=== PATIENT | female | born 1975 | race Caucasian/White ===

== ENCOUNTER 2017-05-14 09:52 | Outpatient (CLI) | payer BC ==
--- NOTE | 2017-05-14 11:40 | RAD ---
KUB: HISTORY: Ureteral calculi. COMPARISON: 05/03/2017 FINDINGS: A single view of the abdomen shows a nonspecific, nonobstructive bowel gas pattern. There is a stab le calcification, measuring 6 to 7 mm in size, along the course of the left ureter. No obvious calc ification is projected over either renal shadow. Phleboliths are seen in the pelvis. IMPRESSION: Stable left ureteral calcification. POS: [facility]
== END 2017-05-14 09:53 | disposition home or self-care (01) ==
LOC: RAD 09:52
PROVIDERS: ATTEND Urology
DX: N20.1 Calculus of ureter (principal); N28.89 Other specified disorders of kidney and ureter
CPT/HCPCS: 74000; 80048; 85027; 85610; 85730; 93005; 93010

== ENCOUNTER 2017-05-14 11:57 | Outpatient (CLI) | payer BC ==
[2017-05-14 13:52] LABS: Hematocrit 42.5 % (36.0-47.0); Mean Platelet Volume 8.2 fL (7.4-10.4); Red Blood Cell (RBC) Count 4.74 mill/uL (4.20-5.40); White Blood Cell (WBC) Count 8.6 thou/uL (4.8-10.8)
[2017-05-14 13:56] LABS: PTT 27.2 SEC (22.9-36.1)
[2017-05-14 14:22] LABS: Anion Gap 14 mmol/L (10-20); BUN (Urea Nitrogen) 14 mg/dL (7.0-18.7); Calc. Creatinine Clearance 0 mL/min (70-130); Calcium 10.3 mg/dL (7.8-10.44); Carbon Dioxide 29 mmol/L (22-29); Chloride 98 mmol/L (98-107); Estimated GFR-MDRD 79
--- NOTE | 2017-05-16 09:05 | EKG ---
Test Reason : PREOP Blood Pressure : / mmHG Vent. Rate : 084 BPM Atrial Rate : 084 BPM P-R Int : 168 ms QRS Dur : 092 ms QT Int : 352 ms P-R-T Axes : 058 080 -22 degrees QTc Int : 415 ms Normal sinus rhythm with sinus arrhythmia T wave abnormality, consider inferior ischemia T wave abnormality, consider anterolateral ischemia Abnormal ECG When compared with ECG of 01-MAY-2017 15:17, (Unconfirmed) T wave inversion now evident in Lateral leads Confirmed by REGINA SHAFFER ([id number]) on 05/16/2017 9:05:06 AM Referred By: XIOMY Confirmed By:REGINA SHAFFER
== END 2017-05-14 11:58 | disposition home or self-care (01) ==
LOC: LABBT 11:57
PROVIDERS: ATTEND Urology
DX: Z01.818 Encounter for other preprocedural examination (principal); N20.1 Calculus of ureter
CPT/HCPCS: 80048; 85027; 85610; 85730; 93005; 93010

== ENCOUNTER 2017-05-15 10:06 | Day surgery (SDC) | payer BC ==
[2017-05-14 12:39] VITALS: BMI 28.4
[2017-05-15] MEDS ORDERED: Levofloxacin 500 mg/D5W 100 ml Premix Bag ONE (10:58)
[2017-05-15] MEDS ORDERED: Iothalamate Meglumine 60% 50 ML VIAL FS ONE (11:43)
[2017-05-15] MEDS ORDERED: Midazolam HCl 2 mg/2 ml Vial ONE ×2 (11:53→13:01)
[2017-05-15] MEDS ORDERED: Fentanyl 100 MCG/2 ML VIAL ONE ×2 (13:01→14:47)
[2017-05-15] MEDS ORDERED: Propofol 200 MG/20 ML VIAL ONE (13:22)
[2017-05-15] MEDS ORDERED: Ondansetron HCl/PF 4 MG/2 ML Vial ONE (13:22)
[2017-05-15] MEDS ORDERED: Lidocaine 1% PF 5 ML VIAL ONE (13:22)
[2017-05-15] MEDS ORDERED: Dexamethasone 20 MG/5 ML VIAL ONE (13:22)
[2017-05-15] MEDS ORDERED: Glycopyrrolate 0.2 MG/ML 5 ML SYRINGE ONE (13:22)
[2017-05-15] MEDS ORDERED: Promethazine HCl 25 MG/ML VIAL ONE (14:44)
--- NOTE | 2017-05-15 14:55 | RAD ---
RETROGRADE PYELOGRAM: History: Left ureteral calculus. FINDINGS: A total of 11 films presented for interpretation. These show a proximal left ureteral calculus. Keke l film shows stent placement. IMPRESSION: Proximal left ureteral calculus with stent placement. On the final images this stent appears to be i n good position. POS: [facility]
[2017-05-15] MEDS ORDERED: Oxybutynin Chloride 5 MG TAB ONE (15:08)
[2017-05-15] MEDS ORDERED: Phenazopyridine HCl 97.5 MG TABLET ONE ×2 (15:09)
--- NOTE | 2017-05-16 00:57 | OP ---
DATE OF OPERATION: 05/15/2017 PREOPERATIVE DIAGNOSES: 1. A 41-year-old female G2, P2 with history of large urethral caruncle, status post circumferential excision with resolution. 2. History of right ureteral calculi, status post ureteroscopy with resolution. 3. Left hydronephrosis due to 6 to 7 mm L4 ureteral stone with non-progression. POSTOPERATIVE DIAGNOSES: 1. A 41-year-old female G2, P2 with history of large urethral caruncle, status post circumferential excision with resolution. 2. History of right ureteral calculi, status post ureteroscopy with resolution. 3. Left hydronephrosis due to 6 to 7 mm L4 ureteral stone with non-progression. PROCEDURES PERFORMED: Cystoscopy, left retrograde pyelogram, balloon dilation of the distal ureter, flexible and rigid ureteroscopy and laser lithotripsy limited, 6 x 24 double-J left ureteral stent placement with distal tail in situ. SURGEON: Cinthya Hitchcock D.O. ANESTHESIA: General. COMPLICATIONS: None apparent. DISPOSITION: To the recovery room in stable condition. INTRAOPERATIVE FINDINGS: 1. Resolution of urethral caruncle, status post excision. 2. High grade obstruction of the left kidney secondary to impacted, embedded left proximal ureteral calculi with mucosal overgrowth. INDICATIONS FOR THE PROCEDURE AND HISTORY: A 41-year-old female G2, P2, who was initially presented for evaluation for urethral caruncle. She subsequently underwent circumferential excision of the urethral caruncle with resolution. She previously presented also with right symptomatic ureteral calculi, which has resolved with laser lithotripsy basket extraction in 10/2016. She presented for history of intermittent left flank pain and found to have a left proximal ureteral calculi, previously seen as lower pole stone with distal migration. The patient was observed for medical expulsion therapy; however, due to non-progression desire to proceed with uteroscopy and laser lithotripsy. Risks and complications including, but not limited to, bleeding, pain, infection, injury to adjacent organs, ureteral bladder injury, stricture formation, possible sepsis reviewed. She was informed regarding alternative options such as ESWL; however, desired more definitive procedure and desired to proceed with uteroscopy and laser lithotripsy. Risks and complications as above discussed with the patient. DESCRIPTION OF THE PROCEDURE: After an informed consent was signed, the patient was taken to the operating room, placed in a dorsal lithotomy position with the genital area prepped and draped in the usual surgical sterile fashion. Preoperative KUB demonstrates again a dense radiopaque stone seen at the level of L4 transverse process 6 to 7 mm in size. The patient underwent general anesthesia. Bilateral TRESA hose, SCDs, and broad-spectrum antibiotics were provided. A 21-Kittitian cystoscope was utilized for cystoscopy. Inspection of the meatus demonstrates resolution of the urethral caruncle. The bladder was grossly unremarkable. The UOs were in normal orthotopic position. A 5- Kittitian open-ended catheter was utilized to perform a retrograde pyelogram, which demonstrated high grade obstruction at the left collecting system due to a proximal ureteral stone. The contrast was difficult to opacify proximal to the stone demonstrating a dilated collecting system. I attempted to a pass a 0.38 sensor wire which would not pass, we subsequently transition to a 0.38 and 0.35 angled Glidewire, which we had difficulty passing. I subsequently then utilized a 1:1 solution of viscous lidocaine and contrast opacifying the ureter for further lubrication. We were able to subsequently negotiate a 0.35 Glidewire into the left upper pole. We subsequently passed an open-ended catheter via the Glidewire, and there was a high grade obstruction and we were able to pass the open-ended catheter; however, there was resistance. We did passed the open-ended catheter atraumatically to the left upper pole and subsequent pyelogram was again repeated and demonstrating proper placement opacifying a hydronephrotic collecting system. Wire was then switched to a 0.35 sensor wire and the open-ended catheter was then removed. We dilated the left distal intramural ureter with a [employer] 4 cm 12-Kittitian balloon. Subsequently, I was able to pass the rigid ureteroscope to the level of the stone. I was able to visualize the stone, there was significant mucosal overgrowth. With the rigid ureteroscope, the angle was suboptimal for me to safely engage the stone with the laser fiber. Therefore, I passed a 0.35 Super Stiff wire under direct visualization via rigid ureteroscope next to the safety wire and able to pass the working wire to the level of left upper pole. With the second wire in place, 11/13 Kittitian x 28 cm navigator was passed; however, this would only pass to the distal ureter, I did not forcibly engage. As it would not pass further than the distal ureter, we left this in situ and pass the flexible ureteroscope to see if we could engage the stone for laser lithotripsy via a flexible ureteroscope. I was able to see the stone and using a 200 micron laser fiber attempted to laser fiber the laser lithotripsy of the stone. Although, the stone was able to be approached in some areas where the stone was able to be visualized without mucosal overgrowth, it was difficult to engage a laser fiber for direct contact due to mucosal overgrowth. As such as it is a suboptimal engagement of the laser fiber to perform lithotripsy given mucosal overgrowth, the procedure was terminated. A 6 x 26 double-J ureteral stent was able to be passed. There was some resistance at the level of the stone; however, able to be passed atraumatically with proper placement. The proximal coil was in the left upper pole with adequate redundancy in the bladder. She tolerated the procedure well and bladder was completely emptied. She will follow up with me this Saturday at 8 a.m. to discuss stage ureteroscopy and laser lithotripsy. Given degree of obstruction, mucosal overgrowth would prefer ureteral stent to remain in situ for minimum 2 weeks for stage uteroscopy and laser lithotripsy. She is to resume her home medication including baby aspirin. She is on Levsin for other medical issues, therefore, antispasmodics for ureteral stent was not provided. [place] 5/325, #50 refill, Azo [id number], Colace p.r.n., ciprofloxacin for course of 5 days was provided. She will return to clinic this Saturday at 8 a.m. to reschedule ureteroscopy stage. ARGELIA
== END 2017-05-15 16:55 | disposition home or self-care (01) ==
LOC: SDC 10:06
PROVIDERS: ATTEND Urology
PROC: 0T778DZ Dilation of Left Ureter with Intraluminal Device, Via Natural or Artificial Opening Endoscopic (ICD-10-PCS; principal; 2017-05-15)
PROC: 0TF78ZZ Fragmentation in Left Ureter, Via Natural or Artificial Opening Endoscopic (ICD-10-PCS; principal; 2017-05-15)
DX: N20.1 Calculus of ureter (principal); F31.9 Bipolar disorder, unspecified; F20.9 Schizophrenia, unspecified; I10 Essential (primary) hypertension; H91.90 Unspecified hearing loss, unspecified ear; K90.0 Celiac disease; E11.9 Type 2 diabetes mellitus without complications; E66.9 Obesity, unspecified; Z68.28 Body mass index [BMI] 28.0-28.9, adult; Z88.8 Allergy status to other drugs, medicaments and biological substances; Z79.84 Long term (current) use of oral hypoglycemic drugs; Z79.82 Long term (current) use of aspirin; Z90.710 Acquired absence of both cervix and uterus; Z90.89 Acquired absence of other organs; Z95.0 Presence of cardiac pacemaker; Z79.899 Other long term (current) drug therapy; Z98.890 Other specified postprocedural states; Z87.442 Personal history of urinary calculi; Z86.73 Personal history of transient ischemic attack (TIA), and cerebral infarction without residual deficits; Z83.3 Family history of diabetes mellitus; Z82.49 Family history of ischemic heart disease and other diseases of the circulatory system; Z87.891 Personal history of nicotine dependence
CPT/HCPCS: 74420; 96374; C1758; C1769; J1100; J1956; J2001; J2250; J2405; J2550; J2704; J3010; Q9961

== ENCOUNTER 2017-05-17 09:04 | Outpatient (CLI) | payer BC ==
[2017-05-17 10:10] LABS: Hematocrit 40.1 % (36.0-47.0); Mean Platelet Volume 7.8 fL (7.4-10.4); Red Blood Cell (RBC) Count 4.43 mill/uL (4.20-5.40); White Blood Cell (WBC) Count 6.9 thou/uL (4.8-10.8)
[2017-05-17 10:19] LABS: PTT 27.1 SEC (22.9-36.1); Prothrombin Time 14.2 SEC (12.0-14.7)
[2017-05-17 10:34] LABS: Anion Gap 13 mmol/L (10-20); BUN (Urea Nitrogen) 9 mg/dL (7.0-18.7); Calc. Creatinine Clearance 0 mL/min (70-130); Carbon Dioxide 31 mmol/L (22-29); Chloride 101 mmol/L (98-107); Estimated GFR-MDRD Greater than 90
[2017-05-17 14:09] LABS: Bilirubin Unable to Interpret (Negative); Blood, Urine Unable to Interpret (Negative); Glucose, Urine (Dipstick) Unable to Interpret mg/dL (Negative); Ketone, Urine Unable to Interpret mg/dL (Negative); Nitrite Unable to Interpret (Negative); Protein, Urine (Dipstick) > or equal to 300 mg/dL (Neg-Trace); Urobilinogen UNABLE TO INTERPRET mg/dL (0.2-1.0)
[2017-05-17 14:13] LABS: Bacteria/HPF 1+ HPF (None Seen); Hyaline Casts/LPF NONE SEEN LPF (0-3 Hyaline); RBC/HPF GREATER THAN 50-TNTC HPF (0-3); Squamous Epithelial 0-3 HPF (0-3); Transitional Epithelial 0-3 HPF (0-3)
== END 2017-05-17 09:05 | disposition home or self-care (01) ==
LOC: LABBT 09:04
PROVIDERS: ATTEND Urology
DX: Z01.812 Encounter for preprocedural laboratory examination (principal); N20.1 Calculus of ureter; N13.30 Unspecified hydronephrosis
CPT/HCPCS: 80048; 81001; 85027; 85610; 85730; 87086

== ENCOUNTER 2017-05-29 06:13 | Day surgery (SDC) | payer BC ==
[2017-05-17 09:35] VITALS: BMI 28.4
[2017-05-29] MEDS ORDERED: Levofloxacin 500 mg/D5W 100 ml Premix Bag ONE (06:53)
[2017-05-29] MEDS ORDERED: cefTRIAXone\\ROCEPHIN 1 GM VIAL ONE (06:53)
[2017-05-29] MEDS ORDERED: Sodium Chloride 0.9% 100 ML ONE (06:54)
[2017-05-29] MEDS ORDERED: Iothalamate Meglumine 60% 50 ML VIAL FS ONE (07:15)
[2017-05-29] MEDS ORDERED: Midazolam HCl 2 mg/2 ml Vial ONE ×2 (08:18→10:29)
--- NOTE | 2017-05-29 09:33 | RAD ---
KUB: INDICATION: Preprocedure examination with a history of ureteral stones. FINDINGS: The 6 mm stone previously seen at the L4 transverse process level is not appreciably changed in posi tion. There is a double J left ureteral stent in place. Phleboliths within the lower left hemipelv is are stable. There is a mild amount of retained stool within the colon. No acute osseous abnorma lity is evident. IMPRESSION: 1. Stable left ureteral stone seen at the L4 transverse process. 2. Left ureteral stone projecting in the expected position. POS: [facility]
[2017-05-29] MEDS ORDERED: Fentanyl 250 MCG/5 ML VIAL ONE (10:29)
[2017-05-29] MEDS ORDERED: Lidocaine 1% PF 5 ML VIAL ONE (10:38)
[2017-05-29] MEDS ORDERED: Propofol 200 MG/20 ML VIAL ONE (10:38)
[2017-05-29] MEDS ORDERED: Glycopyrrolate 0.2 MG/ML 5 ML SYRINGE ONE (10:38)
[2017-05-29] MEDS ORDERED: Phenazopyridine HCl 97.5 MG TABLET ONE (11:43)
[2017-05-29] MEDS ORDERED: Oxybutynin Chloride 5 MG TAB ONE (11:43)
[2017-05-29] MEDS ORDERED: Fentanyl 100 MCG/2 ML VIAL ONE ×2 (11:52→12:11)
[2017-05-29] MEDS ORDERED: Promethazine HCl 25 MG/ML VIAL ONE (12:56)
--- NOTE | 2017-05-29 13:22 | RAD ---
RETROGRADE IVP: Two submitted images from a retrograde IVP. Comparison: KUB, 05-29-17 at 6:54 a.m. FINDINGS: Since the comparison examination there has been interval removal of the left ureteral stent. Previou sly seen left ureteral stone is no longer identified. Final submitted image demonstrates left ureter al stent repositioned in the region of the left renal collecting system. The stent projects in the e xpected position. IMPRESSION: Removal of left ureteral stone and replacement of the left ureteral stent. POS: [facility]
--- NOTE | 2017-05-30 11:54 | OP ---
DATE OF PROCEDURE: 05/29/2017 PREOPERATIVE DIAGNOSES: 1. A 41-year-old female with history of left proximal ureteral stone 7-8 mm at the level of L4 ureter, status post stent. 2. History of left impacted ureteral stone with mucosal overgrowth. POSTOPERATIVE DIAGNOSES: 1. A 41-year-old female with history of left proximal ureteral stone 7-8 mm at the level of L4 ureter, status post stent. 2. History of left impacted ureteral stone with mucosal overgrowth. PROCEDURES PERFORMED: Cystoscopy, left retrograde pyelogram, 6 x 24 double-J ureteral stent exchange with dangler taped to the pubic symphysis, rigid ureteroscopy, laser lithotripsy, basket extraction of stone fragments. ANESTHESIA: General. COMPLICATIONS: None apparent. DISPOSITION: To the recovery room in stable condition. SPECIMEN: Stone for chemical analysis. INDICATIONS FOR THE PROCEDURE AND HISTORY: Ms. Lucinda Leslie is a 41-year-old female, who is well known to me as she had a large urethral caruncle that was excised with resolution. She presented to my office with left flank pain, with microscopic hematuria, prior history of left renal calculi had migrated to the level of L4 ureter. Patient had non-progression of stone on medical expulsion therapy. Therefore, she underwent cystoscopy, retrograde stent placement. Previously, I was able to visualize the stone at the level of L4; however, limited laser lithotripsy was performed as the stone was impacted with mucosal overgrowth. She presents today for staged ureteroscopy, laser lithotripsy. Risks and complications of the procedure was reviewed with her in detail including, but not limited to bleeding, pain, infection, injury to adjacent organs, urosepsis, stricture formation, possible further staged intervention, all questions were answered to her satisfaction, and she desired to proceed. DESCRIPTION OF THE PROCEDURE: After an informed consent was signed, the patient was taken to the operating room, placed in a dorsal lithotomy position with the genital area prepped and draped in the usual surgical sterile fashion. A 21-Indonesian cystoscope was utilized for cystoscopy. Bladder was entered. The previously placed ureteral stent was removed to the level of the meatus and a 0.35 Sensor wire passed to the left upper pole without difficulty. At this time, we passed a rigid ureteroscope under direct visualization. As her ureter is now passively dilated, I was able to easily engage the stone. With the indwelling ureteral stent, there has been significant improvement of the inflammatory component. The stone did appear to be embedded in the mucosal lining; however, we were able to laser it free atraumatically using 365 micron laser fiber at this setting. The stone appeared very dense, however, we were able to successfully laser lithotripsy the stone, and fragments were retrieved atraumatically. At the end of the procedure, she was rendered stone free endoscopically. There was no evidence of ureteral mucosa perforation or trauma. She tolerated the procedure well. The distal ureter was surveyed for stone nidus, which I did not appreciate. A 6 X 26 double-J ureteral stent was then passed over the guidewire. The guidewire was then subsequently removed with proper placement of stent on fluoroscopy and on direct visualization. She will follow up with me next for stent pull on dangler as there is endoscopic clearance. ARGELIA
== END 2017-05-29 14:00 | disposition home or self-care (01) ==
LOC: SDC 06:13
PROVIDERS: ATTEND Urology
PROC: 0TF78ZZ Fragmentation in Left Ureter, Via Natural or Artificial Opening Endoscopic (ICD-10-PCS; principal; 2017-05-29)
DX: N20.1 Calculus of ureter (principal); F31.9 Bipolar disorder, unspecified; F20.9 Schizophrenia, unspecified; F44.81 Dissociative identity disorder; G47.00 Insomnia, unspecified; E66.9 Obesity, unspecified; I10 Essential (primary) hypertension; H91.90 Unspecified hearing loss, unspecified ear; G89.29 Other chronic pain; K90.0 Celiac disease; I69.354 Hemiplegia and hemiparesis following cerebral infarction affecting left non-dominant side; E11.9 Type 2 diabetes mellitus without complications; I31.3 Pericardial effusion (noninflammatory); Z68.28 Body mass index [BMI] 28.0-28.9, adult; Z79.84 Long term (current) use of oral hypoglycemic drugs; Z79.82 Long term (current) use of aspirin; Z79.899 Other long term (current) drug therapy; Z88.8 Allergy status to other drugs, medicaments and biological substances; Z78.0 Asymptomatic menopausal state; Z95.0 Presence of cardiac pacemaker; Z90.89 Acquired absence of other organs; Z90.710 Acquired absence of both cervix and uterus; Z90.722 Acquired absence of ovaries, bilateral; Z90.79 Acquired absence of other genital organ(s); Z98.890 Other specified postprocedural states; Z87.01 Personal history of pneumonia (recurrent); Z86.718 Personal history of other venous thrombosis and embolism; Z87.891 Personal history of nicotine dependence; Z83.3 Family history of diabetes mellitus; Z82.49 Family history of ischemic heart disease and other diseases of the circulatory system
CPT/HCPCS: 36416; 74000; 74420; 82365; 88300; 96374; C1758; C1769; J0696; J1956; J2001; J2250; J2270; J2550; J2704; J3010; J7050; Q9961

== ENCOUNTER 2017-08-27 13:41 | Inpatient (IN) | payer BC ==
[2017-08-27 14:33] LABS: Bilirubin Small (Negative); Blood, Urine Negative (Negative); Clarity CLEAR (Clear); Glucose, Urine (Dipstick) Negative (Negative); Leukocyte Trace (Negative); Nitrite Negative (Negative); Protein, Urine (Dipstick) Trace mg/dL (Neg-Trace); Specific Gravity, Urine 1.025 (1.002-1.036)
[2017-08-27 14:57] LABS: Bacteria/HPF Rare-Few HPF (None Seen); Hyaline Casts/LPF 0-3 HYALINE CAST LPF (0-3 Hyaline); Pathc Cast-AUWi Flag 0.27 (0-2.49); Squamous Epithelial 0-3 HPF (0-3)
[2017-08-27 15:39] LABS: #Basophils 0.1 thou/uL (0.0-0.2); #Eosinphils 0.1 thou/uL (0.0-0.7); #Lymphocytes 2.5 thou/uL (1.20-3.40); #Monocytes 0.4 thou/uL (0.11-0.59); %Eosinophils 1.8 % (0.0-10.0); %Lymphocytes 30.9 % (21.0-51.0); %Monocytes 5.4 % (0.0-10.0); %Neutrophils 60.9 % (42.0-75.0); Hemoglobin 13.3 g/dL (12.0-16.0); Mean Corpuscular HGB CONC 32.9 g/dL (32.0-36.0); Mean Corpuscular Hemoglobin 29.8 pg (27.0-31.0); Mean Corpuscular Volume 90.5 fl (81.0-99.0); Mean Platelet Volume 7.1 fL (7.4-10.4); Platelet Count 312 thou/uL (130-400); RBC Distribution Width 11.4 % (11.5-14.5); Red Blood Cell (RBC) Count 4.46 mill/uL (4.20-5.40); White Blood Cell (WBC) Count 8.2 thou/uL (4.8-10.8)
[2017-08-27 16:01] LABS: ALT (SGPT) 12 U/L (8-55); AST (SGOT) 16 U/L (5-34); Albumin 4.5 g/dL (3.5-5.0); Alkaline Phosphatase 80 U/L (40-150); Anion Gap 14 mmol/L (10-20); BUN (Urea Nitrogen) 11 mg/dL (7.0-18.7); Bilirubin, Total 0.2 mg/dL (0.2-1.2); Calc. Creatinine Clearance 0 mL/min (70-130); Calcium 10.3 mg/dL (7.8-10.44); Carbon Dioxide 28 mmol/L (22-29); Chloride 99 mmol/L (98-107); Estimated GFR-MDRD Greater than 90; Globulin 2.8 g/dL (2.4-3.5); Glucose 128 mg/dL (70-105); Lipase 33 U/L (8-78); Potassium 3.7 mmol/L (3.5-5.1); Protein, Total 7.3 g/dL (6.0-8.3); Sodium 137 mmol/L (136-145)
[2017-08-27 17:52] LABS: CKMB 0.8 ng/mL (0-6.6); Troponin I Less than 0.010 ng/mL (< 0.028)
[2017-08-27] MEDS ORDERED: Ondansetron HCl/PF 4 MG/2 ML Vial ONE (19:44)
[2017-08-27] MEDS ORDERED: Morphine 4 MG/ML VIAL ONE (19:44)
--- NOTE | 2017-08-27 20:21 | ULT ---
RIGHT UPPER QUADRANT ULTRASOUND 08/27/17 HISTORY: Right upper quadrant pain. FINDINGS: The liver demonstrates increased echogenicity consistent with fatty infiltration. No focal mass or in trahepatic ductal dilatation is seen. Multiple mobile shadowing gallstones are present without gallbl adder wall thickening or pericholecystic fluid. The common duct measures 5 mm in diameter. The pancre as is not well visualized. The right kidney is unremarkable. No free fluid is seen in Araya's pouc h. The before school babysitter reports a sonographically positive Araujo's sign. IMPRESSION: 1. Fatty liver. 2. Cholelithiasis. 3. Television Servicer reports a sonographically positive Araujo's sign. If there is high clinical suspi cion for acute cholecystitis, further evaluation with HIDA scan should be performed. POS: [facility]
[2017-08-27] MEDS ORDERED: Piperacillin/Tazobactam 4.5 GM in Sodium Chloride 0.9% 100 ML IVPB ONE (21:00)
[2017-08-28] MEDS ORDERED: Ondansetron HCl/PF 4 MG/2 ML Vial ONE ×3 (01:06→13:05)
[2017-08-28] MEDS ORDERED: Morphine 4 MG/ML VIAL ONE ×2 (01:11→12:03)
[2017-08-28] MEDS ORDERED: Sodium Chloride 0.9% 1,000 ML IV SCH (03:45)
[2017-08-28] MEDS ORDERED: Morphine 10 MG/ML CARPUJECT SLOW IVP PRN (03:45)
[2017-08-28] MEDS ORDERED: Ondansetron HCl/PF 4 MG/2 ML Vial IVP PRN (03:49)
[2017-08-28] MEDS ORDERED: Ondansetron ODT 4 MG TAB SL PRN (03:49)
[2017-08-28] MEDS ORDERED: Piperacillin/Tazobactam 4.5 GM in Sodium Chloride 0.9% 100 ML IVPB SCH ×2 (04:00→05:00)
--- NOTE | 2017-08-28 08:11 | HP ---
HISTORY OF PRESENT ILLNESS: Lucinda Leslie is a 41-year-old female with a one week history of ri ght upper quadrant pain, flank radiation, nausea and vomiting. She lives in [place]. She is marrie d. She is disabled from multiple medical problems. She was evaluated in the emergency room and note d to have ultrasound demonstrated multiple gallstones, normal bile duct caliber with a positive sonog raphic Araujo's sign. Liver function tests are normal. White count is 8, hemoglobin 13. Ultrasound demonstrated her bile duct 5 mm. The patient has had over the past years multiple CAT scans, ultras ounds and demonstrated fatty liver without gallstones, on one occasion ultrasound did not visualize t he gallbladder. The patient has sick sinus syndrome, has a pacemaker. She is followed by Dr. Nguyễn Marshall. Echo ardiogram 03/30/2016 reveals normal LV ejection fraction, mild mitral regurgitation and tricuspid reg urgitation. Cardiac catheterization 03/22/2015, Dr. Marshall, normal coronary arteries, normal LV fu nction. ALLERGIES: AMBIEN. ALCOHOL: None. TOBACCO: None. MEDICATIONS: Protonix 40 mg a day, gabapentin 300 mg 3 times a day, levothyroxine 25 mcg a day, Regl an 10 mg t.i.d., trazodone 50 mg at bedtime, venlafaxine 150 mg a day, aspirin 81 mg a day, carbamaze pine 400 mg twice a day, baclofen 10 mg t.i.d. as needed, Cosamine as needed, Phenergan as needed, la motrigine 25 mg twice a day, Trulicity 1.5 mg per 0.5 mL subcutaneous dose daily, metformin 1000 mg b .i.d., clonidine 0.1 mg as needed, simvastatin 40 mg at bedtime, lisinopril/hydrochlorothiazide 20/12 .5 daily, diclofenac 50 mg 3 times a day as needed, carvedilol 3.125 mg b.i.d. PAST MEDICAL HISTORY: Diabetes mellitus, non-insulin dependent, hypertension, elevated cholesterol, hypothyroidism, history of DVT right leg in 2013 and questionable PEs, history of stroke with right l eg weakness occurring at the time of her DVT in 2013, Cano's palsy with residual weakness, sick sinus syndrome with a pacemaker [place] [address] Marshall, normal cardiac catheterization as no monique above, normal echocardiograms as noted above, fibromyalgia. PAST SURGICAL HISTORY: Pacemaker 2014, history of tonsillectomy, history of urolithiasis 2017. Thr ee kidney stones removed. Urethral cyst removed in 2016, history of colonoscopy with polypectomy wit h premalignant changes followed Dr. Asif Torres. REVIEW OF SYSTEMS: Ten point noncontributory. PHYSICAL EXAMINATION: VITAL SIGNS: 179/100, 92, 16, 98.4 degrees, 78 kilograms. HEENT: Unremarkable. Sclerae nonicteric. Skin, nonjaundiced. Neck, axillae or groins without lymp hadenopathy, mild asymmetry of the face consistent with history of Cano's palsy. Pupils equally roun d and reactive to light. Neurologically intact. LUNGS: Clear to auscultation, no wheezing. CARDIAC: Regular rate and rhythm. Pacemaker left chest. ABDOMEN: Soft, positive Araujo's sign, tenderness in right upper quadrant. EXTREMITIES: Unremarkable. ASSESSMENT AND PLAN: Acute cholecystitis and cholelithiasis. Recommend laparoscopic video cholecyst ectomy. Risks of infection, bleeding, visceral and biliary injury and open procedure discussed. Mega wall answered. She understands the risks and benefits of the procedure and consents. Other medica l problems as noted above.
[2017-08-28] MEDS ORDERED: Ketorolac Tromethamine 30 MG/ML VIAL ONE (08:43)
[2017-08-28] MEDS ORDERED: Midazolam HCl 2 mg/2 ml Vial ONE ×3 (08:44→12:31)
[2017-08-28] MEDS ORDERED: Scopolamine 1.5 mg/72 hour Patch ONE (08:44)
[2017-08-28] MEDS ORDERED: Bupivacaine/Epinephrine 0.25% 30 ML VIAL ONE (12:28)
[2017-08-28] MEDS ORDERED: Fentanyl 100 MCG/2 ML VIAL ONE ×2 (12:31→14:14)
[2017-08-28] MEDS ORDERED: Promethazine HCl 25 MG/ML VIAL ONE ×2 (12:52→14:27)
[2017-08-28] MEDS ORDERED: Propofol 200 MG/20 ML VIAL ONE (13:05)
[2017-08-28] MEDS ORDERED: Glycopyrrolate 0.2 MG/ML 5 ML SYRINGE ONE (13:05)
[2017-08-28] MEDS ORDERED: Lidocaine 1% PF 5 ML VIAL ONE (13:05)
[2017-08-28] MEDS ORDERED: Metoprolol Tartrate 5 MG/5 ML VIAL ONE (13:05)
[2017-08-28] MEDS ORDERED: hydrALAZINE 20 MG/ML VIAL ONE (13:50)
--- NOTE | 2017-08-28 14:39 | OP ---
DATE OF PROCEDURE: 08/28/2017 PREOPERATIVE DIAGNOSES: Cholecystitis, cholelithiasis. POSTOPERATIVE DIAGNOSES: Cholecystitis, cholelithiasis. PROCEDURE: Laparoscopic video cholecystectomy. SURGEON: Dr. Art Vogel. ANESTHESIA: General. Local 0.25% Marcaine with epinephrine, 30 mL. FINDINGS: Multiple small stones, normal-appearing liver, grossly normal abdominal cavity. PROCEDURE IN DETAIL: Patient was taken to the operating room, where under general anesthesia, abdome n was prepared with chloraprep, draped in routine fashion. Local anesthetic infiltrated into skin an d subcutaneous tissue about each port site. Infraumbilical incision made and pneumoperitoneum to 15 mmHg obtained with the Veress needle, replacing it with a 5 port. Video laparoscope inserted. Remai nder of the ports placed under laparoscopic visualization. A subxiphoid incision was made at the old pericardial window scar and 11 mm port placed under laparoscopic visualization and right subcostal i ncision made mid clavicular anterior axillary lines and 5 ports placed. Fundus of gallbladder graspe d at the cephalad. Gallbladder was difficult to grasp as it was tense and distended. Infundibulum g rasped and reflected laterally. Cystic artery and duct dissected free. Critical view obtained with pericholecystic dissection, two-thirds cystic plate, cystic artery and doubly clipped, divided, and g allbladder dissected free from the liver bed obtaining good hemostasis prior to division of final per itoneal attachments. Gallbladder and contents removed and submitted to pathology. Good hemostasis o btained with cautery. Irrigant and pneumoperitoneum evacuated. All instruments removed, and all ski n incisions approximated with interrupted subdermal suture of 4-0 Monocryl. Patient tolerated the pr ocedure well.
[2017-08-28] MEDS ORDERED: HYDROcodone/Acetaminophen 5/325 mg Tablet ONE (16:12)
== END 2017-08-28 17:02 | disposition home or self-care (01) | DRG 419 ==
LOC: ERS 13:41 → ERHOLD 20:40 → SURG A 08-28 06:33
PROVIDERS: ADMIT Specialist; ATTEND Specialist
PROC: 0FT44ZZ Resection of Gallbladder, Percutaneous Endoscopic Approach (ICD-10-PCS; principal; 2017-08-28)
DX: K80.00 Calculus of gallbladder with acute cholecystitis without obstruction (principal); E03.9 Hypothyroidism, unspecified; Z95.0 Presence of cardiac pacemaker; E11.9 Type 2 diabetes mellitus without complications; I10 Essential (primary) hypertension; E78.5 Hyperlipidemia, unspecified; Z86.718 Personal history of other venous thrombosis and embolism; I69.341 Monoplegia of lower limb following cerebral infarction affecting right dominant side; M79.7 Fibromyalgia; Z86.711 Personal history of pulmonary embolism
CPT/HCPCS: 36415; 36416; 76705; 80053; 81003; 81015; 82150; 82553; 83690; 84484; 85025; 88304; 93005; 96374; J0131; J0360; J1885; J2001; J2250; J2270; J2405; J2543; J2550; J2704; J3010; J7050

== ENCOUNTER 2017-10-10 09:26 | Outpatient (CLI) | payer BC ==
[2017-10-10 10:37] LABS: Bilirubin Negative (Negative); Blood, Urine Negative (Negative); Clarity CLOUDY (Clear); Glucose, Urine (Dipstick) Negative (Negative); Leukocyte Small (Negative); Nitrite Negative (Negative); Protein, Urine (Dipstick) 30 mg/dL (Neg-Trace); Specific Gravity, Urine 1.025 (1.002-1.036); pH, Urine 7.5 (5.0-9.0)
[2017-10-10 10:41] LABS: Bacteria/HPF Rare-Few HPF (None Seen); Hyaline Casts/LPF 4-6 HYALINE CAST LPF (0-3 Hyaline); Pathc Cast-AUWi Flag 0.67 (0-2.49)
--- NOTE | 2017-10-10 10:41 | RAD ---
KUB: INDICATION: Renal calculi. COMPARISON: Prior study dated . FINDINGS: Previously seen left ureteral stent has been removed. Small phleboliths within the lower left hemipe lvis are stable. Small nonobstructing calculus involving the superior pole of the right kidney is no t well seen on the current examination due to overlying bowel gas. No suspicious calcification is ev ident. No suspicious calcification is seen along the expected course of the renal collecting systems . No acute osseous abnormality is evident. Surgical clips are present within the right upper quadra nt of the abdomen likely related to an interval cholecystectomy. IMPRESSION: 1. Interval removal of left-sided ureteral stent. No suspicious calcifications is seen along the co urse of the renal collecting system. 2. Small calcification overlying the superior pole of the right kidney on the prior examination is n ot well seen due to an overlying loop of gas-filled bowel. 3. Suspected interval cholecystectomy. POS: [facility]
[2017-10-10 10:48] LABS: Anion Gap 10 mmol/L (10-20); BUN (Urea Nitrogen) 9 mg/dL (7.0-18.7); Calc. Creatinine Clearance 0 mL/min (70-130); Calcium 9.7 mg/dL (7.8-10.44); Carbon Dioxide 31 mmol/L (22-29); Chloride 101 mmol/L (98-107); Estimated GFR-MDRD Greater than 90; Glucose 84 mg/dL (70-105); Potassium 4.2 mmol/L (3.5-5.1); Sodium 138 mmol/L (136-145); Uric Acid 2.9 mg/dL (2.6-6.0)
[2017-10-10 11:01] LABS: Crystals/HPF 1+ AMORPH PHOS HPF (Negative); RBC/HPF 0-3 HPF (0-3)
--- NOTE | 2017-10-10 12:05 | ULT ---
RENAL ULTRASOUND: HISTORY: Proteinuria. FINDINGS: Real-time images of the right and left kidneys were performed. The right kidney measures 10.5 and th e left kidney 10.3 cm in size. No signs of cyst, mass, or obstruction. Suggestion of some slight in creased echogenicity to the cortex of both kidneys which are otherwise normal in appearance. Bladder is incompletely distended but appears unremarkable. IMPRESSION: Essentially unremarkable renal ultrasound. There is perhaps some minimal increased echogenicity to t he cortex of both kidneys suggesting the possibility of some underlying medial renal parenchymal dise ase. POS: [facility]
== END 2017-10-10 09:27 | disposition home or self-care (01) ==
LOC: ULT 09:26
PROVIDERS: ATTEND Urology
DX: N20.1 Calculus of ureter (principal); N28.89 Other specified disorders of kidney and ureter; Z87.442 Personal history of urinary calculi
CPT/HCPCS: 36415; 74018; 76770; 80048; 81001; 83970; 84550; 87086

== ENCOUNTER 2017-11-14 14:42 | Outpatient (CLI) | payer BC ==
--- NOTE | 2017-11-14 15:50 | RAD ---
FRONTAL AND LATERAL IMAGING OF THE CHEST: Date: 11-14-17 Comparison: 03-28-16 History: Chest pain. FINDINGS: Dual-lead transvenous pacemaking device present, stable. No pneumothorax, pleural fluid, focal consol idation or alveolar edema. Clips in the right upper quadrant suggest prior cholecystectomy. Mild mid thoracic spine degenerative change. IMPRESSION: No acute findings. POS: [facility]
== END 2017-11-14 14:43 | disposition home or self-care (01) ==
LOC: RAD-FRANK 14:42
PROVIDERS: ATTEND Nurse Practitioner Family
DX: R07.9 Chest pain, unspecified (principal)
CPT/HCPCS: 71046

== ENCOUNTER 2017-12-02 14:23 | Outpatient (CLI) | payer BC | END 2017-12-02 14:24 | disposition home or self-care (01) | LOC: BICCT 14:23 | PROVIDERS: ATTEND Urology | DX: N20.0 Calculus of kidney (principal); R10.9 Unspecified abdominal pain; Z87.442 Personal history of urinary calculi | CPT/HCPCS: 74176 ==

== ENCOUNTER 2017-12-16 10:41 | Outpatient (CLI) | payer BC ==
[2017-12-16] MEDS ORDERED: Sodium Chloride 0.9% 10 ML ONE (11:59)
[2017-12-16] MEDS ORDERED: diphenhydrAMINE 50 MG/ML VIAL ONE (11:59)
--- NOTE | 2017-12-16 13:07 | RAD ---
IVP: HISTORY: Calculus of kidney. FINDINGS: The education technician film demonstrates no evidence of suspicious calcifications. There are postop changes of ch olecystectomy. There is symmetric enhancement of the kidneys post contrast administration. Kidneys appear normal in size, shape, position, and augmentation. There is normal contrast excretion into the pelvicalyceal systems and the ureters and urinary bladder. No hydroureteral nephrosis is seen on either side. A s mall amount of post void residual is seen in the urinary bladder. IMPRESSION: No evidence of high-grade obstruction. POS: [facility]
[2017-12-16] MEDS ORDERED: Iopamidol 300 61% 100 ML VIAL FS ONE (17:54)
== END 2017-12-16 10:42 | disposition home or self-care (01) ==
LOC: RAD 10:41
PROVIDERS: ATTEND Urology
DX: N20.0 Calculus of kidney (principal); R10.31 Right lower quadrant pain
CPT/HCPCS: 74410; J1200

== ENCOUNTER → 2017-12-17 | Day surgery (SDC) | payer BC ==
[~2017-12-17] MED LIST: Gadobenate Dimeglumine 529 MG/1 ML (20ML VIAL) ONE
--- NOTE | 2017-12-17 18:04 | MRI ---
BRAIN MRI WITH AND WITHOUT CONTRAST 12/17/17 COMPARISON: None. HISTORY: Left sided facial pain, left sided ear pain, left facial paresthesia. TECHNIQUE: Multiplanar and multisequence MR imaging of the brain is provided with and without contrast using a c ranial nerve protocol. FINDINGS: The diffusion weighted imaging demonstrates no evidence for acute infarction. Arterial flow voids at the axial level of the skull base appear unremarkable on the T2 weighted imagi ng. The regional bone marrow signal intensity is grossly unremarkable. There are a few subcentimeter foci of increased FLAIR signal in the subcortical white matter of the l eft frontal lobe, of doubtful clinical significance. No midline shift, mass effect or ventricular enl argement is seen. Thin sectioning imaging demonstrates no mass or abnormal signal intensity in the region of the cerebe llopontine angle, internal auditory canal, cochlea, vestibule, or semicircular canals on either side. There is no area of signal abnormality/abnormal enhancement associated with or along the course of t he fifth cranial nerve on either side. Postcontrast imaging demonstrates an incidentally noted develo pmental venous anomaly in the right cerebellar hemisphere. No abnormal enhancement is seen on postcon trast imaging within the brain parenchyma. IMPRESSION: No acute findings. POS: [facility]
== END ==
LOC: MRI 14:46 → EDSTATUS 15:30
PROVIDERS: ATTEND Family Medicine
DX: R51 Headache (principal); I49.5 Sick sinus syndrome; E11.9 Type 2 diabetes mellitus without complications; I10 Essential (primary) hypertension; E03.9 Hypothyroidism, unspecified; I69.341 Monoplegia of lower limb following cerebral infarction affecting right dominant side; G51.0 Bell's palsy; M79.7 Fibromyalgia; Z79.84 Long term (current) use of oral hypoglycemic drugs; Z79.82 Long term (current) use of aspirin; Z79.899 Other long term (current) drug therapy; Z88.8 Allergy status to other drugs, medicaments and biological substances; Z91.041 Radiographic dye allergy status
CPT/HCPCS: 70553; A9579

== ENCOUNTER 2017-12-26 09:38 | Outpatient (CLI) | payer BC | END 2017-12-26 09:39 | disposition home or self-care (01) | LOC: BICRAD 09:38 | PROVIDERS: ATTEND Family Medicine | DX: R10.12 Left upper quadrant pain (principal); Z90.49 Acquired absence of other specified parts of digestive tract | CPT/HCPCS: 74022 ==

== ENCOUNTER 2018-02-24 07:00 | Emergency (ER) | payer BC, MEDICARE ==
[2018-02-24 07:36] LABS: #Basophils 0.1 thou/uL (0.0-0.2); #Eosinphils 0.2 thou/uL (0.0-0.7); #Lymphocytes 1.8 thou/uL (1.20-3.40); #Monocytes 0.5 thou/uL (0.11-0.59); #Neutrophils 3.3 thou/uL (1.40-6.50); %Basophils 1.4 % (0.0-1.0); %Monocytes 7.8 % (0.0-10.0); %Neutrophils 56.9 % (42.0-75.0); Hemoglobin 12.2 g/dL (12.0-16.0); Mean Corpuscular HGB CONC 32.2 g/dL (32.0-36.0); Mean Corpuscular Hemoglobin 27.6 pg (27.0-31.0); Mean Corpuscular Volume 85.7 fL (78.0-98.0); Mean Platelet Volume 7.8 fL (7.4-10.4); Platelet Count 231 thou/uL (130-400); RBC Distribution Width 12.7 % (11.5-14.5); Red Blood Cell (RBC) Count 4.43 mill/uL (4.20-5.40); White Blood Cell (WBC) Count 5.9 thou/uL (4.8-10.8)
[2018-02-24 07:46] LABS: ALT (SGPT) 17 U/L (8-55); AST (SGOT) 18 U/L (5-34); Albumin 4.2 g/dL (3.5-5.0); Alkaline Phosphatase 108 U/L (40-150); Anion Gap 12 mmol/L (10-20); BUN (Urea Nitrogen) 10 mg/dL (7.0-18.7); Bilirubin, Total Less than 0.2 mg/dL (0.2-1.2); CK (CPK) 78 U/L (29-168); Calc. Creatinine Clearance 0 mL/min (70-130); Calcium 9.9 mg/dL (7.8-10.44); Carbon Dioxide 27 mmol/L (22-29); Chloride 104 mmol/L (98-107); Estimated GFR-MDRD Greater than 90; Globulin 2.4 g/dL (2.4-3.5); Glucose 79 mg/dL (70-105); Lipase 114 U/L (8-78); Potassium 4.8 mmol/L (3.5-5.1); Protein, Total 6.6 g/dL (6.0-8.3); Sodium 138 mmol/L (136-145)
[2018-02-24 07:50] LABS: CKMB 0.7 ng/mL (0-6.6); Troponin I Less than 0.010 ng/mL (< 0.028)
[2018-02-24] MEDS ORDERED: Promethazine HCl 25 MG/ML VIAL ONE (07:55)
--- NOTE | 2018-02-24 08:30 | RAD ---
UPRIGHT PORTABLE CHEST ONE VIEW: HISTORY: A 42-year-old female with a history of chest pain and epigastric pain for one month with pain radiati ng into her chest and down her right arm. FINDINGS: Heart size is normal. Lungs are clear. Left ICD. Monitor leads overly the chest. IMPRESSION: Left implantable cardioverter defibrillator. No acute intrathoracic disease. Stable from prior stud y. POS: [facility]
[2018-02-24] MEDS ORDERED: Mag-Al 1200 mg/1200 mg/30 ML UDCUP ONE (09:25)
[2018-02-24] MEDS ORDERED: Lidocaine Viscous Sol 2% 15 ml UD Cup ONE (09:25)
[2018-02-24] MEDS ORDERED: Pantoprazole 40 MG VIAL ONE (09:25)
--- NOTE | 2018-02-24 09:36 | RAD ---
UPRIGHT AND SUPINE AP VIEWS OF ABDOMEN: Date: 02/24/18 INDICATION: Episodic epigastric pain for 1 month, radiation into chest and down into right arm since 0350 hours t his morning. COMPARISON: CT abdomen and pelvis dated 10/26/16 and KUB dated 10/10/17. FINDINGS: No pneumoperitoneum is evident. Lung bases are clear. There is partial visualization of a pacemaker l ead overlying the right aspect of the heart base. Cholecystectomy clips are present within the right upper quadrant of the abdomen. No suspicious calcifications are evident. There are small phleboliths within the lower left hemipelvis. Bowel gas pattern is nonspecific, but without overt evidence of obs truction. Gas is present within the rectal vault with associated stool. There is mild levoscoliosis o f the lumbar spine which is stable. IMPRESSION: 1. No suspicious abnormality demonstrated. 2. Cholecystectomy. 3. No suspicious calcifications evident along the expected course of the renal collecting systems. POS: [facility]
--- NOTE | 2018-02-24 10:25 | ULT ---
RIGHT UPPER QUADRANT ULTRASOUND: Date: 02/24/18 HISTORY: Right upper quadrant pain. Patient had cholecystectomy in August 2017. FINDINGS: The liver demonstrates homogeneous echotexture without focal mass or intrahepatic ductal dilatation. The patient is post cholecystectomy. The common duct measures 3.0 mm in diameter. The pancreas is not well visualized due to overlying bowel gas. The right kidney is normal. No free fluid seen in Moriso n's pouch. IMPRESSION: Status post cholecystectomy without abnormal biliary ductal dilatation. POS: C
== END 2018-02-24 11:12 | disposition home or self-care (01) ==
LOC: ERS 07:00
DX: K29.70 Gastritis, unspecified, without bleeding (principal); E03.9 Hypothyroidism, unspecified; E11.43 Type 2 diabetes mellitus with diabetic autonomic (poly)neuropathy; K31.84 Gastroparesis; I10 Essential (primary) hypertension; I25.2 Old myocardial infarction; F31.9 Bipolar disorder, unspecified; F41.9 Anxiety disorder, unspecified; G51.0 Bell's palsy; Z87.442 Personal history of urinary calculi; Z86.73 Personal history of transient ischemic attack (TIA), and cerebral infarction without residual deficits; Z79.82 Long term (current) use of aspirin; Z79.84 Long term (current) use of oral hypoglycemic drugs; Z79.899 Other long term (current) drug therapy
CPT/HCPCS: 36415; 71045; 74019; 76705; 80053; 82553; 83690; 84484; 85025; 93005; 94760; 96365; 96375; C9113; J2550

== ENCOUNTER 2018-05-09 16:03 | Emergency (ER) | payer BC, MEDICARE ==
[2018-05-09 17:16] LABS: Bilirubin Small (Negative); Blood, Urine Negative (Negative); Clarity CLEAR (Clear); Glucose, Urine (Dipstick) Negative (Negative); Leukocyte Negative (Negative); Nitrite Negative (Negative); Protein, Urine (Dipstick) Trace mg/dL (Neg-Trace); Urobilinogen 0.2 mg/dL (0.2-1.0); pH, Urine 6.5 (5.0-9.0)
[2018-05-09 17:18] LABS: Pregnancy Test - Urine (BHCG) Negative (Negative); Pregu Control Background? CLEAR/WHITE (CLR/WHITE); Pregu Control Bar Appear? YES (CONTROL BAR)
[2018-05-09 18:26] LABS: #Basophils 0.1 thou/uL (0.0-0.2); #Eosinphils 0.1 thou/uL (0.0-0.7); #Lymphocytes 2.2 thou/uL (1.20-3.40); #Monocytes 0.4 thou/uL (0.11-0.59); #Neutrophils 3.9 thou/uL (1.40-6.50); %Basophils 1.4 % (0.0-1.0); %Eosinophils 1.9 % (0.0-10.0); %Lymphocytes 32.7 % (21.0-51.0); %Monocytes 6.3 % (0.0-10.0); %Neutrophils 57.7 % (42.0-75.0); Hemoglobin 13.8 g/dL (12.0-16.0); Mean Corpuscular HGB CONC 31.8 g/dL (32.0-36.0); Mean Corpuscular Volume 84.9 fL (78.0-98.0); Platelet Count 337 thou/uL (130-400); RBC Distribution Width 12.4 % (11.5-14.5); Red Blood Cell (RBC) Count 5.13 mill/uL (4.20-5.40); White Blood Cell (WBC) Count 6.8 thou/uL (4.8-10.8)
[2018-05-09 18:43] LABS: ALT (SGPT) 12 U/L (8-55); AST (SGOT) 21 U/L (5-34); Albumin 4.7 g/dL (3.5-5.0); Alkaline Phosphatase 113 U/L (40-150); Anion Gap 13 mmol/L (10-20); BUN (Urea Nitrogen) 9 mg/dL (7.0-18.7); Bilirubin, Total 0.3 mg/dL (0.2-1.2); Calc. Creatinine Clearance 0 mL/min (70-130); Calcium 10.4 mg/dL (7.8-10.44); Carbon Dioxide 30 mmol/L (22-29); Chloride 102 mmol/L (98-107); Estimated GFR-MDRD 81; Globulin 2.8 g/dL (2.4-3.5); Glucose 117 mg/dL (70-105); Lipase 43 U/L (8-78); Potassium 4.2 mmol/L (3.5-5.1); Protein, Total 7.5 g/dL (6.0-8.3); Sodium 141 mmol/L (136-145)
[2018-05-09] MEDS ORDERED: traMADol HCl 50 MG TAB ONE (19:26)
== END 2018-05-09 20:23 | disposition home or self-care (01) ==
LOC: ERS 16:03
DX: R10.11 Right upper quadrant pain (principal); R11.2 Nausea with vomiting, unspecified; E78.5 Hyperlipidemia, unspecified; Z86.73 Personal history of transient ischemic attack (TIA), and cerebral infarction without residual deficits; E11.9 Type 2 diabetes mellitus without complications; E03.9 Hypothyroidism, unspecified; I10 Essential (primary) hypertension; G51.0 Bell's palsy; F41.9 Anxiety disorder, unspecified; F31.9 Bipolar disorder, unspecified; Z79.899 Other long term (current) drug therapy; Z79.82 Long term (current) use of aspirin; Z79.84 Long term (current) use of oral hypoglycemic drugs
CPT/HCPCS: 36415; 80053; 81003; 81025; 83690; 85025; 99284

== ENCOUNTER 2018-05-22 11:05 | Inpatient (IN) | payer BC ==
[2018-05-22 13:33] VITALS: BMI 24.8
[2018-05-22] MEDS ORDERED: Morphine 2 MG/ML SYRINGE SLOW IVP PRN (14:30)
--- NOTE | 2018-05-22 14:31 | PDOC.FPRHP ---
- History of Present Illness Chief Complaint: Abdominal pain History of Present Illness: This is a 42 yo female with a PMH of DMII, CVA in 2014, Hx of DVTs, HTN, HLD, Hypothyroidism, Kidney stones, sick sinus syndrome s/p pacemaker, and migraines who presents as a direct admit with a CC of abdominal pain. She states that the pain has been going on for approximately a month. She reports this as an epigastric pain, with out radiation, and associated with nausea and vomiting. She reports the pain as a dull pain and is constantly a 5/10 with regular increases in the pain up to 8/10 for 2 hours at at time. She reports that the pain is made worse with eating and with movement. Nothing has relieved this pain. She states she vomits 1-3 times per day and that constant use of zofran improves the vomiting. She also reports a pain from her right flank around her side to the front. She states that this pain is relieved by norco. Pt. denies diarrhea and blood in her vomit. - Allergies/Adverse Reactions Allergies Allergy/AdvReac Type Severity Reaction Status Date / Time Iodinated Contrast- Oral and Allergy Verified 12/16/17 12:14 IV Dye zolpidem tartrate Allergy psychosis Verified 05/17/17 09:34 [From [facility]] - Home Medications Medication Instructions Recorded Confirmed Type Aspirin [Aspirin EC] 81 mg PO DAILY 03/27/16 05/22/18 History Baclofen 1 tab PO Q8HR PRN 03/27/16 05/22/18 History Gabapentin 600 mg PO DAILY 03/27/16 05/22/18 History Metoclopramide HCl [Reglan] 10 mg PO QID 03/27/16 05/22/18 History Venlafaxine HCl [Venlafaxine HCl 150 mg PO 0800,1200 03/27/16 05/22/18 History ER] carBAMazepine [Carbamazepine ER] 400 mg PO BID 03/27/16 05/22/18 History traZODone 200 mg PO HS 03/27/16 05/22/18 History Levothyroxine Sodium 125 mcg PO DAILY 04/29/16 05/22/18 History Linaclotide [Linzess] 145 mcg PO QAM 08/28/16 05/22/18 History metFORMIN HCl 1,000 mg PO BID 10/29/16 05/22/18 History HYDROcodone Bit/APAP 5/325 [[place]] 1 - 2 tab PO Q6HR PRN 11/14/16 05/22/18 History Lisinopril/Hydrochlorothiazide 1 tab PO QAM 05/01/17 05/22/18 History [Lisinopril-Hctz 20-12.5 mg Tab] lamoTRIgine [LaMICtal] 2 tab PO BID 05/01/17 05/22/18 History Dulaglutide [Trulicity] 1.5 mg SC Q7D 05/17/17 05/22/18 History Atorvastatin Calcium 40 mg PO HS 05/22/18 05/22/18 History Carvedilol [Coreg] 3.125 mg PO BID-WM 05/22/18 05/22/18 History Dexlansoprazole [Dexilant] 60 mg PO DAILY 05/22/18 05/22/18 History Ketorolac Tromethamine [Toradol] 10 mg PO Q6HR PRN 05/22/18 05/22/18 History Lidocaine 2% Viscous Solution 15 ml SSP BID PRN 05/22/18 05/22/18 History [Xylocaine 2% Viscous] Ondansetron [Ondansetron Odt] 8 mg SL TID PRN 05/22/18 05/22/18 History amLODIPine Besylate [Norvasc] 2.5 mg PO DAILY 05/22/18 05/22/18 History - History PMHx: DMII, Stroke in 2013, DVT, Sick sinus syndrome s/p pacemaker, TIA, migraines, HTN, HLD, hypothyroidism, kidney stones, peripheral neuropathy PSHx: Cholecystectomy, C section, bilateral Knee surgery, Hysterectomy FHx:Mother's side: ovarian cancer, stomach cancer, HTN, MD, Leukemia, hypothyroidism Social: Denies D/A/T - Review of Systems General: reports: weight/appetite/sleep changes (anorexia). denies: fever/ chills Eyes: denies: eye pain, vision changes ENT: denies: nasal congestion, rhinorrhea Respiratory: denies: cough, congestion, shortness of breath Cardiovascular: denies: chest pain, palpitation, edema Gastrointestinal: reports: nausea, vomiting. denies: diarrhea, constipation Genitourinary: denies: incontinence, dysuria Skin: denies: rashes, lesions Musculoskeletal: denies: pain, tenderness Neurological: denies: numbness, syncope Psychological: reports: depression. denies: anxiety - Vital signs BP: 135/98 HR: 93 RR: 12 Tmax: 98.1 Pox: 93% on RA Wt: 69.853 - Physical Exam Constitutional: NAD, awake, alert and oriented HEENT: normocephalic and atraumatic, EOMI, MMM Neck: supple, FROM Chest: no-tender to palpation, no lesions Heart: RRR, normal S1/S2, no murmurs/rubs/gallops Lungs: CTAB, no respiratory distress, good air movement Abdomen: soft, bowel sounds present, no masses/distention -Abdomen: Abdomen is tender over epigastic region without rebound. Mild CVA tenderness on the right Musculoskeletal: normal structure, ROM grossly normal -Neurological: Decreased sensation on lower extremities bilaterally. 4/5 strength in right sided, 5/5 left Skin: no rash/lesions, capillary refill <2 seconds Heme/Lymphatic: no unusual bruising or bleeding -Psychiatric: Pt. appears depressed and emotionally worn out. FMR H&P: Results - Labs Result Diagrams: 05/22/18 14:34 05/23/18 06:32 FMR H&P: A/P - Problem List (1) Kidney stone on right side Current Visit: Yes Status: Acute Code(s): N20.0 - CALCULUS OF KIDNEY (2) History of cerebrovascular accident (CVA) with residual deficit Current Visit: Yes Status: Acute Code(s): I69.30 - UNSPECIFIED SEQUELAE OF CEREBRAL INFARCTION (3) History of DVT (deep vein thrombosis) Current Visit: Yes Status: Chronic Code(s): Z86.718 - PERSONAL HISTORY OF OTHER VENOUS THROMBOSIS AND EMBOLISM (4) Sick sinus syndrome Current Visit: Yes Status: Chronic Code(s): I49.5 - SICK SINUS SYNDROME (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 Code(s): G51.0 - PHAM'S PALSY (6) TIA (transient ischemic attack) Current Visit: No Status: Chronic (7) Bipolar 1 disorder Current Visit: No Status: Chronic Code(s): F31.9 - BIPOLAR DISORDER, UNSPECIFIED (8) Depression Current Visit: No Status: Chronic Code(s): F32.9 - MAJOR DEPRESSIVE DISORDER , SINGLE EPISODE, UNSPECIFIED (9) Diabetes Current Visit: No Status: Chronic Code(s): E11.9 - TYPE 2 DIABETES MELLITUS WITHOUT COMPLICATIONS (10) Gastroparesis Current Visit: No Status: Chronic Code(s): K31.84 - GASTROPARESIS (11) HLD (hyperlipidemia) Current Visit: No Status: Chronic Code(s): E78.5 - HYPERLIPIDEMIA, UNSPECIFIED (12) Hypertension Current Visit: No Status: Chronic Code(s): I10 - ESSENTIAL (PRIMARY) HYPERTENSION (13) Hypothyroid Current Visit: No Status: Chronic Code(s): E03.9 - HYPOTHYROIDISM, UNSPECIFIED (14) Pacemaker Current Visit: No Status: Chronic Code(s): Z95.0 - PRESENCE OF CARDIAC PACEMAKER - Plan This is a 42 yo female with a PMH of DMII, CVA in 2013, Hx of DVTs, HTN, HLD, Hypothyroidism, Kidney stones, sick sinus syndrome s/p pacemaker, and migraines Epigastric pain likely 2/2 opioid induced abdominal pain vs. gastroparesis Vs. CBD obstruction -Pt. has been recently taking norco for abdominal pain. Initial labs including lipase and LFTs are negative. We are pending the results of CT abdomen pelvis and RUQ US. Pt. has PRN zofran for nausea and crystal pepcid. Pt. is NPO with meds Flank pain likely 2/2 kidney stone -Positive history. Pending CT scan and UA. Pt. is currently receiving IVFs and pain control with IV PRN morphine. DM -Continue home medications, ACHS accuchecks, SSI Sick sinus syndrome -Pt. has pacemaker. VSS at time of admission HTN -Continue home meds Hx of DVT -Lovenox Hypothyroidism -Continue home meds, TSH normal HLD -Continue home meds Hx of bipolar disorder -Continue home meds Peripheral neuropathy -Aware Code: DNR, confirmed by me. Pt. decisional at time of discussion Prophylaxis: lovenox Family: at bedside, plan discussed with him Disposition: Home in 1-2 days FMR H&P: Upper Level - Pertinent history 42 yo F direct admitted from clinic with complaint of 1 month of intractable nausea and vomiting. She she states that she can only keep down clear liquids and vomits every day when she takes in anything thicker than a shake. She Also complains of epigastric pain that is present at all times. Pain is described as deep and dull. She also complains of a RUQ electric type pain that starts in her back and radiates to her RUQ. This pain is periodic and has no exacerbating or remitting factors. Regarding her nausea she is taking zofran scheduled which helps until she eats. She denies other symptoms such as blood in the vomit, chest pain, diaphoresis, diarrhea or constipation. Medical hx significant for cholecystectomy in Sep and hx of kidney stones. See academic intern note for complete HPI, ROS, and medical history - Pertinent findings Vitals Temp 98.1 F Pulse 93 Resp 12 O2 Sat 93 on RA BP 135/98 Labs currently pending PE General A&O x4 HEENT Atraumatic normocephalic CV RRR, no murmur Chest CTA b/l Abd TTP over epigastrum, BS x4 - Plan Date/Time: 05/22/18 1430 I, Malik Song DO, have evaluated this patient and agree with findings/plan as outlined by academic intern resident. Pertinent changes/additions are listed here. Intractable nausea and vomiting - DDx includes chronic pancreatitis and choledocolithiasis - Currently pending studies include CT stone protocol, US Gallbladder, CMP, Lipase, Mag, phose, TSH, UA w/culture - Will direct further work up pending results. - Zofran and phenergan for n/v DM2 - continue home meds - low carb diet as tolerated - ACHS blood glucose CAD - home statin HTN - home meds Hypothyroid - home synthroid - TSH pending Attending Addendum - Attending Addendum Date/Time: 05/23/18 0847. Seen and examined on day of admission. I personally evaluated the patient and discussed the management with Dr. Quinones. I agree with and repeated the History, Examination, Assessment and Plan documented above with any addition or exceptions noted below. Pt with extensive medical history for 42. She has had multiple rounds of imaging and workups for abdominal pain. She is direct admitted for persistent abdominal pain, nausea, and vomiting, that is SABINA and worse after meals. She says she had an EGD 2 months ago that was normal. Her exam is unremarkable except tearfulness during our discussion and mild SABINA TTP without peritoneal signs. Labs and imaging have been reviewed. Her ddx includes pud, dyspepsia, chronic pancreatitis, gastroparesis, functional GI disorder (which she is very resistant to), and other She has minimal nephrolithiasis on the right. Her CT is otherwise relatively unremarkable. I would continue PPI, change reglan to an injectable form if malabsorption could be a potential issue, check for vitamin deficiencies as she has had a recent weight loss that is quite significant over the last 1-2 years. Concerning her weight loss she is s/p total hysterectomy and BSO years ago. She likely just needs routine screening. She has a complex cyst on her right kidney which I doubt is malignant. I think her most likely etiology is uncontrolled gastroparesis. The reservoir effect noted on her RUQ sono is common after surgery and I doubt she has sphincter of oddi dysfunction.
[2018-05-22] MEDS: Ondansetron HCl/PF 4 MG/2 ML Vial IVP PRN ×2 (14:35→20:39)
[2018-05-22 14:44] LABS: #Basophils 0.1 thou/uL (0.0-0.2); #Eosinphils 0.1 thou/uL (0.0-0.7); #Lymphocytes 1.7 thou/uL (1.20-3.40); #Monocytes 0.4 thou/uL (0.11-0.59); #Neutrophils 5.3 thou/uL (1.40-6.50); %Basophils 0.8 % (0.0-1.0); %Eosinophils 0.9 % (0.0-10.0); %Lymphocytes 22.3 % (21.0-51.0); %Monocytes 5.6 % (0.0-10.0); %Neutrophils 70.4 % (42.0-75.0); Hemoglobin 13.2 g/dL (12.0-16.0); Mean Corpuscular Hemoglobin 26.9 pg (27.0-31.0); Mean Corpuscular Volume 83.9 fL (78.0-98.0); Mean Platelet Volume 7.9 fL (7.4-10.4); Platelet Count 280 thou/uL (130-400); RBC Distribution Width 12.2 % (11.5-14.5); Red Blood Cell (RBC) Count 4.93 mill/uL (4.20-5.40); White Blood Cell (WBC) Count 7.5 thou/uL (4.8-10.8)
[2018-05-22 14:56] LABS: Bilirubin Small (Negative); Blood, Urine Negative (Negative); Clarity CLOUDY (Clear); Glucose, Urine (Dipstick) Negative (Negative); Leukocyte Small (Negative); Nitrite Negative (Negative); Protein, Urine (Dipstick) 100 mg/dL (Neg-Trace); Specific Gravity, Urine 1.031 (1.002-1.036); pH, Urine 6.5 (5.0-9.0)
[2018-05-22 14:59] LABS: Bacteria/HPF Rare-Few HPF (None Seen)
[2018-05-22 15:01] LABS: Pathc Cast-AUWi Flag 2.61 (0-2.49)
[2018-05-22 15:07] LABS: ALT (SGPT) 12 U/L (8-55); AST (SGOT) 17 U/L (5-34); Albumin 4.6 g/dL (3.5-5.0); Alkaline Phosphatase 104 U/L (40-150); Anion Gap 13 mmol/L (10-20); BUN (Urea Nitrogen) 13 mg/dL (7.0-18.7); Bilirubin, Total 0.3 mg/dL (0.2-1.2); Calc. Creatinine Clearance 112 mL/min (70-130); Calcium 9.7 mg/dL (7.8-10.44); Carbon Dioxide 25 mmol/L (22-29); Chloride 100 mmol/L (98-107); Estimated GFR-MDRD 89; Globulin 2.6 g/dL (2.4-3.5); Glucose 85 mg/dL (70-105); Lipase 35 U/L (8-78); Magnesium 2.1 mg/dL (1.6-2.6); Phosphorus 3.6 mg/dL (2.3-4.7); Potassium 3.6 mmol/L (3.5-5.1); Protein, Total 7.2 g/dL (6.0-8.3); Sodium 134 mmol/L (136-145)
[2018-05-22 15:13] LABS: RBC/HPF 0-3 HPF (0-3)
[2018-05-22 15:14] LABS: Crystals/HPF 2+ CA OXALATE HPF (Negative); Other Casts/LPF 4-6 FINELY GRAN LPF (0-3 Hyaline)
--- NOTE | 2018-05-22 16:40 | RAD ---
CHEST 1 VIEW: Date: 05/22/18 Time: 1353 hours HISTORY: Abdominal pain. FINDINGS: Comparison made with exam of 05/12/18. Left-sided pacemaker device remains in place. The heart size is normal. The lungs are well expanded w ithout focal areas of consolidation, pneumothoraces, or pleural effusions. IMPRESSION: No acute process. POS: [facility]
[2018-05-22] MEDS: Sodium Chloride 0.9% 1,000 ML IV SCH (17:16)
--- NOTE | 2018-05-22 17:39 | ULT ---
RIGHT UPPER QUADRANT ULTRASOUND: DATE: 05/22/2018. PROVIDED CLINICAL HISTORY: Nausea, vomiting, and abdominal pain. FINDINGS: Comparison is made with the study dated 02/24/18. The visualized abdominal aorta, IVC, and pancreas ap pear normal. The liver demonstrates no evidence for mass or intrahepatic biliary ductal dilatation. The common duct is prominent measuring about 1 cm. The gallbladder is not visualized, compatible wi th the provided clinical history of prior cholecystectomy. The right kidney demonstrates no hydronep hrosis or mass. IMPRESSION: Prominence of the common duct, presumably on the basis of reservoir effect from prior cholecystectomy . Correlate with concerns for biliary obstructive change. POS: [facility]
--- NOTE | 2018-05-22 18:05 | CT ---
ABDOMEN CT WITHOUT CONTRAST PELVIC CT WITHOUT CONTRAST 05/22/18 COMPARISON: 12/02/17. HISTORY: Right flank pain. FINDINGS: ABDOMEN CT: The lung bases are clear. Normal heart size. No pericardial effusion. The descending thoracic aorta a nd abdominal aorta are of normal caliber. No periaortic fat stranding. Gallbladder is surgically abse nt. No gastrohepatic, retrocrural or periportal lymphadenopathy. No mesenteric mass, lymphadenopathy, free air or free fluid. Limited evaluation of the solid organs by lack of IV contrast. Grossly, no solid organ abnormality. Alimentary canal is unremarkable. Ileocecal junction is normal. Appendix is not appreciated. No infla mmation of the cecal apex. Nonobstructive colon. Scattered fecal material in the colon is noted. Nonobstructing 3 mm calculus in the lower pole of the right kidney. Stable hyperdensity in the lower pole left kidney suggesting complex cyst. Bilaterally, no obstructive uropathy. PELVIC CT: No mass, lymphadenopathy, free air or free fluid. Uterus is surgically absent. Decompressed urinary b ladder limits evaluation for bladder calculi or bladder pathology. No lytic or blastic lesion in the osseous structures. IMPRESSION: 1. Nonobstructing calculus in the right renal collecting system. 2. Stable hyperdense complex/hemorrhagic cyst in the left kidney. 3. No evidence of obstructive uropathy. 4. Results of the exam discussed with Dr. Hitchcock, 05/22/18 at 3 p.m. Code CR POS: [facility]
[2018-05-22] MEDS ORDERED: Ondansetron ODT 8 MG TAB SL PRN (18:19)
[2018-05-22] MEDS ORDERED: Baclofen 10 MG TAB PO PRN (18:19)
[2018-05-22] MEDS ORDERED: Dulaglutide [Trulicity] 1.5 MG SC SCH (18:30)
[2018-05-22] MEDS ORDERED: Dextrose 5% in Water 1,000 ML IV PRN (19:01)
[2018-05-22] MEDS ORDERED: HumaLOG 300 UNITS/3 ML VIAL SC PRN (19:01)
[2018-05-22] MEDS ORDERED: Dextrose 50% Abboject 50 ML SYRINGE SLOW IVP PRN (19:01)
[2018-05-22] MEDS ORDERED: Ibuprofen 800 MG TAB PO PRN (19:09)
[2018-05-22] MEDS ORDERED: traMADol HCl 50 MG TAB PO PRN (19:09)
[2018-05-22] MEDS: traZODone HCl 50 MG TAB PO SCH (20:35)
[2018-05-22] MEDS: Metoclopramide HCl 10 MG TAB PO SCH (20:36)
[2018-05-22] MEDS: lamoTRIgine 25 MG TAB PO SCH (20:37)
[2018-05-22] MEDS: Atorvastatin Calcium 40 MG TAB PO SCH (20:37)
[2018-05-22] MEDS: metFORMIN 500 MG TAB PO SCH (20:40)
[2018-05-22] MEDS ORDERED: Famotidine/PF 20 mg/2ml Vial SLOW IVP SCH (21:00)
--- NOTE | 2018-05-22 21:54 | CON ---
DATE OF CONSULTATION: 05/22/2018 INPATIENT CONSULTATION REFERRING: Family Medicine Service. REASON FOR CONSULT: History of kidney stone. HISTORY OF PRESENT ILLNESS: Lucinda is a 42-year-old female G2, P2, initially presented for evaluation of a urethral caruncle, hormone replacement was contraindicated due to history of DVT. Previous physical exam demonstrated 3 cm circumferential periurethral mass, status post excision, there is no evidence of malignancy. She has been voiding well. Denies dysuria or gross hematuria. I last saw her in 11/2017 and she has a routine follow up with me in few months. She is currently admitted due to intractable epigastric right upper quadrant abdominal discomfort of unclear etiology. I did order a CT scan stone protocol upon admission, which demonstrated no evidence of hydronephrosis. There is a punctate right lower pole renal stone which has been stable since last imaging. She states that her pain presenting is atypical of her prior renal colicky discomfort. She has had workup pending by the primary service. She denies history of fever. Has had decreased oral intake due to intermittent nausea. PAST MEDICAL HISTORY: Bipolar, schizophrenia, insomnia, dissociative identity disorder, history of obesity, hypertension, postmenopausal followed by Dr. Barrera and Dr. Witt, history of gastritis, prior esophagogastroduodenoscopy [place] [address] Torres, chronic pain, celiac disease, history of TIA, CVA, history of left lower extremity weakness followed by Neurology, history of pericardial effusion , diabetes, right lower extremity deep venous thrombosis, chronic kidney disease followed by Dr. Durant. PAST SURGICAL HISTORY: Hysterectomy in 2007, tonsillectomy pacemaker in 2014, , right ureteroscopy, laser lithotripsy, stone extraction 11/05/2016, status post right stent pull, excisional removal of urethral meatal mass 10/2016 , cystoscopy, left retrograde dilation of the ureter, ureteroscopy 04/2017, 2016 ureteroscopy, laser lithotripsy, stent exchange, and subsequent stent pull 06/06/2017, laparoscopic cholecystectomy by Dr. Vogel 08/2017 FAMILY HISTORY: Positive for diabetes and hypertension. SOCIAL HISTORY: Former smoker 20 years, quit. She is . at bedside. CURRENT MEDICATIONS: Include Zofran, amlodipine, Toradol, atorvastatin, metformin, venlafaxine, baclofen, Coreg, baby aspirin, lisinopril, hydrochlorothiazide, Linzess, hydrocodone, Neurontin, Trulicity, trazodone, Lamictal, carbamazepine. ALLERGIES: IODINE ORAL and IV ZOLPIDEM.. REVIEW OF SYSTEMS: Ten point review of systems as above, otherwise noncontributory. PHYSICAL EXAMINATION: VITAL SIGNS: Stable, 93 12, 93, 135/98. GENERAL: The patient appears to be no acute distress. HEENT: Grossly unremarkable. HEART: Regular rate. LUNGS: Clear. ABDOMEN: There is no gross CVA tenderness. Most of her discomfort is in the epigastric right upper quadrant region. EXTREMITIES: No cyanosis, clubbing or edema. GENITOURINARY: Meatus is inspected demonstrating well healed urethral meatus. No significant prolapse, atrophic vaginitis noted. EXTREMITIES: No cyanosis, clubbing or edema. PERTINENT LABORATORY DATA AND IMAGING DATA: White count 7, hemoglobin 13, platelet 280. Sodium 134, potassium 3.6 and creatinine 0.72. LFTs are unremarkable. Urinalysis is contaminated, 4-6 epithelials, rare bacteria, 0-3 RBCs, small leukocytes, 100 protein, [address] abdomen and pelvis stone protocol which I reviewed myself with Dr. Nishi Lance. There is no evidence of right hydronephrosis. There is stable right punctate lower pole renal calculi, stable left hyperdense renal cyst. Upon comparing with prior CT scan, this is not significantly changed from 11/2017. I also reviewed a CAT scan dating back in 10/2016 demonstrating stable findings. Incidentally noted is stable right retroperitoneal calcification which is along the course of the gonadal vein. This is outside the ureter. IMPRESSION/PLAN: 1. Ms. Leslie is a 42-year-old female with multiple comorbidities as above, admitted for vague epigastric abdominal discomfort, right upper quadrant discomfort of unclear etiology. Medical workup in progress. 2. History of urolithiasis, status post left ureteroscopy, laser lithotripsy. Staging CT demonstrates stable left hyperdense cyst, right punctate renal lithiasis which has been present for the last few CT scan not of concern. This is not causing her presenting discomfort. From a urologic perspective, the patient can be discharged when medically stable. will sign off. She may follow up with me as planned for routine visit. [facility]
[2018-05-23] MEDS: Sodium Chloride 0.9% 1,000 ML IV SCH ×2 (03:22→13:38)
[2018-05-23] MEDS: Ondansetron HCl/PF 4 MG/2 ML Vial IVP PRN (03:58)
--- NOTE | 2018-05-23 06:05 | PDOC.FM ---
- Subjective Subjective: Pt. reports she is feeling about the same. She missed a dose of zofran due to sleeping and threw up this AM. Pt. reports that the morphine did not help and that she doesn't want to take medications if she does not need to. - Objective MAR Reviewed: Yes Vital Signs & Weight: Vital Signs (12 hours) Temp Pulse Resp BP BP Pulse Ox 05/23/18 03:22 72 18 118/69 96 05/22/18 23:23 98.3 F 81 15 120/77 92 L 05/22/18 19:39 98.2 F 76 15 162/96 H 97 Weight Weight 69.853 kg I&O: 05/21/18 05/22/18 05/23/18 06:59 06:59 06:59 Intake Total 1000 Output Total 100 Balance 900 Result Diagrams: 05/22/18 14:34 05/23/18 06:32 Phys Exam - Physical Examination Mild distress HEENT: moist MMs Neck: no JVD Respiratory: no wheezing, clear to auscultation bilateral Cardiovascular: RRR, no significant murmur Gastrointestinal: positive bowel sounds Moderate tenderness in epigastric region Musculoskeletal: no edema, pulses present Neurological: moves all 4 limbs Psychiatric: A&O x 3 Dx/Plan (1) Kidney stone on right side Code(s): N20.0 - CALCULUS OF KIDNEY Status: Acute (2) History of cerebrovascular accident (CVA) with residual deficit Code(s): I69.30 - UNSPECIFIED SEQUELAE OF CEREBRAL INFARCTION Status: Acute (3) History of DVT (deep vein thrombosis) Code(s): Z86.718 - PERSONAL HISTORY OF OTHER VENOUS THROMBOSIS AND EMBOLISM Status: Chronic (4) Sick sinus syndrome Code(s): I49.5 - SICK SINUS SYNDROME Status: Chronic (5) Pham's palsy Code(s): G51.0 - PHAM'S PALSY Status: Chronic (6) TIA (transient ischemic attack) Status: Chronic (7) Bipolar 1 disorder Code(s): F31.9 - BIPOLAR DISORDER, UNSPECIFIED Status: Chronic (8) Depression Code(s): F32.9 - MAJOR DEPRESSIVE DISORDER, SINGLE EPISODE, UNSPECIFIED Status : Chronic (9) Diabetes Code(s): E11.9 - TYPE 2 DIABETES MELLITUS WITHOUT COMPLICATIONS Status: Chronic (10) Gastroparesis Code(s): K31.84 - GASTROPARESIS Status: Chronic (11) HLD (hyperlipidemia) Code(s): E78.5 - HYPERLIPIDEMIA, UNSPECIFIED Status: Chronic (12) Hypertension Code(s): I10 - ESSENTIAL (PRIMARY) HYPERTENSION Status: Chronic (13) Hypothyroid Code(s): E03.9 - HYPOTHYROIDISM, UNSPECIFIED Status: Chronic (14) Pacemaker Code(s): Z95.0 - PRESENCE OF CARDIAC PACEMAKER Status: Chronic - Plan Plan: This is a 42 yo female with a PMH of DMII, CVA in 2013, Hx of DVTs, HTN, HLD, Hypothyroidism, Kidney stones, sick sinus syndrome s/p pacemaker, and migraines Epigastric pain likely 2/2 opioid induced abdominal pain vs. gastroparesis Vs. CBD obstruction -Pt. has been recently taking norco for abdominal pain. Initial labs including lipase and LFTs are negative. CT abdomen shows nonbostructing stone inthe right renal collecting system, stable hyperdense complex/hemorrhagic cyst in left kidney, no evidence of obstructive uropathy. RUQ US shows prominence of the CBD , presumably on the basis of reservoir effect from prior cholecystecomy. Flank pain likely 2/2 kidney stone -Positive history. Pending CT scan and UA. Pt. is currently receiving IVFs and pain control with IV PRN morphine. DM -Continue home medications, ACHS accuchecks, SSI Sick sinus syndrome -Pt. has pacemaker. VSS at time of admission. CXR confirms pacemaker location and no acute processes. HTN -Continue home meds Hx of DVT -Lovenox Hypothyroidism -Continue home meds, TSH normal HLD -Continue home meds Hx of bipolar disorder -Continue home meds Peripheral neuropathy -Aware Code: DNR, confirmed by me. Pt. decisional at time of discussion Prophylaxis: lovenox Family: none at bedside Disposition: Home in 1-2 days
[2018-05-23] MEDS ORDERED: Acetaminophen 500 MG TAB PO SCH ×2 (06:15→06:45)
[2018-05-23 07:14] LABS: ALT (SGPT) 12 U/L (8-55); AST (SGOT) 19 U/L (5-34); Albumin 3.9 g/dL (3.5-5.0); Alkaline Phosphatase 90 U/L (40-150); Anion Gap 11 mmol/L (10-20); BUN (Urea Nitrogen) 11 mg/dL (7.0-18.7); Bilirubin, Total 0.3 mg/dL (0.2-1.2); Calc. Creatinine Clearance 122 mL/min (70-130); Calcium 9.2 mg/dL (7.8-10.44); Carbon Dioxide 26 mmol/L (22-29); Chloride 106 mmol/L (98-107); Estimated GFR-MDRD Greater than 90; Globulin 2.2 g/dL (2.4-3.5); Glucose 79 mg/dL (70-105); Potassium 4.4 mmol/L (3.5-5.1); Protein, Total 6.1 g/dL (6.0-8.3); Sodium 139 mmol/L (136-145)
[2018-05-23] MEDS ORDERED: Non-Formulary Item 1 EACH (Dexlansoprazole [Dexilant] 60 MG) PO SCH (09:00)
[2018-05-23] MEDS ORDERED: Linaclotide [Linzess] 145 MCG PO SCH (09:00)
[2018-05-23] MEDS: Morphine 4 MG/ML VIAL SLOW IVP PRN ×4 (10:09→23:11)
[2018-05-23] MEDS ORDERED: Ondansetron HCl/PF 4 MG/2 ML Vial IVP SCH ×2 (10:30→13:00)
[2018-05-23] MEDS: Lisinopril/Hydrochlorothiazide 20 mg/12.5 mg Tablet PO SCH (11:04)
[2018-05-23] MEDS: Gabapentin 300 MG CAP PO SCH (11:05)
[2018-05-23] MEDS: Venlafaxine HCl XR 150 MG CAP PO SCH ×2 (11:05→12:55)
[2018-05-23] MEDS: Levothyroxine Sodium 125 MCG TAB PO SCH (11:06)
[2018-05-23] MEDS: lamoTRIgine 25 MG TAB PO SCH ×2 (11:06→20:47)
[2018-05-23] MEDS: Amlodipine 5 MG TAB PO SCH (11:07)
[2018-05-23] MEDS: Carvedilol 3.125 MG TAB PO SCH ×2 (11:07→17:21)
[2018-05-23] MEDS: Metoclopramide HCl 10 MG TAB PO SCH ×4 (11:08→20:48)
[2018-05-23] MEDS: Aspirin 81 mg Enteric Coated Tablet PO SCH (11:08)
[2018-05-23] MEDS: metFORMIN 500 MG TAB PO SCH ×2 (11:45→20:49)
[2018-05-23] MEDS: Acetaminophen 500 MG TAB PO SCH ×3 (13:45→23:17)
--- NOTE | 2018-05-23 15:14 | ADD-PRG ---
ADDENDUM DATE OF SERVICE: 05/23/2018 This is an addendum to the note of Dr. Manolo Quinones. Ms. Leslie has a long history of epigastric pain and also history of gastroparesis. She has been snow ving some intractable nausea and vomiting, was admitted from the clinic yesterday. She would like to discuss with GI. I did advise that promotes gastric emptying. She is already on Reglan. We will c onsult GI to discuss this with her. In the event, she looks awake, alert, in no distress this kanchan weinberg. LABORATORY DATA: Her sodium is 139, potassium 4.4, chloride 106, bicarbonate 26, BUN 11, creatinine 0.66. Her liver enzymes are normal. PHYSICAL EXAMINATION: VITAL SIGNS: She is slightly hypertensive 152/89 although earlier yesterday it was 120/77. She is a febrile and has a 97% room air O2 sat. PLAN: We will consult GI to discuss her gastroparesis and further treatment options.
[2018-05-23] MEDS: Ondansetron HCl/PF 4 MG/2 ML Vial IVP SCH ×3 (15:30→23:15)
[2018-05-23] MEDS: traZODone HCl 50 MG TAB PO SCH (20:46)
[2018-05-23] MEDS: Atorvastatin Calcium 40 MG TAB PO SCH (20:48)
[2018-05-23] MEDS: Dextrose 5 % And 0.9 % NaCl 1,000 ML IV SCH (22:04)
[2018-05-24] MEDS: Ondansetron HCl/PF 4 MG/2 ML Vial IVP SCH ×5 (03:24→17:38)
[2018-05-24] MEDS: Morphine 4 MG/ML VIAL SLOW IVP PRN ×2 (05:45→15:41)
[2018-05-24] MEDS: Levothyroxine Sodium 125 MCG TAB PO SCH (05:46)
[2018-05-24] MEDS: Acetaminophen 500 MG TAB PO SCH ×4 (05:46→21:02)
[2018-05-24] MEDS: Carvedilol 3.125 MG TAB PO SCH ×2 (05:46→17:36)
--- NOTE | 2018-05-24 06:33 | PDOC.FM ---
- Subjective Subjective: Pt reports continued nausea, vomiting has improved overnight but pt is still unable to tolerate PO medications. Epigastric pain remains unchanged. No other complaints at this time. No fever/chills, no cp/palpitations, nause/vomiting, no sob/cough - Objective MAR Reviewed: Yes Vital Signs & Weight: Vital Signs (12 hours) Temp Pulse Resp BP Pulse Ox 05/24/18 03:24 98.2 F 74 12 98/56 L 97 05/23/18 23:07 97.8 F 81 12 102/65 97 05/23/18 19:32 98.1 F 76 12 123/79 97 Weight Weight 69.853 kg I&O: 05/22/18 05/23/18 05/24/18 06:59 06:59 06:59 Intake Total 1000 2274 Output Total 100 1700 Balance 900 574 Result Diagrams: 05/22/18 14:34 05/23/18 06:32 Phys Exam - Physical Examination Constitutional: NAD HEENT: moist MMs, sclera anicteric Neck: no nodes, supple Respiratory: no wheezing, clear to auscultation bilateral Cardiovascular: RRR, no significant murmur Gastrointestinal: soft tenderness to palpation of epigastrtic area Musculoskeletal: no edema, pulses present Neurological: normal sensation, moves all 4 limbs Lymphatic: no nodes Psychiatric: normal affect, A&O x 3 Skin: no rash, normal turgor Dx/Plan (1) Kidney stone on right side Code(s): N20.0 - CALCULUS OF KIDNEY Status: Acute (2) Depression Code(s): F32.9 - MAJOR DEPRESSIVE DISORDER, SINGLE EPISODE, UNSPECIFIED Status : Chronic (3) Diabetes Code(s): E11.9 - TYPE 2 DIABETES MELLITUS WITHOUT COMPLICATIONS Status: Chronic (4) Gastroparesis Code(s): K31.84 - GASTROPARESIS Status: Chronic - Plan Plan: 42 yo female with a PMH of DMII, CVA in 2013, Hx of DVTs, HTN, HLD, Hypothyroidism, Kidney stones, sick sinus syndrome s/p pacemaker, and migraines Epigastric pain likely 2/2 opioid induced abdominal pain vs. gastroparesis A- Pt. has been recently taking norco for abdominal pain. Initial labs including lipase and LFTs are negative. CT abdomen shows nonbostructing stone inthe right renal collecting system, stable hyperdense complex/hemorrhagic cyst in left kidney, no evidence of obstructive uropathy. RUQ US shows prominence of the CBD, presumably on the basis of reservoir effect from prior cholecystecomy. P- EGD per GI today, f/u on findings - continue IV pain mgmt as pt cannot tolerate PO - monitor pain and vitals - likely discharge tomorrow with PO intake Flank pain likely 2/2 kidney stone -Positive history. Current pain control with IV PRN morphine. Urology has signed off and deemed pt safe for DC from their perspective -will discharge when ready DM -Continue home medications, ACHS accuchecks, SSI Sick sinus syndrome -Pt. has pacemaker. VSS at time of admission. CXR confirms pacemaker location and no acute processes. HTN -Continue home meds Hx of DVT -Lovenox Hypothyroidism -Continue home meds, TSH normal HLD -Continue home meds Hx of bipolar disorder -Continue home meds Peripheral neuropathy -MD Aware Code: DNR Prophylaxis: lovenox Disposition: Home tomorrow likely
[2018-05-24] MEDS: metFORMIN 500 MG TAB PO SCH ×2 (08:29→17:37)
[2018-05-24] MEDS: Dextrose 5 % And 0.9 % NaCl 1,000 ML IV SCH ×3 (09:02→21:08)
[2018-05-24] MEDS: Amlodipine 5 MG TAB PO SCH (10:31)
[2018-05-24] MEDS: Venlafaxine HCl XR 150 MG CAP PO SCH ×2 (10:31→14:20)
[2018-05-24] MEDS: Aspirin 81 mg Enteric Coated Tablet PO SCH (10:32)
[2018-05-24] MEDS: lamoTRIgine 25 MG TAB PO SCH ×2 (10:35→21:01)
[2018-05-24] MEDS: Gabapentin 300 MG CAP PO SCH (10:35)
[2018-05-24] MEDS: Metoclopramide HCl 10 MG TAB PO SCH ×4 (10:45→21:02)
[2018-05-24] MEDS: Lisinopril/Hydrochlorothiazide 20 mg/12.5 mg Tablet PO SCH (10:45)
[2018-05-24 12:22] LABS: Hemoglobin A1c 4.9 % (4.0-6.0)
[2018-05-24] MEDS ORDERED: Promethazine HCl 25 MG/ML VIAL IM PRN (12:36)
[2018-05-24] MEDS ORDERED: Promethazine HCl 25 MG/ML VIAL SLOW IVP PRN (12:36)
[2018-05-24] MEDS ORDERED: Ondansetron HCl/PF 4 MG/2 ML Vial IVP PRN (12:36)
[2018-05-24] MEDS ORDERED: Lidocaine 1% PF 5 ML VIAL ONE (13:22)
[2018-05-24] MEDS ORDERED: Metoclopramide HCl 10 MG/2 ML VIAL ONE (13:22)
[2018-05-24] MEDS ORDERED: PROPOFOL 200 MG/20 ML VIAL ONE (13:22)
[2018-05-24] MEDS ORDERED: Ondansetron HCl/PF 4 MG/2 ML Vial ONE (13:22)
--- NOTE | 2018-05-24 18:44 | OP ---
DATE OF SURGERY: 05/24/2018 PREOPERATIVE DIAGNOSES: Abdominal pain, nausea, and vomiting. POSTOPERATIVE DIAGNOSES: 1. Normal esophagus. 2. Normal duodenum. 3. Antral gastritis. OPERATIVE PROCEDURE: Esophagogastroduodenoscopy with biopsy. PROCEDURE NOTE: The patient was placed on her left lateral position and was given sedation by Anesth esia Department. A Pentax video gastroscope under direct vision was passed down the oropharynx, past the GE junction, into the stomach and subsequently into descending duodenum. The esophageal mucosa appears normal. The GE junction, no pathology seen. Retroflexion failed to show pathology in the fu ndus or cardia. The gastric body, no pathology seen. The gastric antrum showed erythematous mucosa. The findings were suggestive of gastritis. Biopsy was obtained from the area. The duodenal bulb, descending duodenum, no pathology seen. The stomach was decompressed and the scope removed. RECOMMENDATIONS: 1. Discontinue n.p.o. 2. Diet: As tolerated. 3. Obtain a gastric emptying study in the near future.
[2018-05-24] MEDS ORDERED: diphenhydrAMINE 50 MG/ML VIAL IVP SCH (20:45)
[2018-05-24] MEDS: traZODone HCl 50 MG TAB PO SCH (21:02)
[2018-05-24] MEDS: Atorvastatin Calcium 40 MG TAB PO SCH (21:02)
[2018-05-25] MEDS: Ondansetron HCl/PF 4 MG/2 ML Vial IVP SCH ×5 (00:19→16:14)
[2018-05-25] MEDS: Acetaminophen 500 MG TAB PO SCH ×2 (06:14→11:55)
[2018-05-25] MEDS: Levothyroxine Sodium 125 MCG TAB PO SCH (06:14)
[2018-05-25] MEDS: Dextrose 5 % And 0.9 % NaCl 1,000 ML IV SCH (06:15)
--- NOTE | 2018-05-25 06:35 | PDOC.FM ---
- Subjective Subjective: Pt reports feeling well this AM and has good pain control. feels ready to advance diet. No complaints at this time. - Objective MAR Reviewed: Yes Vital Signs & Weight: Vital Signs (12 hours) Temp Pulse Resp BP Pulse Ox 05/25/18 04:00 97.7 F 73 18 122/80 94 L 05/25/18 00:00 97.8 F 69 18 127/82 96 05/24/18 20:00 97.9 F 66 18 136/85 97 Weight Weight 69.853 kg I&O: 05/23/18 05/24/18 05/25/18 06:59 06:59 06:59 Intake Total 1000 2274 2030 Output Total 100 1700 Balance 193 938 6962 Result Diagrams: 05/22/18 14:34 05/23/18 06:32 Phys Exam - Physical Examination Constitutional: NAD HEENT: moist MMs, sclera anicteric Neck: no nodes, supple Respiratory: no wheezing, clear to auscultation bilateral Cardiovascular: RRR, no significant murmur Gastrointestinal: soft mild tenderness to palpation of epigastric area Musculoskeletal: no edema, pulses present Neurological: normal sensation, moves all 4 limbs Psychiatric: normal affect, A&O x 3 Skin: no rash, normal turgor Dx/Plan (1) Kidney stone on right side Code(s): N20.0 - CALCULUS OF KIDNEY Status: Acute (2) Depression Code(s): F32.9 - MAJOR DEPRESSIVE DISORDER, SINGLE EPISODE, UNSPECIFIED Status : Chronic (3) Diabetes Code(s): E11.9 - TYPE 2 DIABETES MELLITUS WITHOUT COMPLICATIONS Status: Chronic (4) Gastroparesis Code(s): K31.84 - GASTROPARESIS Status: Chronic - Plan Plan: 42 yo female with a PMH of DMII, CVA in 2013, Hx of DVTs, HTN, HLD, Hypothyroidism, Kidney stones, sick sinus syndrome s/p pacemaker, and migraines Epigastric pain likely 2/2 opioid induced abdominal pain vs. gastroparesis A- EGD yesterday normal, GI recs to advance diet as tolerated and get gastric emptying study in near future. Pt has been recently taking norco for abdominal pain. Initial labs including lipase and LFTs are negative. CT abdomen shows nonbostructing stone inthe right renal collecting system, stable hyperdense complex/hemorrhagic cyst in left kidney, no evidence of obstructive uropathy. RUQ US shows prominence of the CBD, presumably on the basis of reservoir effect from prior cholecystecomy. P- transition to PO pain mgmt today as tolerated - monitor pain and vitals - likely discharge today or tomorrow with good PO intake Flank pain likely 2/2 kidney stone -Positive history, confirmed with CT abdomen showing non obstructing small R pole stone. Current pain control with IV PRN morphine. Urology has signed off and deemed pt safe for DC from their perspective -will discharge when ready DM -Continue home medications, ACHS accuchecks, SSI -DC metformin as pt has low A1C and is deals with GI symtpoms Sick sinus syndrome -Pt. has pacemaker. VSS at time of admission. CXR confirms pacemaker location and no acute processes. HTN -Continue home meds Hx of DVT -Lovenox Hypothyroidism -Continue home meds, TSH normal HLD -Continue home meds Hx of bipolar disorder -Continue home meds Peripheral neuropathy -MD Aware Code: DNR Prophylaxis: lovenox Disposition: Home tomorrow likely
[2018-05-25] MEDS: Metoclopramide HCl 10 MG TAB PO SCH ×3 (08:08→16:40)
[2018-05-25] MEDS: Venlafaxine HCl XR 150 MG CAP PO SCH ×2 (08:09→11:55)
[2018-05-25] MEDS: metFORMIN 500 MG TAB PO SCH (08:10)
[2018-05-25] MEDS: Aspirin 81 mg Enteric Coated Tablet PO SCH (08:11)
[2018-05-25] MEDS: Amlodipine 5 MG TAB PO SCH (08:11)
[2018-05-25] MEDS: Gabapentin 300 MG CAP PO SCH (08:11)
[2018-05-25] MEDS: Carvedilol 3.125 MG TAB PO SCH ×2 (08:13→16:54)
[2018-05-25] MEDS: lamoTRIgine 25 MG TAB PO SCH (09:24)
[2018-05-25] MEDS: Lisinopril/Hydrochlorothiazide 20 mg/12.5 mg Tablet PO SCH (09:25)
[2018-05-25] MEDS ORDERED: Loperamide HCl 2 MG CAP PO SCH (09:30)
[2018-05-25 16:44] VITALS: BP 144/94; TEMP 98.3
--- NOTE | 2018-05-26 00:51 | PRG ---
DATE OF SERVICE: 05/25/2018 SUBJECTIVE: This is a 42-year-old female with recurrent nausea and vomiting. She has been told to have gastroparesis in the past. She underwent EGD which revealed no pathology for mild yan ritis. The patient is on IV Reglan and is tolerating clear liquid diet this afternoon. The diet was advanced to full liquid diet this morning and also was given some mashed potato. She appears very c omfortable. She did not have nausea or vomiting anymore. No abdominal pain. PHYSICAL EXAMINATION: VITAL SIGNS: Pulse is 75, blood pressure 144/94. Afebrile. CARDIOVASCULAR SYSTEM: First and second heart sounds normal. LUNGS: Clear to auscultation. ABDOMEN: Soft to palpate. No organomegaly. No tenderness. No masses. CLINICAL IMPRESSION: Recurrent nausea, vomiting, questionable history of diabetic gastroparesis. RECOMMENDATIONS: 1. Continue Reglan. 2. Advance diet as tolerated. 3. Consider discharge home tomorrow. We will plan for outpatient gastric emptying study in the [facility].
--- NOTE | 2018-05-26 10:13 | CON ---
DATE OF CONSULTATION: 05/23/2018 REFERRING PHYSICIAN: Dr. Quinones, [facility]. REASON FOR CONSULTATION: Persistent nausea, vomiting, and abdominal pain. HISTORY OF PRESENT ILLNESS: Ms. Lucinda Leslie is a very pleasant 42-year-old female with history of persistent nausea and vomiting over the last, almost a month. She says that her nausea and vomiting started around Labor Day weekend. She is unable to keep anything down. She is continuously vomitin g. She also complained of abdominal pain over the right upper quadrant epigastric area. She had see n Dr. Asif Torres in the past. She had an EGD done two months ago and was told to have gastroparesis. She was placed on Reglan 10 mg p.o. 4 times a day. Although she has been taking Reglan 4 times a d ay, she continues to have nausea and vomiting. She states that she usually has nausea and vomiting o ff and on, but over the last one month, the vomiting is continuous and she cannot keep anything down. The Zofran does help, but after the Zofran effect worn off, the vomiting occurs again. The patient appears very comfortable in no distress. At the same time, she states she has abdominal pain over t he epigastric area in the right upper quadrant. The patient is status post cholecystectomy in the re cent past. She was also seen by Dr. Cinthya Hitchcock, because of history of hematuria and some abdo lucia pain, and CAT scan showing a kidney stone. I did read Dr. Cinthya Hitchcock's consultation rep ort and it was felt that there is no acute urological problem. The patient's bowel movements are cristina rly regular. No history of hematochezia, no melena. Apparently, she has called Dr. Torres few times a nd she was told that there are not a whole lot of options available for gastroparesis Reglan. There is no hematemesis. No history of any melena. No history of coffee-ground vomiting. Since adm ission, the patient had an abdominal sonogram which shows no pathology except for slightly dilated CB D. A noncontrast abdominal CAT scan shows small right kidney stone, which was felt to be nonsymptoma tic as per Dr. Cinthya Hitchcock. The patient denies any painful swallowing, dysphagia or any indige stion. She has no relevant symptoms. ALLERGIES: 1. IV CONTRAST. 2. ZOLPIDEM. MEDICAL ILLNESSES: 1. Type 2 diabetes mellitus. 2. CVA in 2014. 3. History of DVTs in the past. 4. Hypertension. 5. Hyperlipidemia. 6. Hypothyroidism. 7. Kidney stones. 8. Acute sick sinus syndrome, status post pacemaker placement. 9. Migraine. 10. Bipolar disorder. 11. Schizophrenia. 12. Insomnia. SOCIAL HISTORY: The patient denies any alcohol abuse. Nonsmoker. SURGERIES: 1. Status post laparoscopic cholecystectomy. 2. . 3. Hysterectomy. 4. Bilateral knee surgery. 5. History of a small nodule removed from urethra which was noncancerous in the recent past. 6. Status post pacemaker implant. FAMILY HISTORY: Ovarian cancer, stomach cancer, hypertension, leukemia, hypothyroidism on the mother 's side. MEDICATIONS: List reviewed. REVIEW OF SYSTEMS: A 10-point system review: Constitutional: No history of fever, no night sweats, no weight loss. Her energy level is good. Respiratory: No history of chronic cough, hemoptysis, d yspnea. Cardiovascular: No chest pain, no palpitation, no orthopnea or PND. Gastrointestinal: As in the history of present illness. Genitourinary: No dysuria, hematuria or frequent urination. Mus culoskeletal: Not known. Endocrine: Not known. Hematological: Not known. PHYSICAL EXAMINATION: GENERAL: This is a very pleasant young female who appears very comfortable, in no distress. She is awake, alert, and communicative. VITAL SIGNS: Temperature 98.2 degrees Fahrenheit, pulse is 82, blood pressure 134/78. HEENT: Conjunctivae clear. NECK: Supple. No adenitis or thyromegaly noted. CARDIOVASCULAR: First and second heart sounds are normal. LUNGS: Clear to auscultation. ABDOMEN: Soft and nondistended. Abdominal exam is very benign, although she is tender over the uppe r abdomen. There is no rebound or guarding. Bowel sounds are normal. EXTREMITIES: Reveal no edema. LABORATORY DATA: CBC shows WBC 7500, hemoglobin 13.2, hematocrit 41.4, MCV 83.9, platelet count 280, 000, polymorphs 70, lymphocytes 22. Serum chemistries showed sodium of 139, potassium 4.4, chloride 106, bicarbonate 26, BUN is 11, creatinine is 0.60, glucose 79, calcium 9.2, bilirubin 0.3, AST 19, A LT 12, alkaline phosphatase 90, albumin 3.9. IMAGING: An abdominal CAT scan shows mildly dilated CBD. Abdominal CAT scan noncontrast study shows right kidney stone. CLINICAL IMPRESSION: A 42-year-old female with nausea and vomiting. The symptoms persisted over the last 1 month. The patient had an EGD done by Dr. Torres two months ago and was told to have gastropar esis. She has been on Reglan. The patient comes with persistent vomiting over the last 4 weeks. Al though, she has severe recurrent vomiting, the lab data are all normal. She is not dehydrated and th ere is no hypokalemia or hyponatremia. She does have history of bipolar disorder and schizophrenia. Her workup is basically negative. It is not very clear that her nausea and vomiting is because of g astroparesis or this is more psychogenic. An EGD done by Dr. Torres was negative as per the patient's . RECOMMENDATIONS: 1. Continue Reglan. 2. Zofran as needed. 3. Consider EGD later on today. I will make further recommendations after EGD.
--- NOTE | 2018-05-26 14:57 | ADD-PRG ---
DATE OF SERVICE: 05/24/2018 ADDENDUM Please see the note from Dr. Delbert Duron for which I agree. The patient is a 42-year-old diabetic with a longstanding diabetic gastroparesis with a current flareup. Most of her home medicines were held because of intractable nausea, vomiting, and GI is about to scope her and give us some idea what step to take next. PHYSICAL EXAMINATION: GENERAL APPEARANCE: On exam, does appear to be somewhat anxious a little bit agitated, although woul d . HEENT: Conjunctivae not particularly pale. CHEST: Clear. ABDOMEN: A little bit of epigastric tenderness. No rebound or guarding. ASSESSMENT AND PLAN: Likely diabetic gastroparesis leading to chronic nausea and vomiting. Plan is to see what GI says and follow their recommendations. May consider adding Remeron for chronic nausea and maybe a macrolide antibiotic for chronic gastroparesis, if we are worried about longstanding Reg pratibha leading to tardive dyskinesia.
--- NOTE | 2018-05-26 15:07 | ADD-PRG ---
ADDENDUM DATE OF SERVICE: 05/25/2018 Please see the note from Dr. Delbert Duron, for which I agree. The patient was seen, evaluated, and examined with the resident basically is improving from a GI standpoint. She need to be more hungry and ready to advance diet. Exam is totally benign. On reviewing her medicines, she did come in on m etformin and Trulicity both of which can get GI distress. As she describing a lot of diarrhea after she restarted her home with Linzess, but not at risk other than being in the hospital for this to be Clostridium difficile and it was actually checked and negative. showed some gastritis, so we w ill try to advance diet today and with a low hemoglobin A1c of 5.1. Hold off on GI distress me tformin and Trulicity. May be a candidate for something like Farxiga, etc. in the future if her A1c increases again. Continue same nausea, vomiting, p.r.n. medication.
--- NOTE | 2018-05-27 01:36 | DIS-2 ---
DATE OF ADMISSION: 05/22/2018 DATE OF DISCHARGE: 05/25/2018 RESIDENT: Delbert Duron MD ADMITTING ATTENDING: Fabian Holm MD DISCHARGE ATTENDING: Dinesh Armstrong MD CONSULTATIONS: Dr. Araujo and Dr. Hitchcock. PROCEDURES: 1. On 05/22/2018, abdomen and pelvis CT, impression: Nonobstructing calculus in the right renal col lecting system, stable hyperdense complex hemorrhagic cyst on the left kidney. No evidence of obstru ctive uropathy. Results of exam discussed with Dr. Hitchcock. 2. On 05/22/2018, abdomen ultrasound, impression: Prominence of common bile duct, presumably on the basis of reservoir effect from prior cholecystectomy, correlate with concerns for biliary obstructiv e change. 3. Chest x-ray on 05/22/2018, impression: No acute process. 4. On 05/24/2018, esophagogastroduodenoscopy with biopsy. POSTOPERATIVE DIAGNOSIS: Antral gastritis. PRIMARY DIAGNOSIS: Epigastric pain secondary to diabetic gastroparesis and opioid-induced abdominal pain. SECONDARY DIAGNOSES: Kidney stone, diabetes mellitus, sick sinus syndrome, hypertension, history of deep venous thrombosis, hypothyroidism, hyperlipidemia, history of bipolar disorder and peripheral ne uropathy. DISCHARGE MEDICATIONS: 1. Baclofen 10 mg 1 tab p.o. q.8 hours p.r.n. 2. Trazodone 200 mg p.o. at bedtime. 3. Aspirin 81 mg p.o. daily. 4. Carbamazepine 400 mg p.o. b.i.d. 5. Gabapentin 600 mg p.o. daily. 6. Venlafaxine 100 mg p.o. b.i.d. 7. Levothyroxine 125 mcg p.o. daily. 8. Linzess 145 mcg p.o. q.a.m. 9. Lisinopril/hydrochlorothiazide 20/12.5 tab, one tab, p.o. daily. 10. Lidocaine 2% viscous solution 15 mL SSP b.i.d. 11. Amlodipine besylate 2.5 mg p.o. daily. 12. Dexlansoprazole 60 mg p.o. daily. 13. Atorvastatin 40 mg p.o. daily. 14. Carvedilol 3.125 mg p.o. b.i.d. 15. Acetaminophen 1000 mg p.o. q.6 hours p.r.n. 16. Ondansetron 4 mg p.o. t.i.d. p.r.n. DISCONTINUED MEDICATIONS: 1. Metoclopramide 10 mg p.o. q.i.d. 2. Metformin 1000 mg p.o. b.i.d. 3. [place] 5 one to two tabs q.6 hours p.r.n. 4. Lamotrigine 2 tabs p.o. b.i.d. 5. Trulicity 1.5 mg subcutaneous q.7 days. 6. Toradol 10 mg p.o. q.6 hours. HISTORY OF PRESENT ILLNESS AND HOSPITAL COURSE: This is a 42-year-old female with history of type 2 diabetes and gastroparesis and sick sinus syndrome, status post pacemaker placement, who presented wi th chief complaint of abdominal pain with associated nausea and vomiting. Patient was admitted for w orkup of abdominal pain secondary to opioid-induced abdominal pain versus gastroparesis versus common bile duct obstruction. On admission, abdominal CT showed a small kidney stone, at which point Urolo gy was consulted and subsequently signed off as kidney stone was small, measuring only 3 mm and nonob structing and therefore unconcerning. Ultrasound also revealed a prominent common bile duct, which i s likely due to the reservoir effect from prior cholecystectomy history. Patient's nausea was treate d with p.r.n. Zofran, and pain was treated with morphine for duration of stay as the patient was also n.p.o. and sustained on IV fluids with fluid treatment and Zofran p.r.n. Patient's nausea and vomit ing eventually resolved and the pain became bearable, so patient was refusing pain medications altoge ther. Abdominal and pelvis CT combination with negative chest x-ray, ruled out malicious causes of a bdominal pain, so pain was deemed to be caused by patient's history of gastroparesis as well as opiat es the patient had been taking at home. As the patient was able to advance diet and tolerate p.o. in take as well as p.o. medications, the patient was eventually deemed safe for discharge. On discussio n of patient's home medications, hemoglobin A1c was obtained and found to be low at 5.1 and the patie nt was encouraged to discontinue metformin at this time considering its potential gastrointestinal si de effects as well as the patient's Trulicity shot. DISPOSITION: Stable. DISCHARGE INSTRUCTIONS: 1. Home. 2. Diet: No restrictions. Advance as tolerated. 3. Activity: No restrictions. 4. Followup: With PCP, Dr. Wayne in [address] Hitchcock.
== END 2018-05-25 17:09 | disposition home or self-care (01) | DRG 74 ==
LOC: 2SW 12:18 → OBSVTOIN 05-24 12:00 → T4-A 05-24 17:06
PROVIDERS: ADMIT Family Medicine; ATTEND Family Medicine
PROC: 0DB68ZX Excision of Stomach, Via Natural or Artificial Opening Endoscopic, Diagnostic (ICD-10-PCS; principal; 2018-05-24)
DX: E11.43 Type 2 diabetes mellitus with diabetic autonomic (poly)neuropathy (principal); K31.84 Gastroparesis; K29.50 Unspecified chronic gastritis without bleeding; N20.0 Calculus of kidney; I49.5 Sick sinus syndrome; I10 Essential (primary) hypertension; Z86.718 Personal history of other venous thrombosis and embolism; Z79.01 Long term (current) use of anticoagulants; E11.42 Type 2 diabetes mellitus with diabetic polyneuropathy; F31.9 Bipolar disorder, unspecified; Z87.891 Personal history of nicotine dependence; I69.30 Unspecified sequelae of cerebral infarction; G51.0 Bell's palsy; F32.9 Major depressive disorder, single episode, unspecified; E78.5 Hyperlipidemia, unspecified; E03.9 Hypothyroidism, unspecified; Z95.0 Presence of cardiac pacemaker; G47.00 Insomnia, unspecified; F20.9 Schizophrenia, unspecified
CPT/HCPCS: 36415; 36416; 71045; 74176; 76705; 80053; 81001; 83036; 83690; 83735; 84100; 84443; 85025; 87040; 87086; 87149; 87324; 87449; 88305; 88312; A4216; J1200; J2001; J2270; J2405; J2704; J2765; S0028

== ENCOUNTER 2018-08-29 12:52 | Outpatient (CLI) | payer BC ==
--- NOTE | 2018-08-29 14:55 | BD ---
DEXA BONE DENSITY EXAM: COMPARISON: None. HISTORY: A 42-year-old female with osteopenia. FINDINGS: Lumbar Spine: BMD (g/cm2) L1 0.931 T-Score: -0.5 L2 0.980 T-Score: -0.4 L3 0.983 T-Score: -0.9 L4 1.053 T-Score: -0.1 L1-L4 0.989 T-Score: -0.5 Femoral Neck: 0.716 T-Score: -1.2 Total Femur: 0.877 T-Score: -0.5 Impression: Osteopenia. This patient has a 10-year WHO fracture risk of a major osteoporotic fracture of 2.3% an d of a hip fracture of 0.1%. POS: [facility]
== END 2018-08-29 12:53 | disposition home or self-care (01) ==
LOC: BICMAMMO 12:52
PROVIDERS: ATTEND Family Medicine
DX: Z12.31 Encounter for screening mammogram for malignant neoplasm of breast (principal); Z13.820 Encounter for screening for osteoporosis; M85.88 Other specified disorders of bone density and structure, other site; Z80.3 Family history of malignant neoplasm of breast
CPT/HCPCS: 77063; 77067; 77080

== ENCOUNTER 2018-11-18 10:33 | Inpatient (IN) | payer BC ==
[2018-11-18 13:02] VITALS: BMI 25.8
--- NOTE | 2018-11-18 13:12 | PDOC.FPRHP ---
- History of Present Illness Chief Complaint: Abdominal pain with J tube History of Present Illness: This is a 42 yo female with a pmh of CVA in 2013, gastroparesis 2/2 cva, sick sinus syndrome, hypothyroidism who presents as a direct admit from clinic with a cc of abdominal pain who presents as a direct admit from clinic. She states that she has a J tube due to gastroparesis and has been having LUQ abdominal pain for 2 weeks now. She was treated with bactrim twice with no resolution. She reports subjective fever and chills, nausea, and diarrhea. She states that she has tried gabapentin and ibuprofen without any resolution of the pain. She states the pain is normally 7-8/10 and is made worse when she flushes her J tube. She initially had her J tube placed at [facility] - Allergies/Adverse Reactions Allergies Allergy/AdvReac Type Severity Reaction Status Date / Time Iodinated Contrast- Oral and Allergy Verified 12/16/17 12:14 IV Dye zolpidem tartrate Allergy psychosis Verified 05/17/17 09:34 [[facility] - Home Medications Medication Instructions Recorded Confirmed Type Amlodipine Besylate [amLODIPine 1 tab PO DAILY 11/18/18 11/18/18 History Besylate] Aspirin [Aspir-Low] 1 tab PO DAILY 11/18/18 11/18/18 History Atorvastatin Calcium 1 tab PO DAILY 11/18/18 11/18/18 History Baclofen 1 tab PO TID 11/18/18 11/18/18 History Canagliflozin [Invokana] 1 tab PO DAILY 11/18/18 11/18/18 History Carvedilol [Coreg] 1 tab PO BID 11/18/18 11/18/18 History Dexlansoprazole [Dexilant] 1 tablet PO BID 11/18/18 11/18/18 History Gabapentin 1 tab PO BID 11/18/18 11/18/18 History Hydrocodone Bit/Acetaminophen 1 tab PO Q4HR PRN 11/18/18 11/18/18 History [HYDROcodone Bit/Acetaminophen] Hyoscyamine Sulfate [Levsin SL] 1 tab PO Q4HR PRN 11/18/18 11/18/18 History Ibuprofen 1 tab PO TID PRN 11/18/18 11/18/18 History Levothyroxine Sodium [Synthroid] 1 tab PO DAILY 11/18/18 11/18/18 History Linaclotide [Linzess] 1 tab PO DAILY 11/18/18 11/18/18 History Lisinopril/Hydrochlorothiazide 1 tab PO DAILY 11/18/18 11/18/18 History [Lisinopril-Hctz 20-12.5 mg Tab] Ondansetron HCl 1 tab PO TID PRN 11/18/18 11/18/18 History Pantoprazole [Protonix] 1 tab PO BID 11/18/18 11/18/18 History Promethazine [Phenergan] 1 tab PO Q6HR PRN 11/18/18 11/18/18 History SUMAtriptan Succinate [Sumatriptan 1 tab PO BID PRN 11/18/18 11/18/18 History Succinate] Venlafaxine HCl [Effexor XR] 1 tab PO BID 11/18/18 11/18/18 History carBAMazepine [Tegretol XR] 1 tab PO BID 11/18/18 11/18/18 History metFORMIN [Glucophage] 2 tab PO BID 11/18/18 11/18/18 History traMADol HCl [Tramadol HCl] 1 tab PO Q4HR PRN 11/18/18 11/18/18 History traZODone HCl [Trazodone HCl] 1.5 tab PO HS 11/18/18 11/18/18 History - History PMHx: Gastroparesis 2/2 CVA in 2013, sick sinus syndrome, restless leg syndrome , depression/anxiety, hypothyroidism PSHx: x1, hysterectomy, pacemaker 2014, urethral mas removed, cholecystectomy FHx: Bipolar, Father had HTN Social: Denies LAYLA - Review of Systems General: reports: fever/chills, weight/appetite/sleep changes, fatigue. denies : night sweats Eyes: denies: eye pain, vision changes ENT: denies: nasal congestion, rhinorrhea Respiratory: denies: cough, congestion, shortness of breath Cardiovascular: denies: chest pain, palpitation, edema, paroxysmal nocturnal dyspnea Gastrointestinal: reports: nausea, diarrhea, abdominal pain. denies: vomiting, constipation, GI bleeding Genitourinary: denies: incontinence, dysuria Skin: reports: lesions (lesion growing from j tube insertion). denies: rashes Musculoskeletal: denies: pain, tenderness Neurological: denies: numbness, syncope Psychological: reports: anxiety, depression - Vital signs BP: 160/99 HR: 99 RR: 18 Tmax: 99.3 Pox: 100% on ra Wt: 72 kg - Physical Exam Constitutional: NAD, awake, alert and oriented, well developed HEENT: normocephalic and atraumatic, PERRLA, EOMI, grossly normal hearing, MMM Neck: supple, trachea midline, no JVD Chest: no-tender to palpation, no lesions Heart: RRR, normal S1/S2, no murmurs/rubs/gallops, pulses present Lungs: CTAB, no respiratory distress, good air movement, no wheezing, no retractions Abdomen: soft, no masses/distention, other (Borderline hypoactive bowel sounds, tenderness to mild palpation of right upper quadrant, no pain with movement of opposite abdomen) Musculoskeletal: normal structure, ROM grossly normal Neurological: CN II-XII intact, normal sensation Skin: capillary refill <2 seconds Heme/Lymphatic: no unusual bruising or bleeding, no purpura Psychiatric: normal mood and affect, good judgment and insight, intact recent and remote memory -Psychiatric: Anxious FMR H&P: Results - Labs Result Diagrams: 11/18/18 13:14 11/18/18 16:21 FMR H&P: A/P - Problem List (1) Abdominal pain Current Visit: Yes Status: Acute Code(s): R10.9 - UNSPECIFIED ABDOMINAL PAIN (2) History of cerebrovascular accident (CVA) with residual deficit Current Visit: No Status: Acute Code(s): I69.30 - UNSPECIFIED SEQUELAE OF CEREBRAL INFARCTION (3) Bipolar 1 disorder Current Visit: No Status: Chronic Code(s): F31.9 - BIPOLAR DISORDER, UNSPECIFIED (4) Gastroparesis Current Visit: No Status: Chronic Code(s): K31.84 - GASTROPARESIS (5) HLD (hyperlipidemia) Current Visit: No Status: Chronic Code(s): E78.5 - HYPERLIPIDEMIA, UNSPECIFIED (6) Hypertension Current Visit: No Status: Chronic Code(s): I10 - ESSENTIAL (PRIMARY) HYPERTENSION (7) Hypothyroid Current Visit: No Status: Chronic Code(s): E03.9 - HYPOTHYROIDISM, UNSPECIFIED (8) Pacemaker Current Visit: No Status: Chronic Code(s): Z95.0 - PRESENCE OF CARDIAC PACEMAKER (9) Sick sinus syndrome Current Visit: No Status: Chronic Code(s): I49.5 - SICK SINUS SYNDROME (10) TIA (transient ischemic attack) Current Visit: No Status: Chronic - Plan This is a 42 yo female with a pmh of CVA in 2013, gastroparesis 2/2 cva, sick sinus syndrome, hypothyroidism Abdominal pain concerning for infection -Admit to medical -CXR shows no actue intrathoracic process -Abdominal US shows no masses, lymphadenopathy, or fluid collections -KUB shows catheters in place and normal bowel gas pattern -Pt started on vanc and zosyn 4/2 -Morphine for pain control -Consult GI, will appreciate recommendations -Planning on CT for tomorrow, undergoing pretreatment Anxiety -May contribute to pain, continue home venlafaxine -S/P 1 time ativan improved pain Hx ofCVA -Stable DMII -Continue home metformin -SSI and accuchecks BID Bipolar disorder -Continue home meds Code: DNR confirmed with Pt Prophylaxis: lovenox Family: daughter at bedside Diet: NPO Disposition: home in 3-4 days PCP: Dr. Chriss Gallegos; [facility] FMR H&P: Upper Level - Plan Date/Time: 11/18/18 1311 HPI This a 42 yo F who comes in for evaluation of persistent LUQ abdominal pain. The patient states the pain has been getting progressively worse for 2 weeks, the pain is worse whenever she flushes her J tube. Pain is descrbied as throbbing, gabapentin helps some but makes her tired. She denies N/V. She has dark stools occasionally and has chronic diarrhea 3-4 times per day. She denies blood in the stool. She had the J tube placed around May 2018 at [facility] 2/2 gastric motility issues following a stroke in 2013. She was treated outpatient with 2 rounds of Bactrim for this pain and got somewhat better after the first round but the second round did not improve it at all. Patient follows with Dr. Jara for gastric motility in [place]. Has had cholecystectomy. Patient is quite anxious and has had multiple panic attacks relating to the recent of her father. She states being in the hospital is making her anxious. REVIEW OF SYSTEMS: Gen: denies fevers, has hot flashes from menopause Neuro: no headaches, no numbness/tingling, no weakness Eyes: no visual changes ENT: no hearing changes, no sore throat, no runny nose Resp: no cough, no SOB, no wheeze Card: no chest pain, no palpitations GI: see hpi : no dysuria, no hematuria MSK: no myalgias, no joint pain/stiffness Heme: no frequent/easy bleeding Skin: no rash, no erythema PHYSICAL EXAMINATION: General: NAD, alert and oriented x3 HEENT: EOMI, normal sclera Neck: Supple. Full ROM. Heart/Cardiovascular System: No r/m/g. RRR. Cap refill < 3 seconds, good pulses in all extremities Lungs/Respiratory System: clear to auscultation bilaterally. No increased work of breathing. Room air. Abdomen/Gastro-Intestinal System: patient was non-distended, patient was tender to gentle palpation throughout, no fluid wave Extremeties: Warm extremities. No cyanosis or edema. Neuro: No gross deficits appreciated. CN 2-12 grossly intact Psychiatry: Awake, Alert and cooperative with exam Skin/ Integumentory: No lesions, rashes, or ulcers Musculoskeletal: Full ROM, Strength 5/5 in all 4 extremities PROBLEM LISTANDPLAN: # LUQ abdominal pain likely 2/2 Gastroparesis - Vanc/Zosyn to cover for possible infection - KUB to eval for free air, CBC, CMP, blood culture, lipase - Iodine allergy will pre-treat and then obtain CT abd/pelvis - GI consult, appreciate recs # Anxiety attacks - Continue home venlafaxine - Likely a psychosomatic component to the pain # Hx of CVA - Patient states R side has persistnet weakness # DM - Metformin, SSI # Hx of bipolar disorder # Hx of DVT - Lovenox # Pacemaker Fluids: LR Diet: NPO Code: DNR Consults: GI DVT Ppx: Lovenox Dispo: pending imaging, GI eval
[2018-11-18 13:39] LABS: #Basophils 0.1 thou/uL (0.0-0.2); #Eosinphils 0.1 thou/uL (0.0-0.7); #Lymphocytes 1.8 thou/uL (1.20-3.40); #Monocytes 0.7 thou/uL (0.11-0.59); #Neutrophils 6.6 thou/uL (1.40-6.50); %Basophils 0.8 % (0.0-1.0); %Eosinophils 1.6 % (0.0-10.0); %Lymphocytes 18.9 % (21.0-51.0); %Monocytes 7.1 % (0.0-10.0); %Neutrophils 71.6 % (42.0-75.0); Hemoglobin 10.9 g/dL (12.0-16.0); Mean Corpuscular HGB CONC 31.8 g/dL (32.0-36.0); Mean Corpuscular Hemoglobin 25.1 pg (27.0-31.0); Mean Platelet Volume 8.1 fL (7.4-10.4); Platelet Count 278 thou/uL (130-400); RBC Distribution Width 13.3 % (11.5-14.5); Red Blood Cell (RBC) Count 4.33 mill/uL (4.20-5.40); White Blood Cell (WBC) Count 9.3 thou/uL (4.8-10.8)
[2018-11-18] MEDS ORDERED: Ondansetron ODT 4 MG TAB PO PRN (13:40)
[2018-11-18] MEDS ORDERED: Lorazepam 2 MG/ML VIAL SLOW IVP SCH ×2 (13:45→23:45)
[2018-11-18] MEDS ORDERED: Morphine 4 MG/ML VIAL SLOW IVP PRN (13:45)
--- NOTE | 2018-11-18 14:15 | RAD ---
FKUB: 11/18/2018 COMPARISON: 10/10/2017 HISTORY: Severe abdominal pain FINDINGS: Supine imaging provided, limiting assessment for bowel obstruction and free intraperitoneal air. New gastrostomy tube overlies the left upper quadrant. New catheter tubing overlies the left he mipelvis. Bowel gas pattern appears nonobstructed. IMPRESSION: New segments of catheter tubing as detailed above. Bowel gas pattern appears nonobstructe d.
[2018-11-18] MEDS: Ondansetron PF 4 MG/2 ML Vial IVP PRN ×2 (14:37→20:49)
[2018-11-18] MEDS: Morphine 4 MG/ML VIAL SLOW IVP PRN ×2 (14:39→20:42)
[2018-11-18] MEDS: Lactated Ringer's 1,000 ML IV SCH ×2 (14:42→20:07)
--- NOTE | 2018-11-18 15:35 | RAD ---
CHEST ONE VIEW: 11/18/18 HISTORY: Abdominal pain, chest pain. COMPARISON: Radiograph from 05/22/18. FINDINGS: Dual lead pacer is in place. The lungs are clear. No pneumothorax or effusion. Cardiac silhouette and mediastinal contours are within normal limits. IMPRESSION: No acute intrathoracic abnormality. POS: C
--- NOTE | 2018-11-18 15:37 | ULT ---
FExam: Soft tissue ultrasound HISTORY: Left upper quadrant pain, surrounding and to the left of the J-tube Comparison none TECHNIQUE: Targeted sonographic imaging in the region of concern was performed. Static images are rev iewed FINDINGS: Static images demonstrate soft tissue echotexture. No mass, lymphadenopathy or fluid collec tion. IMPRESSION: No sonographic abnormality to correlate with patient's reported pain.
--- NOTE | 2018-11-18 16:23 | PDOC.EVN ---
Event Note - Event Note Event Note: RE-eval'd patient Pain is improved to 6 Patient facetiming with her grandson US HAIM show no acute process
[2018-11-18 16:58] LABS: ALT (SGPT) 9 U/L (8-55); AST (SGOT) 15 U/L (5-34); Albumin 3.9 g/dL (3.5-5.0); Alkaline Phosphatase 136 U/L (40-150); Anion Gap 10 mmol/L (10-20); BUN (Urea Nitrogen) 6 mg/dL (7.0-18.7); Bilirubin, Total Less than 0.2 mg/dL (0.2-1.2); Calc. Creatinine Clearance 129 mL/min (70-130); Calcium 9.2 mg/dL (7.8-10.44); Carbon Dioxide 29 mmol/L (22-29); Chloride 103 mmol/L (98-107); Estimated GFR-MDRD Greater than 90; Globulin 2.5 g/dL (2.4-3.5); Glucose 92 mg/dL (70-105); Potassium 3.7 mmol/L (3.5-5.1); Protein, Total 6.4 g/dL (6.0-8.3); Sodium 138 mmol/L (136-145)
[2018-11-18] MEDS: Piperacillin/Tazobactam 3.375 GM in Sodium Chloride 0.9% 100 ML IVPB SCH (17:48)
[2018-11-18] MEDS ORDERED: Dextrose 5% in Water 1,000 ML IV PRN (18:53)
[2018-11-18] MEDS ORDERED: HumaLOG 300 UNITS/3 ML VIAL SC PRN ×2 (18:53)
[2018-11-18] MEDS ORDERED: Dextrose 50% Abboject 50 ML SYRINGE SLOW IVP PRN (18:53)
[2018-11-18] MEDS: predniSONE 50 MG TAB PO SCH (20:06)
[2018-11-18] MEDS: Famotidine/PF 20 mg/2ml Vial SLOW IVP SCH (20:06)
[2018-11-18] MEDS: Enoxaparin Sodium 30 MG/0.3 ML SYRINGE SC SCH (20:06)
[2018-11-18] MEDS: Famotidine 20 MG TAB PO SCH (20:07)
[2018-11-18] MEDS: Vancomycin HCl 1.5 GM in Sodium Chloride 0.9% 250 ML 300 ML IVPB SCH (20:07)
[2018-11-19] MEDS: Piperacillin/Tazobactam 3.375 GM in Sodium Chloride 0.9% 100 ML IVPB SCH ×4 (00:10→17:52)
--- NOTE | 2018-11-19 01:43 | CON ---
DATE OF CONSULTATION: 11/18/2018 CHIEF COMPLAINT: Abdominal pain. HISTORY OF PRESENT ILLNESS: Ms. Leslie is a 42-year-old woman who has a history of gastroparesis and GI was consulted to evaluate abdominal pain. She had been on metoclopramide for gastroparesis for a number of years in the past. She has been followed by Dr. Torres in the more distant past. She had endoscopy at this facility by Dr. Araujo in May of 2018 that was normal except for antral gastritis. Biopsies were negative for Helicobacter pylori. She had cholecystectomy by Dr. Vogel back in August of 2017. She underwent surgical gastrostomy and jejunostomy tube placement back in June of 2018 at [facility] in [place] by Dr. White. Since then, she has been followed by a motility expert at [facility] in [place], Dr. Jara. Her regimen prior to admission has been that she eats a low-residue diet as she tolerates during the day and if she feels like she over fills, then she opens up her gastrostomy tube to vent, fluid and air. If she has to vomit or she has to use her gastrostomy tube to empty gastric contents, then she uses 2 containers of nutritional supplements through the J-tube at night. If she does not vomit and does not have to vent her G-tube, then she takes 1 can of nutritional supplement per her J-tube. She has gained from 145 pounds to 160 pounds since she has had these tubes placed. She stopped Reglan a couple of months ago due to concern of neurological side effects and she started developing tremors with it. She is now admitted to the hospital with left-sided abdominal pain. She primarily complains of drainage of purulent material from around the J-tube. She has tenderness of the abdomen around the J-tube. She has increase in aching abdominal pain that occurs immediately after taking a jejunostomy tube feed. She is not having problems around her gastrostomy tube. She had an ultrasound that was unrevealing around the J-tube site. PAST MEDICAL HISTORY: Gastroparesis, bipolar disorder, stroke, sick sinus syndrome, restless legs syndrome, depression, anxiety, hypothyroidism. PAST SURGICAL HISTORY: , hysterectomy, pacemaker placement, urethral mass removed, cholecystectomy, endoscopy. FAMILY HISTORY: Negative for GI malignancies. SOCIAL HISTORY: No alcohol, tobacco, or drugs. ALLERGIES: IODINATED CONTRAST AND AMBIEN. MEDICATIONS: Prior to admission include: 1. Amlodipine. 2. Aspirin. 3. Atorvastatin. 4. Baclofen. 5. Invokana. 6. Carvedilol. 7. Dexilant. 8. Gabapentin. 9. Hydrocodone with acetaminophen as needed. Hyoscyamine. 10. Ibuprofen. 11. Levothyroxine. 12. Linzess. 13. Lisinopril with hydrochlorothiazide. 14. Effexor. 15. Tegretol. 16. Trazodone. 17. Tramadol. REVIEW OF SYSTEMS: Negative x10 systems reviewed except as stated in the history of present illness. She has 2-4 soft bowel movements per day on Linzess daily. PHYSICAL EXAMINATION: VITAL SIGNS: Temperature 98.1, pulse 89, blood pressure 161/107. GENERAL: She is in no acute distress. Alert and oriented x3. HEENT: Eyes have no scleral icterus. Oropharynx is clear without lesions. No cervical or supraclavicular lymphadenopathy. LUNGS: Clear to auscultation bilaterally. HEART: Regular rate and rhythm without murmur. ABDOMEN: Soft. She has tenderness around the J-tube, but she has no guarding. Bowel sounds are present. EXTREMITIES: No lower extremity edema. LABORATORY DATA: White blood cell count 9.3, hemoglobin 10.9, platelets 279. INR 1.1. Creatinine 0.65, bilirubin 0.2, AST 15, ALT 9, alkaline phosphatase 136, albumin 3.9. IMPRESSION: 1. Left-sided abdominal pain around her Jejunostomy tube. She does have some purulent drainage around it; however, no redness or erythema to indicate a shallow abscess. Her white blood cell count is normal and she is afebrile. CT scan of the abdomen and pelvis should be done to rule out an obvious abscess around this site along with oral and enteric contrast. If this is negative, then she more likely has functional pain. Given that she has gastroparesis, opioids should be minimized. RECOMMENDATIONS: 1. CT scan of the abdomen and pelvis with oral and enteric contrast. 2. If the CT is negative, then she can continue to follow with her motility specialist in [place] for management of her chronic gastroparesis. She has a J-tube in place for feeds as well as G-tube for venting. She has been appropriately weaned off the metoclopramide. She should minimize opioids and medications that will reduce GI motility. 3. She does have a history of chronic constipation, which is currently well controlled with Linzess. 4. She has an CT iodine contrast allergy and is receiving prednisone as premedication for that. Job ID: [id number]
[2018-11-19] MEDS: Ondansetron PF 4 MG/2 ML Vial IVP PRN ×2 (02:41→07:39)
[2018-11-19] MEDS: predniSONE 50 MG TAB PO SCH ×2 (02:41→07:35)
[2018-11-19] MEDS: Morphine 4 MG/ML VIAL SLOW IVP PRN ×2 (02:42→09:36)
[2018-11-19] MEDS: Lactated Ringer's 1,000 ML IV SCH ×3 (03:30→20:00)
[2018-11-19] MEDS ORDERED: Ibuprofen 800 MG TAB PO PRN ×2 (06:33→06:40)
[2018-11-19] MEDS ORDERED: traMADol HCl 50 MG TAB PO PRN ×2 (06:33→06:46)
[2018-11-19] MEDS ORDERED: Hyoscyamine Sulfate SL 0.125 mg Tablet PO PRN ×2 (06:33→06:40)
[2018-11-19] MEDS ORDERED: ONDANSETRON HCL PO PRN (06:33)
[2018-11-19] MEDS ORDERED: Promethazine 25 MG TAB PO PRN ×2 (06:33→06:45)
[2018-11-19] MEDS ORDERED: SUMAtriptan Succinate 50 MG TAB PO PRN ×2 (06:33→06:46)
--- NOTE | 2018-11-19 06:38 | PDOC.FM ---
- Subjective Subjective: Pt reports her abdominal pain was tolerable overnight. This morning she reports her pain is worse due to the oral contrast. She states she could not sleep because she was worried she would not wake up. Pt denies cp,sob, nausea, or vomiting. She states she is still anxious. - Objective MAR Reviewed: Yes Vital Signs & Weight: Vital Signs (12 hours) Temp Pulse Resp BP BP Pulse Ox 11/19/18 04:35 97.7 F 60 20 113/51 L 94 L 11/19/18 00:00 98.5 F 88 20 148/97 H 96 11/18/18 20:05 154/98 H 98 11/18/18 19:08 98.1 F 89 20 161/107 H 98 Weight Weight 72.575 kg I&O: 11/17/18 11/18/18 11/19/18 06:59 06:59 06:59 Intake Total 1600 Balance 1600 Result Diagrams: 11/18/18 13:14 11/18/18 16:21 Phys Exam - Physical Examination Constitutional: NAD (mildly anxious, not distressed) HEENT: moist MMs, oral pharynx no lesions Neck: supple, full ROM Respiratory: no wheezing, no rales, clear to auscultation bilateral Cardiovascular: RRR, no significant murmur Gastrointestinal: soft, no distention, positive bowel sounds TTP to LUQ/LLQ Musculoskeletal: no edema, pulses present Neurological: normal sensation, moves all 4 limbs Psychiatric: normal affect, A&O x 3 Skin: cap refill <2 seconds Dx/Plan (1) Abdominal pain Code(s): R10.9 - UNSPECIFIED ABDOMINAL PAIN Status: Acute (2) History of cerebrovascular accident (CVA) with residual deficit Code(s): I69.30 - UNSPECIFIED SEQUELAE OF CEREBRAL INFARCTION Status: Acute (3) Bipolar 1 disorder Code(s): F31.9 - BIPOLAR DISORDER, UNSPECIFIED Status: Chronic (4) Gastroparesis Code(s): K31.84 - GASTROPARESIS Status: Chronic (5) HLD (hyperlipidemia) Code(s): E78.5 - HYPERLIPIDEMIA, UNSPECIFIED Status: Chronic (6) Hypertension Code(s): I10 - ESSENTIAL (PRIMARY) HYPERTENSION Status: Chronic (7) Hypothyroid Code(s): E03.9 - HYPOTHYROIDISM, UNSPECIFIED Status: Chronic (8) Pacemaker Code(s): Z95.0 - PRESENCE OF CARDIAC PACEMAKER Status: Chronic (9) Sick sinus syndrome Code(s): I49.5 - SICK SINUS SYNDROME Status: Chronic (10) TIA (transient ischemic attack) Status: Chronic - Plan Plan: This is a 42 yo female with a pmh of CVA in 2013, gastroparesis 2/2 cva, sick sinus syndrome, hypothyroidism Abdominal pain concerning for infection -Admit to medical -CXR shows no actue intrathoracic process -Abdominal US shows no masses, lymphadenopathy, or fluid collections -KUB shows catheters in place and normal bowel gas pattern -Pt started on vanc and zosyn 4/2, will deescalate with negative CT -Morphine for pain control -Consult GI, will appreciate recommendations -Planning on CT abdomen/pelvis with IV/PO contrast today Anxiety -May contribute to pain, continue home venlafaxine -S/P 1 time ativan improved pain Hx ofCVA -Stable DMII -Continue home metformin -SSI and accuchecks BID Bipolar disorder -Continue home meds
[2018-11-19] MEDS ORDERED: Ondansetron ODT 8 MG TAB PO PRN (06:51)
[2018-11-19] MEDS ORDERED: diphenhydrAMINE 25 MG CAP PO SCH (08:00)
--- NOTE | 2018-11-19 08:27 | HP ---
I have examined the patient. I have discussed the case with Dr. Quinones and I agree with his assessment and plan. I examined Ms. Wolfe in the early afternoon of 11/18/2018. Briefly, Ms. wolfe is a pleasant 42-year-old white female patient with multiple past medical problems well documented by Dr. Quinones. She presented to our clinic with exquisite pain over her J-tube site that has been ongoing for several weeks and nonresponsive to 2 courses of oral antibiotics, Septra. She was admitted for further evaluation and treatment. PHYSICAL EXAMINATION: VITAL SIGNS: Her blood pressure was 160/90, her heart rate was 87, respirations 16, she is afebrile, and her pulse ox is 100% on room air. GENERAL: She is pleasant, alert, but complaining of pain over her J-tube site and is exquisitely tender to palpation in this area. EAR, NOSE, AND THROAT: No erythema or exudate. She appears to be well hydrated. NECK: Supple. CARDIAC: Heart rhythm is regular. No gallop or murmur is noted. LUNGS: Clear. No rales or wheezes. No evidence of respiratory distress. ABDOMEN: Very tender over the J-tube site. There is voluntary guarding, but no rebound. No rigidity. Bowel sounds are diminished but present. EXTREMITIES: No edema. NEUROLOGICAL: No focal deficits. LABORATORY DATA: White count is 9300, hemoglobin is 10.9, hematocrit 34.2, and MCV of 79. Chemistries; sodium is 138, potassium 3.7, chloride 103, bicarb 29, BUN 6, and creatinine 0.65. Liver enzymes are normal. ASSESSMENT: Abdominal pain. Exact etiology not clear. Comment: I really doubt necrotizing fasciitis. However, given the fact that she has had 2 courses of antibiotics and seems to have pain out of proportion to her physical exam, we need to at least keep this in mind. Unfortunately, she has an iodine contrast allergy, so we will proceed initially with the soft tissue ultrasound. We will consult GI for their recommendations. PLAN: As above. Job ID: [id number]
[2018-11-19] MEDS ORDERED: Baclofen 10 MG TAB PO SCH (09:00)
[2018-11-19] MEDS ORDERED: LINACLOTIDE PO SCH ×2 (09:00)
[2018-11-19] MEDS ORDERED: metFORMIN 500 MG TAB PO SCH (09:00)
[2018-11-19] MEDS ORDERED: Carvedilol 3.125 MG TAB PO SCH (09:00)
[2018-11-19] MEDS ORDERED: Levothyroxine Sodium 125 MCG TAB PO SCH (09:00)
[2018-11-19] MEDS ORDERED: Non-Formulary Item 1 EACH (Amlodipine Besylate [Amlodipine Besylate] 1 TAB) PO SCH (09:00)
[2018-11-19] MEDS ORDERED: Venlafaxine HCl XR 150 MG CAP PO SCH (09:00)
[2018-11-19] MEDS ORDERED: Atorvastatin Calcium 40 MG TAB PO SCH (09:00)
[2018-11-19] MEDS ORDERED: Non-Formulary Item 1 EACH (Canagliflozin [Invokana] 1 TAB) PO SCH (09:00)
[2018-11-19] MEDS ORDERED: CARBAMAZEPINE PO SCH (09:00)
[2018-11-19] MEDS ORDERED: Non-Formulary Item 1 EACH (Gabapentin [Gabapentin] 1 TAB) PO SCH (09:00)
[2018-11-19] MEDS ORDERED: Canagliflozin [Invokana] 1 TAB PO SCH (09:00)
[2018-11-19] MEDS ORDERED: Aspirin 81 mg Enteric Coated Tablet PO SCH (09:00)
[2018-11-19] MEDS ORDERED: DEXLANSOPRAZOLE PO SCH (09:00)
[2018-11-19] MEDS: Venlafaxine HCl XR 150 MG CAP PO SCH ×2 (09:38→20:43)
[2018-11-19] MEDS: Atorvastatin Calcium 40 MG TAB PO SCH (09:39)
[2018-11-19] MEDS: Gabapentin 300 MG CAP PO SCH ×2 (09:39→20:38)
[2018-11-19] MEDS: metFORMIN 500 MG TAB PO SCH ×3 (09:39→20:38)
[2018-11-19] MEDS: Baclofen 10 MG TAB PO SCH ×3 (09:39→20:38)
[2018-11-19] MEDS: Aspirin 81 mg Enteric Coated Tablet PO SCH (09:40)
[2018-11-19] MEDS: Carvedilol 3.125 MG TAB PO SCH ×2 (09:40→20:39)
[2018-11-19] MEDS: Levothyroxine Sodium 125 MCG TAB PO SCH (09:40)
[2018-11-19] MEDS: Amlodipine 5 MG TAB PO SCH (09:40)
[2018-11-19] MEDS: Famotidine/PF 20 mg/2ml Vial SLOW IVP SCH ×2 (09:41→20:39)
[2018-11-19] MEDS: Famotidine 20 MG TAB PO SCH ×2 (09:41→20:37)
--- NOTE | 2018-11-19 09:43 | CT ---
FCT abdomen and pelvis: 11/19/2018 COMPARISON: 10/26/2016 HISTORY: Severe abdominal pain for 3 days TECHNIQUE: Axial CT imaging at 5 mm intervals from the lung bases through the pubic symphysis with IV and oral contrast. Coronal reformatted imaging obtained. FINDINGS: The imaged lung bases are unremarkable. No free intraperitoneal air is evident. Right upper quadrant cholecystectomy clips are present. The liver and spleen appear unremarkable. The pancreas, adrenal glands, and kidneys demonstrate no ac [place] findings. There is a punctate nonobstructing stone in the lower pole of the right kidney measurin g approximately 3 mm. Nonspecific small volume free fluid noted in the pelvic cul-de-sac to the right of midline, probably physiologic in nature. There is a gastrostomy tube in place. Mid left abdomen jejunostomy tube in des[place] ce as well. No evidence for bowel obstruction or bowel inflammatory change. The appendix cannot be visualized on this examination. No discrete right lower quadrant inflammatory change. The vascular structures in the abdomen and pelvis appear patent. No pelvic, mesenteric, or retroperitoneal lymphadenopathy is seen. Osseous structures demonstrate no acute findings. There is lower lumbar spine facet hypertrophy. IMPRESSION: No evidence for free intraperitoneal air or small bowel obstruction.
[2018-11-19] MEDS: Vancomycin HCl 1.5 GM in Sodium Chloride 0.9% 250 ML 300 ML IVPB SCH ×2 (09:54→20:34)
--- NOTE | 2018-11-19 11:25 | PRG ---
DATE OF SERVICE: 11/19/2018 SUBJECTIVE: Ms. Leslie is resting quietly. She was seen by the GI service, who have recommended CT scan and we appreciate their input. She is being pre dosed with prednisone in anticipation of a CT scan of the abdomen with contrast later this morning. Job ID: [id number]
[2018-11-19] MEDS: Lorazepam 2 MG/ML VIAL SLOW IVP PRN ×2 (12:20→20:47)
[2018-11-19] MEDS: Lisinopril/Hydrochlorothiazide 20 mg/12.5 mg Tablet PO SCH (12:20)
[2018-11-19] MEDS: HYDROcodone/Acetaminophen 10/325 mg Tablet PO PRN ×2 (14:54→20:46)
--- NOTE | 2018-11-19 17:14 | PRG ---
DATE OF SERVICE: 11/19/2018 SUBJECTIVE: Ms. Leslie still has pain all around her left side of her abdomen. She has had 3 bowel movements yesterday and a bowel movement this morning. No blood in the stool. No fever. No vomiting; however, she has chronic nausea. PHYSICAL EXAMINATION: VITAL SIGNS: Temperature 97.7, pulse 101, and blood pressure 158/101. GENERAL: She is in no acute distress. Alert and oriented x3. LUNGS: Clear to auscultation bilaterally. HEART: Regular rate and rhythm without murmur. ABDOMEN: Soft. She has tenderness throughout the left side of her abdomen, but no guarding. Her bowel sounds are active. The PEG site looks clear without erythema or induration; however, she does have greenish purulent drainage intermittently from the J-tube site. The gastrostomy tube site is clear. LABORATORY DATA: White blood cell count 9.3, hemoglobin 10.9, and platelets 278. Creatinine 0.65. LFTs are normal. Albumin 3.9. IMPRESSION: 1. Local infection of the subcutaneous tissue around the jejunostomy site. She had CT scan that shows no abscess. There is some muscle atrophy and fat stranding around the J-tube, which may indicate some mild infection around the site and in light of the drainage described above, this is likely a mild local subcutaneous infection. She can finish out a course of antibiotics for that. 2. Granulation tissue around the J-tube site. There is a small amount of granulation tissue around that site now. This has been followed by her surgeon at [facility], and ultimately, he sent the patient home with some silver nitrate sticks to cauterize the granulation tissue as needed. If needed now, the Family Medicine Service can also cauterize that granulation tissue around the J-tube site with silver nitrate sticks or she can follow up with her surgeon for that as well. 3. Gastroparesis. She has a history of gastroparesis, requiring G-tube placement for venting the stomach and jejunostomy placement. She may not tolerate bolus feedings into the jejunostomy as this part of the bowel does not have as large of a diameter as not as compliant as with gastric tube feedings. She may need to do very small boluses or could even use a pump at night to reduce the amount of feeding at a time, which might help with the pain following her feeds. The painful feeding does not appear to be related to the infection. I think this is more related to her chronic motility problems. 4. Opioid dependence. Certainly, this will worsen her gastric dysmotility, and this was discussed with her. She really should try to minimize opioid use overall. Anxiety is also playing a significant role, and Family Medicine Service is working on treating that. She is also taking gabapentin. 5. Opioid-induced chronic constipation. She has been on Linzess for that. She states that she has three loose stools per day with Linzess which seems to have been working pretty well. The CT scan does show significant amount of stool in the right colon and ultimately if she fails to empty adequately with the Linzess, Movantik could be considered as an alternative for the opioid-induced constipation. 6. Left-sided abdominal pain. This is a functional pain likely related to irritable bowel and/or fibromyalgia along with the surgeries and infection around the J-tube, all combining for chronic abdominal pain in this area. Again, opioid pain medicine is not the appropriate treatment for chronic nonspecific abdominal pain, and she was encouraged to try to limit the use of these medications. RECOMMENDATIONS: 1. Consider changing from bolus feedings to either very small boluses versus pump feeding for a J-tube at night. She can adjust this at home. 2. We will restart a low-residue diet by mouth as she tolerates. 3. Overall, she has gained weight since her J-tube was placed and appears to be getting adequate caloric nutrition. Her albumin is normal. 4. She can follow up with her GI specialist in [place], Dr. Jara. I will sign off for now. Please call if GI can be of assistance. Job ID: [id number]
[2018-11-19] MEDS: Enoxaparin Sodium 30 MG/0.3 ML SYRINGE SC SCH (20:40)
[2018-11-20] MEDS: Piperacillin/Tazobactam 3.375 GM in Sodium Chloride 0.9% 100 ML IVPB SCH ×5 (00:12→23:56)
[2018-11-20] MEDS: Lactated Ringer's 1,000 ML IV SCH ×3 (05:25→21:05)
--- NOTE | 2018-11-20 06:16 | PDOC.FM ---
- Subjective Subjective: Pt states that her pain level is improving. She can tolerate palpation on her abdomen today. She denies nausea, vomiting, chest pain, or headaches. She does report severe anxiety. She has tried multiple SSRIs as well as welbutrin. Ativan helps but she appreciates that is a med she can not leave on. - Objective MAR Reviewed: Yes Vital Signs & Weight: Vital Signs (12 hours) Temp Pulse Resp BP Pulse Ox 11/20/18 04:56 98.9 F 89 16 107/71 97 11/20/18 00:18 16 94 L 11/19/18 20:35 100 11/19/18 19:52 97.9 F 82 16 116/74 100 Weight Weight 72.575 kg I&O: 11/18/18 11/19/18 11/20/18 06:59 06:59 06:59 Intake Total 1600 Balance 1600 Result Diagrams: 11/18/18 13:14 11/18/18 16:21 Phys Exam - Physical Examination Constitutional: NAD HEENT: moist MMs Neck: supple, full ROM Respiratory: no wheezing, no rales, clear to auscultation bilateral Cardiovascular: RRR, no significant murmur, no rub Gastrointestinal: soft, no distention, positive bowel sounds Improving tenderness Musculoskeletal: no edema, pulses present Neurological: normal sensation, moves all 4 limbs Psychiatric: normal affect, A&O x 3 Skin: cap refill <2 seconds Dx/Plan (1) Abdominal pain Code(s): R10.9 - UNSPECIFIED ABDOMINAL PAIN Status: Acute (2) History of cerebrovascular accident (CVA) with residual deficit Code(s): I69.30 - UNSPECIFIED SEQUELAE OF CEREBRAL INFARCTION Status: Acute (3) Bipolar 1 disorder Code(s): F31.9 - BIPOLAR DISORDER, UNSPECIFIED Status: Chronic (4) Gastroparesis Code(s): K31.84 - GASTROPARESIS Status: Chronic (5) HLD (hyperlipidemia) Code(s): E78.5 - HYPERLIPIDEMIA, UNSPECIFIED Status: Chronic (6) Hypertension Code(s): I10 - ESSENTIAL (PRIMARY) HYPERTENSION Status: Chronic (7) Hypothyroid Code(s): E03.9 - HYPOTHYROIDISM, UNSPECIFIED Status: Chronic (8) Pacemaker Code(s): Z95.0 - PRESENCE OF CARDIAC PACEMAKER Status: Chronic (9) Sick sinus syndrome Code(s): I49.5 - SICK SINUS SYNDROME Status: Chronic (10) TIA (transient ischemic attack) Status: Chronic - Plan Plan: This is a 42 yo female with a pmh of CVA in 2013, gastroparesis 2/2 cva, sick sinus syndrome, hypothyroidism Abdominal pain concerning for infection -CXR shows no actue intrathoracic process -Abdominal US shows no masses, lymphadenopathy, or fluid collections -KUB shows catheters in place and normal bowel gas pattern -Pt started on vanc and zosyn 4/2, continue for one more day -Morphine for pain control -Consult GI, will appreciate recommendations -CT shows no concern for abscess -Pain is likely 2/2 mild infection surrounding J tube as well as her gastroparesis -Silver nitrate sticks for granulation tissue around J tube Anxiety -May contribute to pain, continue home venlafaxine -May transition to atarax and 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
[2018-11-20] MEDS ORDERED: Silver Nitrate Application 1 EACH TOP SCH (08:30)
[2018-11-20] MEDS: Vancomycin HCl 1.5 GM in Sodium Chloride 0.9% 250 ML 300 ML IVPB SCH ×2 (08:36→20:54)
[2018-11-20] MEDS: Lisinopril/Hydrochlorothiazide 20 mg/12.5 mg Tablet PO SCH (08:37)
[2018-11-20] MEDS: Levothyroxine Sodium 125 MCG TAB PO SCH (08:38)
[2018-11-20] MEDS: Baclofen 10 MG TAB PO SCH ×3 (08:38→20:45)
[2018-11-20] MEDS: Venlafaxine HCl XR 150 MG CAP PO SCH ×2 (08:38→12:42)
[2018-11-20] MEDS: Gabapentin 300 MG CAP PO SCH ×2 (08:38→20:43)
[2018-11-20] MEDS: metFORMIN 500 MG TAB PO SCH ×2 (08:38→20:43)
[2018-11-20] MEDS: Famotidine 20 MG TAB PO SCH ×2 (08:39→20:40)
[2018-11-20] MEDS: Amlodipine 5 MG TAB PO SCH (08:39)
[2018-11-20] MEDS: Atorvastatin Calcium 40 MG TAB PO SCH (08:39)
[2018-11-20] MEDS: Aspirin 81 mg Enteric Coated Tablet PO SCH (08:40)
[2018-11-20] MEDS: Carvedilol 3.125 MG TAB PO SCH ×2 (08:40→20:58)
[2018-11-20] MEDS: Famotidine/PF 20 mg/2ml Vial SLOW IVP SCH ×2 (08:41→20:47)
[2018-11-20] MEDS: HYDROcodone/Acetaminophen 10/325 mg Tablet PO PRN ×2 (08:46→18:15)
[2018-11-20 09:00] LABS: Vancomycin, Trough 14.6 ug/mL
--- NOTE | 2018-11-20 11:33 | PRG ---
DATE OF SERVICE: 11/20/2018 SUBJECTIVE: Ms. Leslie CT of the abdomen did not show any evidence of abscess or infection. She is looking and feeling much better. We will continue her on oral antibiotics for today and likely discharge tomorrow. We will continue to help her with her anxiety problem. Job ID: [id number]
[2018-11-20] MEDS: hydrOXYzine 25 MG TAB PO PRN ×2 (13:55→20:50)
[2018-11-20] MEDS: Enoxaparin Sodium 30 MG/0.3 ML SYRINGE SC SCH (20:46)
[2018-11-20] MEDS ORDERED: traZODone HCl 150 MG TAB PO SCH (21:00)
[2018-11-21] MEDS: Lactated Ringer's 1,000 ML IV SCH ×2 (04:07→14:27)
[2018-11-21] MEDS: HYDROcodone/Acetaminophen 10/325 mg Tablet PO PRN ×2 (04:09→14:23)
[2018-11-21] MEDS: hydrOXYzine 25 MG TAB PO PRN (04:10)
[2018-11-21] MEDS: Piperacillin/Tazobactam 3.375 GM in Sodium Chloride 0.9% 100 ML IVPB SCH (05:26)
--- NOTE | 2018-11-21 06:08 | PDOC.FM ---
- Subjective Subjective: Pt states she did better overnight. She reports improved abdominal pain and decreased nausea. She states the atarax has improved her anxiety. She denies cp or SOB - Objective MAR Reviewed: Yes Vital Signs & Weight: Vital Signs (12 hours) Temp Pulse Resp BP BP Pulse Ox 11/21/18 04:44 97.9 F 74 18 123/78 94 L 11/20/18 20:00 96 11/20/18 19:35 98.6 F 84 18 138/88 96 Weight Weight 72.575 kg I&O: 11/19/18 11/20/18 11/21/18 06:59 06:59 06:59 Intake Total 1600 1850 1850 Balance 1600 185 185 Result Diagrams: 11/18/18 13:14 11/18/18 16:21 Phys Exam - Physical Examination Constitutional: NAD HEENT: moist MMs Neck: supple, full ROM Respiratory: no wheezing, no rales, clear to auscultation bilateral Cardiovascular: RRR, no significant murmur, no rub Gastrointestinal: soft, no distention, positive bowel sounds Mild diffuse tenderness Musculoskeletal: no edema, pulses present Neurological: normal sensation, moves all 4 limbs Psychiatric: normal affect, A&O x 3 Skin: cap refill <2 seconds Dx/Plan (1) Abdominal pain Code(s): R10.9 - UNSPECIFIED ABDOMINAL PAIN Status: Acute (2) History of cerebrovascular accident (CVA) with residual deficit Code(s): I69.30 - UNSPECIFIED SEQUELAE OF CEREBRAL INFARCTION Status: Acute (3) Bipolar 1 disorder Code(s): F31.9 - BIPOLAR DISORDER, UNSPECIFIED Status: Chronic (4) Gastroparesis Code(s): K31.84 - GASTROPARESIS Status: Chronic (5) HLD (hyperlipidemia) Code(s): E78.5 - HYPERLIPIDEMIA, UNSPECIFIED Status: Chronic (6) Hypertension Code(s): I10 - ESSENTIAL (PRIMARY) HYPERTENSION Status: Chronic (7) Hypothyroid Code(s): E03.9 - HYPOTHYROIDISM, UNSPECIFIED Status: Chronic (8) Pacemaker Code(s): Z95.0 - PRESENCE OF CARDIAC PACEMAKER Status: Chronic (9) Sick sinus syndrome Code(s): I49.5 - SICK SINUS SYNDROME Status: Chronic (10) TIA (transient ischemic attack) Status: Chronic - Plan Plan: This is a 42 yo female with a pmh of CVA in 2013, gastroparesis 2/2 cva, sick sinus syndrome, hypothyroidism Abdominal pain concerning for infection -CXR shows no actue intrathoracic process -Abdominal US shows no masses, lymphadenopathy, or fluid collections -KUB shows catheters in place and normal bowel gas pattern -Pt started on vanc and zosyn 4/2, Transition to oral cefdinir today and discharge -Consult GI, will appreciate recommendations -CT shows no concern for abscess -Pain is likely 2/2 mild infection surrounding J tube as well as her gastroparesis Anxiety -May contribute to pain, continue home venlafaxine -Atarax seemed to help her anxiety overnight. We will continue this and have pt follow up with psych out pt Hx ofCVA -Stable DMII -Continue home metformin -SSI and accuchecks BID Bipolar disorder -Continue home meds Hypothyroidism -Checking TSH
[2018-11-21] MEDS: Lisinopril/Hydrochlorothiazide 20 mg/12.5 mg Tablet PO SCH (08:37)
[2018-11-21] MEDS: metFORMIN 500 MG TAB PO SCH (08:37)
[2018-11-21] MEDS: Levothyroxine Sodium 125 MCG TAB PO SCH (08:37)
[2018-11-21] MEDS: Gabapentin 300 MG CAP PO SCH (08:38)
[2018-11-21] MEDS: Carvedilol 3.125 MG TAB PO SCH (08:38)
[2018-11-21] MEDS: Baclofen 10 MG TAB PO SCH ×2 (08:38→14:23)
[2018-11-21] MEDS: Atorvastatin Calcium 40 MG TAB PO SCH (08:39)
[2018-11-21] MEDS: Venlafaxine HCl XR 150 MG CAP PO SCH ×2 (08:39→14:23)
[2018-11-21] MEDS: Amlodipine 5 MG TAB PO SCH (08:39)
[2018-11-21] MEDS: Aspirin 81 mg Enteric Coated Tablet PO SCH (08:40)
[2018-11-21] MEDS: Famotidine/PF 20 mg/2ml Vial SLOW IVP SCH (08:44)
[2018-11-21] MEDS: Famotidine 20 MG TAB PO SCH (08:44)
[2018-11-21] MEDS ORDERED: Ciprofloxacin 500 MG TAB PO SCH (09:00)
[2018-11-21] MEDS ORDERED: Cefdinir 300 MG CAP PO SCH (09:00)
[2018-11-21 11:37] VITALS: TEMP 98.4
[2018-11-21 15:13] VITALS: BP 130/86
--- NOTE | 2018-11-21 15:33 | PRG ---
DATE OF SERVICE: 11/21/2018 Ms. Dejesus continues to look and feel much better. Her wound culture grew some organisms, which are likely contaminants. We will have her continue coverage for possible Staph aureus skin infection with Omnicef given that it failed treatment with Septra before. Otherwise, she is ready for discharge today. Follow with her PCP next week. Job ID: [id number]
--- NOTE | 2018-11-24 08:31 | DIS ---
DATE OF ADMISSION: 11/18/2018 DATE OF DISCHARGE: 11/21/2018 ADMITTING ATTENDING: Fabian Holm MD. RESIDENT: Manolo Quinones DO. CONSULT: GI, Dr. Mcduffie. PROCEDURES: 1. CT abdomen with contrast showing no evidence of free intraperitoneal air or small bowel obstruction. 2. Chest x-ray, portable showed no intrathoracic abnormalities. 3. KUB one view, new segments of catheter tubing as detailed above. Bowel gas pattern, appears nonobstructive. 4. Soft tissue abdominal ultrasound showed no sonographic abnormality to correlate with reported pain. No masses, lymphadenopathy, or fluid collection. PRIMARY DIAGNOSES: Gastroparesis, functional, GI pain associated with. SECONDARY DIAGNOSIS: Anxiety likely playing into the patient's problem, history of cerebrovascular accident, type 2 diabetes, bipolar disorder. DISCHARGE MEDICATIONS: 1. Omnicef 300 mg p.o. b.i.d. for 3 to 6 days. 2. Hydroxyzine 25 mg p.o. q.6 hours. 3. Amlodipine 2.5 mg p.o. daily. 4. Aspirin 81 mg p.o. daily. 5. Atorvastatin 40 mg p.o. daily. 6. Baclofen 10 mg p.o. t.i.d. 7. Canagliflozin 100 mg p.o. daily. 8. Carbamazepine 400 mg p.o. b.i.d. 9. Carvedilol 3.125 mg p.o. b.i.d. 10. Dexlansoprazole 60 mg p.o. b.i.d. 11. Gabapentin 600 mg p.o. b.i.d. 12. Hydrocodone 10 mg p.o. q.4 hours p.r.n. pain. 13. Hyoscyamine 0.125 mg p.o. . Job ID: [id number]
== END 2018-11-21 15:12 | disposition home or self-care (01) | DRG 392 ==
LOC: OBSVTOIN 10:33 → T4-B 10:33
PROVIDERS: ADMIT Family Medicine; ATTEND Family Medicine
DX: K31.84 Gastroparesis (principal); T85.79XA Infection and inflammatory reaction due to other internal prosthetic devices, implants and grafts, initial encounter; L08.9 Local infection of the skin and subcutaneous tissue, unspecified; I69.398 Other sequelae of cerebral infarction; K59.03 Drug induced constipation; T40.2X5A Adverse effect of other opioids, initial encounter; E11.9 Type 2 diabetes mellitus without complications; Z66 Do not resuscitate; G25.81 Restless legs syndrome; E78.5 Hyperlipidemia, unspecified; I10 Essential (primary) hypertension; F32.89 Other specified depressive episodes; F41.9 Anxiety disorder, unspecified; F31.9 Bipolar disorder, unspecified; E03.9 Hypothyroidism, unspecified; Z91.041 Radiographic dye allergy status; Z95.0 Presence of cardiac pacemaker; Z79.891 Long term (current) use of opiate analgesic; Z79.899 Other long term (current) drug therapy; Z79.82 Long term (current) use of aspirin; Z79.84 Long term (current) use of oral hypoglycemic drugs
CPT/HCPCS: 36415; 36416; 71045; 74018; 74177; 76999; 80053; 80202; 84443; 85025; 87040; 87070; 87077; 87186; 87205; J1650; J2060; J2270; J2405; J2543; J3370; J7050; Q0162; Q0163; S0028

== ENCOUNTER 2018-12-08 16:51 | Observation (INO) | payer BC, MEDICARE ==
[2018-12-08 20:00] VITALS: BMI 25.3
[2018-12-08] MEDS ORDERED: Gabapentin 400 MG CAP PO SCH (21:00)
[2018-12-08] MEDS ORDERED: Pantoprazole 40 MG VIAL IVP SCH (21:00)
[2018-12-08] MEDS ORDERED: Carvedilol 3.125 MG TAB PO SCH (21:00)
[2018-12-08] MEDS: Dextrose 5%-Lactated Ringers 1,000 ML IV SCH (21:35)
[2018-12-08] MEDS ORDERED: Ondansetron ODT 4 MG TAB SL PRN (21:35)
[2018-12-08] MEDS: Ondansetron PF 4 MG/2 ML Vial SLOW IVP PRN (21:38)
--- NOTE | 2018-12-08 21:40 | PDOC.FPRHP ---
- History of Present Illness Chief Complaint: abdominal pain History of Present Illness: 42yo F with pmh of Anxiety/depression and gastroparesis with J tube presents to hospital for abdominal pain. Of not pt was recently admitted for similar reasons and worked up for possible infection associated with tube but was DCd after r/o. This time pt presents as direct admit from clinic for intractible nausea with similar abdominal pain superficial as well as deep. Associated decreased PO intake. Pt has only been tolerating PO liquids and has also not been able to use her J tube for the last 4 days 2/2 abdominal discomfort/pain/ anxiety. ED Course: none - Allergies/Adverse Reactions Allergies Allergy/AdvReac Type Severity Reaction Status Date / Time Iodinated Contrast- Oral and Allergy Verified 12/08/18 18:42 IV Dye zolpidem tartrate Allergy psychosis Verified 12/08/18 18:42 [From Ireneien] - Home Medications Medication Instructions Recorded Confirmed Type Amlodipine Besylate [amLODIPine 1 tab PO DAILY 11/18/18 12/08/18 History Besylate] Aspirin [Aspir-Low] 1 tab PO DAILY 11/18/18 12/08/18 History Atorvastatin Calcium 1 tab PO DAILY 11/18/18 12/08/18 History Baclofen 1 tab PO TID 11/18/18 12/08/18 History Carvedilol [Coreg] 1 tab PO BID 11/18/18 12/08/18 History Hydrocodone Bit/Acetaminophen 1 tab PO Q4HR PRN 11/18/18 12/08/18 History [HYDROcodone Bit/Acetaminophen] Hyoscyamine Sulfate [Levsin SL] 1 tab PO Q4HR PRN 11/18/18 12/08/18 History Ibuprofen 1 tab PO TID PRN 11/18/18 12/08/18 History Levothyroxine Sodium [Synthroid] 1 tab PO DAILY 11/18/18 12/08/18 History Linaclotide [Linzess] 1 tab PO DAILY 11/18/18 12/08/18 History Lisinopril/Hydrochlorothiazide 1 tab PO DAILY 11/18/18 12/08/18 History [Lisinopril-Hctz 20-12.5 mg Tab] Ondansetron HCl 1 tab PO TID PRN 11/18/18 12/08/18 History Pantoprazole [Protonix] 1 tab PO BID 11/18/18 12/08/18 History Promethazine [Phenergan] 1 tab PO Q6HR PRN 11/18/18 12/08/18 History SUMAtriptan Succinate [Sumatriptan 1 tab PO BID PRN 11/18/18 12/08/18 History Succinate] Venlafaxine HCl [Effexor XR] 1 tab PO BID 11/18/18 12/08/18 History carBAMazepine [Tegretol XR] 1 tab PO BID 11/18/18 12/08/18 History metFORMIN [Glucophage] 2 tab PO BID 11/18/18 12/08/18 History traMADol HCl [Tramadol HCl] 1 tab PO Q4HR PRN 11/18/18 12/08/18 History traZODone HCl [Trazodone HCl] 1.5 tab PO HS 11/18/18 12/08/18 History hydrOXYzine [Atarax] 25 mg PO Q6H PRN #30 tab 11/21/18 12/08/18 Rx Cefdinir 300 mg PO Q12HR 12/08/18 12/08/18 History Gabapentin 800 mg PO TID 12/08/18 12/08/18 History Liothyronine Sodium [Cytomel] 5 mcg PO BID 12/08/18 12/08/18 History busPIRone HCl 10 mg PO TID 12/08/18 12/08/18 History hydrALAZINE [Apresoline] 25 mg PO QID 12/08/18 12/08/18 History - History PMHx: Gastroparesis, DM, HTN, Sick sinus syndrome s/p pacemaker, Hx of PE, HLD, CALLI, chronic pain, bipolar disease, migraine, hypothyroid, celiac microscopic hematuria, chronic adhesive pericarditis PSHx: C section, hysterectomy, pericardial window, cholecystectomy FHx: DM, HTN, ovarian cancer, leukemia Social: Denies TAD - Review of Systems General: reports: fever/chills, fatigue Eyes: denies: eye pain, vision changes ENT: denies: nasal congestion, rhinorrhea Respiratory: denies: congestion, shortness of breath Cardiovascular: denies: chest pain, palpitation Gastrointestinal: denies: nausea, diarrhea, constipation Genitourinary: denies: incontinence, dysuria Skin: denies: rashes, lesions Musculoskeletal: reports: pain, tenderness Neurological: denies: syncope, seizure Psychological: denies: anxiety, depression - Vital signs BP: [159/98] HR: [82] RR: [16] Tmax: [98.5] - Physical Exam Constitutional: NAD, well developed HEENT: EOMI, grossly normal vision, grossly normal hearing Neck: supple, trachea midline Chest: no-tender to palpation, no lesions Heart: RRR, normal S1/S2 Lungs: CTAB, no respiratory distress Abdomen: soft, other (diffuse, moderate ttp, no erythema at j tube site, no masses palpated, no guarding) Musculoskeletal: normal structure, normal tone Neurological: no focal deficit, normal sensation Skin: no rash/lesions, good turgor, capillary refill <2 seconds Heme/Lymphatic: no purpura, no petechia Psychiatric: normal mood and affect, intact recent and remote memory FMR H&P: A/P - Problem List (1) Gastroparesis Current Visit: No Status: Chronic Code(s): K31.84 - GASTROPARESIS (2) Nausea Current Visit: Yes Status: Acute Code(s): R11.0 - NAUSEA (3) Abdominal pain Current Visit: No Status: Acute Code(s): R10.9 - UNSPECIFIED ABDOMINAL PAIN (4) Bipolar 1 disorder Current Visit: No Status: Chronic Code(s): F31.9 - BIPOLAR DISORDER, UNSPECIFIED (5) Diabetes Current Visit: No Status: Chronic Code(s): E11.9 - TYPE 2 DIABETES MELLITUS WITHOUT COMPLICATIONS (6) Hypertension Current Visit: No Status: Chronic Code(s): I10 - ESSENTIAL (PRIMARY) HYPERTENSION (7) Hypothyroid Current Visit: No Status: Chronic Code(s): E03.9 - HYPOTHYROIDISM, UNSPECIFIED - Plan Intractible nausea 2/2 gastroparesis A- likely not infectious etiology of pain, likely 2/2 anxiety surrounding j tube per assesment at last admission which is consistent with history and exam today. Pain is undoubtedly also in part due to gastroparesis P- Will start reglan, avoid opiates if at all possible because of gastroparesis -IVF -Dietary consult Anxiety -home meds Bipolar -home meds migraine -home meds HLD -home meds Chronic adhesive pericarditis -home meds HTN -home meds Sick sinus syndrome s/p ablation -home meds FMR H&P: Upper Level - Pertinent history 42 yr old female with PMH of gastroparesis is sent over as a direct admit for inability to tolerate tube feeds 2/2 pain for last 4 days. She has felt chronic nausea since then. No vomiting. No distinct abdominal pain. She also has a lot of anxiety which is currently trying to be managed with buspirone. - Pertinent findings Gen: No acute distress, resting in bed Heart: RRR, no M/R/G Lungs: CTABm, no wheezes, rhales, rhonhci Abd: J tube and G tube with dressings clean an dry. soft nontender. Bowel sounds normal active. Neuro: CN 2-12 intact grossly, no focal neurologic deficits - Plan Date/Time: 12/08/182139 I, [Leonor Moeller], have evaluated this patient and agree with findings/plan as outlined by international marketing coordinator resident. Pertinent changes/additions are listed here. intractable nausea 2/2 Gastroparesis -will start reglan for chronic nausea- discussed risks of medication with patient -she has f/u with her motility specialist next week in [place] -no acute signs of infection, recent extensive workup for similar symptoms within the last month and completed omnicef -consult nutrition -clinic records show an approx 2-3 lb weight loss in last month HTN -restart home meds Anxiety -has been start on buspirone outpatient. -cont for now. -she would likely benefit from outpatient counseling Other chronic medical problems per international marketing coordinator note above. Addendum - Attending - Attending Attestation Date/Time: 12/09/18 0706 I personally evaluated the patient and discussed the management with Dr. Duron on 12/08/2018 I agree with the History, Examination, Assessment and Plan documented above with any addition or exceptions noted below- 42 yo female with h/o DM complicated by gastroparesis, sick sinus syndrome s/p pacemaker placement, Htn, Hypothyroidism admitted from clinic secondary to dehydration due to poor intake secondary to abdominal pain. Patient had G and J tube placed for feeding secondary to severe gastroparesis. States that she has had continued abdominal pain since her last hospitalization. States that she has been able to drink some fluids but has not been using her J-tube due to pain. Denies any fever/ chills. Has been able to take her medications. PMH/PSH/All/Meds reviewed and agree with residents documentation. Afebrile VSS Exam repeated by me and and agree with residents findings. A/P: 1) Abdominal pain - unclear etiology; PCP spoke with GI specialist and may consider barium swallow. Study complicated by contrast allergy. Will defer to AM team. 2) Chronic nausea- will give short course of reglan.
[2018-12-08] MEDS: Baclofen 10 MG TAB PO SCH (21:43)
[2018-12-08] MEDS ORDERED: ONDANSETRON HCL PO PRN (22:27)
[2018-12-08] MEDS ORDERED: SUMAtriptan Succinate 50 MG TAB PO PRN (22:27)
[2018-12-09] MEDS: Lactated Ringer's 1,000 ML IV SCH ×3 (00:43→19:53)
[2018-12-09] MEDS: Ibuprofen 800 MG TAB PO PRN ×3 (01:03→18:29)
[2018-12-09] MEDS: traMADol HCl 50 MG TAB PO PRN ×3 (01:03→20:26)
[2018-12-09] MEDS ORDERED: traZODone HCl 150 MG TAB PO SCH ×2 (01:15→21:00)
[2018-12-09] MEDS ORDERED: busPIRone HCl 5 MG TAB PO SCH (01:15)
[2018-12-09] MEDS: Dextrose 5%-Lactated Ringers 1,000 ML IV SCH ×3 (04:13→18:13)
[2018-12-09] MEDS: Ondansetron PF 4 MG/2 ML Vial SLOW IVP PRN (05:38)
[2018-12-09] MEDS: Levothyroxine Sodium 125 MCG TAB PO SCH (05:38)
[2018-12-09] MEDS ORDERED: Levothyroxine Sodium 125 MCG TAB PO SCH (06:00)
[2018-12-09] MEDS: Metoclopramide HCl 10 MG TAB PO SCH ×4 (06:50→20:20)
--- NOTE | 2018-12-09 07:42 | PDOC.FM ---
- Subjective Subjective: No overnight events. Reports symptoms are about the same as yesterday. Reports receiving first dose of metaclopramide 10-15min ago. Endorses abdominal pain. No vomiting. Reports leaking of J tube. - Objective MAR Reviewed: Yes Vital Signs & Weight: Vital Signs (12 hours) Temp Pulse Resp BP Pulse Ox 12/09/18 04:00 98.1 F 74 16 123/81 97 12/09/18 01:00 98.1 F 77 16 152/102 H 95 12/08/18 20:00 98.3 F 79 16 159/98 H 98 Weight Weight 71.214 kg I&O: 12/08/18 12/09/18 12/10/18 06:59 06:59 06:59 Intake Total 1440 Balance 1440 Phys Exam - Physical Examination Constitutional: NAD HEENT: moist MMs Neck: supple Respiratory: no wheezing, clear to auscultation bilateral Cardiovascular: RRR, no significant murmur Gastrointestinal: soft, positive bowel sounds Diffusely tender to palpation, greatest in LLQ. No rebound or rigidity. Musculoskeletal: no edema Neurological: moves all 4 limbs Psychiatric: normal affect, A&O x 3 Skin: no rash, normal turgor Dx/Plan (1) Intractable nausea and vomiting Code(s): R11.2 - NAUSEA WITH VOMITING, UNSPECIFIED Status: Acute (2) Abdominal pain Code(s): R10.9 - UNSPECIFIED ABDOMINAL PAIN Status: Acute (3) History of cerebrovascular accident (CVA) with residual deficit Code(s): I69.30 - UNSPECIFIED SEQUELAE OF CEREBRAL INFARCTION Status: Acute (4) Bipolar 1 disorder Code(s): F31.9 - BIPOLAR DISORDER, UNSPECIFIED Status: Chronic (5) Depression Code(s): F32.9 - MAJOR DEPRESSIVE DISORDER, SINGLE EPISODE, UNSPECIFIED Status : Chronic (6) Diabetes Code(s): E11.9 - TYPE 2 DIABETES MELLITUS WITHOUT COMPLICATIONS Status: Chronic (7) HLD (hyperlipidemia) Code(s): E78.5 - HYPERLIPIDEMIA, UNSPECIFIED Status: Chronic (8) History of DVT (deep vein thrombosis) Code(s): Z86.718 - PERSONAL HISTORY OF OTHER VENOUS THROMBOSIS AND EMBOLISM Status: Chronic (9) Hypertension Code(s): I10 - ESSENTIAL (PRIMARY) HYPERTENSION Status: Chronic (10) Hypothyroid Code(s): E03.9 - HYPOTHYROIDISM, UNSPECIFIED Status: Chronic (11) Migraine Code(s): G43.909 - MIGRAINE, UNSP, NOT INTRACTABLE, WITHOUT STATUS MIGRAINOSUS Status: Chronic (12) Normocytic anemia Code(s): D64.9 - ANEMIA, UNSPECIFIED Status: Chronic - Plan Plan: Intractable nausea 2/2 Gastroparesis - Reglan for chronic nausea. Continue home zofran. Has taken metoclopramide in the past. - she has f/u with her motility specialist next week in [place]. May benefit from small bowel follow through. Pt has iodine allergy. Was able to have CT with contrast at last admission pretreated with Prednisone - no acute signs of infection, recent extensive workup for similar symptoms within the last month and completed omnicef - Consulted dietetics HTN - Continue home meds Anxiety - Continue home meds Bipolar - Continue home meds Migraines - Continue home meds HLD - Continue home meds Chronic adhesive pericarditis - Continue home meds HTN - Continue home meds Sick sinus syndrome s/p ablation - Continue home meds Code Status: DNR DVT ppx: Lovenox PCP: [facility] (Dr Gallegos)
[2018-12-09] MEDS ORDERED: CARBAMAZEPINE PO SCH (09:00)
[2018-12-09] MEDS ORDERED: Amlodipine 5 MG TAB PO SCH (09:00)
[2018-12-09] MEDS ORDERED: Venlafaxine HCl XR 150 MG CAP PO SCH (09:00)
[2018-12-09] MEDS: Enoxaparin Sodium 40 MG/0.4 ML SYRINGE SC SCH (09:13)
[2018-12-09] MEDS: Lisinopril/Hydrochlorothiazide 20 mg/12.5 mg Tablet PO SCH (09:14)
[2018-12-09] MEDS: busPIRone HCl 5 MG TAB PO SCH ×3 (09:17→20:18)
[2018-12-09] MEDS: Gabapentin 400 MG CAP PO SCH ×3 (09:17→20:19)
[2018-12-09] MEDS: Cefdinir 300 MG CAP PO SCH ×2 (09:18→20:19)
[2018-12-09] MEDS: Atorvastatin Calcium 40 MG TAB PO SCH (09:19)
[2018-12-09] MEDS: Liothyronine Sodium 5 MCG TAB PO SCH ×2 (09:19→20:21)
[2018-12-09] MEDS: Baclofen 10 MG TAB PO SCH ×3 (09:19→20:18)
[2018-12-09] MEDS: Aspirin 81 mg Enteric Coated Tablet PO SCH (09:20)
[2018-12-09] MEDS: Carvedilol 3.125 MG TAB PO SCH ×2 (09:20→20:21)
[2018-12-09] MEDS: Amlodipine 5 MG TAB PO SCH (09:21)
[2018-12-09] MEDS: metFORMIN 500 MG TAB PO SCH ×2 (09:22→18:11)
[2018-12-09] MEDS: hydrALAZINE 25 MG TAB PO SCH ×4 (09:23→20:26)
[2018-12-09 10:21] LABS: #Basophils 0.1 thou/uL (0.0-0.2); #Eosinphils 0.1 thou/uL (0.0-0.7); #Lymphocytes 1.7 thou/uL (1.20-3.40); #Monocytes 0.5 thou/uL (0.11-0.59); #Neutrophils 3.2 thou/uL (1.40-6.50); %Basophils 0.9 % (0.0-1.0); %Eosinophils 2.5 % (0.0-10.0); %Lymphocytes 30.6 % (21.0-51.0); %Monocytes 8.1 % (0.0-10.0); %Neutrophils 57.9 % (42.0-75.0); Hemoglobin 10.3 g/dL (12.0-16.0); Mean Corpuscular HGB CONC 31.1 g/dL (32.0-36.0); Mean Corpuscular Hemoglobin 24.3 pg (27.0-31.0); Mean Corpuscular Volume 78.1 fL (78.0-98.0); Mean Platelet Volume 7.5 fL (7.4-10.4); Platelet Count 252 thou/uL (130-400); RBC Distribution Width 13.4 % (11.5-14.5); Red Blood Cell (RBC) Count 4.25 mill/uL (4.20-5.40); White Blood Cell (WBC) Count 5.5 thou/uL (4.8-10.8)
[2018-12-09 10:29] LABS: Hemoglobin A1c 4.2 % (4.0-6.0)
[2018-12-09 10:42] LABS: Carbamazepine-Tegretol 10.8 ug/mL (4.0-12.0)
[2018-12-09 10:44] LABS: ALT (SGPT) 35 U/L (8-55); AST (SGOT) 24 U/L (5-34); Albumin 3.7 g/dL (3.5-5.0); Alkaline Phosphatase 127 U/L (40-150); Anion Gap 9 mmol/L (10-20); BUN (Urea Nitrogen) 6 mg/dL (7.0-18.7); Bilirubin, Total 0.2 mg/dL (0.2-1.2); Calc. Creatinine Clearance 131 mL/min (70-130); Calcium 9.2 mg/dL (7.8-10.44); Carbon Dioxide 29 mmol/L (22-29); Chloride 100 mmol/L (98-107); Estimated GFR-MDRD Greater than 90; Globulin 2.2 g/dL (2.4-3.5); Glucose 81 mg/dL (70-105); Lipase 53 U/L (8-78); Magnesium 1.6 mg/dL (1.6-2.6); Potassium 4.2 mmol/L (3.5-5.1); Protein, Total 5.9 g/dL (6.0-8.3); Sodium 134 mmol/L (136-145)
[2018-12-09] MEDS ORDERED: diphenhydrAMINE 50 MG/ML VIAL IVP SCH ×2 (11:00→21:00)
[2018-12-09] MEDS ORDERED: methylPREDNISolone Sod Succ 40 MG VIAL IVP SCH ×2 (11:15→21:00)
[2018-12-09] MEDS ORDERED: Gabapentin 300 MG CAP PO SCH (12:00)
[2018-12-09] MEDS ORDERED: Silver Nitrate Application 1 EACH TOP SCH (13:30)
[2018-12-09 13:41] LABS: Bilirubin Negative (Negative); Blood, Urine Negative (Negative); Clarity CLOUDY (Clear); Glucose, Urine (Dipstick) Negative (Negative); Leukocyte Trace (Negative); Nitrite Negative (Negative); Protein, Urine (Dipstick) Trace mg/dL (Neg-Trace); Specific Gravity, Urine 1.023 (1.002-1.036); pH, Urine 7.5 (5.0-9.0)
[2018-12-09 13:46] LABS: Bacteria/HPF None Seen HPF (None Seen); Hyaline Casts/LPF 0-3 HYALINE CAST LPF (0-3 Hyaline); RBC/HPF 0-3 HPF (0-3); Squamous Epithelial 0-3 HPF (0-3); WBC/HPF 0-3 HPF (0-3)
--- NOTE | 2018-12-09 15:25 | PRG ---
DATE OF SERVICE: 12/09/2018 Ms. Leslie is admitted for worsening of the symptoms of her gastroparesis. It is recommended that a small bowel follow-through be obtained to further workup this problem. We are trying to use any pain medication very judiciously. Job ID: [id number]
[2018-12-10] MEDS: Dextrose 5%-Lactated Ringers 1,000 ML IV SCH ×2 (01:44→10:00)
[2018-12-10] MEDS: Lactated Ringer's 1,000 ML IV SCH ×2 (03:51→17:51)
--- NOTE | 2018-12-10 06:27 | PDOC.FM ---
- Subjective Subjective: No overnight events. Had episode of nausea and vomiting earlier this morning resolved with Zofran. Reports the Metoclopramide has been working well for longer periods of time. Denies constipation. Abdominal pain only with palpation. - Objective MAR Reviewed: Yes Vital Signs & Weight: Vital Signs (12 hours) Temp Pulse Resp BP BP Pulse Ox 12/09/18 23:45 98.1 F 82 16 116/77 96 12/09/18 20:26 80 146/96 H 12/09/18 20:03 97.5 F L 80 18 146/96 H 96 Weight Admit Weight 71.214 kg Weight 71.214 kg I&O: 12/08/18 12/09/18 12/10/18 06:59 06:59 06:59 Intake Total 1440 1500 Balance 1440 1500 Result Diagrams: 12/09/18 09:58 12/09/18 09:58 Phys Exam - Physical Examination Constitutional: NAD HEENT: moist MMs Neck: supple Respiratory: no wheezing, clear to auscultation bilateral Cardiovascular: RRR, no significant murmur Gastrointestinal: soft, positive bowel sounds Mild LLQ pain with palpation, no rebound or rigidity Musculoskeletal: no edema Neurological: moves all 4 limbs Psychiatric: normal affect, A&O x 3 Skin: no rash Dx/Plan (1) Intractable nausea and vomiting Code(s): R11.2 - NAUSEA WITH VOMITING, UNSPECIFIED Status: Acute (2) Abdominal pain Code(s): R10.9 - UNSPECIFIED ABDOMINAL PAIN Status: Acute (3) History of cerebrovascular accident (CVA) with residual deficit Code(s): I69.30 - UNSPECIFIED SEQUELAE OF CEREBRAL INFARCTION Status: Acute (4) Bipolar 1 disorder Code(s): F31.9 - BIPOLAR DISORDER, UNSPECIFIED Status: Chronic (5) Depression Code(s): F32.9 - MAJOR DEPRESSIVE DISORDER, SINGLE EPISODE, UNSPECIFIED Status : Chronic (6) Diabetes Code(s): E11.9 - TYPE 2 DIABETES MELLITUS WITHOUT COMPLICATIONS Status: Chronic (7) HLD (hyperlipidemia) Code(s): E78.5 - HYPERLIPIDEMIA, UNSPECIFIED Status: Chronic (8) History of DVT (deep vein thrombosis) Code(s): Z86.718 - PERSONAL HISTORY OF OTHER VENOUS THROMBOSIS AND EMBOLISM Status: Chronic (9) Hypertension Code(s): I10 - ESSENTIAL (PRIMARY) HYPERTENSION Status: Chronic (10) Hypothyroid Code(s): E03.9 - HYPOTHYROIDISM, UNSPECIFIED Status: Chronic (11) Migraine Code(s): G43.909 - MIGRAINE, UNSP, NOT INTRACTABLE, WITHOUT STATUS MIGRAINOSUS Status: Chronic (12) Normocytic anemia Code(s): D64.9 - ANEMIA, UNSPECIFIED Status: Chronic - Plan Plan: Intractable nausea 2/2 Gastroparesis - Reglan for chronic nausea. Continue home zofran. Has taken metoclopramide in the past. - Received pretreatment due to contrast allergy with Prednisone and Benadryl last night. Will have small bowel follow through with Gastrograffin today performed through J tube. - no acute signs of infection, recent extensive workup for similar symptoms within the last month - Continue course of Omnicef - Consulted dietetics HTN - Continue home meds Anxiety - Continue home meds Bipolar - Continue home meds Migraines - Continue home meds HLD - Continue home meds Chronic adhesive pericarditis - Continue home meds HTN - Continue home meds Sick sinus syndrome s/p ablation - Continue home meds Code Status: DNR DVT ppx: Lovenox PCP: DAVID (Dr Gallegos)
[2018-12-10] MEDS: Metoclopramide HCl 10 MG TAB PO SCH ×3 (06:34→17:58)
[2018-12-10] MEDS: Venlafaxine HCl XR 150 MG CAP PO SCH ×2 (06:34→13:46)
[2018-12-10] MEDS: Levothyroxine Sodium 125 MCG TAB PO SCH (06:34)
[2018-12-10] MEDS: traMADol HCl 50 MG TAB PO PRN (06:37)
[2018-12-10] MEDS: Ondansetron PF 4 MG/2 ML Vial SLOW IVP PRN ×2 (06:38→13:42)
[2018-12-10] MEDS ORDERED: diphenhydrAMINE 50 MG CAP PO SCH ×2 (09:00→20:30)
[2018-12-10] MEDS ORDERED: predniSONE 50 MG TAB PO SCH (09:00)
[2018-12-10] MEDS: metFORMIN 500 MG TAB PO SCH ×2 (10:00→17:58)
--- NOTE | 2018-12-10 12:18 | RAD ---
Small bowel follow-through HISTORY: Abdominal pain. Nausea and vomiting. FINDINGS: Gastrografin contrast was administered through the jejunostomy tube and imaging performed. No evidence of leak. Contrast was also administered through the PEG tube. No evidence of leak. Contrast moved throughout t he small bowel. No significant dilatation. The right colon was reached at one hour. IMPRESSION: No evidence feeding tube complication. No evidence of bowel obstruction. No significant abnormalities are demonstrated.
--- NOTE | 2018-12-10 12:22 | PRG ---
DATE OF SERVICE: 12/10/2018 Ms. Leslie is much more comfortable today. We are going to obtain a small bowel x-ray given her complications of gastroparesis. She can likely be discharged later today or tomorrow afterwards. Job ID: [id number]
[2018-12-10] MEDS: Cefdinir 300 MG CAP PO SCH (13:36)
[2018-12-10] MEDS: Baclofen 10 MG TAB PO SCH ×2 (13:36→13:48)
[2018-12-10] MEDS: Carvedilol 3.125 MG TAB PO SCH (13:36)
[2018-12-10] MEDS: busPIRone HCl 5 MG TAB PO SCH ×2 (13:36→13:52)
[2018-12-10] MEDS: Gabapentin 400 MG CAP PO SCH ×2 (13:37→13:47)
[2018-12-10] MEDS: hydrALAZINE 25 MG TAB PO SCH ×3 (13:37→17:56)
[2018-12-10] MEDS: Liothyronine Sodium 5 MCG TAB PO SCH (13:37)
[2018-12-10] MEDS: predniSONE 50 MG TAB PO SCH ×2 (13:38→13:39)
[2018-12-10] MEDS: Atorvastatin Calcium 40 MG TAB PO SCH (13:47)
[2018-12-10] MEDS: Aspirin 81 mg Enteric Coated Tablet PO SCH (13:48)
[2018-12-10] MEDS: Amlodipine 5 MG TAB PO SCH (13:48)
[2018-12-10] MEDS: Lisinopril/Hydrochlorothiazide 20 mg/12.5 mg Tablet PO SCH (13:50)
[2018-12-10] MEDS: Enoxaparin Sodium 40 MG/0.4 ML SYRINGE SC SCH (13:50)
[2018-12-10] MEDS: Ibuprofen 800 MG TAB PO PRN (14:41)
[2018-12-10 15:37] VITALS: BP 137/90; TEMP 98.4
--- NOTE | 2018-12-12 02:40 | DIS ---
DATE OF ADMISSION: 12/08/2018 DATE OF DISCHARGE: 12/10/2018 ADMITTING ATTENDING: Fang Suh MD. CONSULTS: None. PROCEDURE: Small-bowel x-ray, no evidence of feeding tube complication, no evidence of bowel obstruction. PRIMARY DIAGNOSES: 1. Intractable nausea secondary to gastroparesis versus obstruction. 2. Hypertension. SECONDARY DIAGNOSES: 1. Anxiety. 2. Hypertension. 3. Bipolar. 4. Migraines. 5. Chronic adhesive pericarditis. 6. Sick sinus syndrome status post ablation. DISCHARGE MEDICATIONS: 1. Amlodipine 2.5 mg daily. 2. Aspirin 81 mg daily. 3. Atorvastatin 40 mg daily. 4. Baclofen 10 mg t.i.d. 5. Buspirone 10 mg t.i.d. 6. Carbamazepine 400 mg q.a.m. and 800 mg at bedtime. 7. Carvedilol 3.125 mg b.i.d. 8. Cefdinir 300 mg q.12 hours. 9. Gabapentin 800 mg t.i.d. 10. Hydralazine 25 mg q.i.d. 11. [place] 10/325 mg q.4 hours p.r.n. 12. Hydroxyzine 25 mg q.6 hours p.r.n. 13. Levsin 0.125 mg q.4 hours p.r.n. 14. Ibuprofen 800 mg t.i.d. p.r.n. 15. Synthroid 125 mcg daily. 16. Linzess 290 mcg daily. 17. Cytomel 5 mcg b.i.d. 18. Lisinopril/hydrochlorothiazide 20/12.5 mg daily. 19. Metformin 1000 mg b.i.d. 20. Reglan 10 mg a.c. and at bedtime p.r.n. 21. Zofran 4 mg sublingual q.6 hours p.r.n. 22. Zofran 8 mg t.i.d. p.r.n. 23. Protonix 40 mg b.i.d. 24. Phenergan 25 mg q.6 hours p.r.n. 25. Sumatriptan succinate 50 mg b.i.d. p.r.n. 26. Tramadol 50 mg 1-2 tabs p.r.n. q.6 hours. 27. Trazodone 150 mg at bedtime. 28. Venlafaxine 150 mg b.i.d. DISCONTINUED MEDICATIONS: None. HISTORY OF PRESENT ILLNESS/HOSPITAL COURSE: Ms. Leslie is a 43-year-old female with a past medical history of anxiety, depression, and gastroparesis with G and J tube, who presented to the hospital with abdominal pain and intractable nausea, vomiting. Initial vital signs, the patient was hypertensive, blood pressure 159 /98. Intractable nausea is likely secondary to her gastroparesis. Her motility specialist was called by her PCP, he recommended a small-bowel follow-through and hospitalization until the patient was able to tolerate p.o. and have decreased pain. Small- bowel follow-through was normal. The patient was restarted on metoclopramide which she had taken in the past and had been effective, but had been discontinued due to side effects. Discussion over risks versus benefits was had with the patient and she opted to take the medication for the shortest time possible. The patient was able to tolerate p.o. and was having normal bowel movement on discharge. Her chronic medical conditions of anxiety, bipolar, migraines, hyperlipidemia, chronic adhesive pericarditis, hypertension, and sick sinus syndrome were treated with home medications and stable throughout the course of her hospitalization. DISCHARGE DISPOSITION: Stable. DISCHARGE INSTRUCTIONS: 1. Location: Home. 2. Diet: Regular. 3. Activity: No restrictions. 4. Follow up with Dr. Gallegos at [facility] within 3 to 7 days. Job ID: [id number] MTDD
== END 2018-12-10 18:35 | disposition home or self-care (01) ==
LOC: SURG A 18:18
PROVIDERS: ADMIT Family Medicine; ATTEND Family Medicine
DX: E11.43 Type 2 diabetes mellitus with diabetic autonomic (poly)neuropathy (principal); K31.84 Gastroparesis; I10 Essential (primary) hypertension; E78.5 Hyperlipidemia, unspecified; G47.33 Obstructive sleep apnea (adult) (pediatric); F31.9 Bipolar disorder, unspecified; G43.909 Migraine, unspecified, not intractable, without status migrainosus; E03.9 Hypothyroidism, unspecified; I31.0 Chronic adhesive pericarditis; I49.5 Sick sinus syndrome; D64.9 Anemia, unspecified; I69.30 Unspecified sequelae of cerebral infarction; Z79.82 Long term (current) use of aspirin; Z79.84 Long term (current) use of oral hypoglycemic drugs; Z79.899 Other long term (current) drug therapy; Z88.8 Allergy status to other drugs, medicaments and biological substances; Z91.041 Radiographic dye allergy status; Z86.711 Personal history of pulmonary embolism; Z95.0 Presence of cardiac pacemaker; Z86.718 Personal history of other venous thrombosis and embolism; Z66 Do not resuscitate; Z93.4 Other artificial openings of gastrointestinal tract status
CPT/HCPCS: 36415; 36416; 74250; 80053; 80156; 81003; 81015; 83036; 83690; 83735; 84443; 85025; 96361; 96372; 96374; 96375; 96376; C9113; G0378; J1200; J1650; J2405; J2920; J7121; J8597

== ENCOUNTER 2019-01-12 12:42 | Emergency (ER) | payer BC, MEDICARE ==
[2019-01-12 13:30] LABS: #Eosinphils 0.1 thou/uL (0.0-0.7); #Lymphocytes 1.1 thou/uL (1.20-3.40); #Monocytes 0.5 thou/uL (0.11-0.59); #Neutrophils 5.6 thou/uL (1.40-6.50); %Basophils 0.4 % (0.0-1.0); %Eosinophils 0.7 % (0.0-10.0); %Lymphocytes 15.3 % (21.0-51.0); %Monocytes 7.3 % (0.0-10.0); %Neutrophils 76.3 % (42.0-75.0); Mean Corpuscular HGB CONC 31.7 g/dL (32.0-36.0); Mean Corpuscular Hemoglobin 24.8 pg (27.0-31.0); Mean Corpuscular Volume 78.2 fL (78.0-98.0); Mean Platelet Volume 6.9 fL (7.4-10.4); Platelet Count 289 thou/uL (130-400); RBC Distribution Width 13.7 % (11.5-14.5); Red Blood Cell (RBC) Count 4.42 mill/uL (4.20-5.40); White Blood Cell (WBC) Count 7.3 thou/uL (4.8-10.8)
[2019-01-12 13:56] LABS: ALT (SGPT) 7 U/L (8-55); AST (SGOT) 11 U/L (5-34); Albumin 3.9 g/dL (3.5-5.0); Alkaline Phosphatase 108 U/L (40-150); Anion Gap 12 mmol/L (10-20); BUN (Urea Nitrogen) 7 mg/dL (7.0-18.7); Bilirubin, Total 0.2 mg/dL (0.2-1.2); Calc. Creatinine Clearance 0 mL/min (70-130); Calcium 9.1 mg/dL (7.8-10.44); Carbon Dioxide 26 mmol/L (22-29); Chloride 99 mmol/L (98-107); Estimated GFR-MDRD Greater than 90; Globulin 2.7 g/dL (2.4-3.5); Glucose 104 mg/dL (70-105); Lipase 25 U/L (8-78); Potassium 3.9 mmol/L (3.5-5.1); Protein, Total 6.6 g/dL (6.0-8.3); Sodium 133 mmol/L (136-145)
--- NOTE | 2019-01-12 14:08 | CT ---
CT ABDOMEN AND PELVIS WITHOUT CONTRAST: HISTORY: Abdominal pain. Feeding tube malfunction. FINDINGS: Comparison is made with the contrast-enhanced exam of 11/19/2018. Absence of oral and IV contrast reduces the sensitivity of the exam, particularly for evaluation of s olid organs involved. The lung bases are clear. No free air is seen in the abdomen or pelvis. A gastrostomy tube remains in place. There has been interval removal of the left mid abdominal jejunostomy tube. The patient was post cholecystectomy. There is a tiny calculus in the inferior pole of the right kid cassia. There is a 1 cm hyperdense focus in the inferior pole of the left kidney with an attenuation va lue of 90 Hounsfield units consistent with hyperdense cysts. No calculi are seen in the left kidney, either ureter, or the urinary bladder. No hydroureteral nephrosis identified. A small amount of fr ee fluid is seen in the pelvis. There is no evidence of aneurysmal dilatation of the abdominal aorta. There are degenerative changes in the spine. IMPRESSION: 1. Interval removal of left-sided jejunostomy tube since 11/19/2018. 2. Nonobstructing tiny right renal calculus. 3. A 1 cm hyperdense cyst in the left kidney. 4. A small amount of free fluid in the pelvis. POS: BETHEL
== END 2019-01-12 15:19 | disposition home or self-care (01) ==
LOC: ERS 12:42
DX: K94.23 Gastrostomy malfunction (principal); F41.9 Anxiety disorder, unspecified; F31.9 Bipolar disorder, unspecified; F44.81 Dissociative identity disorder; E78.5 Hyperlipidemia, unspecified; E03.9 Hypothyroidism, unspecified; E11.9 Type 2 diabetes mellitus without complications; I10 Essential (primary) hypertension; G51.0 Bell's palsy; Z86.73 Personal history of transient ischemic attack (TIA), and cerebral infarction without residual deficits; Z86.711 Personal history of pulmonary embolism; Z87.442 Personal history of urinary calculi
CPT/HCPCS: 36415; 74176; 80053; 83690; 85025

== ENCOUNTER 2019-05-17 13:03 | Observation (INO) | payer BC ==
[~2019-05-17 13:03] MED LIST changes: -Gadobenate Dimeglumine 529 MG/1 ML (20ML VIAL) ONE; +ISOVUE-370 76%-LOCM 1 ML ONE
[2019-05-17 14:02] LABS: #Basophils 0.1 thou/uL (0.0-0.2); #Eosinphils 0.1 thou/uL (0.0-0.7); #Lymphocytes 1.6 thou/uL (1.20-3.40); #Monocytes 0.4 thou/uL (0.11-0.59); #Neutrophils 2.6 thou/uL (1.40-6.50); %Basophils 1.5 % (0.0-1.0); %Lymphocytes 33.9 % (21.0-51.0); %Monocytes 7.3 % (0.0-10.0); %Neutrophils 54.3 % (42.0-75.0); Hemoglobin 11.6 g/dL (12.0-16.0); Mean Corpuscular HGB CONC 32.9 g/dL (32.0-36.0); Mean Corpuscular Hemoglobin 25.4 pg (27.0-31.0); Mean Corpuscular Volume 76.9 fL (78.0-98.0); Mean Platelet Volume 7.9 fL (7.4-10.4); Platelet Count 237 thou/uL (130-400); RBC Distribution Width 13.1 % (11.5-14.5); Red Blood Cell (RBC) Count 4.58 mill/uL (4.20-5.40); White Blood Cell (WBC) Count 4.8 thou/uL (4.8-10.8)
--- NOTE | 2019-05-17 14:11 | RAD ---
Chest one view HISTORY: Dyspnea. COMPARISON: 11/18/2018. FINDINGS: Cardiac silhouette and pulmonary vasculature are unremarkable. Mediastinum is midline with a dual lead left subclavian cardiac electronic device. No lobar consolidation or evidence of pneumothorax. IMPRESSION: No active cardiopulmonary abnormalities are demonstrated.
[2019-05-17 14:22] LABS: ALT (SGPT) 11 U/L (8-55); AST (SGOT) 18 U/L (5-34); Albumin 4.2 g/dL (3.5-5.0); Alkaline Phosphatase 113 U/L (40-110); Anion Gap 13 mmol/L (10-20); BUN (Urea Nitrogen) 11 mg/dL (7.0-18.7); Bilirubin, Total 0.2 mg/dL (0.2-1.2); Calc. Creatinine Clearance 0 mL/min (70-130); Calcium 9.1 mg/dL (7.8-10.44); Carbon Dioxide 24 mmol/L (22-29); Chloride 100 mmol/L (98-107); Estimated GFR-MDRD 81; Globulin 2.6 g/dL (2.4-3.5); Glucose 80 mg/dL (70-105); Potassium 4.1 mmol/L (3.5-5.1); Protein, Total 6.8 g/dL (6.0-8.3); Sodium 133 mmol/L (136-145)
[2019-05-17] MEDS ORDERED: Acetaminophen 500 MG TAB ONE (15:10)
[2019-05-17] MEDS ORDERED: methylPREDNISolone Sod Succ/PF 125 MG/2 ML VIAL ONE (15:10)
[2019-05-17] MEDS ORDERED: Famotidine/PF 20 mg/2ml Vial ONE (15:10)
[2019-05-17] MEDS ORDERED: diphenhydrAMINE 50 MG/ML VIAL ONE (15:10)
--- NOTE | 2019-05-17 16:57 | CT ---
CT BRAIN PERFORMED WITH AND WITHOUT CONTRAST ENHANCEMENT: History: Headache x 3 days. History of chronic TIAs with CVA in 2013. Comparison: 05-01-17 FINDINGS: The ventricular and cisternal system is within normal limits. No signs for intracerebral hemorrhage o r extraaxial fluid collections. No areas of abnormal contrast enhancement. The mastoid air cells and visualized sinuses are clear. IMPRESSION: No acute intracranial abnormalities. POS: [facility]
[2019-05-17] MEDS ORDERED: Ketamine 50 MG/ML (10ML VIAL) ONE (17:18)
[2019-05-17] MEDS ORDERED: Magnesium 2 GM/50 ML BAG (IN WATER) ONE (17:18)
--- NOTE | 2019-05-17 18:39 | PDOC.FPRHP ---
- History of Present Illness Chief Complaint: JAMES, TIA/Numbness History of Present Illness: Pt is a 43 yo female with PMH of poorly controlled HTN, IA w/ stents in 2014, stroke 2013 w/ residual R sided weakness, gastroporesis w/ G tube placement presents for worsening of chronic JAMES and L extremities numbness/tingling. Pt states she has a chronic JAMES in her L frontal region which increased in intensity yesterday. She also began feeling L arm and leg numbness/tingling w/ o motor deficits. She took her blood pressures at this time which were as high as 184/112. Symptoms remitted w/o any intervention, lasting a total of 12 mins in time at 1600. Today, she woke and experienced 2 episodes of L arm numbness/ tingling w/o L leg involvement. Episodes lasted less than 15 mins and remitted w/o intervention. For her JAMES pt has attempted using tramadol, tylenol, imitrex, ice, oils without resolution. She is prescribed hydralazine qid but pt has been taking medication bid. She has 5 BP medications. - Allergies/Adverse Reactions Allergies Allergy/AdvReac Type Severity Reaction Status Date / Time Iodinated Contrast Media Allergy Verified 12/08/18 18:42 [Iodinated Contrast- Oral and IV Dye] zolpidem tartrate Allergy psychosis Verified 12/08/18 18:42 [From Ambien] - Home Medications Medication Instructions Recorded Confirmed Type Aspirin [Aspir-Low] 1 tab PO DAILY 11/18/18 05/17/19 History Atorvastatin Calcium 1 tab PO DAILY 11/18/18 05/17/19 History Hyoscyamine Sulfate [Levsin SL] 1 tab PO Q4HR PRN 11/18/18 05/17/19 History Ibuprofen 1 tab PO TID PRN 11/18/18 05/17/19 History Levothyroxine Sodium [Synthroid] 1 tab PO DAILY 11/18/18 05/17/19 History Linaclotide [Linzess] 125 mg PO HS 11/18/18 05/17/19 History Lisinopril/Hydrochlorothiazide 1 tab PO DAILY 11/18/18 05/17/19 History [Lisinopril-Hctz 20-12.5 mg Tab] Venlafaxine HCl [Effexor XR] 2 cap PO QAM 11/18/18 05/17/19 History metFORMIN [Glucophage] 1 tab PO QAM 11/18/18 05/17/19 History traZODone HCl [Trazodone HCl] 2 tab PO HS PRN 11/18/18 05/17/19 History busPIRone HCl 10 mg PO TID 12/08/18 05/17/19 History hydrALAZINE [Apresoline] 25 mg PO BID 12/08/18 05/17/19 History Ondansetron [Zofran ODT] 4 mg SL Q6H PRN tab 12/09/18 05/17/19 Rx Amlodipine [Norvasc] 10 mg PO DAILY 05/17/19 05/17/19 History Carvedilol [Coreg] 25 mg PO BID 05/17/19 05/17/19 History Dexlansoprazole [Dexilant] 60 mg PO DAILY 05/17/19 05/17/19 History Dulaglutide [Trulicity] 1.75 mg SC Q7D 05/17/19 05/17/19 History Gabapentin 1,200 mg PO HS 05/17/19 05/17/19 History Gabapentin 600 mg PO QAM 05/17/19 05/17/19 History SUMAtriptan Succinate [Imitrex] 50 mg PO Q2HR PRN 05/17/19 05/17/19 History carBAMazepine [Tegretol XR] 400 mg PO DAILY 05/17/19 05/17/19 History hydrOXYzine [Atarax] 50 mg PO TID PRN 05/17/19 05/17/19 History metFORMIN [Glucophage] 250 mg PO QPM-WM 05/17/19 05/17/19 History traMADol HCl [Ultram] 50 mg PO TID 05/17/19 05/17/19 History - History PMHx: poorly controlled HTN, IA w/ stents in 2014, stroke 2013 w/ residual R sided weakness, gastroporesis w/ G tube placement, fibromyalgia, hypothyroid, GERD, DM II. HLD, Recurrent nephrolithiasis PSHx: pericardial window 2015, G tube placement for gastroparesis, R Meniscus repair FHx: non contributory Social: denies alcohol, drug use, tobacco use; quit smoking > 20 years ago - Review of Systems General: reports: fever/chills, weight/appetite/sleep changes, fatigue ENT: reports: nasal congestion, rhinorrhea Respiratory: reports: cough, congestion, shortness of breath Cardiovascular: reports: chest pain, palpitation, edema Gastrointestinal: reports: vomiting, diarrhea, constipation Genitourinary: denies: incontinence, dysuria, polyuria Skin: denies: rashes, lesions Neurological: reports: numbness, weakness. denies: syncope - Vital signs BP: [185/115] HR: []86 RR: [18] Tmax: [98.4] Pox: [100%]% on [RA] Wt: [71.2 kg ] - Physical Exam Constitutional: NAD, awake, alert and oriented HEENT: PERRLA, EOMI Neck: FROM, trachea midline Heart: RRR, normal S1/S2, no murmurs/rubs/gallops, no edema Lungs: CTAB, no respiratory distress, good air movement, no rales/rhonchi, no wheezing Abdomen: soft, non-tender, bowel sounds present -Neurological: R sided facial deficits/weakness w/ preserved sensation. R sided weakness compared to L side but remains 5/5 strength. Sensation intact on R side. Cerebellar intact. Skin: no rash/lesions, capillary refill <2 seconds Heme/Lymphatic: no purpura, no petechia Psychiatric: good judgment and insight, intact recent and remote memory FMR H&P: Results - Labs Result Diagrams: 05/18/19 04:13 05/18/19 04:13 Lab results: WBC 4.8 thou/uL (4.8-10.8) 05/17/19 13:52 Hgb 11.6 g/dL (12.0-16.0) L 05/17/19 13:52 Hct 35.2 % (36.0-47.0) L 05/17/19 13:52 MCV 76.9 fL (78.0-98.0) L 05/17/19 13:52 Plt Count 237 thou/uL (130-400) 05/17/19 13:52 Neutrophils % 54.3 % (42.0-75.0) 05/17/19 13:52 Sodium 133 mmol/L (136-145) L 05/17/19 13:52 Potassium 4.1 mmol/L (3.5-5.1) 05/17/19 13:52 Chloride 100 mmol/L (98-107) 05/17/19 13:52 Carbon Dioxide 24 mmol/L (22-29) 05/17/19 13:52 BUN 11 mg/dL (7.0-18.7) 05/17/19 13:52 Creatinine 0.78 mg/dL (0.6-1.1) 05/17/19 13:52 Glucose 80 mg/dL (70-105) 05/17/19 13:52 Calcium 9.1 mg/dL (7.8-10.44) 05/17/19 13:52 Total Bilirubin 0.2 mg/dL (0.2-1.2) 05/17/19 13:52 AST 18 U/L (5-34) 05/17/19 13:52 ALT 11 U/L (8-55) 05/17/19 13:52 Alkaline Phosphatase 113 U/L (40-110) H 05/17/19 13:52 Serum Total Protein 6.8 g/dL (6.0-8.3) 05/17/19 13:52 Albumin 4.2 g/dL (3.5-5.0) 05/17/19 13:52 FMR H&P: A/P - Problem List (1) Hypertensive urgency Current Visit: Yes Status: Acute Code(s): I16.0 - HYPERTENSIVE URGENCY (2) Headache Current Visit: Yes Status: Acute Code(s): R51 - HEADACHE (3) Stroke-like symptom Current Visit: Yes Status: Acute Code(s): R29.90 - UNSPECIFIED SYMPTOMS AND SIGNS INVOLVING THE NERVOUS SYSTEM (4) Diabetes Current Visit: No Status: Chronic Code(s): E11.9 - TYPE 2 DIABETES MELLITUS WITHOUT COMPLICATIONS (5) Gastroparesis Current Visit: No Status: Chronic Code(s): K31.84 - GASTROPARESIS (6) History of cerebrovascular accident (CVA) with residual deficit Current Visit: No Status: Chronic Code(s): I69.30 - UNSPECIFIED SEQUELAE OF CEREBRAL INFARCTION (7) Hypertension Current Visit: No Status: Chronic Code(s): I10 - ESSENTIAL (PRIMARY) HYPERTENSION (8) Pacemaker Current Visit: No Status: Chronic Code(s): Z95.0 - PRESENCE OF CARDIAC PACEMAKER (9) Sick sinus syndrome Current Visit: No Status: Chronic Code(s): I49.5 - SICK SINUS SYNDROME - Plan Pt is a 43 yo female with an extensive PMH including previous IA w/ stents, Sick sinus w/ pacemaker, CVA w/ residual deficits who presents with TIA like symptoms, tingling/numbness in left extremities for 10-15 min and 3 total episodes. Pt has difficult to control BP's so currently changing medications as noted below. # TIA vs Hypertensive Urgency L sided numbness/tingling - resolved. Previous aldosterone negative. - Continued home blood pressure medications - Started Nifedipine given once overnight. Will start daily in am - did not order MRI - renal u/s pending # Headache Given ketamine in ED - d/c sumatriptan # GERD - continue home meds # Gastroparesis - continue tube feeds as needed # Hypothyroid - continue home meds # Anxiety/Depression - continue venlafaxine, trazadone, buspirone # Hx of CVA - continue atorvastatin, asp 81 # Hx of IA # Sick Sinus w/ Pacemaker - continue atorvastation, asp 81, bp meds as above # DM w/ neuropathy - continue home meds # Fibromyalgia - continue home meds Diet: Heart healthy Fluids: none VTE Prophylaxi: mechanical at this time Code Status: DNR/DNI FMR H&P: Upper Level - Pertinent history 43 yo F w/ PMH of malignant HTN, prior CVA with residual rt sided deficit, prior IA with stents, Bipolar, chronic headache who presents for evaluation of left arm numbness and tingling. Pt reports episode lasted approx 6-12 minutes and was resolved by the time she arrived in ED. She had ct head that was negative and other labs were negative as well. She was recently seen by me in OP clinic and hydralazine was started and icnreased to 25QID; however, pt only taking BID. Additionally, pt was instructed to dc triptan given extensive CV history. She had hyperaldosterone workup which was negative and was scheduled for OP renal US with dopplers in one week. She reports persistently elevated BP despite multiple medications. She also reported left frontal headache which is chronic but had resolved with ketamine given in ED. Otherwise no complaints. - Pertinent findings ROS: above PE: GEN: NAD HEENT: NCAT, residual facial droop unchanged from baseline CV: RRR No MRG Resp: CTA bl no wrr Abd: Soft NTND bsx4 Neuro: Strength 5/5 throughout, rt mildly weaker than left which is chronic and uncahnged from baseline. Residual facial droopunchanged from baseline - Plan Date/Time: 05/17/191838 ILemuel DO, have evaluated this patient and agree with findings/ plan as outlined by chemist intern resident. Pertinent changes/additions are listed here. 1) TIA vs HTN urgency - CT head negative and no evidence of new or worsening deficit - as such will add another BP medication and increase lisinopril to 40mg and add chlorthalidone 25mg/day (prior 07/08.5 lisinopril/hctz) - add procardia xl 30mg - cont other BP medications - check renal US and dopplers 2) Prior cva - cont asa and statin - no new deficit and symptoms entirely resolved 3) Prior IA, cont asa and statin 4) Hypothyroid - cont home meds 5) HTN: see #1 6) HLD: - home meds 7) Chronic headache - stopped triptan, consider other ppx/ablative medication Dispo: stable, neuro currently at baseline and BP stable at baseline; however, remains uncontrolled. Check renal US and dopplers and titrate BP meds appropriately. Admit stroke obs.
[2019-05-17] MEDS ORDERED: Aspirin Chewable 81 MG TAB ONE (18:56)
[2019-05-17] MEDS ORDERED: Acetaminophen 325 MG TAB PO PRN (20:32)
[2019-05-17] MEDS ORDERED: Ondansetron ODT 4 MG TAB SL PRN ×2 (20:32→23:47)
[2019-05-17] MEDS ORDERED: Ondansetron PF 4 MG/2 ML Vial IVP PRN (20:32)
[2019-05-17] MEDS ORDERED: hydrALAZINE 20 MG/ML VIAL SLOW IVP PRN (21:41)
[2019-05-17] MEDS ORDERED: NIFEdipine XL 30 MG TAB PO SCH (22:00)
[2019-05-17] MEDS ORDERED: Ibuprofen 800 MG TAB PO PRN (23:47)
[2019-05-17] MEDS ORDERED: hydrOXYzine 25 MG TAB PO PRN (23:47)
[2019-05-17] MEDS ORDERED: traZODone HCl 50 MG TAB PO PRN (23:47)
[2019-05-17] MEDS ORDERED: Hyoscyamine Sulfate SL 0.125 mg Tablet PO PRN (23:47)
[2019-05-18 00:02] VITALS: BMI 25.9
[2019-05-18 05:03] LABS: #Basophils 0.1 thou/uL (0.0-0.2); #Eosinphils 0.1 thou/uL (0.0-0.7); #Lymphocytes 2.5 thou/uL (1.20-3.40); #Monocytes 0.5 thou/uL (0.11-0.59); #Neutrophils 3.8 thou/uL (1.40-6.50); %Basophils 0.9 % (0.0-1.0); %Eosinophils 1.2 % (0.0-10.0); %Lymphocytes 35.5 % (21.0-51.0); %Monocytes 7.5 % (0.0-10.0); %Neutrophils 54.9 % (42.0-75.0); Hemoglobin 11.3 g/dL (12.0-16.0); Mean Corpuscular HGB CONC 32.4 g/dL (32.0-36.0); Mean Corpuscular Hemoglobin 25.4 pg (27.0-31.0); Mean Corpuscular Volume 78.4 fL (78.0-98.0); Mean Platelet Volume 8.5 fL (7.4-10.4); Platelet Count 247 thou/uL (130-400); RBC Distribution Width 13.2 % (11.5-14.5); Red Blood Cell (RBC) Count 4.45 mill/uL (4.20-5.40); White Blood Cell (WBC) Count 6.9 thou/uL (4.8-10.8)
[2019-05-18 05:25] LABS: Anion Gap 11 mmol/L (10-20); BUN (Urea Nitrogen) 7 mg/dL (7.0-18.7); Calc. Creatinine Clearance 125 mL/min (70-130); Calcium 9.1 mg/dL (7.8-10.44); Carbon Dioxide 26 mmol/L (22-29); Cardiac Risk 3.1 (Less than 4.5); Chloride 103 mmol/L (98-107); Cholesterol 223 mg/dl (< 200 Desired); Estimated GFR-MDRD Greater than 90; Glucose 79 mg/dL (70-105); HDL Cholesterol 71 mg/dL (>60 Neg Risk); LDL Cholesterol, Calculated 139 mg/dL; Potassium 4.2 mmol/L (3.5-5.1); Sodium 136 mmol/L (136-145); Triglycerides 67 mg/dL (Less than 150)
--- NOTE | 2019-05-18 05:27 | PDOC.FM ---
- Subjective Subjective: Patient notes continued resolution of her symptoms. Headache has resolved. - Objective Vital Signs & Weight: Vital Signs (12 hours) Temp Pulse Resp BP BP Pulse Ox 05/18/19 03:21 98.5 F 82 16 132/84 93 L 05/18/19 00:13 159/104 H 05/17/19 23:30 98.5 F 86 18 170/117 H 95 05/17/19 23:20 84 170/124 H 05/17/19 20:00 98.6 F 85 18 173/115 H 93 L Weight Weight 73.074 kg Result Diagrams: 05/18/19 04:13 05/18/19 04:13 Phys Exam - Physical Examination Constitutional: NAD HEENT: moist MMs, sclera anicteric Neck: full ROM Respiratory: no rales, no rhonchi, clear to auscultation bilateral Cardiovascular: RRR, no significant murmur Gastrointestinal: soft, non-tender Musculoskeletal: no edema, pulses present Neurological: moves all 4 limbs Psychiatric: normal affect, A&O x 3 Skin: no rash Dx/Plan (1) Stroke-like symptom Code(s): R29.90 - UNSPECIFIED SYMPTOMS AND SIGNS INVOLVING THE NERVOUS SYSTEM Status: Acute (2) History of cerebrovascular accident (CVA) with residual deficit Code(s): I69.30 - UNSPECIFIED SEQUELAE OF CEREBRAL INFARCTION Status: Chronic (3) Bipolar 1 disorder Code(s): F31.9 - BIPOLAR DISORDER, UNSPECIFIED Status: Chronic (4) Diabetes Code(s): E11.9 - TYPE 2 DIABETES MELLITUS WITHOUT COMPLICATIONS Status: Chronic Qualifiers: Diabetes mellitus complication status: with neurologic complications (5) Gastroparesis Code(s): K31.84 - GASTROPARESIS Status: Chronic (6) HLD (hyperlipidemia) Code(s): E78.5 - HYPERLIPIDEMIA, UNSPECIFIED Status: Chronic (7) Hypertension Code(s): I10 - ESSENTIAL (PRIMARY) HYPERTENSION Status: Chronic (8) Migraine Code(s): G43.909 - MIGRAINE, UNSP, NOT INTRACTABLE, WITHOUT STATUS MIGRAINOSUS Status: Chronic - Plan Plan: TIA vs Hypertensive Urgency L sided numbness/tingling - resolved. Previous aldosterone negative. - Continued home blood pressure medications - Started Nifedipine given once overnight. Will start daily in am - Pt at baseline per PCP that saw her within the last 2 weeks - renal u/s pending Headache - resolved Given ketamine in ED - d/c sumatriptan GERD - continue home meds Gastroparesis - continue tube feeds as needed Hypothyroid - continue home levothyroxine Anxiety/Depression - continue venlafaxine, trazadone, buspirone Hx of CVA - continue atorvastatin, asp 81 Hx of [place] Sick Sinus w/ Pacemaker - continue atorvastation, asp 81, bp meds as above DM w/ neuropathy - continue home meds Fibromyalgia - continue home meds Diet: Heart healthy Fluids: none VTE Prophylaxi: mechanical at this time Code Status: DNR/DNI Addendum - Attending - Attending Attestation Date/Time: 05/18/191909 I personally evaluated the patient and discussed the management with Dr. Smith. I agree with the History, Examination, Assessment and Plan documented above with any addition or exceptions noted below. Pt's bp was better this a.m. Will adjust bp regimen. Pt is at her baseline currently. Will give pt a list of meds that can be crushed in her peg tube and which shouldn't be crushed as this could be contributing to her uncontrolled blood pressures.
[2019-05-18] MEDS ORDERED: Levothyroxine Sodium 125 MCG TAB PO SCH (06:00)
[2019-05-18 06:40] LABS: Hemoglobin A1c 4.9 % (4.0-6.0)
[2019-05-18] MEDS ORDERED: Atorvastatin Calcium 40 MG TAB PO SCH (09:00)
[2019-05-18] MEDS ORDERED: Aspirin 325 mg Enteric Coated Tablet PO SCH (09:00)
[2019-05-18] MEDS ORDERED: Venlafaxine HCl XR 150 MG CAP PO SCH (09:00)
[2019-05-18] MEDS ORDERED: Amlodipine 10 MG TAB PO SCH (09:00)
[2019-05-18] MEDS ORDERED: Aspirin 81 mg Enteric Coated Tablet PO SCH (09:00)
[2019-05-18] MEDS ORDERED: hydrALAZINE 25 MG TAB PO SCH (09:00)
[2019-05-18] MEDS ORDERED: Gabapentin 300 MG CAP PO SCH (09:00)
[2019-05-18] MEDS ORDERED: Chlorthalidone 25 MG TAB PO SCH (09:00)
[2019-05-18] MEDS ORDERED: Lisinopril 20 MG TAB PO SCH (09:00)
[2019-05-18] MEDS ORDERED: NIFEdipine XL 30 MG TAB PO SCH (09:00)
[2019-05-18] MEDS: busPIRone HCl 10 MG TAB PO SCH ×2 (09:27→14:07)
[2019-05-18] MEDS: traMADol HCl 50 MG TAB PO SCH ×2 (09:28→14:07)
--- NOTE | 2019-05-18 09:28 | ULT ---
Renal ultrasound with Doppler evaluation HISTORY: Resistant hypertension COMPARISON: None. FINDINGS: Real-time imaging of the right and left kidneys were performed. The right kidney measures 9 .8 the left kidney 9.6 cm in size. There are no signs of cyst, mass or obstruction. The bladder is empty at the time of this exam. Doppler evaluation with spectral analysis: The right renal artery peak systolic velocity measurements are 38 cm/s the left are also 38 cm/s and aortic velocities are 28 cm/s. Resistive index on the right is 0.59 and on the left 0.60. IMPRESSION: Unremarkable renal ultrasound and Doppler evaluation.
[2019-05-18] MEDS: Carvedilol 25 MG TAB PO SCH ×2 (09:32→17:00)
[2019-05-18] MEDS: metFORMIN 500 MG TAB PO SCH ×2 (09:32→09:37)
[2019-05-18] MEDS: Acetaminophen 325 MG TAB PO PRN ×2 (10:50→16:59)
[2019-05-18 15:36] VITALS: BP 142/89; TEMP 99.7
[2019-05-18] MEDS ORDERED: metFORMIN 500 MG TAB PO SCH (17:00)
[2019-05-18] MEDS ORDERED: LINACLOTIDE PO SCH (21:00)
[2019-05-18] MEDS ORDERED: Gabapentin 400 MG CAP PO SCH (21:00)
--- NOTE | 2019-05-19 01:17 | DIS ---
DATE OF ADMISSION: 05/17/2019 DATE OF DISCHARGE: 05/18/2019 RESIDENT: Alexi Smith DO ADMITTING ATTENDING: Angel Urena MD CONSULTS: None. PROCEDURES PERFORMED: None. PRIMARY DIAGNOSES: Hypertensive urgency, headache, stroke-like symptoms. SECONDARY DIAGNOSES: Diabetes, gastroparesis, hypertension. DISCHARGE MEDICATIONS: 1. Trazodone 100 mg two tabs at bedtime. 2. Metformin 500 mg q.a.m. 3. Venlafaxine 150 mg two tablets q.a.m. 4. Linzess 145 mcg at bedtime. 5. Synthroid 125 mcg daily. 6. Ibuprofen 800 mg t.i.d. 7. Hyoscyamine 0.125 mg q.4 hours p.r.n. 8. Atorvastatin 40 mg daily. 9. 81 mg aspirin daily. 10. Buspirone 5 mg two tablets t.i.d. 11. Hydralazine 25 mg b.i.d. 12. Zofran 4 mg q.6 hours p.r.n. 13. Trulicity 1.5 mg subcu q.7 days. 14. Dexlansoprazole 60 mg daily. 15. Coreg 25 mg b.i.d. 16. Gabapentin 600 mg two tabs at bedtime. 17. Gabapentin 600 mg q.a.m. 18. Metformin 250 mg q.p.m. 19. Carbamazepine 400 mg daily. 20. Atarax 50 mg t.i.d. p.r.n. 21. Tramadol 50 mg t.i.d. 22. Chlorthalidone 25 mg daily. 23. Zestril 40 mg daily. 24. Nifedipine 30 mg daily. DISCONTINUED MEDICATIONS: 1. Amlodipine 10 mg daily. 2. Sumatriptan succinate 50 mg q.2 hours p.r.n. 3. Lisinopril hydrochlorothiazide 20 mg/12.5 mg daily. HISTORY OF PRESENT ILLNESS AND HOSPITAL COURSE: The patient is a 43-year-old female with past medical history of poorly controlled hypertension with a history of GA and stent placement in 2014 and stroke in 2013, residual right-sided weakness, gastroparesis with G and J tube placement. The patient presented for worsening of chronic headache and left extremity numbness and tingling. The patient stated that she has a chronic left-sided frontal headache, which increased in intensity the day prior to arrival. The patient said she began feeling left arm and leg numbness and tingling the same day, but denies any motor deficits at that time. She took her blood pressure throughout the day and noted that they got as high as 184/112. Symptoms remitted without any intervention, lasting a total of 12 minutes. On the day of her admission, the patient woke and experienced two similar episodes of left arm numbness and tingling, and decided to come to the hospital for further evaluation. The patient attempted to utilize tramadol, Tylenol, Imitrex, ice and oils for her headache without resolution. Upon arrival to the ED, the patient had elevated blood pressure of 185/115 with a heart rate of 86. Her physical exam was negative for any new neurologic findings. Chronic right-sided facial droop and right-sided weakness were noted. 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 The patient was subsequently admitted for TIA versus hypertensive urgency rule out. CT of the brain was performed prior to her admission that was negative for any acute intracranial abnormalities. A chest x-ray was also performed that showed no active cardiopulmonary abnormalities. The following day, a renal ultrasound was performed to evaluate for secondary causes of the patient's resistant hypertension. Renal ultrasound was negative for any remarkable findings. The patient stated that she has been seen for the past six months with continued elevation of her blood pressure without ability to control it. Her PCP has noted that they have initiated a workup for secondary hypertension at this time. The patient was counseled on proper workup and titration of secondary hypertension and necessary medications to treat this. During her admission, her amlodipine was stopped and nifedipine was started in its place. She was also stopped on her combination of lisinopril hydrochlorothiazide and changed to lisinopril and additionally chlorthalidone. At the time of her discharge, her blood pressure was 142/89. She noted resolution of her headache symptoms. Review of her vital signs noted that throughout the day on the day of admission, her highest blood pressure was 159/104 prior to receiving her morning dose of medications. The patient was instructed on return precautions and expressed understanding and agreed to close followup on outpatient basis for continued workup of her hypertension with possible secondary causes. DISPOSITION: Stable. DISCHARGE INSTRUCTIONS: 1. Location: Home. 2. Diet: Heart healthy and carb conscious. 3. Activity: As tolerated. No restriction. 4. Followup: Follow up PCP, Dr. Gallegos, within 7 days, political theory professor as directed. Job ID: [id number]
[2019-05-19] MEDS ORDERED: Venlafaxine HCl XR 150 MG CAP PO SCH (09:00)
--- NOTE | 2019-05-23 14:42 | EKG ---
Test Reason : CHEST DISCOMFORT Blood Pressure : / mmHG Vent. Rate : 079 BPM Atrial Rate : 079 BPM P-R Int : 148 ms QRS Dur : 088 ms QT Int : 374 ms P-R-T Axes : 027 036 009 degrees QTc Int : 428 ms Normal sinus rhythm Normal ECG Confirmed by CHANCE PRECIADO DO ([id number]), editor managing newspaper GUSTAVO ULRICH ([id number]) on 05/23/2019 2:42:04 PM Referred By: OZZY Confirmed By:CHANCE PRECIADO DO
== END 2019-05-18 17:20 | disposition home health service (06) ==
LOC: ERS 13:03 → 2SE 17:06
PROVIDERS: ADMIT Student in an Organized Health Care Education/Training Program; ATTEND Student in an Organized Health Care Education/Training Program
DX: R51 Headache (principal); R20.2 Paresthesia of skin; R20.0 Anesthesia of skin; I16.0 Hypertensive urgency; I10 Essential (primary) hypertension; I25.2 Old myocardial infarction; I69.351 Hemiplegia and hemiparesis following cerebral infarction affecting right dominant side; M79.7 Fibromyalgia; E03.9 Hypothyroidism, unspecified; K21.9 Gastro-esophageal reflux disease without esophagitis; E11.43 Type 2 diabetes mellitus with diabetic autonomic (poly)neuropathy; K31.84 Gastroparesis; E78.5 Hyperlipidemia, unspecified; I49.5 Sick sinus syndrome; E11.40 Type 2 diabetes mellitus with diabetic neuropathy, unspecified; F41.9 Anxiety disorder, unspecified; F31.9 Bipolar disorder, unspecified; F44.81 Dissociative identity disorder; R29.810 Facial weakness; G43.909 Migraine, unspecified, not intractable, without status migrainosus; Z87.891 Personal history of nicotine dependence; Z79.82 Long term (current) use of aspirin; Z79.84 Long term (current) use of oral hypoglycemic drugs; Z79.899 Other long term (current) drug therapy; Z88.8 Allergy status to other drugs, medicaments and biological substances; Z91.041 Radiographic dye allergy status; Z95.0 Presence of cardiac pacemaker; Z95.5 Presence of coronary angioplasty implant and graft
CPT/HCPCS: 36415; 70470; 71045; 76700; 76770; 80048; 80053; 80061; 83036; 84484; 85025; 93005; 96361; 96365; 96367; 96375; G0378; J1200; J2930; J3475; Q9966; S0028

== ENCOUNTER 2019-06-25 09:08 | Observation (INO) | payer BC ==
[2019-06-25 09:35] LABS: #Basophils 0.1 thou/uL (0.0-0.2); #Eosinphils 0.1 thou/uL (0.0-0.7); #Lymphocytes 1.9 thou/uL (1.20-3.40); #Monocytes 0.4 thou/uL (0.11-0.59); #Neutrophils 3.6 thou/uL (1.40-6.50); %Basophils 1.4 % (0.0-1.0); %Eosinophils 1.9 % (0.0-10.0); %Lymphocytes 31.4 % (21.0-51.0); %Monocytes 6.7 % (0.0-10.0); %Neutrophils 58.6 % (42.0-75.0); Hemoglobin 11.9 g/dL (12.0-16.0); Mean Corpuscular HGB CONC 31.3 g/dL (32.0-36.0); Mean Corpuscular Hemoglobin 24.7 pg (27.0-31.0); Mean Corpuscular Volume 78.7 fL (78.0-98.0); Mean Platelet Volume 7.6 fL (7.4-10.4); Platelet Count 327 thou/uL (130-400); RBC Distribution Width 13.1 % (11.5-14.5); Red Blood Cell (RBC) Count 4.83 mill/uL (4.20-5.40); White Blood Cell (WBC) Count 6.1 thou/uL (4.8-10.8)
--- NOTE | 2019-06-25 09:46 | RAD ---
Exam: Chest one view HISTORY:Chest pain Comparison: 05/17/2019 FINDINGS: Cardiac silhouette:Normal cardiac silhouette Pacemaker: Stable left-sided transvenous pacemaker with lead station over the right atrium and right ventricle Aorta: Unremarkable Pulmonary vessels: Normal Costophrenic angles: Clear LUNGS: No masses or consolidation. Pneumothorax: None Osseous abnormalities: None IMPRESSION: No acute cardiopulmonary process.
[2019-06-25 09:50] LABS: ALT (SGPT) 12 U/L (8-55); AST (SGOT) 18 U/L (5-34); Albumin 4.6 g/dL (3.5-5.0); Alkaline Phosphatase 125 U/L (40-110); Anion Gap 12 mmol/L (10-20); BUN (Urea Nitrogen) 7 mg/dL (7.0-18.7); Bilirubin, Total 0.2 mg/dL (0.2-1.2); Calc. Creatinine Clearance 0 mL/min (70-130); Calcium 9.6 mg/dL (7.8-10.44); Carbon Dioxide 29 mmol/L (22-29); Chloride 101 mmol/L (98-107); Estimated GFR-MDRD Greater than 90; Globulin 2.9 g/dL (2.4-3.5); Glucose 82 mg/dL (70-105); Potassium 3.7 mmol/L (3.5-5.1); Protein, Total 7.5 g/dL (6.0-8.3); Sodium 138 mmol/L (136-145)
[2019-06-25 09:54] LABS: BHCG - Serum Negative (NEGATIVE); Pregs Control Background? CLEAR/WHITE (CLR/WHITE); Pregs Control Bar Appear? YES (CONTROL BAR)
--- NOTE | 2019-06-25 10:58 | CT ---
Exam: Head CT without contrast HISTORY: Chronic migraine headaches. Nausea and vomiting. COMPARISON: 05/17/2019, 05/01/2017 FINDINGS: Hemorrhage: No intraparenchymal hemorrhage or extra-axial hematoma. Brain parenchyma: Cortical rao-white matter differentiation is preserved. No mass effect or midline shift. Basilar cisterns are patent. Ventricular system: Ventricles and sulci are patent and symmetric. Calvarium: Intact. Sinuses and mastoid air cells: Adequate aeration. IMPRESSION: No acute intracranial process.
[2019-06-25] MEDS ORDERED: Ondansetron PF 4 MG/2 ML Vial ONE (11:11)
[2019-06-25] MEDS ORDERED: diphenhydrAMINE 50 MG/ML VIAL ONE (11:11)
[2019-06-25] MEDS ORDERED: Metoclopramide HCl 10 MG/2 ML VIAL ONE (11:11)
[2019-06-25] MEDS ORDERED: Ketorolac Tromethamine 30 MG/ML VIAL ONE (11:11)
[2019-06-25] MEDS ORDERED: Morphine 4 MG/ML VIAL ONE (12:21)
[2019-06-25] MEDS ORDERED: hydrALAZINE 20 MG/ML VIAL ONE (12:37)
[2019-06-25] MEDS ORDERED: methylPREDNISolone Sod Succ/PF 125 MG/2 ML VIAL ONE (12:37)
[2019-06-25 13:01] LABS: Bilirubin Negative (Negative); Blood, Urine Negative (Negative); Clarity Clear (Clear); Glucose, Urine (Dipstick) Normal (Negative); Leukocyte Negative Leu/uL (Negative); Nitrite Negative (Negative); Protein, Urine (Dipstick) Negative (Neg-Trace); Urobilinogen Normal mg/dL (Less than 2)
[2019-06-25 13:26] LABS: Troponin I Less than 0.010 ng/mL (< 0.028)
[2019-06-25] MEDS ORDERED: Acetaminophen 325 MG TAB PO PRN (13:53)
[2019-06-25] MEDS ORDERED: Ondansetron ODT 4 MG TAB SL PRN ×2 (13:53→16:26)
[2019-06-25] MEDS ORDERED: Ondansetron PF 4 MG/2 ML Vial IVP PRN (13:53)
--- NOTE | 2019-06-25 14:06 | CT ---
CT ANGIOGRAM THORAX WITH CONTRAST: (CTA pulmonary angiogram) DATE: 06/25/2019 HISTORY: 43 year old female with chest pain. TECHNIQUE: IV injection of iodinated contrast. Scan acquisition timing attempted to coincide with iodinated contrast bolus reaching maximal density in pulmonary arteries. 3-D MIP reconstructions. FINDINGS: Pulmonary thromboembolism: None. Lungs: Clear. Pneumothorax: None. Pleural effusion: None. Thoracic aorta: No aneurysm or dissection. Mediastinum: No lymphadenopathy or other mass. Latrice: No lymphadenopathy or other mass. Left subclavian pacemaker. Percutaneous gastrostomy tube. Large caliber enteric catheter in bowel loop in left side of abdomen. IMPRESSION: 1. No pulmonary thromboembolism. 2. Pacemaker. 3. Otherwise normal chest.
[2019-06-25 15:55] VITALS: BMI 26.4
[2019-06-25] MEDS ORDERED: Iopamidol-370 76% 500 ML 1 ML ONE (15:55)
[2019-06-25] MEDS ORDERED: Calcium Carbonate 500 MG ChewTAB PO PRN (15:57)
[2019-06-25] MEDS ORDERED: SUMAtriptan Succinate 6 MG/0.5 ML VIAL SC PRN (16:01)
[2019-06-25 16:16] LABS: Troponin I Less than 0.010 ng/mL (< 0.028)
[2019-06-25] MEDS ORDERED: Hyoscyamine Sulfate SL 0.125 mg Tablet PO PRN (16:26)
[2019-06-25] MEDS ORDERED: Ibuprofen 800 MG TAB PO PRN (16:26)
[2019-06-25] MEDS ORDERED: traZODone HCl 50 MG TAB PO PRN (16:26)
[2019-06-25] MEDS ORDERED: hydrOXYzine 25 MG TAB PO PRN (16:26)
[2019-06-25] MEDS ORDERED: (Dulaglutide [Trulicity] 1.5 MG) SC SCH (16:30)
[2019-06-25] MEDS ORDERED: Non-Formulary Item 1 EACH (Dexlansoprazole [Dexilant] 60 MG) PO SCH (17:00)
[2019-06-25] MEDS ORDERED: NIFEdipine XL 30 MG TAB PO SCH (17:30)
[2019-06-25] MEDS ORDERED: Haloperidol Lactate 5 MG/ML VIAL SLOW IVP SCH (17:30)
--- NOTE | 2019-06-25 18:16 | PDOC.EVN ---
Event Note - Event Note Event Note: Pt seen and examined with application internship resident. Please see full assessment and plan as documented by Dr Becerra in FMR history and physical. Briefly, 43 yo F w/ extensive pmh and malignant htn presents for sharp pleuritic type chest pain and headache. Primary complaint is cp and reports similar feeling as prior pericarditis. She has received pericardial window in the past. No relief with toradol in ER. CTA negative for dissection and PE. No pericardial effusion appreciated on imaging and EKG shows sinus rhythm with non specific t wave changes. Trops negative x3. Will treat for presumed pericarditis with NSAIDs and am cardiology consult. Repeat EKG pending. Given history of tia and uncontrolled HTN, avoid triptans. Haldol 5mg IVP X1 for headache. Consider LP.
--- NOTE | 2019-06-25 18:30 | PDOC.FPRHP ---
- History of Present Illness Chief Complaint: Headache & Chest Pain History of Present Illness: Mrs. Leslie is a 43 y/o female w/ complex PMH who presents to the ED with atypical chest pain and a headache. She states that both awoke her from sleep earlier this morning, and that she is unsure which pain is bothering her worse. She states that the chest pain is right-sided and alternates between stabbing and throbbing, with possible radiation to her back, although she was unable to distinguish the two accurately. There are no modifying factors, although she states that it is worse with lying down. She describes her headache as being located on the crown of her head and "worse than a migraine". It does not radiate, nor is it associated with any visual, auditory or olfactory changes. She states that her home regimen of Sumatriptan does not alleviate this pain, although it does feels better when laying down. Additionally, her states that she lost consciousness en route to the ED. Per the patient's , her body went limp for ~30 seconds. He was unsure if she continued to breathe or have a pulse. When she awoke, he states that she did not have a post-ictal state, although she was confused about losing consciousness. He denies any loss of bowel or bladder function during this time, as well as any noticeable change in her facial expression or speech. - Allergies/Adverse Reactions Allergies Allergy/AdvReac Type Severity Reaction Status Date / Time Iodinated Contrast Media Allergy Verified 06/25/19 15:54 [Iodinated Contrast- Oral and IV Dye] metoclopramide [From Reglan] Allergy Verified 06/25/19 15:54 zolpidem tartrate Allergy psychosis Verified 06/25/19 15:54 [From Ambien] - Home Medications Medication Instructions Recorded Confirmed Type Aspirin [Aspir-Low] 1 tab PO DAILY 11/18/18 06/25/19 History Atorvastatin Calcium 1 tab PO DAILY 11/18/18 06/25/19 History Hyoscyamine Sulfate [Levsin SL] 1 tab PO Q4HR PRN 11/18/18 06/25/19 History Levothyroxine Sodium [Synthroid] 1 tab PO DAILY 11/18/18 06/25/19 History Linaclotide [Linzess] 125 mg PO QAM 11/18/18 06/25/19 History Venlafaxine HCl [Effexor XR] 1 cap PO BID 11/18/18 06/25/19 History metFORMIN [Glucophage] 2 tab PO BID 11/18/18 06/25/19 History traZODone HCl [Trazodone HCl] 2 tab PO HS PRN 11/18/18 06/25/19 History busPIRone HCl 30 mg PO BID 12/08/18 06/25/19 History hydrALAZINE [Apresoline] 25 mg PO TID 12/08/18 06/25/19 History Ondansetron [Zofran ODT] 4 mg SL Q6H PRN tab 12/09/18 06/25/19 Rx Carvedilol [Coreg] 25 mg PO BID 05/17/19 06/25/19 History Dexlansoprazole [Dexilant] 60 mg PO BID-WM 05/17/19 06/25/19 History Dulaglutide [Trulicity] 1.5 mg SC Q7D 05/17/19 06/25/19 History Gabapentin 600 mg PO BID 05/17/19 06/25/19 History carBAMazepine [Tegretol XR] 800 mg PO HS 05/17/19 06/25/19 History hydrOXYzine [Atarax] 50 mg PO TID PRN 05/17/19 06/25/19 History traMADol HCl [Ultram] 50 mg PO TID 05/17/19 06/25/19 History Chlorthalidone [Hygroton] 25 mg PO DAILY #30 tab 05/18/19 06/25/19 Rx Lisinopril [Zestril] 40 mg PO DAILY #30 tab 05/18/19 06/25/19 Rx Baclofen 1 tab PO 0800,1200 06/25/19 06/25/19 History Baclofen 2 tab PO HS 06/25/19 06/25/19 History Clopidogrel Bisulfate [Clopidogrel] 1 tab PO DAILY 06/25/19 06/25/19 History Pantoprazole [Protonix] 40 mg PO DAILY 06/25/19 06/25/19 History Terazosin HCl [Hytrin] 1 tab PO BID 06/25/19 06/25/19 History Triamcinolone Acetonide 1 applic TOP BID 06/25/19 06/25/19 History [Triamcinolone Acetonide 0.025% Ointment] carBAMazepine [Carbamazepine ER] 400 mg PO QAM 06/25/19 06/25/19 History Colchicine 0.6 mg PO BID #60 capsule 06/26/19 Rx Indomethacin [Indocin] 25 mg PO BID #60 cap 06/26/19 Rx - History PMHx: HI, CVA, Sick Sinus Syndrome, HTN, DM, Dyslipidemia, Cano's Palsy, Bipolar Disorder, Migraines, Hypothyroidism, Pericardial Effusion, Gastroparesis and Intractable N/V PSHx: Multiple Feeding Tubes Placed, Pericardial Window, Pacemaker Placement FHx: Did Not Assess Social: Denies EtOH, Tobacco and Drug Abuse Patient is DNAR. - Review of Systems General: reports: fatigue. denies: fever/chills, weight/appetite/sleep changes , night sweats Eyes: denies: eye pain, vision changes ENT: denies: nasal congestion, rhinorrhea Respiratory: reports: cough. denies: congestion, shortness of breath Cardiovascular: reports: chest pain. denies: palpitation, edema Gastrointestinal: reports: nausea, vomiting, abdominal pain. denies: GI bleeding Genitourinary: denies: incontinence, dysuria, polyuria Skin: denies: rashes Musculoskeletal: reports: pain, tenderness, stiffness, arthritis/arthralgias Neurological: reports: numbness, syncope, weakness. denies: seizure Psychological: reports: anxiety, depression - Vital signs BP: [159/86] HR: [60] RR: [14] Tmax: [98.2] Pox: [94]% on [Room] Wt: [75 kg] - Physical Exam Constitutional: awake, alert and oriented HEENT: normocephalic and atraumatic, PERRLA, EOMI, conjunctiva clear, no scleral icterus, grossly normal vision, grossly normal hearing, normal nasal mucosa, MMM, oropharynx clear Neck: supple, FROM, trachea midline, no LAD, no thyromegaly Chest: no-tender to palpation, no lesions Heart: RRR, normal S1/S2, no murmurs/rubs/gallops, pulses present, no edema Lungs: CTAB, no respiratory distress, good air movement, no rales/rhonchi, no wheezing, no retractions Abdomen: soft, no masses/distention, no hernias, other (G Tube and J Tube in place, w/o signs of erythema or induration) Musculoskeletal: normal structure, ROM grossly normal, other (Patient was experiencing quivering of all extremities, worse on the right) Neurological: no focal deficit, CN II-XII intact Skin: no jaundice, other (Multiple ecchymoses present throughout the visible portions of the patient's body.) Heme/Lymphatic: no purpura, no petechia, no LAD Psychiatric: intact recent and remote memory FMR H&P: Results - Labs Result Diagrams: 06/26/19 04:28 06/26/19 04:28 Lab results: WBC 6.1 thou/uL (4.8-10.8) 06/25/19 09:23 Hgb 11.9 g/dL (12.0-16.0) L 06/25/19 09:23 Hct 38.0 % (36.0-47.0) 06/25/19 09:23 MCV 78.7 fL (78.0-98.0) 06/25/19 09:23 Plt Count 327 thou/uL (130-400) 06/25/19 09:23 Neutrophils % 58.6 % (42.0-75.0) 06/25/19 09:23 Sodium 138 mmol/L (136-145) 06/25/19 09:23 Potassium 3.7 mmol/L (3.5-5.1) 06/25/19 09:23 Chloride 101 mmol/L (98-107) 06/25/19 09:23 Carbon Dioxide 29 mmol/L (22-29) 06/25/19 09:23 BUN 7 mg/dL (7.0-18.7) 06/25/19 09:23 Creatinine 0.70 mg/dL (0.6-1.1) 06/25/19 09:23 Glucose 82 mg/dL (70-105) 06/25/19 09:23 Calcium 9.6 mg/dL (7.8-10.44) 06/25/19 09:23 Total Bilirubin 0.2 mg/dL (0.2-1.2) 06/25/19 09:23 AST 18 U/L (5-34) 06/25/19 09:23 ALT 12 U/L (8-55) 06/25/19 09:23 Alkaline Phosphatase 125 U/L (40-110) H 06/25/19 09:23 Serum Total Protein 7.5 g/dL (6.0-8.3) 06/25/19 09:23 Albumin 4.6 g/dL (3.5-5.0) 06/25/19 09:23 Urine Ketones Negative mg/dL (Negative) 06/25/19 12:29 Urine Blood Negative (Negative) 06/25/19 12:29 Urine Nitrite Negative (Negative) 06/25/19 12:29 Ur Leukocyte Esterase Negative [place]/uL (Negative) 06/25/19 12:29 FMR H&P: A/P - Plan 1. Atypical Chest Pain -Patient's HPI is not suspicious of ACS, but given complex PMH it cannot definitively be ruled out -Heart Score: 4 -EKG: No ST-segment changes -Trops: Negative x3 -TSH: 1.2847 -D-Dime: 0.45 -CXR: NAF -CTA Chest/Thorax: No Evidence of PE -Echo: Pending -Pleurisy suspected - currently treating w/ Indomethacin and Ibuprofen 2. Headache -Brain CT: NAF -LP w/ Opening Pressure: Pending -ESR: Pending -KRUNAL w/ Reflex: Pending 3. HTN -BP: 159/86 on 06/25 -Continue home medication regimen -Consider adjunct therapy such as Hydralazine if BP remains elevated 4. DM -POC Glucose: 82 on 06/25 -Restart patient's home medication regimen Code: DNAR Diet: Will Likely Require Tube Feedings - Dietary Consulted Activity: Amublate w/ Assist DVT PPx: SCDs and Lovenox 40 mg SC Dispo: Patient is currently stable on the Stroke Floor. Etiology of current chest pain and headache is unclear, especially given the nature of the patient' s complex PMH. Multiple imaging and laboratory modalities will be required for further evaluation. FMR H&P: Upper Level - Plan Date/Time: 06/25/191825 I, [], have evaluated this patient and agree with findings/plan as outlined by director internal communications resident. Pertinent changes/additions are listed here. Addendum - Attending - Attending Attestation Date/Time: 06/25/19 493 I personally evaluated the patient and discussed the management with Dr. Rod I agree with the History, Examination, Assessment and Plan documented above with any addition or exceptions noted below. Patient presents for severe pressure-type headache that is the "worst headache" of patients life. CT negative. Hx of migraines but very different from normal migraine. No associated symptoms. Concerned for possible idiopathic intracranial hypertension or bleed. Would follow up with LP and opening pressure to make sure. Continue to treat with NSAIDs or steroids. Patient also with chest pain that is worse with laying back, deep breathing, and laying on left side. EKG with artifacts. Would repeat. Add ESR. Concern for possible pericarditis. Continue NSAIDs. Patient with past hx. Would consider rule our for Lupus. Monitor overnight on obs. Treat pain. Tish
[2019-06-25] MEDS ORDERED: Baclofen 10 MG TAB PO SCH (21:00)
[2019-06-25] MEDS: busPIRone HCl 10 MG TAB PO SCH (21:07)
[2019-06-25] MEDS: metFORMIN 500 MG TAB PO SCH (21:07)
[2019-06-25] MEDS: Venlafaxine HCl XR 150 MG CAP PO SCH (21:08)
[2019-06-25] MEDS: Gabapentin 300 MG CAP PO SCH (21:08)
[2019-06-25] MEDS: Famotidine 20 MG TAB PO SCH (21:08)
[2019-06-25] MEDS: Terazosin HCl 1 MG CAP PO SCH (21:08)
[2019-06-25] MEDS: Carvedilol 25 MG TAB PO SCH (21:09)
[2019-06-25] MEDS: hydrALAZINE 25 MG TAB PO SCH (21:09)
[2019-06-25] MEDS: Ibuprofen 800 MG TAB PO SCH (21:09)
[2019-06-25] MEDS: Triamcinolone 0.025 % Cream 15GM TUBE TOP SCH (21:16)
[2019-06-25 23:56] LABS: Amphetamine Not Detected (NotDetected); Barbiturates Screen Not Detected (NotDetected); Benzodiazepine Screen Not Detected (NotDetected); Cocaine Metabolite Screen Not Detected (NotDetected); Medtox Control Line Valid? VALID (VALID); Medtox Reader # READER 4; Methadone Not Detected (NotDetected); Methamphetamine Not Detected (NotDetected); Opiate Screen Detected (NotDetected); Oxycodone Screen Not Detected (NotDetected); Phencyclidine (PCP) Not Detected (NotDetected); THC/Cannabinoid Screen Not Detected (NotDetected); Tricyclic Screen Not Detected (NotDetected)
[2019-06-26 04:49] LABS: #Basophils 0.1 thou/uL (0.0-0.2); #Lymphocytes 2.1 thou/uL (1.20-3.40); #Monocytes 0.4 thou/uL (0.11-0.59); #Neutrophils 3.1 thou/uL (1.40-6.50); %Basophils 1.4 % (0.0-1.0); %Eosinophils 0.7 % (0.0-10.0); %Lymphocytes 37.2 % (21.0-51.0); %Monocytes 7.7 % (0.0-10.0); Hemoglobin 10.3 g/dL (12.0-16.0); Mean Corpuscular HGB CONC 31.6 g/dL (32.0-36.0); Mean Corpuscular Hemoglobin 24.8 pg (27.0-31.0); Mean Corpuscular Volume 78.5 fL (78.0-98.0); Mean Platelet Volume 7.7 fL (7.4-10.4); Platelet Count 278 thou/uL (130-400); RBC Distribution Width 12.9 % (11.5-14.5); Red Blood Cell (RBC) Count 4.15 mill/uL (4.20-5.40); White Blood Cell (WBC) Count 5.8 thou/uL (4.8-10.8)
[2019-06-26 05:11] LABS: ALT (SGPT) 37 U/L (8-55); AST (SGOT) 42 U/L (5-34); Albumin 3.7 g/dL (3.5-5.0); Alkaline Phosphatase 137 U/L (40-110); Anion Gap 13 mmol/L (10-20); BUN (Urea Nitrogen) 9 mg/dL (7.0-18.7); Bilirubin, Total 0.2 mg/dL (0.2-1.2); Calc. Creatinine Clearance 118 mL/min (70-130); Calcium 8.9 mg/dL (7.8-10.44); Carbon Dioxide 24 mmol/L (22-29); Chloride 104 mmol/L (98-107); Estimated GFR-MDRD 88; Globulin 2.3 g/dL (2.4-3.5); Glucose 82 mg/dL (70-105); Potassium 3.9 mmol/L (3.5-5.1); Sodium 137 mmol/L (136-145)
[2019-06-26] MEDS ORDERED: Levothyroxine Sodium 125 MCG TAB PO SCH (06:00)
--- NOTE | 2019-06-26 06:06 | PDOC.FM ---
- Subjective Subjective: Patient doing better this morning. Reports her headache is much improved, only having some "residual pain" this morning. Still experiencing some atypical chest pain, especially when she lays down or inspires deeply. Discussed possibility of LP today, agreeable to current plan of care. - Objective Vital Signs & Weight: Vital Signs (12 hours) Temp Pulse Resp BP BP Pulse Ox 06/26/19 03:20 97.9 F 76 14 112/70 98 06/25/19 23:13 97.9 F 77 14 130/76 99 06/25/19 22:06 138/79 06/25/19 21:09 88 177/105 H 06/25/19 20:30 98.0 F 88 16 177/105 H 97 06/25/19 18:08 60 Weight Weight 74.253 kg I&O: 06/24/19 06/25/19 06/26/19 06:59 06:59 06:59 Intake Total 780 Output Total 500 Balance 280 Result Diagrams: 06/26/19 04:28 06/26/19 04:28 EKG Reviewed by me: Yes (sinus, some pacing, 70s-100s) Phys Exam - Physical Examination Constitutional: NAD HEENT: moist MMs, sclera anicteric Neck: supple, full ROM Respiratory: no wheezing, clear to auscultation bilateral Cardiovascular: RRR, no significant murmur Gastrointestinal: soft, non-tender Musculoskeletal: no edema, pulses present Neurological: normal sensation, moves all 4 limbs Psychiatric: normal affect, A&O x 3 Skin: no rash, normal turgor Dx/Plan (1) Headache Code(s): R51 - HEADACHE Status: Acute (2) Diabetes Code(s): E11.9 - TYPE 2 DIABETES MELLITUS WITHOUT COMPLICATIONS Status: Chronic Qualifiers: Diabetes mellitus complication status: with neurologic complications (3) HLD (hyperlipidemia) Code(s): E78.5 - HYPERLIPIDEMIA, UNSPECIFIED Status: Chronic (4) Hypertension Code(s): I10 - ESSENTIAL (PRIMARY) HYPERTENSION Status: Chronic (5) Migraine Code(s): G43.909 - MIGRAINE, UNSP, NOT INTRACTABLE, WITHOUT STATUS MIGRAINOSUS Status: Chronic (6) Pacemaker Code(s): Z95.0 - PRESENCE OF CARDIAC PACEMAKER Status: Chronic - Plan Plan: #Atypical Chest Pain #Hx of pacemaker -Patient's HPI is not suspicious of ACS, but given complex PMH it cannot definitively be ruled out -Heart Score: 4 -EKG: No ST-segment changes -Trops: Negative x3 -TSH: 1.2847 -D-Dimer: 0.45 -CXR: negative for acute process -CTA Chest/Thorax: No Evidence of PE -Echo: Pending -Recent viral illness last weekend -Pleurisy vs pericarditis suspected - currently treating w/ Indomethacin and Ibuprofen #Headache, improved -Brain CT: negative for acute pathology -LP w/ Opening Pressure: Pending -ESR: 7 -KRUNAL w/ Reflex: Pending -avoiding triptans at this time due to uncontrolled HTN #HTN -BP: 112-177/70-105 overnight -Continue home medication regimen -Consider adjunct therapy such as Hydralazine if BP remains elevated #DM -Restart patient's home medication regimen Code: DNAR Diet: Will Likely Require Tube Feedings - Dietary Consulted Activity: Amublate w/ Assist DVT PPx: SCDs and Lovenox 40 mg SC Dispo: Echo, LP pending today to assess atypical chest pain and headache; treating atypical chest pain with indomethacin due to likelihood of pleurisy vs pericarditis, avoiding triptans for headache 2/2 uncontrolled HTN Addendum - Attending - Attending Attestation Date/Time: 06/29/19 0968 I personally evaluated the patient and discussed the management with team on day of service. I agree with the History, Examination, Assessment and Plan documented above with any addition or exceptions noted below. Call cards - I suspect pericarditis in light of PMH. May need triptans or DHE depending on response to migraine medications.
[2019-06-26] MEDS ORDERED: Baclofen 10 MG TAB PO SCH (08:00)
[2019-06-26] MEDS ORDERED: Lisinopril 20 MG TAB PO SCH (09:00)
[2019-06-26] MEDS ORDERED: Chlorthalidone 25 MG TAB PO SCH (09:00)
[2019-06-26] MEDS ORDERED: Aspirin 81 mg Enteric Coated Tablet PO SCH (09:00)
[2019-06-26] MEDS ORDERED: Clopidogrel Bisulfate 75 MG TAB PO SCH (09:00)
[2019-06-26] MEDS ORDERED: LINACLOTIDE PO SCH (09:00)
[2019-06-26] MEDS ORDERED: Indomethacin 75 mg SR Capsule PO SCH (09:00)
[2019-06-26] MEDS ORDERED: Atorvastatin Calcium 40 MG TAB PO SCH (09:00)
[2019-06-26] MEDS ORDERED: Enoxaparin Sodium 40 MG/0.4 ML SYRINGE SC SCH (09:00)
[2019-06-26] MEDS ORDERED: NIFEdipine XL 60 MG TAB PO SCH (09:00)
[2019-06-26] MEDS: busPIRone HCl 10 MG TAB PO SCH (09:25)
[2019-06-26] MEDS: Gabapentin 300 MG CAP PO SCH (09:25)
[2019-06-26] MEDS: Ibuprofen 800 MG TAB PO SCH (09:26)
[2019-06-26] MEDS: Carvedilol 25 MG TAB PO SCH (09:26)
[2019-06-26] MEDS: metFORMIN 500 MG TAB PO SCH (09:26)
[2019-06-26] MEDS: hydrALAZINE 25 MG TAB PO SCH ×2 (09:27→16:38)
[2019-06-26] MEDS: Famotidine 20 MG TAB PO SCH (09:27)
[2019-06-26] MEDS: Venlafaxine HCl XR 150 MG CAP PO SCH (09:27)
[2019-06-26] MEDS: traMADol HCl 50 MG TAB PO SCH ×2 (09:30→16:38)
[2019-06-26] MEDS: Triamcinolone 0.025 % Cream 15GM TUBE TOP SCH (09:42)
[2019-06-26] MEDS ORDERED: Acetaminophen 500 MG TAB PO PRN (11:06)
--- NOTE | 2019-06-26 11:07 | RAD ---
LUMBAR PUNCTURE WITH FLUOROSCOPIC GUIDANCE: HISTORY: Hydrocephalus. COMPARISON: None. EXPOSURE: 0.7 minutes. 82.7 mGy*^m2. FINDINGS: Initial prone branch general manager radiograph demonstrate 5 lumbar-type vertebrae. Successful lumbar puncture. Opening pressure: 18 cm of water. A total of 9 cc of clear CSF was acquired. TECHNIQUE: Consent was obtained performing lumbar puncture with fluoroscopic guidance. The L3-L4 level was deeme d appropriate. Skin was prepped and draped in sterile fashion. 1% lidocaine, buffered with sodium bicarbonate was used for local anesthesia. Under fluoroscopic guidance, a 22-gauge spinal was advance d into the CSF space. Opening pressure was determined. A total of 9 cc of clear CSF was acquired. Patient tolerated the procedure well. No immediate or postprocedure complications. IMPRESSION: 1. Successful lumbar puncture. 2. Opening pressure 18 cm of water. Transcribed Date/Time: 06/26/2019 11:21 AM
[2019-06-26 11:50] LABS: CSF Source CSF
[2019-06-26 11:51] LABS: Clarity Clear (Clear); Tube # 4
[2019-06-26] MEDS: Terazosin HCl 1 MG CAP PO SCH (11:58)
--- NOTE | 2019-06-26 14:18 | EKG ---
Test Reason : Blood Pressure : / mmHG Vent. Rate : 101 BPM Atrial Rate : 101 BPM P-R Int : 134 ms QRS Dur : 064 ms QT Int : 318 ms P-R-T Axes : 000 055 046 degrees QTc Int : 412 ms Sinus tachycardia Nonspecific ST-T changes poor quality When compared with ECG of 17-MAY-2019 14:15, ST now depressed in Anterior leads Confirmed by DR. Kay BEST ([id number]) on 06/26/2019 2:17:55 PM Referred By: MELI Confirmed By:DR. Kay BEST
[2019-06-26 15:28] LABS: ANA Symphony (Qualitative) Negative (Negative); ANA Symphony (Quantitative) 0.1 Ratio (< 0.7 Negative); dsDNA IgG Antibody 0.7 IU/mL (<10 Negative)
[2019-06-26 15:30] VITALS: BP 123/74; TEMP 97.8
--- NOTE | 2019-06-26 18:34 | CON ---
DATE OF CONSULTATION: 06/26/2019 REASON FOR CONSULTATION: Chest pain, possible pericarditis. PRIMARY METAL BONDING CRIB ATTENDANT: Nguyễn Marshall MD HISTORY OF PRESENT ILLNESS: Ms. Leslie is a very pleasant 43-year-old white female, who comes to the hospital for chest pain. She states that for the last few days she has noticed chest pressure when she lays down on her back or her left side, gets better when she sits up. It also hurts when she leans forward and also hurts when she takes a deep breath. She has a history of recurrent pericarditis in the past. She has been treated for this several times. She has had a normal heart catheterization in the past. She is feeling much better. However, she is having to sit up most of the time as this is more comfortable for her. PAST MEDICAL HISTORY: 1. CVA in the past. 2. Hypertension. 3. Type 2 diabetes. 4. Hyperlipidemia. 5. Cano's palsy. 6. Bipolar disorder. 7. Migraine headaches. 8. Hypothyroidism. 9. History of pericardial effusion and pericarditis, recurrent. 10. Gastroparesis and intractable nausea and vomiting. PAST SURGICAL HISTORY: 1. Multiple feeding tubes placed. 2. Pericardial window in the past. 3. Pacemaker placement. FAMILY HISTORY: No early coronary artery disease. SOCIAL HISTORY: No alcohol, tobacco, or drugs. OUTPATIENT MEDICATIONS: 1. Aspirin 81 a day. 2. Atorvastatin. 3. Hyoscyamine. 4. Ibuprofen. 5. Levothyroxine. 6. Linzess. 7. Effexor. 8. Metformin. 9. Trazodone. 10. BuSpar. 11. Hydralazine 25 mg t.i.d. 12. Zofran. 13. Carvedilol 25 mg b.i.d. 14. Dexilant. 15. Trulicity. 16. Gabapentin 600 mg b.i.d. 17. Tegretol. 18. Atarax. 19. Tramadol. 20. Chlorthalidone 25 mg a day. 21. Lisinopril 40 mg a day. 22. Baclofen. 23. Plavix 75 mg a day. 24. Protonix 40 mg a day. 25. Terazosin. 26. Triamcinolone ointment. 27. Carbamazepine. ALLERGIES: 1. IODINE. 2. METOCLOPRAMIDE. 3. AMBIEN. REVIEW OF SYSTEMS: A 12-point review of systems was all negative unless stated in the history of present illness. PHYSICAL EXAMINATION: VITAL SIGNS: Temperature 97.8, pulse 72, respiratory rate 13, saturating 98% on room air, blood pressure 123/74. GENERAL: Awake, alert, oriented x3, in no distress. HEENT: Normocephalic and atraumatic. NECK: Supple. LUNGS: Clear. CARDIOVASCULAR: S1 and S2. No S3 or S4. No murmurs. No rubs. ABDOMEN: Soft. Positive bowel sounds. EXTREMITIES: No edema. SKIN: Warm and dry. LABORATORY DATA: Laboratory work was reviewed. White count of 6, hemoglobin 11, hematocrit 38, and platelet count of 327. D-dimer was a little bit high. Chemistries were unremarkable except for an AST of 42. Troponin is negative x1. Alkaline phosphatase is little bit high. Albumin is 2.3. UA was unremarkable. Lumbar puncture was done, it was negative. Urine opiates were detected. CT angio of the chest was reviewed. It showed no pulmonary embolism pacemaker, otherwise normal chest. CT of the brain was unremarkable. Echocardiogram showed normal LV function at 60% to 65% with no pericardial effusion. There is mild AI. ASSESSMENT: 1. Possible pericarditis. This could also be pleurisy. 2. History of recurrent pericarditis. 3. Bipolar disorder. PLAN: 1. She certainly has symptoms for pericarditis or pleurisy. We will plan on treating this with anti-inflammatories. We will start colchicine at 0.6 mg b.i.d. and indomethacin 25 mg b.i.d. 2. She may be discharged home today from the cardiac perspective. 3. She will follow up with Dr. Marshall in 1 to 2 months for re-evaluation. Thank you for letting us to participate in the care of your patient. We will sign off. Please call with any questions. Job ID: [id number]
[2019-06-26] MEDS ORDERED: Indomethacin 25 mg Capsule PO SCH (21:00)
--- NOTE | 2019-06-29 11:11 | DIS ---
DATE OF ADMISSION: 06/25/2019 DATE OF DISCHARGE: 06/26/2019 ADMITTING RESIDENT: Eliceo Becerra MD ADMITTING ATTENDING: Fang Suh MD DISCHARGE ATTENDING: Fang Suh MD DISCHARGE RESIDENT: Beatrice Mills MD. CONSULTS: Cardiology, (Dr. Hinton), dietitian, walking program. PROCEDURES: Lumbar puncture. PRIMARY DIAGNOSES: Atypical chest pain (pericarditis versus pleurisy), headache. SECONDARY DIAGNOSES: Hypertension, diabetes mellitus, history of migraines, history of pacemaker. DISCHARGE MEDICATIONS: 1. 81 mg aspirin p.o. daily. 2. 40 mg atorvastatin p.o. daily. 3. 10 mg of baclofen p.o. at 0800, 1200. 4. Two tablets of 10 mg baclofen p.o. at bedtime. 5. 25 mg carvedilol p.o. b.i.d. 6. 25 mg chlorthalidone p.o. daily. 7. One tablet clopidogrel p.o. daily. 8. 0.6 mg colchicine p.o. b.i.d. x60 tablets. 9. 60 mg Dexilant p.o. b.i.d. with meals. 10. 1.5 mg Trulicity subcutaneous q.7 days. 11. 600 mg of gabapentin p.o. b.i.d. 12. One tablet hyoscyamine p.o. q.4 hours p.r.n. 13. 25 mg indomethacin p.o. b.i.d. x60 capsules. 14. 125 mcg levothyroxine p.o. daily. 15. 125 mg Linzess p.o. q.a.m. 16. 40 mg lisinopril p.o. daily. 17. 4 mg Zofran p.o. q.6 hours p.r.n. 18. 40 mg pantoprazole p.o. daily. 19. One tablet terazosin p.o. b.i.d. 20. 1 tube triamcinolone acetonide. 21. 150 mg venlafaxine p.o. b.i.d. 22. 30 mg buspirone p.o. b.i.d. 23. 400 mg carbamazepine p.o. q.a.m. 24. 800 mg carbamazepine p.o. at bedtime. 25. 25 mg hydralazine p.o. t.i.d. 26. 50 mg hydroxyzine p.o. t.i.d. p.r.n. 27. 1000 mg metformin p.o. b.i.d. 28. 50 mg tramadol p.o. t.i.d. 29. 200 mg trazodone p.o. at bedtime p.r.n. DISCONTINUE MEDICATIONS: 1. Tylenol. 2. Lovenox. 3. Nifedipine. 4. tramadol HISTORY OF PRESENT ILLNESS/HOSPITAL COURSE: Ms. Leslie is a 43-year-old female with a complex past medical history who presented to the ED with atypical chest pain and headache. She described the chest pain as right sided and alternating between stabbing and throbbing, with improvement when she sits up and worsens when she lays down. She described her headache as being located on the crown of her head and worse than a migraine. She reported that it did not radiate and it was not associated with any visual, auditory, or olfactory changes and was not relieved by her home regimen of sumatriptan. She was admitted to work up for atypical chest pain and headache. Her EKG showed normal sinus rhythm, her troponins were negative x3, chest x-ray was negative. CTA demonstrated no findings of PE and her echo demonstrated no evidence of pericardial effusion; EF 60% to 65%, mild mitral regurgitation, mild aortic regurgitation, mild tricuspid regurgitation. She was seen by Dr. Hinton from Cardiology, who agreed with the diagnosis of pericarditis versus pleurisy and planned to discharge her on colchicine and indomethacin. The patient's headache improved overnight with ibuprofen and indomethacin. The lumbar puncture showed an opening pressure of 18 cm, within normal limits. The fluid was colorless, had a glucose of 52 and a total protein 44. The patient was evaluated on the day of discharge and was agreeable to plan of care, being discharged with colchicine and indomethacin, and to follow up with Dr. Marshall in 1-2 months. DISPOSITION: Stable. DISCHARGE INSTRUCTIONS: 1. Location: Home. 2. Diet: Tube feeds per normal home routine, heart healthy diet. 3. Activity as tolerated. 4. Follow up with Dr. Marshall in 1-2 months, with PCP in 7 days. Job ID: [id number] [facility]
== END 2019-06-26 16:50 | disposition home or self-care (01) ==
LOC: ERS 09:08 → 2SW 10:37
PROVIDERS: ADMIT Family Medicine; ATTEND Family Medicine
PROC: 009U3ZX Drainage of Spinal Canal, Percutaneous Approach, Diagnostic (ICD-10-PCS; principal; 2019-06-26)
DX: R07.89 Other chest pain (principal); G43.909 Migraine, unspecified, not intractable, without status migrainosus; I10 Essential (primary) hypertension; E11.9 Type 2 diabetes mellitus without complications; F41.9 Anxiety disorder, unspecified; F32.9 Major depressive disorder, single episode, unspecified; F44.81 Dissociative identity disorder; E03.9 Hypothyroidism, unspecified; G51.0 Bell's palsy; I25.2 Old myocardial infarction; Z79.1 Long term (current) use of non-steroidal anti-inflammatories (NSAID); Z79.82 Long term (current) use of aspirin; Z79.84 Long term (current) use of oral hypoglycemic drugs; Z79.899 Other long term (current) drug therapy; Z86.73 Personal history of transient ischemic attack (TIA), and cerebral infarction without residual deficits; Z88.8 Allergy status to other drugs, medicaments and biological substances; Z91.041 Radiographic dye allergy status; Z95.0 Presence of cardiac pacemaker
CPT/HCPCS: 36415; 36416; 62270; 70450; 71045; 71275; 80053; 80306; 81003; 82945; 84157; 84443; 84484; 84703; 85025; 85379; 85652; 86038; 86225; 87205; 89051; 93005; 93010; 93306; 96361; 96374; 96375; 96376; G0378; J0360; J1200; J1630; J1885; J2270; J2405; J2765; J2930; Q9967

== ENCOUNTER 2019-10-01 08:01 | Outpatient (CLI) | payer BC ==
--- NOTE | 2019-10-01 09:49 | CT ---
CT ABDOMEN AND PELVIS WITHOUT AND WITH CONTRAST: COMPARISON: None. HISTORY: Hematuria. Renal calculus. Right lower quadrant abdominal pain. TECHNIQUE: Multiple contiguous axial images were obtained in a CT of the abdomen and pelvis without and with IV contrast. Postcontrast images were obtained in nephrogram and excretory phases. Sagittal and schneider l reformats were performed. FINDINGS: There is a 3-4 mm nonobstructing calculus in the right kidney. A subcentimeter hypodensity in the ri ght kidney likely represents a cyst. The gallbladder has been removed. The liver, adrenal glands, l eft kidney, spleen, and pancreas are unremarkable. A feeding tube is seen within a loop of small bowel. A gastrostomy tube is seen in the stomach. The large and small bowel are normal in caliber. No free air, free fluid, or stranding changes are seen in the abdomen or pelvis. The patient is status post hysterectomy. No abdominal pelvic lymphadenopathy are seen. The osseous structures and visualized inferior thorax are unremarkable. IMPRESSION: 1. Nonobstructing right renal calcification. 2. Likely small right renal cyst. POS: [facility]
[2019-10-01] MEDS ORDERED: Iopamidol 370 76% 100 ML VIAL ONE (16:22)
== END 2019-10-01 08:02 | disposition home or self-care (01) ==
LOC: CT 08:01
PROVIDERS: ATTEND Urology
DX: N20.0 Calculus of kidney (principal); R10.31 Right lower quadrant pain; R31.9 Hematuria, unspecified; N28.89 Other specified disorders of kidney and ureter
CPT/HCPCS: 74178; Q9967

== ENCOUNTER 2019-10-27 10:18 | Emergency (ER) | payer BC ==
[2019-10-27 10:50] LABS: #Eosinphils 0.1 thou/uL (0.0-0.7); #Lymphocytes 1.1 thou/uL (1.20-3.40); #Monocytes 0.5 thou/uL (0.11-0.59); #Neutrophils 4.5 thou/uL (1.40-6.50); %Basophils 0.4 % (0.0-1.0); %Eosinophils 2.3 % (0.0-10.0); %Lymphocytes 17.9 % (21.0-51.0); %Monocytes 7.3 % (0.0-10.0); %Neutrophils 72.1 % (42.0-75.0); Hemoglobin 10.2 g/dL (12.0-16.0); Mean Corpuscular HGB CONC 30.7 g/dL (32.0-36.0); Mean Corpuscular Volume 74.8 fL (78.0-98.0); Platelet Count 285 thou/uL (130-400); RBC Distribution Width 14.7 % (11.5-14.5); Red Blood Cell (RBC) Count 4.44 mill/uL (4.20-5.40); White Blood Cell (WBC) Count 6.3 thou/uL (4.8-10.8)
[2019-10-27 11:12] LABS: ALT (SGPT) 10 U/L (8-55); AST (SGOT) 13 U/L (5-34); Albumin 3.9 g/dL (3.5-5.0); Alkaline Phosphatase 116 U/L (40-110); Anion Gap 14 mmol/L (10-20); BUN (Urea Nitrogen) 9 mg/dL (7.0-18.7); Bilirubin, Total 0.2 mg/dL (0.2-1.2); Calc. Creatinine Clearance 0 mL/min (70-130); Calcium 8.9 mg/dL (7.8-10.44); Carbon Dioxide 22 mmol/L (22-29); Chloride 102 mmol/L (98-107); Estimated GFR-MDRD Greater than 90; Globulin 2.5 g/dL (2.4-3.5); Glucose 103 mg/dL (70-105); Potassium 4.1 mmol/L (3.5-5.1); Protein, Total 6.4 g/dL (6.0-8.3); Sodium 134 mmol/L (136-145)
[2019-10-27 11:13] LABS: Hypochromia SLIGHT = 6-15 cells (100X) (0-5/hpf); MDiff Complete? YES; Microcytosis SLIGHT = 6-15 cells (100X) (0-5/hpf); Platelet Morphology Comment Appears Adequate; Polychromasia SLIGHT = 2-3 cells (100X) (0-2/hpf)
[2019-10-27 11:30] LABS: Bilirubin Negative (Negative); Blood, Urine 2+ (Negative); Clarity Turbid (Clear); Glucose, Urine (Dipstick) Normal (Negative); Leukocyte 25 Leu/uL (Negative); Nitrite Negative (Negative); Protein, Urine (Dipstick) 30 mg/dL (Neg-Trace); RBC/HPF Greater than 50 HPF (0-3); Squamous Epithelial None Seen HPF (0-3); Urobilinogen Normal mg/dL (Less than 2); WBC/HPF 0-3 HPF (0-3)
[2019-10-27 11:39] LABS: Bacteria/HPF None Seen HPF (None Seen)
--- NOTE | 2019-10-27 11:59 | CT ---
CT Stone Protocol History: Abdomen pain Comparison: CT abdomen October 01, 2019 Findings: Lung bases are clear. Feeding gastrostomy tube is in place. There is also a tube within the small bowel. Severe right hydroureteronephrosis due to obstructing calculus measuring 3 x 4 mm distal right ureter at the ureterovesicular junction. No other calculus is seen within the right renal collecting system. Left kidney is without hydroureteronephrosis or nephroureterolithiasis. There is a hyperdensity inferior pole left kidney with Hounsfield units of 85 Hounsfield units sugges tive of a proteinaceous or hemorrhagic cyst. Trace free fluid in the pelvis No dilated loops of large or small bowel. Prior cholecystectomy. Noncontrast evaluation of the spleen, liver, pancreas are unremarkable. Impression: Obstructive 3 x 4 mm calculus distal right ureter at the ureterovesicular junction.
[2019-10-27] MEDS ORDERED: Ondansetron PF 4 MG/2 ML Vial ONE (13:05)
[2019-10-27] MEDS ORDERED: Morphine 4 MG/ML VIAL ONE ×2 (13:05→15:01)
[2019-10-27] MEDS ORDERED: Ketorolac Tromethamine 30 MG/ML VIAL ONE (14:17)
== END 2019-10-27 16:03 | disposition home or self-care (01) ==
LOC: ERS 10:18
DX: N13.2 Hydronephrosis with renal and ureteral calculous obstruction (principal); I25.2 Old myocardial infarction; E78.5 Hyperlipidemia, unspecified; E03.9 Hypothyroidism, unspecified; I10 Essential (primary) hypertension; G51.0 Bell's palsy; Z86.718 Personal history of other venous thrombosis and embolism; E11.43 Type 2 diabetes mellitus with diabetic autonomic (poly)neuropathy; K31.84 Gastroparesis; Z86.73 Personal history of transient ischemic attack (TIA), and cerebral infarction without residual deficits; Z86.711 Personal history of pulmonary embolism; F41.9 Anxiety disorder, unspecified; F31.9 Bipolar disorder, unspecified; Z79.84 Long term (current) use of oral hypoglycemic drugs; Z79.82 Long term (current) use of aspirin; Z79.02 Long term (current) use of antithrombotics/antiplatelets; Z79.899 Other long term (current) drug therapy
CPT/HCPCS: 36415; 74176; 80053; 81003; 81015; 85025; 96361; 96374; 96375; 96376; J1885; J2270; J2405

== ENCOUNTER 2019-12-07 13:56 | Emergency (ER) | payer BC ==
--- NOTE | 2019-12-07 14:43 | ULT ---
RIGHT LOWER EXTREMITY VENOUS DOPPLER ULTRASOUND: Date: 12/07/2019 COMPARISON: None. HISTORY: Pain, palpable abnormality in the posterior calf, assess for deep venous thrombosis. TECHNIQUE: Multiplanar Torres scale sonographic imaging of the venous structures of the right lower extremity obta ined with color flow and spectral analysis. FINDINGS: Right common femoral vein, greater saphenous vein, profunda femoral vein, femoral vein, popliteal vei n, and posterior tibial vein are patent. Normal blood flow, augmentation, and compression noted with no evidence for deep venous thrombosis. In the area of palpable concern, there is a nonspecific, ill-defined area of altered echogenicity wit hin the subcutaneous fat just deep to the skin measuring approximately 1.1 x 0.9 x 0.6 cm. This demon strates a small central hypoechoic component and peripheral increased echogenicity. Perhaps this is r elated to a focal area of post-traumatic or infectious altered echogenicity. IMPRESSION: 1. No evidence for deep venous thrombosis of the right lower extremity. 2. Nonspecific small area of abnormal echogenicity within the subcutaneous fat in the area of palpab le concern. This could be related to trauma or inflammatory/infectious process. Recommend short-term follow-up imaging to document resolution. POS: [facility]
[2019-12-07 15:28] LABS: Bacteria/HPF None Seen HPF (None Seen); Bilirubin Negative (Negative); Blood, Urine Negative (Negative); Clarity Clear (Clear); Glucose, Urine (Dipstick) Normal (Negative); Leukocyte Negative Leu/uL (Negative); Nitrite 1+ (Negative); Protein, Urine (Dipstick) Negative (Neg-Trace); RBC/HPF 0-3 HPF (0-3); Squamous Epithelial 0-3 HPF (0-3); Urobilinogen Normal mg/dL (Less than 2); WBC/HPF 0-3 HPF (0-3)
[2019-12-07 16:19] LABS: #Basophils 0.1 thou/uL (0.0-0.2); #Eosinphils 0.1 thou/uL (0.0-0.7); #Lymphocytes 1.6 thou/uL (1.20-3.40); #Monocytes 0.4 thou/uL (0.11-0.59); #Neutrophils 3.1 thou/uL (1.40-6.50); %Basophils 1.3 % (0.0-1.0); %Eosinophils 2.6 % (0.0-10.0); %Lymphocytes 29.5 % (21.0-51.0); %Monocytes 8.3 % (0.0-10.0); %Neutrophils 58.4 % (42.0-75.0); Hemoglobin 10.3 g/dL (12.0-16.0); Mean Corpuscular HGB CONC 30.8 g/dL (32.0-36.0); Mean Corpuscular Hemoglobin 22.6 pg (27.0-31.0); Mean Corpuscular Volume 73.3 fL (78.0-98.0); Platelet Count 289 thou/uL (130-400); RBC Distribution Width 14.8 % (11.5-14.5); Red Blood Cell (RBC) Count 4.57 mill/uL (4.20-5.40); White Blood Cell (WBC) Count 5.3 thou/uL (4.8-10.8)
[2019-12-07 16:26] LABS: BHCG - Serum Negative (NEGATIVE); Pregs Control Background? CLEAR/WHITE (CLR/WHITE); Pregs Control Bar Appear? YES (CONTROL BAR)
[2019-12-07] MEDS ORDERED: Nitrofurantoin Macrocrystal 50 MG CAP PO SCH (16:30)
[2019-12-07 16:39] LABS: ALT (SGPT) 9 U/L (8-55); AST (SGOT) 13 U/L (5-34); Alkaline Phosphatase 126 U/L (40-110); Anion Gap 13 mmol/L (10-20); BUN (Urea Nitrogen) 14 mg/dL (7.0-18.7); Bilirubin, Total Less than 0.2 mg/dL (0.2-1.2); Calc. Creatinine Clearance 0 mL/min (70-130); Calcium 9.3 mg/dL (7.8-10.44); Carbon Dioxide 27 mmol/L (22-29); Chloride 97 mmol/L (98-107); Estimated GFR-MDRD 83; Glucose 89 mg/dL (70-105); Sodium 133 mmol/L (136-145)
--- NOTE | 2019-12-07 17:01 | RAD ---
PORTABLE CHEST ONE VIEW: Date: 12-07-2019 Time: 4:17 p.m. History: Chest pain. FINDINGS: Comparison exam 06-25-19. Left sided pacing device remains in place. The heart size is normal. The lungs are well expanded with out lobar consolidation, pneumothoraces or pleural effusions. IMPRESSION: No radiographic evidence of acute cardiopulmonary process. POS: TRIPPA
--- NOTE | 2019-12-11 14:08 | EKG ---
Test Reason : Blood Pressure : / mmHG Vent. Rate : 069 BPM Atrial Rate : 069 BPM P-R Int : 154 ms QRS Dur : 086 ms QT Int : 388 ms P-R-T Axes : 026 040 006 degrees QTc Int : 415 ms Normal sinus rhythm Normal ECG Confirmed by MAIA WILLETT ([id number]), editor farm journal GUSTAVO ULRICH ([id number]) on 12/11/2019 2:07:45 PM Referred By: Confirmed By:MAIA WILLETT
== END 2019-12-07 18:58 | disposition home or self-care (01) ==
LOC: ERS 13:56
DX: M79.661 Pain in right lower leg (principal); N39.0 Urinary tract infection, site not specified; R07.89 Other chest pain; F41.9 Anxiety disorder, unspecified; F31.9 Bipolar disorder, unspecified; I25.2 Old myocardial infarction; E78.5 Hyperlipidemia, unspecified; E11.43 Type 2 diabetes mellitus with diabetic autonomic (poly)neuropathy; K31.84 Gastroparesis; I10 Essential (primary) hypertension; E03.9 Hypothyroidism, unspecified; G51.0 Bell's palsy; Z87.442 Personal history of urinary calculi; Z86.73 Personal history of transient ischemic attack (TIA), and cerebral infarction without residual deficits; Z86.718 Personal history of other venous thrombosis and embolism; Z79.891 Long term (current) use of opiate analgesic; Z79.82 Long term (current) use of aspirin; Z79.899 Other long term (current) drug therapy; Z86.711 Personal history of pulmonary embolism
CPT/HCPCS: 71045; 80053; 81003; 81015; 84484; 84703; 85025; 87086; 93005

== ENCOUNTER 2020-01-18 14:18 | Inpatient (IN) | payer BC ==
--- NOTE | 2020-01-18 15:09 | RAD ---
CHEST 1 VIEW: HISTORY: Syncope, uncontrolled shaking of the extremities. COMPARISON: 12/07/2019. FINDINGS: Heart size is normal. The lungs are clear. No confluent pneumonia, overt edema, or pleural effusion . IMPRESSION: No significant acute intrathoracic disease. Stable from prior study. POS: RRE
[2020-01-18 15:43] LABS: #Basophils 0.1 thou/uL (0.0-0.2); #Eosinphils 0.1 thou/uL (0.0-0.7); #Lymphocytes 1.9 thou/uL (1.20-3.40); #Monocytes 0.5 thou/uL (0.11-0.59); #Neutrophils 5.2 thou/uL (1.40-6.50); %Basophils 1.4 % (0.0-1.0); %Eosinophils 1.3 % (0.0-10.0); %Lymphocytes 24.2 % (21.0-51.0); %Monocytes 6.6 % (0.0-10.0); %Neutrophils 66.6 % (42.0-75.0); Hemoglobin 10.9 g/dL (12.0-16.0); Mean Corpuscular Hemoglobin 22.6 pg (27.0-31.0); Mean Corpuscular Volume 75.4 fL (78.0-98.0); Mean Platelet Volume 7.1 fL (7.4-10.4); Platelet Count 408 thou/uL (130-400); RBC Distribution Width 15.6 % (11.5-14.5); Red Blood Cell (RBC) Count 4.82 mill/uL (4.20-5.40); White Blood Cell (WBC) Count 7.7 thou/uL (4.8-10.8)
[2020-01-18] MEDS ORDERED: Lorazepam 2 MG/ML VIAL ONE (15:54)
[2020-01-18 15:55] LABS: Bilirubin Negative (Negative); Blood, Urine Negative (Negative); Clarity Clear (Clear); Glucose, Urine (Dipstick) Normal (Negative); Leukocyte Negative Leu/uL (Negative); Nitrite Negative (Negative); Protein, Urine (Dipstick) 10 mg/dL (Neg-Trace); Urobilinogen Normal mg/dL (Less than 2)
[2020-01-18 15:59] LABS: Acetaminophen Less than 6.0 mcg/mL (10.0-30.0); Alcohol Less than 10 mg/dL (Less than 10); Salicylate Less than 8.0 mg/dL (15.0-30.0)
[2020-01-18 16:00] LABS: ALT (SGPT) 13 U/L (8-55); AST (SGOT) 17 U/L (5-34); Albumin 4.2 g/dL (3.5-5.0); Alkaline Phosphatase 108 U/L (40-110); Anion Gap 15 mmol/L (10-20); BUN (Urea Nitrogen) 18 mg/dL (7.0-18.7); Bilirubin, Total 0.2 mg/dL (0.2-1.2); CK (CPK) 61 U/L (29-168); Calc. Creatinine Clearance 0 mL/min (70-130); Calcium 9.6 mg/dL (7.8-10.44); Carbon Dioxide 25 mmol/L (22-29); Chloride 100 mmol/L (98-107); Estimated GFR-MDRD 60; Globulin 2.8 g/dL (2.4-3.5); Glucose 128 mg/dL (70-105); Potassium 3.8 mmol/L (3.5-5.1); Sodium 136 mmol/L (136-145)
[2020-01-18 16:05] LABS: Amphetamine Not Detected (NotDetected); Barbiturates Screen Not Detected (NotDetected); Benzodiazepine Screen Not Detected (NotDetected); Cocaine Metabolite Screen Not Detected (NotDetected); Medtox Control Line Valid? VALID (VALID); Medtox Reader # READER 4; Methadone Not Detected (NotDetected); Methamphetamine Not Detected (NotDetected); Opiate Screen Not Detected (NotDetected); Oxycodone Screen Not Detected (NotDetected); Phencyclidine (PCP) Detected (NotDetected); THC/Cannabinoid Screen Not Detected (NotDetected); Tricyclic Screen Not Detected (NotDetected)
[2020-01-18 16:21] LABS: CKMB 4.1 ng/mL (0-6.6)
[2020-01-18 17:17] LABS: Phosphorus 3.8 mg/dL (2.3-4.7)
--- NOTE | 2020-01-18 18:16 | PDOC.FPRHP ---
- History of Present Illness Chief Complaint: Shaking History of Present Illness: Ms. Leslie is a 44yoF well known to our clinic who presents to the ED for worsening shaking, frequent dizzy spells, and mild chest discomfort. Patient states that she had a syncopal event on Saturday night. Her woke her from sleep because she was shaking in her sleep. She got up, went to the restroom and on the way back she passed out, witnessed. Last night she had a similar event. Checked BP at that time and it was 90s / 50s. She has noted a waxing and waning tremor of her upper and lower extremities. However, while the patient is talking the tremor stops and when she is sitting quietly it picks back up. She was recently hospitalized at [facility] on and had a hospital f/u on 01/[address] Gallegos. Per clinic chart review, she was diagnosed with conversion disorder and major depressive disorder, recurrent, severe with psychotic features. She had a CT and MRI/MRA of her brain and neck without acute findings. Her psychiatrist, Dr. Rico, saw her via telehealth, and changed her venlafaxine to pristiq. She was put on home health with [facility] with PT/OT. She is no longer on diabetic medications, she had an A1c checked in clinic and it was 5.0. ED Course: Lorazepam 1mg, NS 1L - Allergies/Adverse Reactions Allergies Allergy/AdvReac Type Severity Reaction Status Date / Time Iodinated Contrast Media Allergy Verified 11/05/19 12:33 [Iodinated Contrast- Oral and IV Dye] metoclopramide [From Reglan] Allergy Verified 11/05/19 12:33 zolpidem tartrate Allergy psychosis Verified 11/05/19 12:33 [From Ambien] - Home Medications Medication Instructions Recorded Confirmed Type Aspirin [Aspir-Low] 1 tab PO DAILY 11/18/18 06/25/19 History Atorvastatin Calcium 1 tab PO DAILY 11/18/18 06/25/19 History Hyoscyamine Sulfate [Levsin SL] 1 tab PO Q4HR PRN 11/18/18 06/25/19 History Levothyroxine Sodium [Synthroid] 1 tab PO DAILY 11/18/18 06/25/19 History Linaclotide [Linzess] 125 mg PO QAM 11/18/18 06/25/19 History Venlafaxine HCl [Effexor XR] 1 cap PO BID 11/18/18 06/25/19 History metFORMIN [Glucophage] 2 tab PO BID 11/18/18 06/25/19 History traZODone HCl [Trazodone HCl] 2 tab PO HS PRN 11/18/18 06/25/19 History busPIRone HCl 30 mg PO BID 12/08/18 06/25/19 History hydrALAZINE [Apresoline] 25 mg PO TID 12/08/18 06/25/19 History Ondansetron [Zofran ODT] 4 mg SL Q6H PRN tab 12/09/18 06/25/19 Rx Carvedilol [Coreg] 25 mg PO BID 05/17/19 06/25/19 History Dexlansoprazole [Dexilant] 60 mg PO BID-WM 05/17/19 06/25/19 History Dulaglutide [Trulicity] 1.5 mg SC Q7D 05/17/19 06/25/19 History Gabapentin 600 mg PO BID 05/17/19 06/25/19 History carBAMazepine [Tegretol XR] 800 mg PO HS 05/17/19 06/25/19 History hydrOXYzine [Atarax] 50 mg PO TID PRN 05/17/19 06/25/19 History traMADol HCl [Ultram] 50 mg PO TID 05/17/19 06/25/19 History Chlorthalidone [Hygroton] 25 mg PO DAILY #30 tab 05/18/19 06/25/19 Rx Lisinopril [Zestril] 40 mg PO DAILY #30 tab 05/18/19 06/25/19 Rx Baclofen 1 tab PO 0800,1200 06/25/19 06/25/19 History Baclofen 2 tab PO HS 06/25/19 06/25/19 History Clopidogrel Bisulfate [Clopidogrel] 1 tab PO DAILY 06/25/19 06/25/19 History Pantoprazole [Protonix] 40 mg PO DAILY 06/25/19 06/25/19 History Terazosin HCl [Hytrin] 1 tab PO BID 06/25/19 06/25/19 History Triamcinolone Acetonide 1 applic TOP BID 11/07/19 11/07/19 History [Triamcinolone Acetonide 0.025% Ointment] carBAMazepine [Carbamazepine ER] 400 mg PO QAM 06/25/19 06/25/19 History Colchicine 0.6 mg PO BID #60 capsule 06/26/19 Rx Indomethacin [Indocin] 25 mg PO BID #60 cap 06/26/19 Rx - History PMHx: SD CVA Sick Sinus Syndrome HTN DM Dyslipidemia Cano's Palsy Bipolar Disorder Migraines Hypothyroidism Pericardial Effusion, s/p pericardial window with recurrent chronic pericarditis Gastroparesis Intractable N/V PSHx: Multiple Feeding Tubes Placed, Pericardial Window, Pacemaker Placement FHx: HTN, DMII, Hypothyroidism, CAD Father - Cancer - multiple myeloma Social: Denies alcohol, illicit drug, or tobacco use. Patient is DNAR. - Review of Systems General: reports: fatigue. denies: fever/chills, weight/appetite/sleep changes , night sweats Eyes: denies: eye pain, vision changes ENT: denies: nasal congestion, rhinorrhea Respiratory: denies: cough, congestion, shortness of breath Cardiovascular: reports: chest pain. denies: palpitation, edema, paroxysmal nocturnal dyspnea, orthopnea Gastrointestinal: reports: nausea, diarrhea. denies: vomiting, constipation, abdominal pain, GI bleeding Genitourinary: denies: incontinence, dysuria, polyuria Skin: denies: rashes, lesions Musculoskeletal: denies: pain, tenderness, stiffness, swelling Neurological: reports: syncope, weakness. denies: numbness, seizure - Vital signs BP: 114/70, Pulse: 85, Resp: 18, O2 sat: 97 on (Room Air), Weight 80kg - Physical Exam Constitutional: NAD, awake, alert and oriented, well developed HEENT: normocephalic and atraumatic, PERRLA, EOMI, conjunctiva clear, no scleral icterus, grossly normal vision, grossly normal hearing, MMM -HEENT: horizontal nystagmus appreciated Neck: supple, FROM, trachea midline Heart: RRR, normal S1/S2, no murmurs/rubs/gallops Lungs: CTAB, no respiratory distress, good air movement, no rales/rhonchi, no wheezing, no retractions Abdomen: soft, non-tender, bowel sounds present -Abdomen: Feeding tubes present Musculoskeletal: normal structure, normal tone Neurological: no focal deficit, CN II-XII intact, normal sensation, DTRs 2+ Skin: no rash/lesions, good turgor, capillary refill <2 seconds Heme/Lymphatic: no unusual bruising or bleeding, no purpura, no petechia Psychiatric: normal mood and affect, good judgment and insight, intact recent and remote memory FMR H&P: Results - Labs Result Diagrams: 01/18/20 15:32 01/18/20 15:32 Lab results: WBC 7.7 thou/uL (4.8-10.8) 01/18/20 15:32 Hgb 10.9 g/dL (12.0-16.0) L 01/18/20 15:32 Hct 36.3 % (36.0-47.0) 01/18/20 15:32 MCV 75.4 fL (78.0-98.0) L 01/18/20 15:32 Plt Count 408 thou/uL (130-400) H 01/18/20 15:32 Neutrophils % 66.6 % (42.0-75.0) 01/18/20 15:32 Sodium 136 mmol/L (136-145) 01/18/20 15:32 Potassium 3.8 mmol/L (3.5-5.1) 01/18/20 15:32 Chloride 100 mmol/L (98-107) 01/18/20 15:32 Carbon Dioxide 25 mmol/L (22-29) 01/18/20 15:32 BUN 18 mg/dL (7.0-18.7) 01/18/20 15:32 Creatinine 1.00 mg/dL (0.6-1.1) 01/18/20 15:32 Glucose 128 mg/dL (70-105) H 01/18/20 15:32 Calcium 9.6 mg/dL (7.8-10.44) 01/18/20 15:32 Total Bilirubin 0.2 mg/dL (0.2-1.2) 01/18/20 15:32 AST 17 U/L (5-34) 01/18/20 15:32 ALT 13 U/L (8-55) 01/18/20 15:32 Alkaline Phosphatase 108 U/L (40-110) 01/18/20 15:32 Creatine Kinase 61 U/L (29-168) 01/18/20 15:32 CK-MB (CK-2) 4.1 ng/mL (0-6.6) 01/18/20 15:32 Serum Total Protein 7.0 g/dL (6.0-8.3) 01/18/20 15:32 Albumin 4.2 g/dL (3.5-5.0) 01/18/20 15:32 Urine Ketones Negative mg/dL (Negative) 01/18/20 15:44 Urine Blood Negative (Negative) 01/18/20 15:44 Urine Nitrite Negative (Negative) 01/18/20 15:44 Ur Leukocyte Esterase Negative Shelby/uL (Negative) 01/18/20 15:44 Laboratory Tests 01/18/20 01/18/20 15:32 19:07 Troponin I 0.094 H 0.090 H - EKG Interpretation EKG: Normal sinus rhythm - Radiology Interpretation CT scan - head Status: report reviewed by me (IMPRESSION: No acute intracranial abnormality.) Chest x-ray Status: report reviewed by me (IMPRESSION: No significant acute intrathoracic disease. Stable from prior study.) FMR H&P: A/P - Problem List (1) Microcytic anemia Current Visit: Yes Status: Acute Code(s): D50.9 - IRON DEFICIENCY ANEMIA, UNSPECIFIED (2) Nausea Current Visit: No Status: Acute Code(s): R11.0 - NAUSEA (3) Cano's palsy Current Visit: No Status: Chronic Code(s): G51.0 - CANO'S PALSY (4) Bipolar 1 disorder Current Visit: No Status: Chronic Code(s): F31.9 - BIPOLAR DISORDER, UNSPECIFIED (5) Depression Current Visit: No Status: Chronic Code(s): F32.9 - MAJOR DEPRESSIVE DISORDER , SINGLE EPISODE, UNSPECIFIED (6) Diabetes Current Visit: No Status: Chronic Code(s): E11.9 - TYPE 2 DIABETES MELLITUS WITHOUT COMPLICATIONS Qualifiers: Diabetes mellitus complication status: with neurologic complications (7) Gastroparesis Current Visit: No Status: Chronic Code(s): K31.84 - GASTROPARESIS (8) HLD (hyperlipidemia) Current Visit: No Status: Chronic Code(s): E78.5 - HYPERLIPIDEMIA, UNSPECIFIED (9) History of cerebrovascular accident (CVA) with residual deficit Current Visit: No Status: Chronic Code(s): I69.30 - UNSPECIFIED SEQUELAE OF CEREBRAL INFARCTION (10) Hypertension Current Visit: No Status: Chronic Code(s): I10 - ESSENTIAL (PRIMARY) HYPERTENSION (11) Hypothyroid Current Visit: No Status: Chronic Code(s): E03.9 - HYPOTHYROIDISM, UNSPECIFIED (12) Migraine Current Visit: No Status: Chronic Code(s): G43.909 - MIGRAINE, UNSP, NOT INTRACTABLE, WITHOUT STATUS MIGRAINOSUS (13) Pacemaker Current Visit: No Status: Chronic Code(s): Z95.0 - PRESENCE OF CARDIAC PACEMAKER (14) Sick sinus syndrome Current Visit: No Status: Chronic Code(s): I49.5 - SICK SINUS SYNDROME - Plan Elevated troponin - Initial trop 0.094 - History of SD and s/p pacemaker. - Will admit for observation and to monitor troponins. - EKG no changes from baseline - Will contact Dr. Marshall (her customs agent) office in the morning to see if she has had stress outpatient recently. Syncope vs near syncope - Several episodes of syncope and near syncope in the last several days - Will obtain orthostatic vital signs - Has had diarrhea for several days, which is normal for her, may be related to hypotension. - LR @ 75 Tremor - likely psychogenic in nature. - Recent head imaging done at [facility] in December was unremarkable Microcytic anemia - Will order iron studies H/o DM II - A1c 5.0. Not on diabetes medications. Chronic medical conditions - Will restart home medications once reconciled Dispo: Stable Code: DNAR PCP: El FMR H&P: Upper Level - Plan Date/Time: 01/18/201814 PCP: El HPI: Patient comes in for evaluation of tremors and L sided chest pain. She has chronic pleurisy on the right side. She states she has had a few episodes of left sided chest pressure which radiated to her shoulder blade and lasted about 30 seconds. She denies any pain, palpitations, or sob currently. She also complains of near syncopal episodes x2, denies vertigo symptoms, denies weakness on one side or the other, never blacked out or fell. Additionally, patient complains of tremors in her arms. On entering the room the tremors are present, but then when telling her story she was able to use her arms expressively without tremors. 2 weeks ago patient was admitted to [facility] and had extensive stroke workup including MRA. All was negative. Had neuro and psych consults and ultimately diagnosed with conversion disorder. A/P: # Elevated troponin - Last cath on record 2014 - No stress on record - EKG no acute change - Trend trops, if no stress test outpatient consider stress in AM # Near-Syncope - Check orthostatics, telemetry overnight, monitor BPs - History not consistent with TIA # Tremors - Psycogenic vs. essential # Microcytic Anemia - Phone note from Dr. Gallegos says "consider iron infusion," patient states they were going to set it up at next clinic visit, AM iron studies ordered # Hx of DMII (currently not on meds), gastoparesis, HTN, migraines, pacemaker - Home meds Fluids: tko Code status: full PPx: scd Dispo: obs Addendum - Attending - Attending Attestation Date/Time: 01/18/20 1179 I personally evaluated the patient and discussed the management with Dr. Sahu I agree with the History, Examination, Assessment and Plan documented above with any addition or exceptions noted below - 44 yo female with h/o DM, HTN, hypothyroidism, CAD/SD and gastroparesis presents c/o mild left sided chest discomfort and tremor. Also reports syncopal episode at home over the weekend with BP of 90/50. Reports some diarrhea last Saturday. Also reports some tremor. PMH/PSH/Meds/SH reviewed and agree with resident's documentation. Afebrile VSS. Exam repeated by me and agree with resident's findings. Trop I indeterminate x 2. A/P: 1) Chest pain- will monitor serial enzymes; consider stress in AM. 2) Syncope- possibly orthostatic; will check orthostatic vitals; gentle fluids.
--- NOTE | 2020-01-18 18:17 | CT ---
CT BRAIN WITHOUT CONTRAST: History: Fall. Syncope. Comparison: CT brain, 06-25-19 FINDINGS: No acute hemorrhage. Mild left schneider radiata white matter disease. No midline shift. No mass effect. The calvarium is intact. The paranasal sinuses and mastoids are relatively clear. IMPRESSION: No acute intracranial abnormality. POS: HOME
[2020-01-18] MEDS ORDERED: Ondansetron ODT 4 MG TAB PO PRN (19:15)
[2020-01-18] MEDS ORDERED: Acetaminophen 325 MG TAB PO PRN (19:15)
[2020-01-18] MEDS: Lactated Ringer's 1,000 ML IV SCH (22:29)
[2020-01-18 22:30] LABS: Troponin I 0.086 ng/mL (< 0.028)
[2020-01-19] MEDS ORDERED: traZODone HCl 50 MG TAB PO PRN (00:35)
[2020-01-19] MEDS ORDERED: Gabapentin 400 MG CAP PO SCH ×2 (01:15→09:00)
[2020-01-19] MEDS ORDERED: Lisinopril 20 MG TAB PO SCH ×2 (01:15→09:00)
[2020-01-19] MEDS ORDERED: traMADol HCl 50 MG TAB PO SCH (01:15)
[2020-01-19] MEDS ORDERED: Baclofen 10 MG TAB PO SCH ×2 (01:15→09:00)
[2020-01-19 04:59] LABS: Iron 20 ug/dL (50-170); Iron Binding Capacity, Total 405 mcg/dL (265-497); Transferrin, Serum 324 mg/dL (180-382)
[2020-01-19] MEDS ORDERED: Levothyroxine Sodium 125 MCG TAB PO SCH (06:00)
--- NOTE | 2020-01-19 06:59 | PDOC.FM ---
- Subjective Subjective: Patient complains of continued tremor, predominantly in right arm this morning. It appears to lessen and at times resolves when she is talking. Patient reports further history that she had only one episode of chest pain 3 days ago that lasted 2 minutes and then resolved spontaneously. She denies having had any chest pain since. Patient states she was told by ER and her PCP Dr. Gallegos that she needed lots of testing done while she was here including EEG, Stress test, and X-rays of her arms. Called and spoke with Dr. Gallegos her PCP and he states that the EEG and Stress test can be arranged outpatient. He also relays that the patient has already had plain films taken of her arms and those were normal. He was hoping the patient could get an iron infusion at some point due to her chronic iron deficiency. She has a history of gastroparesis and has not been amenable to oral replacement therapy. - Objective MAR Reviewed: Yes Vital Signs & Weight: Vital Signs (12 hours) Temp Pulse Resp BP BP Pulse Ox 01/19/20 03:30 97.6 F 80 12 121/71 96 01/19/20 01:55 134/89 01/18/20 23:15 97.6 F 89 18 134/89 99 01/18/20 20:55 98.2 F 93 20 143/67 H 97 Weight Weight 80.603 kg I&O: 01/17/20 01/18/20 01/19/20 06:59 06:59 06:59 Intake Total 850 Output Total 250 Balance 600 Result Diagrams: 01/18/20 15:32 01/18/20 15:32 Phys Exam - Physical Examination Constitutional: NAD HEENT: moist MMs, sclera anicteric Neck: no JVD, supple, full ROM Musculoskeletal: no edema, pulses present Neurological: normal sensation, moves all 4 limbs resting tremor in right upper extremity Psychiatric: A&O x 3 Deviation from normal: appears anxious Skin: no rash, normal turgor Dx/Plan (1) Tremor observed on examination Code(s): R25.1 - TREMOR, UNSPECIFIED Status: Acute (2) Microcytic anemia Code(s): D50.9 - IRON DEFICIENCY ANEMIA, UNSPECIFIED Status: Acute (3) Bipolar 1 disorder Code(s): F31.9 - BIPOLAR DISORDER, UNSPECIFIED Status: Chronic (4) Depression Code(s): F32.9 - MAJOR DEPRESSIVE DISORDER, SINGLE EPISODE, UNSPECIFIED Status : Chronic Qualifiers: Depression Type: major depressive disorder Major depression recurrence: recurrent Active/Remission status: currently active Major depression episode severity: severe Psychotic features: with psychotic features Qualified Code(s): F33.3 - Major depressive disorder, recurrent, severe with psychotic symptoms (5) Gastroparesis Code(s): K31.84 - GASTROPARESIS Status: Chronic (6) Pacemaker Code(s): Z95.0 - PRESENCE OF CARDIAC PACEMAKER Status: Chronic - Plan Plan: Patient is a 44 yo female who presents with elevated troponin and tremor is admitted for continued monitoring: #Elevated troponin - Initial trop 0.094, trend to 0.090 > 0.086 - History of PR and s/p pacemaker. - EKG no changes from baseline - has never had a stress test-consider outpatient set up with her collar starcher Dr. Marshall as patient has already eaten today - patient UDS positive for PCP, possibly contributing to presentation #Syncope vs near syncope - Several episodes of syncope and near syncope in the last several days - Will obtain orthostatic vital signs - Has had diarrhea for several days, which is normal for her, may be related to hypotension. - LR @ 75 - will interrogate pacemaker - check TSH #Tremor - likely psychogenic in nature. - Recent head imaging done at [facility] in December was unremarkable - has current dx of severe MDD with psychotic features, recent evaluation by psych with adjustment in meds - also recent dx by psychiatry of conversion disorder - consider outpatient neurology referral for EEG, although patient has no current seizure-like activity #Microcytic anemia - admission Hgb 10.9, MCV 75 - per Dr. Gallegos was considering iron infusion at clinic prior to admission - iron studies show iron 20, TIBC 405, %sat is 5%, Ferritin 2.95 - arrange for iron infusion today #H/o DM II - A1c 5.0. Not on diabetes medications. #Chronic medical conditions--gastoparesis, HTN, migraines, pacemaker - Continue home medications #Left Arm Pain - pain reported for over 2 weeks, occurred spontaneously with no known trauma to area - PCP reported plain films taken at clinic were normal Diet: HH VTE: Lovenox Code: DNAR PCP: [place] [facility]: Stable, admitted to obs on telemetry unit. Plan for iron infusion today. Arrange for outpatient Cardiology for stress test and outpatient Neurology referral for possible further evaluation. Anticipate discharge later today or tomorrow. Addendum - Attending - Attending Attestation Date/Time: 01/19/20 [id number] I personally evaluated the patient and discussed the management with . [] I agree with the History, Examination, Assessment and Plan documented above with any addition or exceptions noted below. Troponin down trended. Will order iron infusion since unable to get outpatient. Negative TIA/CVA eval at [facility] 2 weeks. Can get NM stress and further neurology evaluation outpatient. Already has appointment at [facility]. Per [facility] records, there is thought that this may be a conversion disorder. Since could be possible essential tremor, will start on low dose propanolol. d/c home with close outpatient f/u.
[2020-01-19] MEDS ORDERED: Non-Formulary Item 1 EACH (Dexlansoprazole [Dexilant] 60 MG) PO SCH (07:30)
[2020-01-19] MEDS ORDERED: Aspirin 81 mg Enteric Coated Tablet PO SCH (09:00)
[2020-01-19] MEDS ORDERED: DESVENLAFAXINE 50 MG PO SCH (09:00)
[2020-01-19] MEDS ORDERED: Enoxaparin Sodium 40 MG/0.4 ML SYRINGE SC SCH (09:00)
[2020-01-19] MEDS ORDERED: Clopidogrel Bisulfate 75 MG TAB PO SCH (09:00)
[2020-01-19] MEDS ORDERED: Venlafaxine HCl XR 75 MG CAP PO SCH (09:00)
[2020-01-19] MEDS ORDERED: Iron, Sodium Ferric Gluconate 125 MG in Sodium Chloride 0.9% 100 ML IVPB SCH (09:15)
[2020-01-19] MEDS: traMADol HCl 50 MG TAB PO SCH ×2 (09:32→16:03)
[2020-01-19] MEDS ORDERED: Sodium Chloride 0.9% 500 ML IV SCH (11:30)
[2020-01-19] MEDS ORDERED: Gabapentin 300 MG CAP PO SCH (12:00)
--- NOTE | 2020-01-19 12:29 | PDOC.BPN ---
- Brief Progress Note Was notified by nursing staff at approx 1145 that patient had additional questions regarding her plan of care. Myself and Dr. De Oliveira went directly to patient's room to address concerns. Spent approx 15 min discussing patient's care plan and decision making. Patient was informed that we have discussed her case today with her PCP Dr. Gallegos and he is aware that she will need outpatient Cardiology and Neurology follow up. Patient concerned that she does not know the cause of her tremor. Discussed with patient that we have reviewed records & studies from both her [facility] hospitalization as well as [facility] records and studies during this stay. All of these have returned essentially normal with no concerning features. Patient is aware that she has been told by her psychiatrist that her tremor is likely psychogenic in nature. Patient expresses frustration that she keeps being told "this is all in her mind " and she disagrees with this conclusion. She has not had an EEG performed due to very low suspicion that this is a seizure and she reports no seizure-like activity, however we do plan to have her complete an EEG study as an outpatient. PCP Dr. Gallegos is aware and will help arrange for this. During our interview the patient's tremor continued to wax/wane. The tremor would lessen/ stop when patient was speaking and emphasizing with hand gestures, also tremor stopped when adjusting her pillow. Additionally discussed that the reason patient was admitted to the hospital was for elevated troponins which have since trended down. She is not currently complaining of any chest pain, SOB, or any other symptoms other than her tremor. Patient does not meet criteria to remain in the hospital, and her workup can continue as an outpatient. This was all discussed with patient with all questions regarding reasoning behind plan of care answered. Additionally the patient's UDS screen being positive for PCP was addressed. Patient states that she has never taken PCP or any other drug. We discussed with patient that we can review her current medications to see if any could cause a false positive for PCP on a UDS.
[2020-01-19] MEDS: Lactated Ringer's 1,000 ML IV SCH ×2 (13:42→13:43)
[2020-01-19 13:50] VITALS: BMI 28.6
[2020-01-19] MEDS ORDERED: Propranolol 10 MG TAB PO SCH ×2 (14:00→21:00)
[2020-01-19 16:09] VITALS: BP 158/99; TEMP 98.8
--- NOTE | 2020-01-19 23:30 | DIS ---
DATE OF ADMISSION: 01/18/2020 DATE OF DISCHARGE: 01/19/2020 PRIMARY CARE PHYSICIAN: Chriss Gallegos MD RESIDENT: Meera Childs DO ADMITTING ATTENDING: Fang Suh MD DISCHARGE ATTENDING: Stevo Garcia MD CONSULTS: None. PROCEDURES: 1. Chest x-ray on January 18, 2020: No significant acute intrathoracic disease. Stable from prior study on December 07, 2019. 2. Brain CT on January 18, 2020: No acute intracranial abnormality. PRIMARY DIAGNOSIS: Elevated troponin, ruled out acute coronary syndrome. SECONDARY DIAGNOSES: 1. Near syncopal episodes, likely due to orthostatic hypotension. 2. Tremor, likely psychogenic in nature. 3. Microcytic anemia. 4. Diabetes type 2. 5. Gastroparesis. 6. Hypertension. 7. Migraines. 8. History of pacemaker. 9. Left arm pain. DISCHARGE MEDICATIONS: 1. Trazodone 200 mg p.o. at bedtime p.r.n. 2. Linzess 145 mg p.o. daily. 3. Levothyroxine 125 mcg p.o. daily. 4. Levsin 0.125 mg p.o. q.4 hours p.r.n. 5. Atorvastatin 40 mg p.o. at bedtime. 6. Aspirin 81 mg p.o. daily. 7. Buspirone/HCL 30 mg p.o. b.i.d. 8. Hydralazine 25 mg p.o. p.r.n. 9. Dexilant 60 mg p.o. b.i.d. 10. Gabapentin 1200 mg p.o. b.i.d. 11. Tegretol XR 800 mg p.o. at bedtime. 12. Tramadol 50 mg p.o. t.i.d. 13. Chlorthalidone 25 mg p.o. daily. 14. Baclofen 20 mg p.o. t.i.d. 15. Carbamazepine 400 mg p.o. q.a.m. 16. Clopidogrel 75 mg p.o. daily. 17. Ibuprofen 800 mg p.o. t.i.d. 18. Desvenlafaxine 50 mg p.o. daily. 19. Lisinopril 20 mg p.o. b.i.d. 20. Zofran 8 mg p.o. q.6 hours p.r.n. 21. Propranolol 5 mg p.o. b.i.d. DISCONTINUED MEDICATIONS: None. HPI/HOSPITAL COURSE: The patient is a 44-year-old female, who presents to the [facility] Emergency Department on January 18, 2020 for complaint of worsening shaking of her right upper extremity, frequent dizzy spells, and mild chest discomfort. The patient stated that she had a syncopal event on SaturdayJanuary 15. Her woke her from sleep because she started shaking in her sleep. She got up and went to the restroom and on her way back says she passed out, which her witnessed. The patient said she had a similar event on January 16. She checked her blood pressure at that time, it was 90s/50s. She has noted a waxing and waning tremor of her upper and lower extremities. However, what the patient is talking this tremor stops and when she is sitting quietly it picks back up. She was recently hospitalized at [facility] on January 04 through and had hospital followup on January [address] Gallegos at [facility]. Per clinic chart review, the patient was diagnosed with conversion disorder and major depressive disorder with severe and psychotic features. She had a CT head and MRI brain and MRA brain and all completed at [facility] without any acute findings. She did see her psychiatrist, Dr. Rico, who saw her via telehealth, and changed her venlafaxine to Pristiq. She was put on home health with guardian with PT and OT services. She also had her diabetic medications discontinued after an A1c was checked in clinic and it was 5.0. In the Emergency Department, she was given 1 mg of lorazepam and 1 L of normal saline. The patient was admitted to observation on the telemetry unit. On lab work, she was found to have an initial troponin of 0.094, which was elevated from her baseline compared to the last visit. These troponins trended out to 0.090 and 0.086. Her EKG showed no acute changes with sinus bradycardia. The patient's telemetry monitoring showed sinus rhythm in the 80s with no acute events. The patient was also noted to have a microcytic anemia with hemoglobin of 10.9. After discussion with her PCP, Dr. Gallegos, she had been supposed to get an iron infusion as an outpatient. It was arranged for her to have the iron infusion completed at this facility on January 19, 2020. It was discussed that the patient would need a stress test, she normally sees Dr. Marshall with Cardiology. However, on the morning of January 18, the patient was drinking coffee and already had breakfast. It was extensively discussed with the patient that her current imaging, lab work, and other studies were all reassuring that this was not a cardiac event. It was determined that she could have the stress test completed as an outpatient. Her PCP, Dr. Gallegos was notified of this and was in agreement with this plan. This was discussed repeatedly on January 18 with the patient with all patient's questions answered to satisfaction. The patient expressed frustration that she could not have an EEG done while her hospital stay was going on. It was discussed with the patient that she has had extensive workup already at the outside facility and that these records were able to be reviewed through our clinic EMR. All of these studies have been normal and reassuring. 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 Gallegos that a Neurology consult can be placed as an outpatient as well as an EEG study ordered as an outpatient. The patient' s PCP, Dr. Gallegos, was in agreement with this plan. On the afternoon of January 19, 2020, the patient was deemed clinically stable for discharge to home. There is no continued reason to have her admitted as an inpatient at this facility. The patient was offered propranolol 5 mg b.i.d. as a potential treatment for her tremor. She would like to try this and a prescription was sent to the Pharmacy. Of note, the patient's urine drug screen was positive for PCP; however, the patient denies ever having taken this drug or any other illicit substances. Upon review of her medications it was noted that she is taking tramadol, which has been found in some studies to be a possible cause of potential false positive of PCP on UDS. DISPOSITION: Stable. DISCHARGE INSTRUCTIONS: 1. Location: Home. 2. Diet: Heart healthy. 3. Activity: As tolerated. 4. Follow up with PCP Dr. Gallegos on January 26, 2020. 5. The patient will need outpatient stress test ordered, follow up with her collection technician, Dr. Marshall. 6. The patient will need outpatient EEG ordered, discussed with PCP, Dr. Gallegos. Job ID: [id number] MTDD
--- NOTE | 2020-01-23 14:09 | EKG ---
Test Reason : Blood Pressure : / mmHG Vent. Rate : 090 BPM Atrial Rate : 090 BPM P-R Int : 150 ms QRS Dur : 088 ms QT Int : 354 ms P-R-T Axes : 041 041 002 degrees QTc Int : 433 ms Normal sinus rhythm Normal ECG Confirmed by SHAD RINALDI DO ([id number]), subeditor NAHUM CID ([id number]) on 01/23/2020 2:09:18 PM Referred By: Confirmed By:SHAD RINALDI DO
== END 2020-01-19 18:18 | disposition home or self-care (01) | DRG 880 ==
LOC: ERS 14:18 → 2NO 18:36
PROVIDERS: ADMIT Family Medicine; ATTEND Family Medicine
DX: F44.4 Conversion disorder with motor symptom or deficit (principal); I95.1 Orthostatic hypotension; Z66 Do not resuscitate; R79.89 Other specified abnormal findings of blood chemistry; F32.9 Major depressive disorder, single episode, unspecified; I25.10 Atherosclerotic heart disease of native coronary artery without angina pectoris; I49.5 Sick sinus syndrome; D50.9 Iron deficiency anemia, unspecified; E11.43 Type 2 diabetes mellitus with diabetic autonomic (poly)neuropathy; K31.84 Gastroparesis; E78.5 Hyperlipidemia, unspecified; F31.9 Bipolar disorder, unspecified; G43.909 Migraine, unspecified, not intractable, without status migrainosus; E03.9 Hypothyroidism, unspecified; G51.0 Bell's palsy; M79.602 Pain in left arm; Z91.041 Radiographic dye allergy status; Z88.8 Allergy status to other drugs, medicaments and biological substances; Z79.899 Other long term (current) drug therapy; Z79.82 Long term (current) use of aspirin; Z79.84 Long term (current) use of oral hypoglycemic drugs; I25.2 Old myocardial infarction; Z86.73 Personal history of transient ischemic attack (TIA), and cerebral infarction without residual deficits; Z95.1 Presence of aortocoronary bypass graft; Z90.49 Acquired absence of other specified parts of digestive tract
CPT/HCPCS: 36415; 70450; 71045; 80053; 80306; 80307; 81003; 82550; 82553; 82728; 83540; 83550; 83735; 84100; 84443; 84466; 84484; 85025; 93005; 94760; 96374; J1650; J2060; J2916; J3490; Q0162

== ENCOUNTER 2020-02-14 14:43 | Emergency (ER) | payer BC, OTHER ==
[2020-02-15 13:57] LABS: SARS-CoV-2 MS2 Positive; SARS-CoV-2 N Gene Negative; SARS-CoV-2 S Gene Negative; SARS-CoV-2 orf1ab Negative
== END 2020-02-14 15:15 | disposition home or self-care (01) ==
LOC: ERS 14:43
DX: Z20.828 Contact with and (suspected) exposure to other viral communicable diseases (principal); I25.2 Old myocardial infarction; E78.5 Hyperlipidemia, unspecified; Z86.73 Personal history of transient ischemic attack (TIA), and cerebral infarction without residual deficits; Z86.711 Personal history of pulmonary embolism; E03.9 Hypothyroidism, unspecified; E11.9 Type 2 diabetes mellitus without complications; I10 Essential (primary) hypertension; Z86.718 Personal history of other venous thrombosis and embolism; F41.9 Anxiety disorder, unspecified; F31.9 Bipolar disorder, unspecified; Z79.899 Other long term (current) drug therapy; Z79.82 Long term (current) use of aspirin
CPT/HCPCS: 87635; 99283; U0003

== ENCOUNTER 2020-05-26 13:56 | Day surgery (SDC) | payer BC ==
[2020-05-26] MEDS ORDERED: Sodium Chloride 0.9% 20 ML ONE (14:29)
[2020-05-26] MEDS ORDERED: Acetaminophen 500 MG TAB PO SCH (14:30)
[2020-05-26] MEDS ORDERED: Iron Sucrose Complex 250 MG in Sodium Chloride 0.9% 250 ML 250 ML IVPB SCH (14:30)
[2020-05-26 15:49] VITALS: BP 131/83; TEMP 98.5
== END 2020-05-26 16:02 | disposition home or self-care (01) ==
LOC: ONC/OP 13:56
PROVIDERS: ATTEND Family Medicine
DX: D64.9 Anemia, unspecified (principal); K90.89 Other intestinal malabsorption; Z88.8 Allergy status to other drugs, medicaments and biological substances; Z91.041 Radiographic dye allergy status
CPT/HCPCS: 96365; J1756; J7050

== ENCOUNTER 2021-01-11 11:20 | Emergency (ER) | payer BC ==
[~2021-01-11 11:20] MED LIST changes: +GASTROGRAFIN 30 ML BOT ONE; -ISOVUE-370 76%-LOCM 1 ML ONE; +Iopamidol-370 76% 500 ML 1 ML ONE
[2021-01-11] MEDS ORDERED: diphenhydrAMINE 50 MG/ML VIAL ONE (12:03)
[2021-01-11] MEDS ORDERED: Morphine 4 MG/ML VIAL ONE (12:03)
[2021-01-11] MEDS ORDERED: Famotidine/PF 20 mg/2ml Vial ONE (12:04)
[2021-01-11] MEDS ORDERED: methylPREDNISolone Sod Succ 40 MG VIAL ONE (12:04)
[2021-01-11 12:05] LABS: #Basophils 0.1 thou/uL (0.0-0.2); #Eosinphils 0.2 thou/uL (0.0-0.7); #Lymphocytes 1.8 thou/uL (1.20-3.40); #Monocytes 0.6 thou/uL (0.11-0.59); #Neutrophils 5.6 thou/uL (1.40-6.50); %Basophils 0.7 % (0.0-1.0); %Lymphocytes 21.9 % (21.0-51.0); %Monocytes 6.9 % (0.0-10.0); %Neutrophils 68.6 % (42.0-75.0); Hemoglobin 14.1 g/dL (12.0-16.0); Mean Corpuscular HGB CONC 31.7 g/dL (32.0-36.0); Mean Corpuscular Volume 85.2 fL (78.0-98.0); Mean Platelet Volume 7.5 fL (7.4-10.4); Platelet Count 246 thou/uL (130-400); Red Blood Cell (RBC) Count 5.23 mill/uL (4.20-5.40); White Blood Cell (WBC) Count 8.2 thou/uL (4.8-10.8)
[2021-01-11 12:37] LABS: ALT (SGPT) 17 U/L (8-55); AST (SGOT) 16 U/L (5-34); Albumin 4.2 g/dL (3.5-5.0); Alkaline Phosphatase 132 U/L (40-110); Anion Gap 13 mmol/L (10-20); BUN (Urea Nitrogen) 10 mg/dL (7.0-18.7); Bilirubin, Total 0.2 mg/dL (0.2-1.2); Calc. Creatinine Clearance 0 mL/min (70-130); Calcium 9.7 mg/dL (7.8-10.44); Carbon Dioxide 25 mmol/L (22-29); Chloride 102 mmol/L (98-107); Globulin 2.7 g/dL (2.4-3.5); Glucose 80 mg/dL (70-105); Lipase 24 U/L (8-78); Potassium 4.4 mmol/L (3.5-5.1); Protein, Total 6.9 g/dL (6.0-8.3); Sodium 136 mmol/L (136-145)
[2021-01-11] MEDS ORDERED: Ondansetron PF 4 MG/2 ML Vial ONE (13:36)
[2021-01-11] MEDS ORDERED: Fentanyl 100 MCG/2 ML VIAL ONE (13:36)
== END 2021-01-11 14:31 | disposition home or self-care (01) ==
LOC: ERS 11:20
DX: K94.23 Gastrostomy malfunction (principal); I25.2 Old myocardial infarction; Z86.73 Personal history of transient ischemic attack (TIA), and cerebral infarction without residual deficits; E03.9 Hypothyroidism, unspecified; E11.9 Type 2 diabetes mellitus without complications; I10 Essential (primary) hypertension; Z79.899 Other long term (current) drug therapy; Z79.82 Long term (current) use of aspirin; Z79.84 Long term (current) use of oral hypoglycemic drugs
CPT/HCPCS: 71045; 74018; 74177; 80053; 83605; 83690; 83880; 85025; 93005; 96374; 96375; J1200; J2270; J2405; J2920; J3010; Q9963; Q9967; S0028

== ENCOUNTER 2021-01-13 11:56 | Observation (INO) | payer BC ==
[2021-01-13 13:01] LABS: #Basophils 0.1 thou/uL (0.0-0.2); #Eosinphils 0.2 thou/uL (0.0-0.7); #Monocytes 0.7 thou/uL (0.11-0.59); #Neutrophils 4.4 thou/uL (1.40-6.50); %Basophils 0.9 % (0.0-1.0); %Eosinophils 2.1 % (0.0-10.0); %Lymphocytes 27.4 % (21.0-51.0); %Monocytes 8.9 % (0.0-10.0); %Neutrophils 60.6 % (42.0-75.0); Hemoglobin 13.1 g/dL (12.0-16.0); Mean Corpuscular HGB CONC 33.2 g/dL (32.0-36.0); Mean Corpuscular Hemoglobin 28.2 pg (27.0-31.0); Mean Corpuscular Volume 84.9 fL (78.0-98.0); Mean Platelet Volume 7.3 fL (7.4-10.4); Platelet Count 223 thou/uL (130-400); RBC Distribution Width 16.8 % (11.5-14.5); Red Blood Cell (RBC) Count 4.67 mill/uL (4.20-5.40); White Blood Cell (WBC) Count 7.3 thou/uL (4.8-10.8)
[2021-01-13] MEDS ORDERED: Ketorolac Tromethamine 30 MG/ML VIAL ONE (13:10)
[2021-01-13 13:22] LABS: ALT (SGPT) 49 U/L (8-55); AST (SGOT) 24 U/L (5-34); Albumin 3.7 g/dL (3.5-5.0); Alkaline Phosphatase 138 U/L (40-110); Anion Gap 10 mmol/L (10-20); BUN (Urea Nitrogen) 13 mg/dL (7.0-18.7); Bilirubin, Total 0.2 mg/dL (0.2-1.2); Calc. Creatinine Clearance 0 mL/min (70-130); Calcium 9.7 mg/dL (7.8-10.44); Carbon Dioxide 29 mmol/L (22-29); Chloride 101 mmol/L (98-107); Globulin 2.6 g/dL (2.4-3.5); Glucose 92 mg/dL (70-105); Potassium 4.8 mmol/L (3.5-5.1); Protein, Total 6.3 g/dL (6.0-8.3); Sodium 135 mmol/L (136-145)
[2021-01-13 14:55] LABS: Bacteria/HPF None Seen HPF (None Seen); Bilirubin Negative (Negative); Blood, Urine Negative (Negative); Clarity Clear (Clear); Glucose, Urine (Dipstick) Normal (Negative); Ketone, Urine Negative (Negative); Leukocyte 75 Leu/uL (Negative); Nitrite Negative (Negative); Protein, Urine (Dipstick) 10 mg/dL (Neg-Trace); RBC/HPF 0-3 HPF (0-3); Squamous Epithelial 0-3 HPF (0-3); Urobilinogen Normal mg/dL (Less than 2); WBC/HPF 0-3 HPF (0-3)
[2021-01-13] MEDS ORDERED: Ondansetron PF 4 MG/2 ML Vial ONE (15:00)
[2021-01-13] MEDS ORDERED: Acetaminophen 325 MG TAB PO PRN (15:45)
[2021-01-13] MEDS ORDERED: Bisacodyl 5 MG TAB PO SCH (15:45)
[2021-01-13] MEDS ORDERED: Ondansetron ODT 4 MG TAB PO PRN (15:45)
[2021-01-13] MEDS ORDERED: Fentanyl 100 MCG/2 ML VIAL SLOW IVP SCH (16:00)
[2021-01-13] MEDS ORDERED: Lidocaine 2% Viscous Solution 10 ML, Aluminum & Magnesium Hydroxide 30 ML SSW SCH (16:15)
[2021-01-13] MEDS: Acetaminophen 325 MG TAB PO SCH ×2 (18:34→21:33)
[2021-01-13 18:57] VITALS: BMI 31.6
[2021-01-13] MEDS: Lactated Ringer's 1,000 ML IV SCH (19:00)
[2021-01-13 19:39] LABS: Hemoglobin A1c 4.8 % (4.0-6.0)
[2021-01-13] MEDS: Senokot S 8.6-50 MG TAB PO SCH (21:33)
[2021-01-13] MEDS: traMADol HCl 50 MG TAB PO PRN (21:34)
[2021-01-13] MEDS ORDERED: Hyoscyamine Sulfate SL 0.125 mg Tablet PO PRN (23:18)
[2021-01-13] MEDS ORDERED: Gabapentin 300 MG CAP PO SCH (23:30)
[2021-01-14] MEDS ORDERED: hydrOXYzine 25 MG TAB PO SCH (00:15)
[2021-01-14] MEDS: traZODone HCl 50 MG TAB PO PRN ×2 (00:19→21:12)
[2021-01-14] MEDS: Acetaminophen 325 MG TAB PO SCH ×6 (00:21→20:20)
[2021-01-14] MEDS: Fentanyl 100 MCG/2 ML VIAL SLOW IVP PRN ×6 (00:22→21:15)
[2021-01-14] MEDS: traMADol HCl 50 MG TAB PO PRN (00:36)
[2021-01-14 01:01] LABS: SARS-CoV-2 PCR by NAA Not Detected (NotDetected)
[2021-01-14] MEDS: Lactated Ringer's 1,000 ML IV SCH ×5 (03:15→20:15)
[2021-01-14] MEDS: Levothyroxine Sodium 125 MCG TAB PO SCH (05:00)
[2021-01-14 06:18] LABS: #Basophils 0.1 thou/uL (0.0-0.2); #Eosinphils 0.2 thou/uL (0.0-0.7); #Lymphocytes 1.8 thou/uL (1.20-3.40); #Monocytes 0.5 thou/uL (0.11-0.59); #Neutrophils 3.1 thou/uL (1.40-6.50); %Basophils 1.2 % (0.0-1.0); %Eosinophils 2.9 % (0.0-10.0); %Monocytes 8.6 % (0.0-10.0); %Neutrophils 55.4 % (42.0-75.0); Hemoglobin 11.8 g/dL (12.0-16.0); Mean Corpuscular HGB CONC 31.5 g/dL (32.0-36.0); Mean Corpuscular Hemoglobin 27.4 pg (27.0-31.0); Mean Corpuscular Volume 87.1 fL (78.0-98.0); Mean Platelet Volume 7.7 fL (7.4-10.4); Platelet Count 192 thou/uL (130-400); RBC Distribution Width 16.6 % (11.5-14.5); Red Blood Cell (RBC) Count 4.31 mill/uL (4.20-5.40); White Blood Cell (WBC) Count 5.6 thou/uL (4.8-10.8)
[2021-01-14 06:35] LABS: Anion Gap 9 mmol/L (10-20); BUN (Urea Nitrogen) 12 mg/dL (7.0-18.7); Calc. Creatinine Clearance 142 mL/min (70-130); Calcium 8.8 mg/dL (7.8-10.44); Carbon Dioxide 29 mmol/L (22-29); Chloride 102 mmol/L (98-107); Glucose 86 mg/dL (70-105); Potassium 4.6 mmol/L (3.5-5.1); Sodium 135 mmol/L (136-145)
[2021-01-14 07:36] LABS: ALT (SGPT) 50 U/L (8-55); AST (SGOT) 53 U/L (5-34); Albumin 3.4 g/dL (3.5-5.0); Alkaline Phosphatase 126 U/L (40-110); Bilirubin, Direct 0.1 mg/dL (0.1-0.3); Bilirubin, Total 0.2 mg/dL (0.2-1.2); Protein, Total 5.6 g/dL (6.0-8.3)
[2021-01-14] MEDS: hydrOXYzine Pamoate 25 mg Capsule PO SCH ×3 (08:39→20:21)
[2021-01-14] MEDS: Chlorthalidone 25 MG TAB PO SCH (08:39)
[2021-01-14] MEDS: Pantoprazole 40 MG VIAL IVP SCH (08:39)
[2021-01-14] MEDS: Gabapentin 300 MG CAP PO SCH (08:40)
[2021-01-14] MEDS: Senokot S 8.6-50 MG TAB PO SCH ×2 (08:40→20:21)
[2021-01-14] MEDS: Sucralfate 1 GM TAB PO SCH ×4 (08:42→20:21)
[2021-01-14] MEDS: Atorvastatin Calcium 40 MG TAB PO SCH (08:42)
[2021-01-14] MEDS: Venlafaxine HCl XR 150 MG CAP PO SCH ×2 (08:42→20:21)
[2021-01-14] MEDS ORDERED: metFORMIN XR 500 MG TAB PO SCH (09:00)
[2021-01-14] MEDS: Aspirin 81 mg Enteric Coated Tablet PO SCH (09:06)
[2021-01-14] MEDS: Clopidogrel Bisulfate 75 MG TAB PO SCH (09:06)
[2021-01-14] MEDS: Linaclotide [Linzess] 145 MCG Capsule PO SCH ×2 (12:29→12:46)
[2021-01-14] MEDS: Benzonatate 100 MG CAP PO PRN ×2 (12:44→21:13)
[2021-01-14] MEDS ORDERED: Gabapentin 400 MG CAP PO SCH (21:00)
[2021-01-15] MEDS: Acetaminophen 325 MG TAB PO SCH ×4 (01:57→14:28)
[2021-01-15] MEDS: Fentanyl 100 MCG/2 ML VIAL SLOW IVP PRN (02:31)
[2021-01-15] MEDS: Lactated Ringer's 1,000 ML IV SCH (04:42)
[2021-01-15] MEDS: Levothyroxine Sodium 125 MCG TAB PO SCH (06:23)
[2021-01-15] MEDS: Clopidogrel Bisulfate 75 MG TAB PO SCH (07:42)
[2021-01-15] MEDS: Aspirin 81 mg Enteric Coated Tablet PO SCH (07:43)
[2021-01-15] MEDS ORDERED: Fentanyl 100 MCG/2 ML VIAL SLOW IVP PRN (08:21)
[2021-01-15] MEDS ORDERED: Lidocaine 1% PF 5 ML VIAL ONE (09:25)
[2021-01-15] MEDS ORDERED: PROPOFOL 200 MG/20 ML VIAL ONE (09:25)
[2021-01-15] MEDS ORDERED: Ondansetron HCl/PF 4 MG/2 ML Vial IVP PRN (09:44)
[2021-01-15] MEDS ORDERED: Promethazine HCl 25 MG/ML VIAL IM PRN (09:44)
[2021-01-15] MEDS ORDERED: Promethazine HCl 25 MG/ML VIAL SLOW IVP PRN (09:44)
[2021-01-15] MEDS ORDERED: traMADol HCl 50 MG TAB ONE (10:25)
[2021-01-15] MEDS: traMADol HCl 50 MG TAB PO PRN ×2 (10:27→14:32)
[2021-01-15] MEDS: Senokot S 8.6-50 MG TAB PO SCH (11:09)
[2021-01-15] MEDS: Chlorthalidone 25 MG TAB PO SCH (11:10)
[2021-01-15] MEDS: Atorvastatin Calcium 40 MG TAB PO SCH (11:11)
[2021-01-15] MEDS: Gabapentin 300 MG CAP PO SCH (11:11)
[2021-01-15] MEDS: Venlafaxine HCl XR 150 MG CAP PO SCH (11:12)
[2021-01-15] MEDS: hydrOXYzine Pamoate 25 mg Capsule PO SCH (11:12)
[2021-01-15] MEDS: Sucralfate 1 GM TAB PO SCH ×2 (11:13→14:32)
[2021-01-15] MEDS: Pantoprazole 40 MG VIAL IVP SCH (11:13)
[2021-01-15] MEDS: Linaclotide [Linzess] 145 MCG Capsule PO SCH (11:18)
[2021-01-15] MEDS: Benzonatate 100 MG CAP PO PRN (14:41)
[2021-01-15 17:55] VITALS: BP 155/98; TEMP 98.4
[2021-01-16] MEDS ORDERED: Cetirizine HCl 10 MG TAB PO SCH (09:00)
[2021-01-16] MEDS ORDERED: Loratadine 10 MG TAB PO SCH (09:00)
== END 2021-01-15 17:08 | disposition home or self-care (01) ==
LOC: ERS 11:56 → T4-B 15:54
PROVIDERS: ADMIT Family Medicine; ATTEND Family Medicine
PROC: 0DJ08ZZ Inspection of Upper Intestinal Tract, Via Natural or Artificial Opening Endoscopic (ICD-10-PCS; principal; 2021-01-15)
DX: R10.13 Epigastric pain (principal); K31.84 Gastroparesis; E11.42 Type 2 diabetes mellitus with diabetic polyneuropathy; I49.5 Sick sinus syndrome; G43.909 Migraine, unspecified, not intractable, without status migrainosus; E78.5 Hyperlipidemia, unspecified; G45.9 Transient cerebral ischemic attack, unspecified; N20.0 Calculus of kidney; Z43.1 Encounter for attention to gastrostomy; Z79.82 Long term (current) use of aspirin; Z79.899 Other long term (current) drug therapy; Z79.84 Long term (current) use of oral hypoglycemic drugs; Z88.8 Allergy status to other drugs, medicaments and biological substances; Z66 Do not resuscitate; Z95.0 Presence of cardiac pacemaker; Z20.822 Contact with and (suspected) exposure to COVID-19
CPT/HCPCS: 36415; 74018; 80048; 80053; 80076; 81003; 81015; 83036; 83605; 85025; 96374; 96375; 96376; C9113; G0378; J1885; J2405; J2704; J3010; Q0162; Q0177; U0003; U0005

== ENCOUNTER 2021-02-21 19:02 | Emergency (ER) | payer BC ==
[2021-02-21] MEDS ORDERED: Ondansetron PF 4 MG/2 ML Vial ONE (20:36)
[2021-02-21 20:55] LABS: #Basophils 0.1 thou/uL (0.0-0.2); #Eosinphils 0.1 thou/uL (0.0-0.7); #Lymphocytes 2.2 thou/uL (1.20-3.40); #Monocytes 0.6 thou/uL (0.11-0.59); #Neutrophils 4.5 thou/uL (1.40-6.50); %Basophils 0.8 % (0.0-1.0); %Eosinophils 1.2 % (0.0-10.0); %Lymphocytes 29.6 % (21.0-51.0); %Monocytes 7.5 % (0.0-10.0); Mean Corpuscular HGB CONC 34.8 g/dL (32.0-36.0); Mean Corpuscular Hemoglobin 29.5 pg (27.0-31.0); Mean Corpuscular Volume 84.7 fL (78.0-98.0); Mean Platelet Volume 7.5 fL (7.4-10.4); Platelet Count 255 thou/uL (130-400); RBC Distribution Width 15.7 % (11.5-14.5); White Blood Cell (WBC) Count 7.4 thou/uL (4.8-10.8)
[2021-02-21 21:07] LABS: INR-International Normal Ratio 1.1; Prothrombin Time 14.5 sec (12.0-14.7)
[2021-02-21 21:08] LABS: PTT 27.4 sec (22.9-36.1)
[2021-02-21 21:12] LABS: ALT (SGPT) 14 U/L (8-55); AST (SGOT) 18 U/L (5-34); Albumin 4.4 g/dL (3.5-5.0); Alkaline Phosphatase 106 U/L (40-110); Anion Gap 15 mmol/L (10-20); BUN (Urea Nitrogen) 8 mg/dL (7.0-18.7); Bilirubin, Total 0.3 mg/dL (0.2-1.2); Calc. Creatinine Clearance 0 mL/min (70-130); Calcium 9.8 mg/dL (7.8-10.44); Carbon Dioxide 22 mmol/L (22-29); Chloride 102 mmol/L (98-107); Globulin 2.7 g/dL (2.4-3.5); Glucose 95 mg/dL (70-105); Potassium 3.3 mmol/L (3.5-5.1); Protein, Total 7.1 g/dL (6.0-8.3); Sodium 136 mmol/L (136-145)
== END 2021-02-21 22:16 | disposition home or self-care (01) ==
LOC: ERS 19:02
DX: S40.022A Contusion of left upper arm, initial encounter (principal); S40.021A Contusion of right upper arm, initial encounter; S80.12XA Contusion of left lower leg, initial encounter; S80.11XA Contusion of right lower leg, initial encounter; R55 Syncope and collapse; R11.2 Nausea with vomiting, unspecified; W19.XXXA Unspecified fall, initial encounter; Z79.899 Other long term (current) drug therapy; Z79.84 Long term (current) use of oral hypoglycemic drugs; Z79.891 Long term (current) use of opiate analgesic; Z79.82 Long term (current) use of aspirin; I25.2 Old myocardial infarction; E78.5 Hyperlipidemia, unspecified; E03.9 Hypothyroidism, unspecified; E11.9 Type 2 diabetes mellitus without complications; I10 Essential (primary) hypertension
CPT/HCPCS: 71045; 80053; 83690; 84484; 85025; 85610; 85730; 86850; 86900; 86901; 93005; 96374; J2405

== ENCOUNTER 2021-03-23 08:38 | Outpatient (CLI) | payer BC ==
[2021-03-23 10:33] VITALS: BMI 21.9
[2021-03-23] MEDS ORDERED: MD-Gastroview 120 ML BOT ONE (15:03)
== END 2021-03-23 08:39 | disposition home or self-care (01) ==
LOC: RAD 08:38
PROVIDERS: ATTEND Specialist
DX: K31.84 Gastroparesis (principal); Z53.9 Procedure and treatment not carried out, unspecified reason
CPT/HCPCS: 49451; Q9963

== ENCOUNTER 2021-03-23 23:51 | Inpatient (IN) | payer BC ==
[2021-03-24 00:34] LABS: #Eosinphils 0.1 thou/uL (0.0-0.7); #Lymphocytes 0.9 thou/uL (1.20-3.40); #Monocytes 0.8 thou/uL (0.11-0.59); #Neutrophils 8.7 thou/uL (1.40-6.50); %Basophils 0.2 % (0.0-1.0); %Eosinophils 0.9 % (0.0-10.0); %Lymphocytes 8.3 % (21.0-51.0); %Monocytes 7.9 % (0.0-10.0); %Neutrophils 82.7 % (42.0-75.0); Hemoglobin 10.7 g/dL (12.0-16.0); Mean Corpuscular HGB CONC 32.8 g/dL (32.0-36.0); Mean Corpuscular Volume 91.3 fL (78.0-98.0); Mean Platelet Volume 7.2 fL (7.4-10.4); Platelet Count 305 thou/uL (130-400); RBC Distribution Width 13.6 % (11.5-14.5); Red Blood Cell (RBC) Count 3.57 mill/uL (4.20-5.40); White Blood Cell (WBC) Count 10.5 thou/uL (4.8-10.8)
[2021-03-24 00:55] LABS: ALT (SGPT) 8 U/L (8-55); AST (SGOT) 11 U/L (5-34); Albumin 3.5 g/dL (3.5-5.0); Alkaline Phosphatase 99 U/L (40-110); Anion Gap 9 mmol/L (10-20); BUN (Urea Nitrogen) 21 mg/dL (7.0-18.7); Bilirubin, Total 0.4 mg/dL (0.2-1.2); Calc. Creatinine Clearance 0 mL/min (70-130); Calcium 8.6 mg/dL (7.8-10.44); Carbon Dioxide 23 mmol/L (22-29); Chloride 103 mmol/L (98-107); Globulin 2.8 g/dL (2.4-3.5); Glucose 113 mg/dL (70-105); Potassium 3.7 mmol/L (3.5-5.1); Protein, Total 6.3 g/dL (6.0-8.3); Sodium 131 mmol/L (136-145)
[2021-03-24 01:40] LABS: Bacteria/HPF None Seen HPF (None Seen); Bilirubin Negative (Negative); Blood, Urine Negative (Negative); Clarity Turbid (Clear); Glucose, Urine (Dipstick) Normal (Negative); Ketone, Urine Negative (Negative); Leukocyte Negative Leu/uL (Negative); Mucous/LPF 1+ LPF (<2+); Nitrite Negative (Negative); Protein, Urine (Dipstick) 70 mg/dL (Neg-Trace); RBC/HPF None Seen HPF (0-3); Specific Gravity, Urine 1.023 (1.002-1.036); Squamous Epithelial 0-3 HPF (0-3); pH, Urine 5.5 (5.0-9.0)
[2021-03-24 03:14] LABS: SARS-CoV-2 NAA Rapid Test Not Detected (NotDetected)
[2021-03-24] MEDS ORDERED: Ondansetron ODT 4 MG TAB SL PRN (03:15)
[2021-03-24] MEDS ORDERED: Sodium Chloride 0.9% 1,000 ML IV SCH (03:15)
[2021-03-24] MEDS ORDERED: Ondansetron PF 4 MG/2 ML Vial IVP PRN (03:15)
[2021-03-24 04:36] VITALS: BMI 28.0
[2021-03-24] MEDS ORDERED: Sucralfate 1 GM/10 ML UDCUP PO PRN (04:48)
[2021-03-24] MEDS: Sodium Chloride 0.9% 1,000 ML IV SCH ×3 (05:07→13:17)
[2021-03-24 06:04] LABS: Amphetamine Not Detected (NotDetected); Barbiturates Screen Not Detected (NotDetected); Benzodiazepine Screen Not Detected (NotDetected); Cocaine Metabolite Screen Not Detected (NotDetected); Methadone Not Detected (NotDetected); Methamphetamine Detected (NotDetected); Opiate Screen Not Detected (NotDetected); Oxycodone Screen Not Detected (NotDetected); Phencyclidine (PCP) Not Detected (NotDetected); THC/Cannabinoid Screen Not Detected (NotDetected); Tricyclic Screen Not Detected (NotDetected)
[2021-03-24 06:32] LABS: Hemoglobin A1c 4.3 % (4.0-6.0)
[2021-03-24 06:33] LABS: INR-International Normal Ratio 1.2; PTT 34.6 sec (22.9-36.1); Prothrombin Time 14.8 sec (12.0-14.7)
[2021-03-24 06:35] LABS: Band 1 % (5-11); Hemoglobin 9.9 g/dL (12.0-16.0); Hypochromia SLIGHT = 6-15 cells (100X) (0-5/hpf); Lymphocytes 29 % (21-51); MDiff Complete? YES; Mean Corpuscular HGB CONC 32.6 g/dL (32.0-36.0); Mean Corpuscular Hemoglobin 30.3 pg (27.0-31.0); Mean Corpuscular Volume 92.9 fL (78.0-98.0); Mean Platelet Volume 7.1 fL (7.4-10.4); Monocytes 4 % (0-10); Neutrophil 66 % (42-75); Platelet Count 275 thou/uL (130-400); Platelet Morphology Comment Appears Adequate; RBC Distribution Width 13.5 % (11.5-14.5); Red Blood Cell (RBC) Count 3.26 mill/uL (4.20-5.40); White Blood Cell (WBC) Count 7.1 thou/uL (4.8-10.8)
[2021-03-24 06:41] LABS: Acetaminophen Less than 6.0 mcg/mL (10.0-30.0); Alcohol Less than 10 mg/dL (Less than 10); Salicylate Less than 8.0 mg/dL (15.0-30.0)
[2021-03-24 06:42] LABS: Iron 30 ug/dL (50-170); Iron Binding Capacity, Total 200 mcg/dL (265-497)
[2021-03-24 07:08] LABS: Ferritin 140.04 ng/mL (10-291); Thyroid Stimulating Hormone 0.3199 uIU/mL (0.35-4.94)
[2021-03-24] MEDS ORDERED: Furosemide 20 MG TAB PO SCH (09:00)
[2021-03-24] MEDS ORDERED: Levothyroxine Sodium 125 MCG TAB PO SCH (09:00)
[2021-03-24] MEDS ORDERED: Atorvastatin Calcium 40 MG TAB PO SCH (09:00)
[2021-03-24] MEDS ORDERED: Phenazopyridine HCl 97.5 MG TABLET PO SCH (13:00)
[2021-03-24] MEDS: Venlafaxine HCl XR 150 MG CAP PO SCH ×2 (13:14→22:12)
[2021-03-24] MEDS: Phenazopyridine HCl 100 MG TAB PO SCH ×2 (13:23→17:44)
[2021-03-24] MEDS ORDERED: SUMAtriptan Succinate 50 MG TAB PO PRN (18:44)
[2021-03-24] MEDS: Atorvastatin Calcium 40 MG TAB PO SCH (22:12)
[2021-03-24] MEDS ORDERED: Melatonin 3 MG TAB PO PRN (23:31)
[2021-03-24] MEDS ORDERED: Acetaminophen 325 MG TAB PO PRN (23:31)
[2021-03-25] MEDS: Sodium Chloride 0.9% 1,000 ML IV SCH ×4 (02:13→19:05)
[2021-03-25] MEDS: Promethazine 25 MG TAB PO PRN ×2 (03:01→09:33)
[2021-03-25] MEDS: Levothyroxine Sodium 125 MCG TAB PO SCH (05:17)
[2021-03-25 05:38] LABS: ALT (SGPT) 9 U/L (8-55); AST (SGOT) 12 U/L (5-34); Albumin 3.3 g/dL (3.5-5.0); Alkaline Phosphatase 91 U/L (40-110); Anion Gap 7 mmol/L (10-20); BUN (Urea Nitrogen) 10 mg/dL (7.0-18.7); Bilirubin, Total 0.3 mg/dL (0.2-1.2); Calc. Creatinine Clearance 140 mL/min (70-130); Calcium 8.6 mg/dL (7.8-10.44); Carbon Dioxide 25 mmol/L (22-29); Chloride 105 mmol/L (98-107); Globulin 2.6 g/dL (2.4-3.5); Glucose 103 mg/dL (70-105); Potassium 3.9 mmol/L (3.5-5.1); Protein, Total 5.9 g/dL (6.0-8.3); Sodium 133 mmol/L (136-145)
[2021-03-25 05:45] LABS: Band 2 % (5-11); Eosinophils 2 % (0-10); Lymphocytes 25 % (21-51); MDiff Complete? YES; Mean Corpuscular HGB CONC 32.4 g/dL (32.0-36.0); Mean Corpuscular Hemoglobin 29.8 pg (27.0-31.0); Mean Platelet Volume 7.4 fL (7.4-10.4); Monocytes 9 % (0-10); Neutrophil 61 % (42-75); Platelet Count 266 thou/uL (130-400); Platelet Morphology Comment Appears Adequate; RBC Distribution Width 12.7 % (11.5-14.5); Red Blood Cell (RBC) Count 3.34 mill/uL (4.20-5.40); White Blood Cell (WBC) Count 4.9 thou/uL (4.8-10.8)
[2021-03-25] MEDS ORDERED: Levothyroxine Sodium 125 MCG TAB PO SCH (06:00)
[2021-03-25] MEDS ORDERED: Non-Formulary Item 1 EACH (Hydroxyzine Pamoate [Hydroxyzine Pamoate] 50 MG Capsule) PO PRN (07:29)
[2021-03-25] MEDS ORDERED: Ondansetron ODT 8 MG TAB SL PRN (07:33)
[2021-03-25] MEDS ORDERED: hydrOXYzine Pamoate 25 mg Capsule PO PRN (07:36)
[2021-03-25] MEDS ORDERED: Clopidogrel Bisulfate 75 MG TAB PO SCH (09:00)
[2021-03-25] MEDS ORDERED: Aspirin 81 mg Enteric Coated Tablet PO SCH (09:00)
[2021-03-25] MEDS: predniSONE 20 MG TAB PO SCH (09:45)
[2021-03-25] MEDS: Aspirin 81 mg Enteric Coated Tablet PO SCH (09:46)
[2021-03-25] MEDS: Phenazopyridine HCl 100 MG TAB PO SCH ×3 (09:46→17:30)
[2021-03-25 09:47] LABS: Cardiac Risk 3.4 (Less than 4.5); Hemoglobin A1c 4.3 % (4.0-6.0)
[2021-03-25] MEDS: Carvedilol 25 MG TAB PO SCH ×2 (09:47→20:36)
[2021-03-25] MEDS: Clopidogrel Bisulfate 75 MG TAB PO SCH (09:47)
[2021-03-25] MEDS: Venlafaxine HCl XR 150 MG CAP PO SCH ×2 (09:48→13:07)
[2021-03-25] MEDS ORDERED: Scopolamine 1.5 mg/72 hour Patch TD SCH (15:00)
[2021-03-25] MEDS: Linaclotide [Linzess] 145 MCG Capsule PO SCH (18:54)
[2021-03-25] MEDS: Atorvastatin Calcium 40 MG TAB PO SCH (20:36)
[2021-03-25] MEDS ORDERED: Non-Formulary Item 1 EACH (Trazodone Hcl [Trazodone Hcl] 100 MG Tablet) PO SCH (21:00)
[2021-03-25] MEDS ORDERED: traZODone HCl 50 MG TAB PO SCH (21:00)
[2021-03-26 06:01] LABS: Band 3 % (5-11); Eosinophils 3 % (0-10); Hemoglobin 9.2 g/dL (12.0-16.0); Lymphocytes 42 % (21-51); MDiff Complete? YES; Mean Corpuscular HGB CONC 32.7 g/dL (32.0-36.0); Mean Corpuscular Hemoglobin 29.9 pg (27.0-31.0); Mean Corpuscular Volume 91.5 fL (78.0-98.0); Mean Platelet Volume 7.7 fL (7.4-10.4); Monocytes 7 % (0-10); Neutrophil 45 % (42-75); Platelet Count 273 thou/uL (130-400); Platelet Morphology Comment Appears Adequate; RBC Distribution Width 12.7 % (11.5-14.5); Red Blood Cell (RBC) Count 3.06 mill/uL (4.20-5.40); White Blood Cell (WBC) Count 4.5 thou/uL (4.8-10.8)
[2021-03-26 06:16] LABS: ALT (SGPT) 8 U/L (8-55); AST (SGOT) 13 U/L (5-34); Alkaline Phosphatase 81 U/L (40-110); Anion Gap 9 mmol/L (10-20); BUN (Urea Nitrogen) 6 mg/dL (7.0-18.7); Bilirubin, Total 0.2 mg/dL (0.2-1.2); Calc. Creatinine Clearance 159 mL/min (70-130); Calcium 8.5 mg/dL (7.8-10.44); Carbon Dioxide 24 mmol/L (22-29); Chloride 103 mmol/L (98-107); Globulin 2.4 g/dL (2.4-3.5); Glucose 88 mg/dL (70-105); Potassium 3.6 mmol/L (3.5-5.1); Protein, Total 5.4 g/dL (6.0-8.3); Sodium 132 mmol/L (136-145)
[2021-03-26] MEDS: Levothyroxine Sodium 125 MCG TAB PO SCH (06:19)
[2021-03-26] MEDS: Sodium Chloride 0.9% 1,000 ML IV SCH (06:32)
[2021-03-26 07:36] VITALS: BP 133/96; TEMP 98.3
[2021-03-26] MEDS ORDERED: Nitroglycerin 2% Ointment 1 INCH/1 GM Packet TOP SCH (09:00)
[2021-03-26] MEDS ORDERED: NITROGLYCERIN FS SCH (09:00)
[2021-03-26] MEDS ORDERED: AQUAPHOR FS SCH (09:00)
[2021-03-26] MEDS ORDERED: Lisinopril 20 MG TAB PO SCH (09:00)
[2021-03-26] MEDS: Clopidogrel Bisulfate 75 MG TAB PO SCH (09:28)
[2021-03-26] MEDS: Venlafaxine HCl XR 150 MG CAP PO SCH (09:28)
[2021-03-26] MEDS: Carvedilol 25 MG TAB PO SCH (09:28)
[2021-03-26] MEDS: Linaclotide [Linzess] 145 MCG Capsule PO SCH (09:28)
[2021-03-26] MEDS: Aspirin 81 mg Enteric Coated Tablet PO SCH (09:28)
[2021-03-26] MEDS: predniSONE 20 MG TAB PO SCH (09:28)
[2021-03-26] MEDS: Phenazopyridine HCl 100 MG TAB PO SCH (09:29)
== END 2021-03-26 11:35 | disposition home or self-care (01) | DRG 947 ==
LOC: ERS 23:51 → ERHOLD 03-24 02:20 → IMCU/EMU 03-24 03:50 → 2SE 03-24 18:50
PROVIDERS: ADMIT Student in an Organized Health Care Education/Training Program; ATTEND Student in an Organized Health Care Education/Training Program
DX: R53.1 Weakness (principal); G92 Toxic encephalopathy; N17.9 Acute kidney failure, unspecified; E87.1 Hypo-osmolality and hyponatremia; I69.351 Hemiplegia and hemiparesis following cerebral infarction affecting right dominant side; E46 Unspecified protein-calorie malnutrition; K92.1 Melena; I95.2 Hypotension due to drugs; Z66 Do not resuscitate; E03.9 Hypothyroidism, unspecified; E78.5 Hyperlipidemia, unspecified; F31.9 Bipolar disorder, unspecified; G43.909 Migraine, unspecified, not intractable, without status migrainosus; G62.9 Polyneuropathy, unspecified; D50.9 Iron deficiency anemia, unspecified; K31.84 Gastroparesis; I25.10 Atherosclerotic heart disease of native coronary artery without angina pectoris; G51.0 Bell's palsy; G25.81 Restless legs syndrome; G89.29 Other chronic pain; F41.9 Anxiety disorder, unspecified; R33.9 Retention of urine, unspecified; K59.09 Other constipation; Z86.718 Personal history of other venous thrombosis and embolism; Z90.49 Acquired absence of other specified parts of digestive tract; Z90.710 Acquired absence of both cervix and uterus; I25.2 Old myocardial infarction; Z95.0 Presence of cardiac pacemaker; Z86.16 Personal history of COVID-19; Z88.5 Allergy status to narcotic agent; Z88.8 Allergy status to other drugs, medicaments and biological substances; Z79.82 Long term (current) use of aspirin; Z79.899 Other long term (current) drug therapy; Z86.711 Personal history of pulmonary embolism; Z68.28 Body mass index [BMI] 28.0-28.9, adult
CPT/HCPCS: 36415; 49451; 51701; 74176; 80053; 80061; 80306; 80307; 81003; 81015; 82274; 82533; 82607; 82728; 82746; 83036; 83540; 83550; 83930; 83935; 84145; 84300; 84439; 84443; 84484; 85007; 85025; 85027; 85060; 85610; 85730; 87040; 87086; 93005; J7512; Q0169; Q0177; Q9963; U0002; U0005

== ENCOUNTER 2021-05-25 10:21 | Outpatient (CLI) | payer OTHER | END 2021-05-25 10:22 | disposition home or self-care (01) | LOC: DTY/OP 10:21 | PROVIDERS: ATTEND Specialist | DX: Z01.818 Encounter for other preprocedural examination (principal); E66.01 Morbid (severe) obesity due to excess calories | CPT/HCPCS: 97802 ==

== ENCOUNTER 2021-07-28 08:32 | Outpatient (CLI) | payer BC ==
[2021-07-28] MEDS ORDERED: MD-Gastroview 120 ML BOT ONE (10:18)
== END 2021-07-28 08:33 | disposition home or self-care (01) ==
LOC: RAD 08:32
PROVIDERS: ATTEND Specialist
PROC: 0D2DXUZ Change Feeding Device in Lower Intestinal Tract, External Approach (ICD-10-PCS; principal; 2021-07-28)
DX: K31.84 Gastroparesis (principal)
CPT/HCPCS: 49451; 76000; Q9963

== ENCOUNTER 2021-08-24 12:34 | Inpatient (IN) | payer BC, MEDICARE ==
[~2021-08-24 12:34] MED LIST changes: -GASTROGRAFIN 30 ML BOT ONE
[2021-08-24] MEDS ORDERED: methylPREDNISolone Sod Succ 40 MG VIAL ONE ×2 (16:23→16:24)
[2021-08-24] MEDS ORDERED: Famotidine/PF 20 mg/2ml Vial ONE (16:23)
[2021-08-24] MEDS ORDERED: diphenhydrAMINE 50 MG/ML VIAL ONE (16:23)
[2021-08-24 16:24] LABS: #Eosinphils 0.1 thou/uL (0.0-0.7); #Lymphocytes 1.3 thou/uL (1.20-3.40); #Monocytes 0.8 thou/uL (0.11-0.59); #Neutrophils 6.1 thou/uL (1.40-6.50); %Basophils 0.2 % (0.0-1.0); %Eosinophils 1.2 % (0.0-10.0); %Lymphocytes 15.9 % (21.0-51.0); %Monocytes 9.1 % (0.0-10.0); %Neutrophils 73.5 % (42.0-75.0); Hemoglobin 13.7 g/dL (12.0-16.0); Mean Corpuscular HGB CONC 34.5 g/dL (32.0-36.0); Mean Corpuscular Hemoglobin 31.5 pg (27.0-31.0); Mean Corpuscular Volume 91.3 fL (78.0-98.0); Mean Platelet Volume 7.1 fL (7.4-10.4); Platelet Count 227 thou/uL (130-400); RBC Distribution Width 11.4 % (11.5-14.5); Red Blood Cell (RBC) Count 4.35 mill/uL (4.20-5.40); White Blood Cell (WBC) Count 8.3 thou/uL (4.8-10.8)
[2021-08-24 16:39] LABS: BHCG - Serum Negative (NEGATIVE); Pregs Control Background? CLEAR/WHITE (CLR/WHITE); Pregs Control Bar Appear? YES (CONTROL BAR)
[2021-08-24 16:51] LABS: ALT (SGPT) 99 U/L (8-55); AST (SGOT) 97 U/L (5-34); Albumin 3.9 g/dL (3.5-5.0); Alkaline Phosphatase 174 U/L (40-110); Anion Gap 13 mmol/L (10-20); BUN (Urea Nitrogen) 11 mg/dL (7.0-18.7); Bilirubin, Total 0.6 mg/dL (0.2-1.2); Calc. Creatinine Clearance 0 mL/min (70-130); Calcium 9.5 mg/dL (7.8-10.44); Carbon Dioxide 29 mmol/L (22-29); Chloride 98 mmol/L (98-107); Globulin 3.1 g/dL (2.4-3.5); Glucose 96 mg/dL (70-105); Lipase 9 U/L (8-78); Potassium 3.7 mmol/L (3.5-5.1); Sodium 136 mmol/L (136-145)
[2021-08-24 17:02] LABS: Bacteria/HPF None Seen HPF (None Seen); Bilirubin Negative (Negative); Blood, Urine Negative (Negative); Clarity Clear (Clear); Glucose, Urine (Dipstick) Normal (Negative); Ketone, Urine Negative (Negative); Leukocyte 25 Leu/uL (Negative); Nitrite Negative (Negative); Protein, Urine (Dipstick) 20 mg/dL (Neg-Trace); RBC/HPF 0-3 HPF (0-3); Specific Gravity, Urine 1.034 (1.002-1.036); Squamous Epithelial 0-3 HPF (0-3)
[2021-08-24] MEDS ORDERED: Vancomycin HCl 1.5 GM in Sodium Chloride 0.9% 250 ML 300 ML IVPB SCH (18:45)
[2021-08-24] MEDS ORDERED: Cefepime 2 GM VIAL ONE (18:46)
[2021-08-24] MEDS ORDERED: Acetaminophen 650 MG Suppository PR PRN (19:39)
[2021-08-24] MEDS ORDERED: Ondansetron PF 4 MG/2 ML Vial IVP PRN (19:39)
[2021-08-24 20:37] VITALS: BMI 30.9
[2021-08-24] MEDS: Famotidine/PF 20 mg/2ml Vial SLOW IVP SCH (20:46)
[2021-08-24] MEDS: Morphine 4 MG/ML VIAL SLOW IVP PRN (20:47)
[2021-08-24] MEDS ORDERED: cefTRIAXone\\ROCEPHIN 1 GM in Sodium Chloride 0.9% 100 ML IVPB SCH (21:15)
[2021-08-24] MEDS: Lactated Ringer's 1,000 ML IV SCH (22:07)
[2021-08-24] MEDS: metroNIDAZOLE 500 MG in Premix Bag 1 BAG IVPB SCH (22:07)
[2021-08-24] MEDS: cefTRIAXone\\ROCEPHIN 1 GM in Sodium Chloride 0.9% 100 ML IVPB SCH (23:56)
[2021-08-25] MEDS: Morphine 4 MG/ML VIAL SLOW IVP PRN ×2 (03:21→11:00)
[2021-08-25] MEDS: metroNIDAZOLE 500 MG in Premix Bag 1 BAG IVPB SCH ×3 (05:24→21:02)
[2021-08-25] MEDS: Lactated Ringer's 1,000 ML IV SCH ×3 (05:25→22:15)
[2021-08-25 09:05] LABS: #Eosinphils 0.1 thou/uL (0.0-0.7); #Lymphocytes 1.4 thou/uL (1.20-3.40); #Monocytes 0.8 thou/uL (0.11-0.59); #Neutrophils 4.7 thou/uL (1.40-6.50); %Basophils 0.4 % (0.0-1.0); %Eosinophils 1.2 % (0.0-10.0); %Lymphocytes 20.4 % (21.0-51.0); %Monocytes 11.3 % (0.0-10.0); %Neutrophils 66.7 % (42.0-75.0); Hemoglobin 12.2 g/dL (12.0-16.0); Mean Corpuscular HGB CONC 34.9 g/dL (32.0-36.0); Mean Corpuscular Hemoglobin 31.9 pg (27.0-31.0); Mean Corpuscular Volume 91.5 fL (78.0-98.0); Mean Platelet Volume 7.5 fL (7.4-10.4); Platelet Count 189 thou/uL (130-400); RBC Distribution Width 11.1 % (11.5-14.5); Red Blood Cell (RBC) Count 3.81 mill/uL (4.20-5.40); White Blood Cell (WBC) Count 7.1 thou/uL (4.8-10.8)
[2021-08-25] MEDS: Famotidine/PF 20 mg/2ml Vial SLOW IVP SCH (09:09)
[2021-08-25] MEDS: Enoxaparin Sodium 40 MG/0.4 ML SYRINGE SC SCH (09:10)
[2021-08-25 09:26] LABS: ALT (SGPT) 105 U/L (8-55); AST (SGOT) 124 U/L (5-34); Albumin 3.3 g/dL (3.5-5.0); Alkaline Phosphatase 192 U/L (40-110); Anion Gap 11 mmol/L (10-20); BUN (Urea Nitrogen) 6 mg/dL (7.0-18.7); Bilirubin, Total 0.4 mg/dL (0.2-1.2); Calc. Creatinine Clearance 173 mL/min (70-130); Calcium 9.1 mg/dL (7.8-10.44); Carbon Dioxide 25 mmol/L (22-29); Chloride 103 mmol/L (98-107); Globulin 2.6 g/dL (2.4-3.5); Glucose 83 mg/dL (70-105); Potassium 3.8 mmol/L (3.5-5.1); Protein, Total 5.9 g/dL (6.0-8.3); Sodium 135 mmol/L (136-145)
[2021-08-25] MEDS ORDERED: Morphine 4 MG/ML VIAL SLOW IVP PRN ×2 (13:27→17:30)
[2021-08-25 13:44] LABS: SARS-CoV-2 PCR by NAA Not Detected (NotDetected)
[2021-08-25] MEDS: Morphine 4 MG/ML VIAL SLOW IVP SCH ×2 (13:50→18:28)
[2021-08-25] MEDS ORDERED: hydrOXYzine Pamoate 25 mg Capsule PO PRN (15:56)
[2021-08-25 16:43] LABS: HBSAB Concentration Less than 8.00 mIU/mL; HBSAg Index 0.23 S/CO (0-0.99); Hep B Core Total Ab Non-Reactive (NonReactive); Hep B Core Total Index 0.07 S/CO (0-0.79); Hep B Surf AB Non-Reactive (NonReactive); Hep B Surf Ag Non-Reactive S/CO (NonReactive); Hep C IgG Ab Non-Reactive (NonReactive); Hep C Index 0.07 S/CO (0-0.79)
[2021-08-25] MEDS ORDERED: diphenhydrAMINE 25 MG CAP PO SCH ×2 (17:45→19:00)
[2021-08-25] MEDS: Vancomycin HCl 1.25 GM in Sodium Chloride 0.9% 250 ML 250 ML IVPB SCH ×3 (18:02→18:06)
[2021-08-25] MEDS: Docusate 100 MG CAP PO SCH (20:38)
[2021-08-25] MEDS: Gabapentin 300 MG CAP PO SCH (20:39)
[2021-08-25] MEDS: traZODone HCl 50 MG TAB PO SCH (20:39)
[2021-08-25] MEDS: Carvedilol 25 MG TAB PO SCH (20:40)
[2021-08-25] MEDS ORDERED: traMADol HCl 50 MG TAB PO SCH (20:45)
[2021-08-25] MEDS: Pramipexole Di-HCl 0.25 MG TAB PO SCH (21:01)
[2021-08-25] MEDS: cefTRIAXone\\ROCEPHIN 1 GM in Sodium Chloride 0.9% 100 ML IVPB SCH (23:30)
[2021-08-26] MEDS: Vancomycin HCl 1.25 GM in Sodium Chloride 0.9% 250 ML 250 ML IVPB SCH ×3 (01:21→17:51)
[2021-08-26] MEDS: metroNIDAZOLE 500 MG in Premix Bag 1 BAG IVPB SCH ×3 (05:07→21:59)
[2021-08-26] MEDS: Levothyroxine Sodium 125 MCG TAB PO SCH (05:07)
[2021-08-26] MEDS: Lactated Ringer's 1,000 ML IV SCH ×3 (05:08→13:00)
[2021-08-26] MEDS ORDERED: Fentanyl 100 MCG/2 ML VIAL SLOW IVP PRN (05:25)
[2021-08-26] MEDS ORDERED: HYDROcodone/Acetaminophen 5/325 mg Tablet PO SCH (05:30)
[2021-08-26 07:17] LABS: #Eosinphils 0.2 thou/uL (0.0-0.7); #Lymphocytes 1.5 thou/uL (1.20-3.40); #Monocytes 0.4 thou/uL (0.11-0.59); %Basophils 0.2 % (0.0-1.0); %Eosinophils 4.5 % (0.0-10.0); %Lymphocytes 36.5 % (21.0-51.0); %Monocytes 9.6 % (0.0-10.0); %Neutrophils 49.2 % (42.0-75.0); Hemoglobin 11.2 g/dL (12.0-16.0); Mean Corpuscular HGB CONC 34.9 g/dL (32.0-36.0); Mean Corpuscular Hemoglobin 32.2 pg (27.0-31.0); Mean Corpuscular Volume 92.3 fL (78.0-98.0); Mean Platelet Volume 7.1 fL (7.4-10.4); Platelet Count 188 thou/uL (130-400); RBC Distribution Width 11.2 % (11.5-14.5); Red Blood Cell (RBC) Count 3.48 mill/uL (4.20-5.40); White Blood Cell (WBC) Count 4.1 thou/uL (4.8-10.8)
[2021-08-26 07:43] LABS: ALT (SGPT) 66 U/L (8-55); AST (SGOT) 34 U/L (5-34); Alkaline Phosphatase 152 U/L (40-110); Anion Gap 10 mmol/L (10-20); BUN (Urea Nitrogen) 6 mg/dL (7.0-18.7); Bilirubin, Total 0.2 mg/dL (0.2-1.2); Calc. Creatinine Clearance 162 mL/min (70-130); Carbon Dioxide 25 mmol/L (22-29); Chloride 105 mmol/L (98-107); Globulin 2.5 g/dL (2.4-3.5); Glucose 84 mg/dL (70-105); Potassium 4.1 mmol/L (3.5-5.1); Protein, Total 5.5 g/dL (6.0-8.3); Sodium 136 mmol/L (136-145)
[2021-08-26] MEDS: Lisinopril 20 MG TAB PO SCH (08:39)
[2021-08-26] MEDS: Enoxaparin Sodium 40 MG/0.4 ML SYRINGE SC SCH (08:39)
[2021-08-26] MEDS: Clopidogrel Bisulfate 75 MG TAB PO SCH (08:39)
[2021-08-26] MEDS: Atorvastatin Calcium 40 MG TAB PO SCH (08:40)
[2021-08-26] MEDS: carBAMazepine 200 MG TAB PO SCH (08:40)
[2021-08-26] MEDS: Gabapentin 300 MG CAP PO SCH ×2 (08:40→21:57)
[2021-08-26] MEDS: Aspirin 325 mg Enteric Coated Tablet PO SCH (08:40)
[2021-08-26] MEDS: Carvedilol 25 MG TAB PO SCH ×2 (08:46→21:58)
[2021-08-26] MEDS ORDERED: traMADol HCl 50 MG TAB PO PRN (10:45)
[2021-08-26] MEDS ORDERED: Gabapentin 300 MG CAP PO SCH (12:00)
[2021-08-26] MEDS: diphenhydrAMINE 25 MG CAP PO PRN ×2 (12:10→22:11)
[2021-08-26 19:54] LABS: Vancomycin, Trough 41.2 ug/mL
[2021-08-26] MEDS: traZODone HCl 50 MG TAB PO SCH (21:58)
[2021-08-26] MEDS: Docusate 100 MG CAP PO SCH (21:58)
[2021-08-26 22:00] VITALS: TEMP 98
[2021-08-26] MEDS: Pramipexole Di-HCl 0.25 MG TAB PO SCH (22:12)
[2021-08-27] MEDS: cefTRIAXone\\ROCEPHIN 1 GM in Sodium Chloride 0.9% 100 ML IVPB SCH (00:58)
[2021-08-27 01:21] LABS: Vancomycin, Trough 18.8 ug/mL
[2021-08-27] MEDS: Vancomycin HCl 1.25 GM in Sodium Chloride 0.9% 250 ML 250 ML IVPB SCH ×2 (01:52→09:44)
[2021-08-27] MEDS: metroNIDAZOLE 500 MG in Premix Bag 1 BAG IVPB SCH (05:14)
[2021-08-27] MEDS: Levothyroxine Sodium 125 MCG TAB PO SCH (05:16)
[2021-08-27] MEDS: Aspirin 325 mg Enteric Coated Tablet PO SCH (08:29)
[2021-08-27] MEDS: Carvedilol 25 MG TAB PO SCH (08:30)
[2021-08-27] MEDS: Atorvastatin Calcium 40 MG TAB PO SCH (08:31)
[2021-08-27] MEDS: Gabapentin 300 MG CAP PO SCH (08:31)
[2021-08-27] MEDS: Clopidogrel Bisulfate 75 MG TAB PO SCH (08:31)
[2021-08-27] MEDS: carBAMazepine 200 MG TAB PO SCH (08:31)
[2021-08-27] MEDS: Lisinopril 20 MG TAB PO SCH (08:31)
[2021-08-27] MEDS: Enoxaparin Sodium 40 MG/0.4 ML SYRINGE SC SCH (08:32)
[2021-08-27] MEDS ORDERED: CeleCOXIB 100 MG CAP PO SCH (09:00)
[2021-08-27 09:24] VITALS: BP 133/87
[2021-08-27 09:40] LABS: #Eosinphils 0.2 thou/uL (0.0-0.7); #Lymphocytes 1.5 thou/uL (1.20-3.40); #Monocytes 0.3 thou/uL (0.11-0.59); #Neutrophils 2.1 thou/uL (1.40-6.50); %Eosinophils 5.8 % (0.0-10.0); %Lymphocytes 35.7 % (21.0-51.0); %Monocytes 7.9 % (0.0-10.0); %Neutrophils 49.5 % (42.0-75.0); Hemoglobin 12.8 g/dL (12.0-16.0); Mean Corpuscular HGB CONC 34.2 g/dL (32.0-36.0); Mean Corpuscular Hemoglobin 31.7 pg (27.0-31.0); Mean Corpuscular Volume 92.7 fL (78.0-98.0); Mean Platelet Volume 7.4 fL (7.4-10.4); Platelet Count 222 thou/uL (130-400); RBC Distribution Width 11.2 % (11.5-14.5); Red Blood Cell (RBC) Count 4.03 mill/uL (4.20-5.40); White Blood Cell (WBC) Count 4.3 thou/uL (4.8-10.8)
[2021-08-27 10:38] LABS: Anion Gap 13 mmol/L (10-20); BUN (Urea Nitrogen) 6 mg/dL (7.0-18.7); Calc. Creatinine Clearance 159 mL/min (70-130); Calcium 9.1 mg/dL (7.8-10.44); Carbon Dioxide 23 mmol/L (22-29); Chloride 102 mmol/L (98-107); Glucose 96 mg/dL (70-105); Potassium 4.2 mmol/L (3.5-5.1); Sodium 134 mmol/L (136-145)
[2021-08-27 17:29] LABS: SARS-CoV-2 PCR by NAA Not Detected (NotDetected)
[2021-08-28] MEDS ORDERED: Furosemide 20 MG TAB PO SCH (09:00)
== END 2021-08-27 11:36 | disposition home or self-care (01) | DRG 394 ==
LOC: ERS 12:34 → T4-B 18:57
PROVIDERS: ADMIT Student in an Organized Health Care Education/Training Program; ATTEND Student in an Organized Health Care Education/Training Program
DX: K94.22 Gastrostomy infection (principal); L03.311 Cellulitis of abdominal wall; K94.23 Gastrostomy malfunction; Z66 Do not resuscitate; Z20.822 Contact with and (suspected) exposure to COVID-19; Y83.8 Other surgical procedures as the cause of abnormal reaction of the patient, or of later complication, without mention of misadventure at the time of the procedure; G43.909 Migraine, unspecified, not intractable, without status migrainosus; K90.0 Celiac disease; D64.9 Anemia, unspecified; G47.33 Obstructive sleep apnea (adult) (pediatric); R25.1 Tremor, unspecified; G25.81 Restless legs syndrome; G62.9 Polyneuropathy, unspecified; M79.7 Fibromyalgia; K31.84 Gastroparesis; F31.9 Bipolar disorder, unspecified; E03.9 Hypothyroidism, unspecified; E78.5 Hyperlipidemia, unspecified; Z91.041 Radiographic dye allergy status; Z88.5 Allergy status to narcotic agent; Z88.8 Allergy status to other drugs, medicaments and biological substances; Z79.899 Other long term (current) drug therapy; Z79.82 Long term (current) use of aspirin; Z79.890 Hormone replacement therapy; Z86.73 Personal history of transient ischemic attack (TIA), and cerebral infarction without residual deficits; Z86.711 Personal history of pulmonary embolism; Z86.718 Personal history of other venous thrombosis and embolism; Z95.0 Presence of cardiac pacemaker; Z90.49 Acquired absence of other specified parts of digestive tract; Z90.710 Acquired absence of both cervix and uterus; Z79.02 Long term (current) use of antithrombotics/antiplatelets; B96.89 Other specified bacterial agents as the cause of diseases classified elsewhere
CPT/HCPCS: 36415; 74177; 80048; 80053; 80202; 81003; 81015; 83690; 84703; 85025; 86704; 86706; 86803; 86850; 86900; 86901; 87070; 87077; 87186; 87205; 87340; 96365; 96375; J0692; J0696; J1200; J1650; J2270; J2405; J2920; J3010; J3370; J3490; J7050; J7120; Q9967; S0028; U0003; U0005

== ENCOUNTER 2021-09-05 11:47 | Outpatient (CLI) | payer BC, MEDICARE ==
[2021-09-05 13:00] LABS: #Basophils 0.1 10x3/uL (0.0-0.2); #Eosinphils 0.2 10x3/uL (0.0-0.5); #Monocytes 0.4 10x3/uL (0.0-1.1); #Neutrophils 4.4 10x3/uL (1.5-8.4); %Basophils 1.2 % (0.0-2.0); %Eosinophils 2.7 % (0.0-6.0); %Neutrophils 62.7 % (40.0-75.0); Hemoglobin 13.3 g/dL (12.0-15.5); Mean Corpuscular HGB CONC 33.6 g/dL (32.0-36.0); Mean Corpuscular Hemoglobin 29.7 pg (27.0-33.0); Mean Corpuscular Volume 88.4 fl (81.6-98.3); Mean Platelet Volume 9.3 fl (7.4-10.4); Platelet Count 304 10x3/uL (150-450); RBC Distribution Width 12.5 % (11.5-14.5); Red Blood Cell (RBC) Count 4.48 10x6/uL (3.90-5.03); White Blood Cell (WBC) Count 6.9 10x3/uL (3.5-10.5)
[2021-09-05 13:02] LABS: Anion Gap 12 mmol/L (10-20); BUN (Urea Nitrogen) 9 mg/dL (7.0-18.7); Calc. Creatinine Clearance 0 mL/min (70-130); Calcium 9.2 mg/dL (7.8-10.44); Carbon Dioxide 22 mmol/L (22-29); Chloride 105 mmol/L (98-107); Glucose 97 mg/dL (70-105); Potassium 4.1 mmol/L (3.5-5.1); Sodium 135 mmol/L (136-145)
[2021-09-05 20:15] LABS: SARS-CoV-2 PCR by NAA Not Detected (NotDetected)
== END 2021-09-05 11:48 | disposition home or self-care (01) ==
LOC: LABBT 11:47
PROVIDERS: ATTEND Student in an Organized Health Care Education/Training Program
DX: Z01.812 Encounter for preprocedural laboratory examination (principal); Z20.822 Contact with and (suspected) exposure to COVID-19
CPT/HCPCS: 80048; 85025; U0003; U0005

== ENCOUNTER 2021-09-05 14:15 | Inpatient (IN) | payer BC, MEDICARE ==
[2021-09-05 15:34] VITALS: BMI 31.6
[2021-09-08] MEDS ORDERED: Xylocaine 1% w/ Epi 1:100K 10 ML VIAL ONE (06:44)
[2021-09-08] MEDS ORDERED: Bupivacaine 0.25% HCL 30 ML VIAL ONE (06:44)
[2021-09-08] MEDS ORDERED: Fentanyl 100 MCG/2 ML VIAL ONE (06:45)
[2021-09-08] MEDS ORDERED: Lidocaine 2% Jelly 5 ML TUBE ONE (06:45)
[2021-09-08] MEDS ORDERED: Acetaminophen 500 MG TAB ONE (06:59)
[2021-09-08] MEDS ORDERED: Ketorolac Tromethamine 30 MG/ML VIAL ONE (06:59)
[2021-09-08] MEDS ORDERED: Meropenem 2 GM in Sodium Chloride 0.9% 100 ML IVPB SCH (07:15)
[2021-09-08] MEDS ORDERED: Midazolam HCl 2 mg/2 ml Vial ONE (08:05)
[2021-09-08] MEDS ORDERED: ePHEDrine 50 MG/ML VIAL ONE (08:23)
[2021-09-08] MEDS ORDERED: Lidocaine 1% PF 5 ML VIAL ONE (08:23)
[2021-09-08] MEDS ORDERED: Dexamethasone 20 MG/5 ML VIAL ONE (08:23)
[2021-09-08] MEDS ORDERED: PROPOFOL 200 MG/20 ML VIAL ONE (08:23)
[2021-09-08] MEDS ORDERED: Calcium Chloride 1 GM/10 ML Abboject SYRINGE ONE (08:23)
[2021-09-08] MEDS ORDERED: PHENYLEPHRINE-NS 100 MCG/ML 10 ML SYRINGE ONE (08:23)
[2021-09-08] MEDS ORDERED: Rocuronium Bromide 10 MG/ML (10ML VIAL) ONE (08:23)
[2021-09-08] MEDS ORDERED: Glycopyrrolate 0.2 MG/ML 5 ML SYRINGE ONE (08:23)
[2021-09-08] MEDS ORDERED: Ondansetron PF 4 MG/2 ML Vial ONE (08:23)
[2021-09-08] MEDS ORDERED: Phenylephrine 10 MG/ML VIAL ONE (10:45)
[2021-09-08] MEDS ORDERED: Albumin 5% 250 ML ONE (11:10)
[2021-09-08] MEDS ORDERED: Promethazine HCl 25 MG/ML VIAL IM PRN (12:10)
[2021-09-08] MEDS ORDERED: Ondansetron HCl/PF 4 MG/2 ML Vial IVP PRN (12:10)
[2021-09-08] MEDS ORDERED: Promethazine HCl 25 MG/ML VIAL IVPB PRN (12:10)
[2021-09-08] MEDS ORDERED: Promethazine HCl 25 MG/ML VIAL ONE (12:17)
[2021-09-08] MEDS ORDERED: HumaLOG 300 UNITS/3 ML VIAL SC PRN (12:54)
[2021-09-08] MEDS ORDERED: hydrALAZINE 20 MG/ML VIAL SLOW IVP PRN (12:54)
[2021-09-08] MEDS ORDERED: diphenhydrAMINE 50 MG/ML VIAL IVP PRN (12:54)
[2021-09-08] MEDS ORDERED: Dextrose 50% Abboject 50 ML SYRINGE SLOW IVP PRN (12:54)
[2021-09-08] MEDS ORDERED: Dextrose 5% in Water 1,000 ML IV PRN (12:54)
[2021-09-08] MEDS ORDERED: Fentanyl 100 MCG/2 ML VIAL SLOW IVP PRN (13:00)
[2021-09-08] MEDS ORDERED: Scopolamine 1.5 mg/72 hour Patch TD SCH (13:15)
[2021-09-08] MEDS ORDERED: SUMAtriptan Succinate 50 MG TAB PO PRN (13:34)
[2021-09-08] MEDS: Fentanyl 100 MCG/2 ML VIAL SLOW IVP PRN ×3 (15:48→22:15)
[2021-09-08] MEDS: NS 0.9% w/ 20 MEQ KCL 1,000 ML/1,000 ML BAG IV SCH ×2 (15:50→23:55)
[2021-09-08] MEDS: Ketorolac Tromethamine 30 MG/ML VIAL IVP SCH ×2 (19:21→23:55)
[2021-09-08] MEDS: Ondansetron PF 4 MG/2 ML Vial IVP PRN (19:53)
[2021-09-08] MEDS ORDERED: Lisinopril 20 MG TAB PO SCH (21:00)
[2021-09-08] MEDS: Carvedilol 25 MG TAB PO SCH (22:02)
[2021-09-08] MEDS: carBAMazepine 200 MG TAB PO SCH (22:02)
[2021-09-08] MEDS: traZODone HCl 50 MG TAB PO SCH (22:02)
[2021-09-09] MEDS: Ondansetron PF 4 MG/2 ML Vial IVP PRN (02:02)
[2021-09-09] MEDS: Hydrocodone-Acetamin 15 ML UDCUP PO PRN ×4 (02:13→22:16)
[2021-09-09] MEDS: NS 0.9% w/ 20 MEQ KCL 1,000 ML/1,000 ML BAG IV SCH ×3 (05:28→18:42)
[2021-09-09] MEDS: Ketorolac Tromethamine 30 MG/ML VIAL IVP SCH ×3 (05:28→18:42)
[2021-09-09] MEDS: Levothyroxine Sodium 125 MCG TAB PO SCH (05:29)
[2021-09-09] MEDS ORDERED: Enoxaparin Sodium 40 MG/0.4 ML SYRINGE SC SCH (09:00)
[2021-09-09] MEDS ORDERED: Pantoprazole 40 MG VIAL IVP SCH (09:00)
[2021-09-09] MEDS: carBAMazepine 200 MG TAB PO SCH ×2 (09:44→22:17)
[2021-09-09] MEDS: Carvedilol 25 MG TAB PO SCH ×2 (09:58→22:19)
[2021-09-09] MEDS ORDERED: Sodium Chloride 0.9% 1,000 ML IV SCH (10:45)
[2021-09-09 14:33] LABS: #Eosinphils 0.2 thou/uL (0.0-0.7); #Lymphocytes 1.8 thou/uL (1.20-3.40); #Monocytes 0.9 thou/uL (0.11-0.59); #Neutrophils 5.8 thou/uL (1.40-6.50); %Basophils 0.4 % (0.0-1.0); %Eosinophils 2.3 % (0.0-10.0); %Lymphocytes 20.9 % (21.0-51.0); %Monocytes 10.4 % (0.0-10.0); %Neutrophils 66.1 % (42.0-75.0); Hemoglobin 8.2 g/dL (12.0-16.0); Mean Corpuscular HGB CONC 32.7 g/dL (32.0-36.0); Mean Corpuscular Hemoglobin 30.9 pg (27.0-31.0); Mean Corpuscular Volume 94.6 fL (78.0-98.0); Mean Platelet Volume 7.3 fL (7.4-10.4); Platelet Count 211 thou/uL (130-400); RBC Distribution Width 12.1 % (11.5-14.5); Red Blood Cell (RBC) Count 2.65 mill/uL (4.20-5.40); White Blood Cell (WBC) Count 8.7 thou/uL (4.8-10.8)
[2021-09-09 14:51] LABS: ALT (SGPT) 43 U/L (8-55); AST (SGOT) 44 U/L (5-34); Albumin 3.1 g/dL (3.5-5.0); Alkaline Phosphatase 67 U/L (40-110); Anion Gap 9 mmol/L (10-20); BUN (Urea Nitrogen) 18 mg/dL (7.0-18.7); Bilirubin, Total 0.3 mg/dL (0.2-1.2); Calc. Creatinine Clearance 140 mL/min (70-130); Calcium 8.2 mg/dL (7.8-10.44); Carbon Dioxide 21 mmol/L (22-29); Chloride 112 mmol/L (98-107); Globulin 1.9 g/dL (2.4-3.5); Glucose 91 mg/dL (70-105); Potassium 4.3 mmol/L (3.5-5.1); Sodium 138 mmol/L (136-145)
[2021-09-09 19:56] LABS: #Basophils 0.1 thou/uL (0.0-0.2); #Eosinphils 0.4 thou/uL (0.0-0.7); #Lymphocytes 1.5 thou/uL (1.20-3.40); #Monocytes 0.7 thou/uL (0.11-0.59); %Lymphocytes 18.9 % (21.0-51.0); %Monocytes 9.5 % (0.0-10.0); %Neutrophils 65.6 % (42.0-75.0); Hemoglobin 7.7 g/dL (12.0-16.0); Mean Corpuscular HGB CONC 33.9 g/dL (32.0-36.0); Mean Corpuscular Hemoglobin 31.5 pg (27.0-31.0); Mean Platelet Volume 7.3 fL (7.4-10.4); Platelet Count 183 thou/uL (130-400); Red Blood Cell (RBC) Count 2.43 mill/uL (4.20-5.40); White Blood Cell (WBC) Count 7.7 thou/uL (4.8-10.8)
[2021-09-09] MEDS: traZODone HCl 50 MG TAB PO SCH (22:19)
[2021-09-09 23:02] LABS: #Eosinphils 0.3 thou/uL (0.0-0.7); #Lymphocytes 1.1 thou/uL (1.20-3.40); #Monocytes 0.6 thou/uL (0.11-0.59); #Neutrophils 3.7 thou/uL (1.40-6.50); %Basophils 0.6 % (0.0-1.0); %Eosinophils 5.7 % (0.0-10.0); %Lymphocytes 19.1 % (21.0-51.0); %Monocytes 10.9 % (0.0-10.0); %Neutrophils 63.6 % (42.0-75.0); Hemoglobin 8.4 g/dL (12.0-16.0); Mean Corpuscular HGB CONC 33.2 g/dL (32.0-36.0); Mean Corpuscular Hemoglobin 31.3 pg (27.0-31.0); Mean Corpuscular Volume 94.3 fL (78.0-98.0); Mean Platelet Volume 7.2 fL (7.4-10.4); Platelet Count 159 thou/uL (130-400); RBC Distribution Width 11.8 % (11.5-14.5); Red Blood Cell (RBC) Count 2.68 mill/uL (4.20-5.40); White Blood Cell (WBC) Count 5.8 thou/uL (4.8-10.8)
[2021-09-10] MEDS: Ketorolac Tromethamine 30 MG/ML VIAL IVP SCH ×3 (00:01→12:06)
[2021-09-10] MEDS: Hydrocodone-Acetamin 15 ML UDCUP PO PRN (04:43)
[2021-09-10] MEDS: Levothyroxine Sodium 125 MCG TAB PO SCH (04:44)
[2021-09-10] MEDS: NS 0.9% w/ 20 MEQ KCL 1,000 ML/1,000 ML BAG IV SCH (05:06)
[2021-09-10 07:24] LABS: Anion Gap 12 mmol/L (10-20); BUN (Urea Nitrogen) 11 mg/dL (7.0-18.7); Calc. Creatinine Clearance 158 mL/min (70-130); Carbon Dioxide 17 mmol/L (22-29); Chloride 112 mmol/L (98-107); Glucose 89 mg/dL (70-105); Potassium 4.7 mmol/L (3.5-5.1); Sodium 136 mmol/L (136-145)
[2021-09-10] MEDS: carBAMazepine 200 MG TAB PO SCH (08:21)
[2021-09-10 09:46] LABS: #Eosinphils 0.3 thou/uL (0.0-0.7); #Lymphocytes 1.2 thou/uL (1.20-3.40); #Monocytes 0.4 thou/uL (0.11-0.59); #Neutrophils 2.9 thou/uL (1.40-6.50); %Basophils 0.5 % (0.0-1.0); %Eosinophils 6.7 % (0.0-10.0); %Lymphocytes 24.8 % (21.0-51.0); %Monocytes 8.9 % (0.0-10.0); %Neutrophils 59.2 % (42.0-75.0); Mean Corpuscular HGB CONC 33.9 g/dL (32.0-36.0); Mean Corpuscular Volume 94.3 fL (78.0-98.0); Mean Platelet Volume 7.7 fL (7.4-10.4); Platelet Count 143 thou/uL (130-400); RBC Distribution Width 11.8 % (11.5-14.5); Red Blood Cell (RBC) Count 2.51 mill/uL (4.20-5.40); White Blood Cell (WBC) Count 4.9 thou/uL (4.8-10.8)
[2021-09-10] MEDS: Carvedilol 25 MG TAB PO SCH (11:22)
[2021-09-10 12:29] VITALS: BP 129/83; TEMP 98.7
== END 2021-09-10 14:25 | disposition home or self-care (01) | DRG 908 ==
LOC: SURG A 09-08 06:11 → SJJU 09-08 13:51
PROVIDERS: ADMIT Specialist; ATTEND Specialist
PROC: 0DWD4UZ Revision of Feeding Device in Lower Intestinal Tract, Percutaneous Endoscopic Approach (ICD-10-PCS; principal; 2021-09-08)
PROC: 0DT84ZZ Resection of Small Intestine, Percutaneous Endoscopic Approach (ICD-10-PCS; 2021-09-08)
PROC: 30233N1 Transfusion of Nonautologous Red Blood Cells into Peripheral Vein, Percutaneous Approach (ICD-10-PCS; 2021-09-09)
DX: T85.598A Other mechanical complication of other gastrointestinal prosthetic devices, implants and grafts, initial encounter (principal); K94.23 Gastrostomy malfunction; E46 Unspecified protein-calorie malnutrition; K31.84 Gastroparesis; F31.9 Bipolar disorder, unspecified; E11.22 Type 2 diabetes mellitus with diabetic chronic kidney disease; I12.9 Hypertensive chronic kidney disease with stage 1 through stage 4 chronic kidney disease, or unspecified chronic kidney disease; E86.0 Dehydration; Y83.8 Other surgical procedures as the cause of abnormal reaction of the patient, or of later complication, without mention of misadventure at the time of the procedure; K66.0 Peritoneal adhesions (postprocedural) (postinfection); N18.9 Chronic kidney disease, unspecified; Z90.710 Acquired absence of both cervix and uterus; D64.9 Anemia, unspecified; Z90.49 Acquired absence of other specified parts of digestive tract; Z86.73 Personal history of transient ischemic attack (TIA), and cerebral infarction without residual deficits; Z95.0 Presence of cardiac pacemaker; Z68.31 Body mass index [BMI] 31.0-31.9, adult; Z01.812 Encounter for preprocedural laboratory examination; Z20.822 Contact with and (suspected) exposure to COVID-19
CPT/HCPCS: 36415; 36416; 36430; 80048; 85025; 86850; 86900; 86901; 88307; A4649; C1713; C1889; C9113; J0360; J1100; J1650; J1885; J2250; J2370; J2405; J2550; J2704; J3010; J3480; J3490; J7050; P9016; P9045; S0020; U0003; U0005

== ENCOUNTER 2021-09-19 18:24 | Emergency (ER) | payer BC, MEDICARE ==
[2021-09-19] MEDS ORDERED: diphenhydrAMINE 50 MG/ML VIAL ONE (20:37)
[2021-09-19] MEDS ORDERED: Famotidine/PF 20 mg/2ml Vial ONE (20:37)
[2021-09-19] MEDS ORDERED: methylPREDNISolone Sod Succ/PF 125 MG/2 ML VIAL ONE (20:37)
[2021-09-19 21:08] LABS: #Basophils 0.1 thou/uL (0.0-0.2); #Eosinphils 0.4 thou/uL (0.0-0.7); #Lymphocytes 2.2 thou/uL (1.20-3.40); #Monocytes 0.5 thou/uL (0.11-0.59); #Neutrophils 2.8 thou/uL (1.40-6.50); %Basophils 1.5 % (0.0-1.0); %Eosinophils 6.6 % (0.0-10.0); %Lymphocytes 36.7 % (21.0-51.0); %Monocytes 8.6 % (0.0-10.0); %Neutrophils 46.7 % (42.0-75.0); Hemoglobin 12.7 g/dL (12.0-16.0); Mean Corpuscular HGB CONC 33.2 g/dL (32.0-36.0); Mean Corpuscular Hemoglobin 31.6 pg (27.0-31.0); Mean Corpuscular Volume 95.3 fL (78.0-98.0); Mean Platelet Volume 6.8 fL (7.4-10.4); Platelet Count 358 thou/uL (130-400); RBC Distribution Width 13.9 % (11.5-14.5); Red Blood Cell (RBC) Count 4.01 mill/uL (4.20-5.40); White Blood Cell (WBC) Count 5.9 thou/uL (4.8-10.8)
[2021-09-19 21:10] LABS: Bilirubin Negative (Negative); Blood, Urine Negative (Negative); Clarity Clear (Clear); Glucose, Urine (Dipstick) Normal (Negative); Ketone, Urine Negative (Negative); Leukocyte Negative Leu/uL (Negative); Nitrite Negative (Negative); Protein, Urine (Dipstick) Negative (Neg-Trace); Specific Gravity, Urine 1.034 (1.002-1.036); Urobilinogen Normal mg/dL (Less than 2)
[2021-09-19 21:29] LABS: ALT (SGPT) 19 U/L (8-55); AST (SGOT) 22 U/L (5-34); Albumin 4.3 g/dL (3.5-5.0); Alkaline Phosphatase 97 U/L (40-110); Anion Gap 13 mmol/L (10-20); BUN (Urea Nitrogen) 5 mg/dL (7.0-18.7); Bilirubin, Total 0.8 mg/dL (0.2-1.2); Calc. Creatinine Clearance 0 mL/min (70-130); Calcium 9.6 mg/dL (7.8-10.44); Carbon Dioxide 26 mmol/L (22-29); Chloride 100 mmol/L (98-107); Globulin 2.9 g/dL (2.4-3.5); Glucose 89 mg/dL (70-105); Potassium 3.8 mmol/L (3.5-5.1); Protein, Total 7.2 g/dL (6.0-8.3); Sodium 135 mmol/L (136-145)
== END 2021-09-19 22:19 | disposition home or self-care (01) ==
LOC: ERS 18:24
DX: K91.871 Postprocedural hematoma of a digestive system organ or structure following other procedure (principal); Z86.73 Personal history of transient ischemic attack (TIA), and cerebral infarction without residual deficits; I25.2 Old myocardial infarction; E78.5 Hyperlipidemia, unspecified; E03.9 Hypothyroidism, unspecified; E11.9 Type 2 diabetes mellitus without complications; I10 Essential (primary) hypertension; Z79.899 Other long term (current) drug therapy
CPT/HCPCS: 36415; 74177; 80053; 81003; 83605; 85025; 85652; 86140; 96374; 96375; J1200; J2930; S0028

== ENCOUNTER 2021-12-28 14:34 | Emergency (ER) | payer BC, MEDICARE ==
[2021-12-28 17:53] LABS: #Basophils 0.1 thou/uL (0.0-0.2); #Eosinphils 0.1 thou/uL (0.0-0.7); #Lymphocytes 1.5 thou/uL (1.20-3.40); #Monocytes 0.4 thou/uL (0.11-0.59); #Neutrophils 4.7 thou/uL (1.40-6.50); %Basophils 0.8 % (0.0-1.0); %Eosinophils 1.8 % (0.0-10.0); %Lymphocytes 22.2 % (21.0-51.0); %Monocytes 6.1 % (0.0-10.0); %Neutrophils 69.1 % (42.0-75.0); Hemoglobin 14.6 g/dL (12.0-16.0); Mean Corpuscular HGB CONC 30.6 g/dL (32.0-36.0); Mean Corpuscular Volume 94.9 fL (78.0-98.0); Mean Platelet Volume 9.1 fL (7.4-10.4); Platelet Count 132 thou/uL (130-400); RBC Distribution Width 12.2 % (11.5-14.5); Red Blood Cell (RBC) Count 5.03 mill/uL (4.20-5.40); White Blood Cell (WBC) Count 6.8 thou/uL (4.8-10.8)
[2021-12-28 18:12] LABS: ALT (SGPT) 15 U/L (8-55); AST (SGOT) 21 U/L (5-34); Albumin 4.1 g/dL (3.5-5.0); Alkaline Phosphatase 90 U/L (40-110); Anion Gap 14 mmol/L (10-20); BUN (Urea Nitrogen) 7 mg/dL (7.0-18.7); Bilirubin, Total 0.4 mg/dL (0.2-1.2); CK (CPK) 68 U/L (29-168); Calc. Creatinine Clearance 0 mL/min (70-130); Calcium 9.4 mg/dL (7.8-10.44); Carbon Dioxide 20 mmol/L (22-29); Chloride 108 mmol/L (98-107); Globulin 2.6 g/dL (2.4-3.5); Glucose 88 mg/dL (70-105); Potassium 3.5 mmol/L (3.5-5.1); Protein, Total 6.7 g/dL (6.0-8.3); Sodium 138 mmol/L (136-145)
== END 2021-12-28 20:30 | disposition home or self-care (01) ==
LOC: ERS 14:34
DX: R13.10 Dysphagia, unspecified (principal); I25.2 Old myocardial infarction; E78.5 Hyperlipidemia, unspecified; Z86.73 Personal history of transient ischemic attack (TIA), and cerebral infarction without residual deficits; E03.9 Hypothyroidism, unspecified; E11.9 Type 2 diabetes mellitus without complications; I10 Essential (primary) hypertension; Z86.718 Personal history of other venous thrombosis and embolism; Z79.02 Long term (current) use of antithrombotics/antiplatelets; Z79.899 Other long term (current) drug therapy
CPT/HCPCS: 36415; 70360; 71045; 80053; 82550; 83735; 85025; 93005

== ENCOUNTER 2022-01-25 08:43 | Outpatient (CLI) | payer BC | END 2022-01-25 08:44 | disposition home or self-care (01) | LOC: CT 08:43 | PROVIDERS: ATTEND Specialist | DX: Z48.815 Encounter for surgical aftercare following surgery on the digestive system (principal); Z90.3 Acquired absence of stomach [part of]; Z90.49 Acquired absence of other specified parts of digestive tract; Z90.710 Acquired absence of both cervix and uterus; Z98.890 Other specified postprocedural states | CPT/HCPCS: 74177 ==

== ENCOUNTER 2022-05-01 08:46 | Outpatient (CLI) | payer BC ==
[2022-05-01] MEDS ORDERED: Iopamidol 370 76% 100 ML VIAL ONE (10:39)
== END 2022-05-01 08:47 | disposition home or self-care (01) ==
LOC: MRI 08:46
PROVIDERS: ATTEND Specialist
DX: R10.9 Unspecified abdominal pain (principal); M87.9 Osteonecrosis, unspecified; Z98.890 Other specified postprocedural states
CPT/HCPCS: 74177; Q9967

== ENCOUNTER 2022-07-22 14:31 | Inpatient (IN) | payer BC ==
[2022-07-22] MEDS ORDERED: diphenhydrAMINE 50 MG/ML VIAL ONE (15:25)
[2022-07-22] MEDS ORDERED: methylPREDNISolone Sod Succ 40 MG VIAL ONE (15:25)
[2022-07-22] MEDS ORDERED: Famotidine/PF 20 mg/2ml Vial ONE (15:25)
[2022-07-22] MEDS ORDERED: Gabapentin 300 MG CAP PO SCH (15:30)
[2022-07-22 16:35] LABS: #Basophils 0.1 thou/uL (0.0-0.2); #Eosinphils 0.1 thou/uL (0.0-0.7); #Monocytes 0.4 thou/uL (0.11-0.59); #Neutrophils 3.1 thou/uL (1.40-6.50); %Basophils 1.1 % (0.0-1.0); %Lymphocytes 34.7 % (21.0-51.0); %Monocytes 7.6 % (0.0-10.0); %Neutrophils 54.7 % (42.0-75.0); Hemoglobin 14.7 g/dL (12.0-16.0); Mean Corpuscular HGB CONC 32.9 g/dL (32.0-36.0); Mean Corpuscular Hemoglobin 30.3 pg (27.0-31.0); Mean Corpuscular Volume 92.2 fl (78.0-98.0); Mean Platelet Volume 8.2 fL (7.4-10.4); Platelet Count 190 10x3/uL (130-400); RBC Distribution Width 12.2 % (11.5-14.5); Red Blood Cell (RBC) Count 4.84 mill/uL (4.20-5.40); White Blood Cell (WBC) Count 5.6 10x3/uL (4.8-10.8)
[2022-07-22 16:38] LABS: INR-International Normal Ratio 1.1; PTT 28.9 sec (22.9-36.1); Prothrombin Time 14.8 sec (12.0-14.7)
[2022-07-22 16:43] LABS: ALT (SGPT) 50 U/L (8-55); AST (SGOT) 30 U/L (5-34); Albumin 4.5 g/dL (3.5-5.0); Alkaline Phosphatase 116 U/L (40-110); Anion Gap 11 mmol/L (10-20); BUN (Urea Nitrogen) 10 mg/dL (7.0-18.7); Bilirubin, Total 0.5 mg/dL (0.2-1.2); Calc. Creatinine Clearance 0 mL/min (70-130); Calcium 9.8 mg/dL (7.8-10.44); Carbon Dioxide 28 mmol/L (22-29); Chloride 103 mmol/L (98-107); Estimated GFR 108; Globulin 2.6 g/dL (2.4-3.5); Glucose 92 mg/dL (70-105); Potassium 3.5 mmol/L (3.5-5.1); Protein, Total 7.1 g/dL (6.0-8.3); Sodium 138 mmol/L (136-145)
[2022-07-22] MEDS ORDERED: FENTANYL 50 MCG/ML 1 ML VIAL ONE (18:39)
[2022-07-22] MEDS ORDERED: Aspirin Chewable 81 MG TAB ONE (18:39)
[2022-07-22] MEDS ORDERED: Ondansetron ODT 8 MG TAB PO PRN (23:12)
[2022-07-22] MEDS ORDERED: SUMAtriptan Succinate 50 MG TAB PO PRN (23:30)
[2022-07-22] MEDS ORDERED: Scopolamine 1.5 mg/72 hour Patch TD SCH (23:59)
[2022-07-23] MEDS ORDERED: Hydrocodone-Acetamin 15 ML UDCUP ONE ×3 (01:05→13:28)
[2022-07-23] MEDS: Hydrocodone-Acetamin 15 ML UDCUP PO PRN ×3 (01:07→21:01)
[2022-07-23] MEDS ORDERED: hydrOXYzine Pamoate 25 mg Capsule ONE ×3 (02:53→14:47)
[2022-07-23] MEDS: hydrOXYzine Pamoate 25 mg Capsule PO PRN ×3 (02:56→21:15)
[2022-07-23] MEDS ORDERED: Bisacodyl 10 MG SUPP PR PRN (03:32)
[2022-07-23] MEDS ORDERED: Senokot 8.6 MG TAB PO PRN (03:33)
[2022-07-23 06:32] LABS: Cardiac Risk 2.2 (Less than 4.5)
[2022-07-23] MEDS: Levothyroxine Sodium 125 MCG TAB PO SCH (09:25)
[2022-07-23] MEDS ORDERED: Lisinopril 10 MG TAB PO SCH (10:00)
[2022-07-23] MEDS ORDERED: Clopidogrel Bisulfate 75 MG TAB ONE (10:08)
[2022-07-23] MEDS ORDERED: Enoxaparin Sodium 40 MG/0.4 ML SYRINGE ONE (10:08)
[2022-07-23] MEDS ORDERED: Furosemide 40 MG TAB ONE ×2 (10:17→13:28)
[2022-07-23] MEDS: Clopidogrel Bisulfate 75 MG TAB PO SCH (10:29)
[2022-07-23] MEDS: Enoxaparin Sodium 40 MG/0.4 ML SYRINGE SC SCH (10:29)
[2022-07-23] MEDS: tiZANidine HCl 4 MG TAB PO SCH ×3 (10:30→21:03)
[2022-07-23] MEDS: Polyethylene Glycol 3350 17 GM Packet PO SCH (10:31)
[2022-07-23] MEDS: Furosemide 20 MG TAB PO SCH ×2 (10:32→13:29)
[2022-07-23 11:15] LABS: Amphetamine Not Detected (NotDetected); Barbiturates Screen Not Detected (NotDetected); Benzodiazepine Screen Not Detected (NotDetected); Cocaine Metabolite Screen Not Detected (NotDetected); Methadone Not Detected (NotDetected); Methamphetamine Not Detected (NotDetected); Opiate Screen Detected (NotDetected); Oxycodone Screen Not Detected (NotDetected); Phencyclidine (PCP) Not Detected (NotDetected); THC/Cannabinoid Screen Not Detected (NotDetected); Tricyclic Screen Not Detected (NotDetected)
[2022-07-23] MEDS ORDERED: FLU VACC QS2022-23(6MOS UP)/PF 60 MCG/0.5 ML SYRINGE IM ONE (11:15)
[2022-07-23] MEDS: Venlafaxine HCl XR 150 MG CAP PO SCH (13:23)
[2022-07-23] MEDS: Gabapentin 300 MG CAP PO SCH ×2 (13:24→20:59)
[2022-07-23] MEDS: carBAMazepine 200 MG TAB PO SCH ×2 (13:32→21:01)
[2022-07-23 16:13] LABS: SARS-CoV-2 NAA Rapid Test Not Detected (NotDetected)
[2022-07-23] MEDS: Atorvastatin Calcium 40 MG TAB PO SCH (20:59)
[2022-07-23] MEDS: traZODone HCl 50 MG TAB PO SCH (21:01)
[2022-07-24] MEDS: Levothyroxine Sodium 125 MCG TAB PO SCH (06:13)
[2022-07-24] MEDS: Venlafaxine HCl XR 150 MG CAP PO SCH ×3 (06:13→21:19)
[2022-07-24] MEDS: Hydrocodone-Acetamin 15 ML UDCUP PO PRN ×2 (06:14→17:06)
[2022-07-24 06:47] LABS: #Basophils 0.1 thou/uL (0.0-0.2); #Eosinphils 0.2 thou/uL (0.0-0.7); #Lymphocytes 1.8 thou/uL (1.20-3.40); #Monocytes 0.3 thou/uL (0.11-0.59); #Neutrophils 2.3 thou/uL (1.40-6.50); %Basophils 1.7 % (0.0-1.0); %Eosinophils 3.6 % (0.0-10.0); %Lymphocytes 39.5 % (21.0-51.0); %Monocytes 6.3 % (0.0-10.0); %Neutrophils 48.9 % (42.0-75.0); Hemoglobin 13.8 g/dL (12.0-16.0); Mean Corpuscular HGB CONC 32.4 g/dL (32.0-36.0); Mean Corpuscular Hemoglobin 29.8 pg (27.0-31.0); Mean Platelet Volume 7.9 fL (7.4-10.4); Platelet Count 179 10x3/uL (130-400); RBC Distribution Width 12.2 % (11.5-14.5); Red Blood Cell (RBC) Count 4.63 mill/uL (4.20-5.40); White Blood Cell (WBC) Count 4.6 10x3/uL (4.8-10.8)
[2022-07-24 07:08] LABS: Anion Gap 11 mmol/L (10-20); BUN (Urea Nitrogen) 11 mg/dL (7.0-18.7); Calc. Creatinine Clearance 87 mL/min (70-130); Calcium 9.5 mg/dL (7.8-10.44); Carbon Dioxide 28 mmol/L (22-29); Chloride 105 mmol/L (98-107); Estimated GFR 109; Glucose 79 mg/dL (70-105); Potassium 4.3 mmol/L (3.5-5.1); Sodium 140 mmol/L (136-145)
[2022-07-24] MEDS: tiZANidine HCl 4 MG TAB PO SCH ×3 (09:17→21:21)
[2022-07-24] MEDS: Polyethylene Glycol 3350 17 GM Packet PO SCH (09:19)
[2022-07-24] MEDS: Gabapentin 300 MG CAP PO SCH ×2 (09:19→21:20)
[2022-07-24] MEDS: Clopidogrel Bisulfate 75 MG TAB PO SCH (09:19)
[2022-07-24] MEDS: Lisinopril 10 MG TAB PO SCH (09:20)
[2022-07-24] MEDS: carBAMazepine 200 MG TAB PO SCH ×2 (09:21→21:20)
[2022-07-24] MEDS: Enoxaparin Sodium 40 MG/0.4 ML SYRINGE SC SCH (09:21)
[2022-07-24 11:19] VITALS: BMI 18.3
[2022-07-24] MEDS ORDERED: Lorazepam 0.5 MG TAB PO PRN (11:32)
[2022-07-24] MEDS: Lidocaine 5% Patch TD SCH (13:14)
[2022-07-24] MEDS: D3 PO SCH ×2 (13:19→15:35)
[2022-07-24] MEDS: CALC PO SCH ×2 (13:19→15:35)
[2022-07-24] MEDS: BIOTIN PO SCH ×2 (13:19→15:35)
[2022-07-24] MEDS: [UNRECOGNIZED DRUG - OTHER] PO SCH ×2 (13:19→15:35)
[2022-07-24] MEDS: MULTIVIT MIN PO SCH ×2 (13:19→15:35)
[2022-07-24] MEDS ORDERED: Scopolamine 1.5 mg/72 hour Patch TD SCH (15:00)
[2022-07-24] MEDS: CALCIUM CITRATE 500 MG PO SCH (18:14)
[2022-07-24] MEDS ORDERED: diphenhydrAMINE 25 MG CAP PO SCH (19:15)
[2022-07-24] MEDS ORDERED: Calcium Carbonate 600 MG + Vit D TAB PO SCH (21:00)
[2022-07-24] MEDS: traZODone HCl 50 MG TAB PO SCH (21:19)
[2022-07-24] MEDS: Atorvastatin Calcium 40 MG TAB PO SCH (21:21)
[2022-07-24] MEDS: [UNRECOGNIZED DRUG - OTHER] PO SCH (21:21)
[2022-07-24] MEDS: Transdermal Patch Removal TOP SCH (23:50)
[2022-07-25] MEDS: Levothyroxine Sodium 125 MCG TAB PO SCH (05:29)
[2022-07-25 05:51] LABS: #Eosinphils 0.2 thou/uL (0.0-0.7); #Lymphocytes 1.7 thou/uL (1.20-3.40); #Monocytes 0.3 thou/uL (0.11-0.59); #Neutrophils 2.2 thou/uL (1.40-6.50); %Basophils 1.1 % (0.0-1.0); %Eosinophils 4.7 % (0.0-10.0); %Lymphocytes 37.9 % (21.0-51.0); %Monocytes 6.5 % (0.0-10.0); %Neutrophils 49.9 % (42.0-75.0); Hemoglobin 12.7 g/dL (12.0-16.0); Mean Corpuscular HGB CONC 32.1 g/dL (32.0-36.0); Mean Corpuscular Hemoglobin 29.7 pg (27.0-31.0); Mean Corpuscular Volume 92.8 fl (78.0-98.0); Mean Platelet Volume 7.8 fL (7.4-10.4); Platelet Count 181 10x3/uL (130-400); RBC Distribution Width 12.1 % (11.5-14.5); Red Blood Cell (RBC) Count 4.26 mill/uL (4.20-5.40); White Blood Cell (WBC) Count 4.4 10x3/uL (4.8-10.8)
[2022-07-25 06:13] LABS: Anion Gap 10 mmol/L (10-20); BUN (Urea Nitrogen) 12 mg/dL (7.0-18.7); Calc. Creatinine Clearance 81 mL/min (70-130); Calcium 9.6 mg/dL (7.8-10.44); Carbon Dioxide 32 mmol/L (22-29); Chloride 100 mmol/L (98-107); Estimated GFR 106; Glucose 79 mg/dL (70-105); Potassium 4.2 mmol/L (3.5-5.1); Sodium 138 mmol/L (136-145)
[2022-07-25] MEDS ORDERED: BIOTIN PO SCH (09:00)
[2022-07-25] MEDS ORDERED: MULTIVIT MIN PO SCH (09:00)
[2022-07-25] MEDS ORDERED: [UNRECOGNIZED DRUG - OTHER] PO SCH (09:00)
[2022-07-25] MEDS ORDERED: Aquaphor 30 GM JAR TOP SCH (09:00)
[2022-07-25] MEDS ORDERED: CALC PO SCH (09:00)
[2022-07-25] MEDS ORDERED: D3 PO SCH (09:00)
[2022-07-25] MEDS ORDERED: Multivit, Therapeutic 1 TAB PO SCH (09:00)
[2022-07-25] MEDS: LINACLOTIDE 290 MCG PO SCH (09:49)
[2022-07-25] MEDS: tiZANidine HCl 4 MG TAB PO SCH ×3 (09:50→20:30)
[2022-07-25] MEDS: carBAMazepine 200 MG TAB PO SCH ×2 (09:50→20:29)
[2022-07-25] MEDS: Enoxaparin Sodium 40 MG/0.4 ML SYRINGE SC SCH (09:51)
[2022-07-25] MEDS: Lisinopril 10 MG TAB PO SCH (09:51)
[2022-07-25] MEDS: Furosemide 20 MG TAB PO SCH (09:54)
[2022-07-25] MEDS: FLINTSTONE COMPLETE PO SCH (09:54)
[2022-07-25] MEDS: Clopidogrel Bisulfate 75 MG TAB PO SCH (09:54)
[2022-07-25] MEDS: Gabapentin 300 MG CAP PO SCH ×2 (09:54→20:28)
[2022-07-25] MEDS: PRUCALOPRIDE SUCCINATE 2 MG PO SCH (09:55)
[2022-07-25] MEDS: Polyethylene Glycol 3350 17 GM Packet PO SCH (09:56)
[2022-07-25] MEDS: CALCIUM CITRATE 500 MG PO SCH ×2 (12:33→18:16)
[2022-07-25] MEDS: Lidocaine 5% Patch TD SCH (12:33)
[2022-07-25] MEDS: Aquaphor 3.5 oz (99 G) JAR TOP SCH (12:37)
[2022-07-25] MEDS: Hydrocodone-Acetamin 15 ML UDCUP PO PRN ×2 (13:15→20:31)
[2022-07-25] MEDS: Acyclovir 400 mg Tablet PO SCH ×2 (16:38→20:29)
[2022-07-25] MEDS: [UNRECOGNIZED DRUG - OTHER] PO SCH (20:27)
[2022-07-25] MEDS: Venlafaxine HCl XR 150 MG CAP PO SCH (20:29)
[2022-07-25] MEDS: traZODone HCl 50 MG TAB PO SCH (20:29)
[2022-07-25] MEDS: Atorvastatin Calcium 40 MG TAB PO SCH (20:29)
[2022-07-25] MEDS: hydrOXYzine Pamoate 25 mg Capsule PO PRN (20:45)
[2022-07-26] MEDS: Transdermal Patch Removal TOP SCH (00:13)
[2022-07-26] MEDS: Levothyroxine Sodium 125 MCG TAB PO SCH (05:37)
[2022-07-26 08:07] VITALS: TEMP 99
[2022-07-26] MEDS ORDERED: guaiFENesin ER 600 MG TAB PO SCH (09:00)
[2022-07-26] MEDS ORDERED: Cepastat Lozenges 1 LOZ PO PRN (09:08)
[2022-07-26] MEDS: Aquaphor 3.5 oz (99 G) JAR TOP SCH (10:21)
[2022-07-26] MEDS: LINACLOTIDE 290 MCG PO SCH (10:23)
[2022-07-26] MEDS: FLINTSTONE COMPLETE PO SCH (10:24)
[2022-07-26] MEDS: Polyethylene Glycol 3350 17 GM Packet PO SCH (10:27)
[2022-07-26] MEDS: Acyclovir 400 mg Tablet PO SCH (10:27)
[2022-07-26] MEDS: Gabapentin 300 MG CAP PO SCH (10:28)
[2022-07-26] MEDS: Enoxaparin Sodium 40 MG/0.4 ML SYRINGE SC SCH (10:28)
[2022-07-26] MEDS: Clopidogrel Bisulfate 75 MG TAB PO SCH (10:29)
[2022-07-26] MEDS: Lisinopril 10 MG TAB PO SCH (10:30)
[2022-07-26] MEDS: carBAMazepine 200 MG TAB PO SCH (10:32)
[2022-07-26] MEDS: PRUCALOPRIDE SUCCINATE 2 MG PO SCH (10:33)
[2022-07-26] MEDS: tiZANidine HCl 4 MG TAB PO SCH (10:34)
[2022-07-26] MEDS: Lidocaine 5% Patch TD SCH (12:04)
[2022-07-26] MEDS: Hydrocodone-Acetamin 15 ML UDCUP PO PRN (12:04)
[2022-07-26] MEDS: CALCIUM CITRATE 500 MG PO SCH (12:05)
[2022-07-26 14:13] VITALS: BP 147/101
== END 2022-07-26 12:44 | disposition home or self-care (01) | DRG 74 ==
LOC: ERS 14:31 → ERHOLD 18:37 → OBSVTOIN 18:37 → NEURO 07-23 17:30
PROVIDERS: ADMIT Student in an Organized Health Care Education/Training Program; ATTEND Student in an Organized Health Care Education/Training Program
DX: M54.12 Radiculopathy, cervical region (principal); G95.89 Other specified diseases of spinal cord; M54.16 Radiculopathy, lumbar region; Z20.822 Contact with and (suspected) exposure to COVID-19; E78.5 Hyperlipidemia, unspecified; E03.9 Hypothyroidism, unspecified; I10 Essential (primary) hypertension; G51.0 Bell's palsy; I49.5 Sick sinus syndrome; F41.9 Anxiety disorder, unspecified; F31.9 Bipolar disorder, unspecified; G89.4 Chronic pain syndrome; M79.7 Fibromyalgia; Z86.73 Personal history of transient ischemic attack (TIA), and cerebral infarction without residual deficits; Z95.0 Presence of cardiac pacemaker; Z98.84 Bariatric surgery status; I25.2 Old myocardial infarction; Z90.49 Acquired absence of other specified parts of digestive tract; Z90.710 Acquired absence of both cervix and uterus; Z91.041 Radiographic dye allergy status; Z88.5 Allergy status to narcotic agent; Z88.8 Allergy status to other drugs, medicaments and biological substances; Z79.899 Other long term (current) drug therapy; Z79.890 Hormone replacement therapy
CPT/HCPCS: 36415; 70496; 70498; 70551; 72131; 72141; 76999; 80048; 80053; 80061; 80306; 83036; 85025; 85610; 85730; 93005; 96372; 96374; 96375; G0378; J1200; J1650; J2920; J3010; Q0177; Q9967; S0028; U0002

== ENCOUNTER 2022-09-03 13:12 | Outpatient (CLI) | payer BC ==
[2022-09-03 14:16] LABS: Hemoglobin 13.1 g/dL (12.0-15.5); Mean Corpuscular HGB CONC 33.1 g/dL (32.0-36.0); Mean Corpuscular Hemoglobin 29.8 pg (27.0-33.0); Mean Platelet Volume 10.2 fl (7.4-10.4); Platelet Count 216 10x3/uL (150-450); RBC Distribution Width 12.9 % (11.5-14.5); White Blood Cell (WBC) Count 5.5 10x3/uL (3.5-10.5)
[2022-09-03 14:37] LABS: Anion Gap 11 mmol/L (10-20); BUN (Urea Nitrogen) 12 mg/dL (7.0-18.7); Calc. Creatinine Clearance 0 mL/min (70-130); Calcium 9.4 mg/dL (7.8-10.44); Carbon Dioxide 28 mmol/L (22-29); Chloride 106 mmol/L (98-107); Estimated GFR 111; Glucose 91 mg/dL (70-105); Potassium 3.8 mmol/L (3.5-5.1); Sodium 141 mmol/L (136-145)
== END 2022-09-03 13:13 | disposition home or self-care (01) ==
LOC: LABBT 13:12
PROVIDERS: ATTEND Neurological Surgery
DX: Z01.818 Encounter for other preprocedural examination (principal); M47.12 Other spondylosis with myelopathy, cervical region
CPT/HCPCS: 80048; 85027; 93005; 93010

== ENCOUNTER 2022-09-10 11:19 | Observation (INO) | payer BC ==
[2022-09-06 12:19] VITALS: BMI 17.9
[2022-09-10] MEDS ORDERED: Fentanyl 250 MCG/5 ML VIAL ONE (11:35)
[2022-09-10] MEDS ORDERED: Sodium Chloride 0.9% 100 ML ONE (11:58)
[2022-09-10] MEDS ORDERED: CEFAZOLIN 2 GM VIAL ONE (11:58)
[2022-09-10] MEDS ORDERED: Rocuronium Bromide 10 MG/ML (10ML VIAL) ONE (12:09)
[2022-09-10] MEDS ORDERED: Ketorolac Tromethamine 30 MG/ML VIAL ONE (12:09)
[2022-09-10] MEDS ORDERED: Dexamethasone 20 MG/5 ML VIAL ONE (12:09)
[2022-09-10] MEDS ORDERED: PROPOFOL 200 MG/20 ML VIAL ONE (12:09)
[2022-09-10] MEDS ORDERED: Labetalol HCl 100 MG/20 ML VIAL ONE (12:09)
[2022-09-10] MEDS ORDERED: Ondansetron PF 4 MG/2 ML Vial ONE (12:09)
[2022-09-10] MEDS ORDERED: fentaNYL PF 100 MCG/2 ML SYRINGE ONE ×2 (13:23→14:39)
[2022-09-10] MEDS ORDERED: HYDROmorphone 0.5 MG/0.5 ML SYRINGE ONE (13:51)
[2022-09-10] MEDS ORDERED: diphenhydrAMINE 50 MG/ML VIAL ONE (14:28)
[2022-09-10] MEDS ORDERED: Gabapentin 300 MG CAP ONE ×2 (16:38→22:56)
[2022-09-10] MEDS ORDERED: tiZANidine HCl 4 MG TAB ONE (16:38)
[2022-09-10] MEDS ORDERED: Hydrocodone-Acetamin 15 ML UDCUP ONE ×2 (16:40→22:56)
[2022-09-10] MEDS ORDERED: hydrOXYzine Pamoate 25 mg Capsule PO SCH (17:00)
[2022-09-10] MEDS ORDERED: SUMAtriptan Succinate 50 MG TAB PO SCH (17:00)
[2022-09-10] MEDS ORDERED: Colchicine 0.6 MG TAB PO PRN (20:12)
[2022-09-10] MEDS ORDERED: hydrOXYzine Pamoate 25 mg Capsule PO PRN (20:19)
[2022-09-10] MEDS ORDERED: Mupirocin 2% Ointment 22 GM Tube TOP PRN (20:32)
[2022-09-10] MEDS ORDERED: Ondansetron ODT 8 MG TAB PO PRN (20:35)
[2022-09-10] MEDS ORDERED: SUMAtriptan Succinate 50 MG TAB PO PRN (20:37)
[2022-09-10] MEDS ORDERED: tiZANidine HCl 4 MG TAB PO PRN (20:39)
[2022-09-10] MEDS ORDERED: Gabapentin 300 MG CAP PO SCH (21:00)
[2022-09-10] MEDS ORDERED: traZODone HCl 50 MG TAB PO SCH (21:00)
[2022-09-10] MEDS ORDERED: Docusate 100 MG CAP PO SCH (21:00)
[2022-09-10] MEDS ORDERED: Scopolamine 1.5 mg/72 hour Patch TOP SCH (21:00)
[2022-09-10] MEDS ORDERED: Atorvastatin Calcium 10 MG TAB PO SCH (21:00)
[2022-09-10] MEDS: Calcium Carbonate 600 MG + Vit D TAB PO SCH (22:37)
[2022-09-10] MEDS: Dicyclomine 20 MG TAB PO SCH (22:42)
[2022-09-10] MEDS ORDERED: Cyclobenzaprine 10 MG TAB PO PRN (22:46)
[2022-09-10] MEDS ORDERED: Ondansetron PF 4 MG/2 ML Vial IVP PRN (22:46)
[2022-09-10] MEDS ORDERED: Promethazine 25 MG TAB PO PRN (22:46)
[2022-09-10] MEDS ORDERED: HYDROcodone/Acetaminophen 10/325 mg Tablet PO PRN ×2 (22:46)
[2022-09-10] MEDS ORDERED: Acetaminophen 325 MG TAB PO PRN (22:46)
[2022-09-10] MEDS ORDERED: diphenhydrAMINE 25 MG CAP PO PRN (22:46)
[2022-09-10] MEDS ORDERED: Mag-Al 1200 mg/1200 mg/30 ML UDCUP PO PRN (22:46)
[2022-09-10] MEDS ORDERED: Milk Of Magnesia 30 ML UDCUP PO PRN (22:46)
[2022-09-10] MEDS ORDERED: Atorvastatin Calcium 10 MG TAB ONE (22:55)
[2022-09-10] MEDS ORDERED: Sodium Chloride 0.9% 1,000 ML IV SCH (23:00)
[2022-09-10] MEDS: Hydrocodone-Acetamin 15 ML UDCUP PO PRN (23:11)
[2022-09-11] MEDS: CEFAZOLIN 2 GM in Sodium Chloride 0.9% 100 ML IVPB SCH ×2 (00:57→06:15)
[2022-09-11] MEDS ORDERED: Sodium Chloride 0.9% 100 ML ONE ×2 (01:03→05:22)
[2022-09-11] MEDS ORDERED: CEFAZOLIN 2 GM VIAL ONE ×2 (01:03→05:22)
[2022-09-11] MEDS ORDERED: Levothyroxine Sodium 112 MCG TAB PO SCH (06:00)
[2022-09-11] MEDS ORDERED: LINACLOTIDE 290 MCG PO SCH (07:30)
[2022-09-11] MEDS ORDERED: DOCOSANOL TOP SCH (09:00)
[2022-09-11] MEDS ORDERED: Stress 600 With Zinc 1 TAB PO SCH (09:00)
[2022-09-11] MEDS ORDERED: Lisinopril 20 MG TAB PO SCH (09:00)
[2022-09-11] MEDS ORDERED: Venlafaxine HCl XR 150 MG CAP PO SCH (09:00)
[2022-09-11] MEDS ORDERED: Aquaphor 30 GM JAR TOP SCH (09:00)
[2022-09-11] MEDS ORDERED: Folic Acid 1 MG TAB PO SCH (09:00)
[2022-09-11] MEDS ORDERED: Simethicone Chewable 80 MG TAB PO SCH (09:00)
[2022-09-11] MEDS ORDERED: Multivit, Therapeutic 1 TAB PO SCH (09:00)
[2022-09-11] MEDS: Calcium Carbonate 600 MG + Vit D TAB PO SCH (09:43)
[2022-09-11] MEDS: Dicyclomine 20 MG TAB PO SCH (09:44)
[2022-09-11 09:49] VITALS: BP 121/94
[2022-09-11] MEDS ORDERED: Hydrocodone-Acetamin 15 ML UDCUP ONE (09:54)
[2022-09-11] MEDS: Hydrocodone-Acetamin 15 ML UDCUP PO PRN (10:23)
[2022-09-11] MEDS: PRUCALOPRIDE SUCCINATE 2 MG PO SCH ×2 (10:27→10:28)
[2022-09-11] MEDS ORDERED: diphenhydrAMINE 25 MG CAP ONE (13:43)
[2022-09-11 14:42] VITALS: TEMP 97.3
[2022-09-12] MEDS ORDERED: Furosemide 20 MG TAB PO SCH (09:00)
[2022-09-12] MEDS ORDERED: Potassium Chloride 10 MEQ TAB PO SCH (09:00)
[2022-09-19] MEDS ORDERED: Cyanocobalamin 1000 MCG/ML VIAL SC SCH (09:00)
== END 2022-09-11 14:35 | disposition home or self-care (01) ==
LOC: SDC 11:19 → PACU-TCU 20:01
PROVIDERS: ADMIT Neurological Surgery; ATTEND Neurological Surgery
PROC: 0RG20A0 Fusion of 2 or more Cervical Vertebral Joints with Interbody Fusion Device, Anterior Approach, Anterior Column, Open Approach (ICD-10-PCS; principal; 2022-09-10)
DX: M50.021 Cervical disc disorder at C4-C5 level with myelopathy (principal); M47.12 Other spondylosis with myelopathy, cervical region; K21.9 Gastro-esophageal reflux disease without esophagitis; G51.0 Bell's palsy; M19.90 Unspecified osteoarthritis, unspecified site; K59.09 Other constipation; K31.84 Gastroparesis; I49.5 Sick sinus syndrome; G89.4 Chronic pain syndrome; G25.0 Essential tremor; E03.9 Hypothyroidism, unspecified; E78.5 Hyperlipidemia, unspecified; G25.81 Restless legs syndrome; G47.33 Obstructive sleep apnea (adult) (pediatric); G62.9 Polyneuropathy, unspecified; I10 Essential (primary) hypertension; M79.7 Fibromyalgia; G93.40 Encephalopathy, unspecified; G43.909 Migraine, unspecified, not intractable, without status migrainosus; E46 Unspecified protein-calorie malnutrition; Z68.1 Body mass index [BMI] 19.9 or less, adult; Z86.73 Personal history of transient ischemic attack (TIA), and cerebral infarction without residual deficits; Z86.718 Personal history of other venous thrombosis and embolism; Z79.890 Hormone replacement therapy; Z79.899 Other long term (current) drug therapy; Z88.5 Allergy status to narcotic agent; Z88.8 Allergy status to other drugs, medicaments and biological substances; Z91.041 Radiographic dye allergy status; Z91.048 Other nonmedicinal substance allergy status; Z95.0 Presence of cardiac pacemaker; Z98.84 Bariatric surgery status
CPT/HCPCS: 70450; C1713; J1100; J1170; J1200; J1885; J2405; J2704; J3010; J3490; Q0177

== ENCOUNTER 2022-09-27 12:31 | Outpatient (CLI) | payer BC | END 2022-09-27 12:32 | disposition home or self-care (01) | LOC: TBSIIMAG 12:31 | PROVIDERS: ATTEND Neurological Surgery | DX: M54.12 Radiculopathy, cervical region (principal); Z98.890 Other specified postprocedural states | CPT/HCPCS: 72040 ==

== ENCOUNTER 2022-12-17 10:55 | Outpatient (CLI) | payer BC | END 2022-12-17 10:56 | disposition home or self-care (01) | LOC: TBSIIMAG 10:55 | PROVIDERS: ATTEND Neurological Surgery | DX: M48.02 Spinal stenosis, cervical region (principal); M54.12 Radiculopathy, cervical region; Z98.1 Arthrodesis status | CPT/HCPCS: 72040 ==

== ENCOUNTER 2023-06-03 12:13 | Observation (INO) | payer BC ==
[~2023-06-03 12:13] MED LIST changes: -Iopamidol-370 76% 500 ML 1 ML ONE; +Iopamidol-370 76% 500 ML MDV (1 ML CHARGE) ONE
[2023-06-03] MEDS ORDERED: methylPREDNISolone Sod Succ 40 MG VIAL ONE ×3 (13:21→13:24)
[2023-06-03] MEDS ORDERED: Famotidine/PF 20 mg/2ml Vial ONE (13:21)
[2023-06-03] MEDS ORDERED: diphenhydrAMINE 50 MG/ML VIAL ONE (13:21)
[2023-06-03 14:13] LABS: Amphetamine Not Detected (NotDetected); Barbiturates Screen Not Detected (NotDetected); Benzodiazepine Screen Not Detected (NotDetected); Cocaine Metabolite Screen Not Detected (NotDetected); Methadone Not Detected (NotDetected); Methamphetamine Detected (NotDetected); Opiate Screen Detected (NotDetected); Oxycodone Screen Not Detected (NotDetected); Phencyclidine (PCP) Not Detected (NotDetected); THC/Cannabinoid Screen Not Detected (NotDetected); Tricyclic Screen Detected (NotDetected)
[2023-06-03 14:27] LABS: #Basophils 0.1 thou/uL (0.0-0.2); #Eosinphils 0.2 thou/uL (0.0-0.7); #Monocytes 0.5 thou/uL (0.11-0.59); #Neutrophils 2.5 thou/uL (1.40-6.50); %Basophils 1.1 % (0.0-1.0); %Eosinophils 4.2 % (0.0-10.0); %Lymphocytes 29.3 % (21.0-51.0); %Monocytes 9.8 % (0.0-10.0); %Neutrophils 55.6 % (42.0-75.0); Hematocrit 39.1 % (36.0-47.0); Hemoglobin 12.7 g/dL (12.0-16.0); Mean Corpuscular HGB CONC 32.5 g/dL (32.0-36.0); Mean Corpuscular Hemoglobin 30.3 pg (27.0-31.0); Mean Corpuscular Volume 93.3 fl (78.0-98.0); Platelet Count 175 10x3/uL (130-400); RBC Distribution Width 13.1 % (11.5-14.5); Red Blood Cell (RBC) Count 4.19 mill/uL (4.20-5.40); White Blood Cell (WBC) Count 4.6 10x3/uL (4.8-10.8)
[2023-06-03 14:43] LABS: BHCG - Serum Negative (NEGATIVE)
[2023-06-03 14:44] LABS: Pregs Control Background? CLEAR/WHITE (CLR/WHITE); Pregs Control Bar Appear? YES (CONTROL BAR)
[2023-06-03 14:58] LABS: ALT (SGPT) 14 U/L (8-55); AST (SGOT) 15 U/L (5-34); Acetaminophen Less than 10 mcg/mL (10.0-30.0); Alcohol Less than 10.0 mg/dL (Less than 10); Alkaline Phosphatase 98 U/L (40-110); Anion Gap 11 mmol/L (10-20); BUN (Urea Nitrogen) 15 mg/dL (7.0-18.7); Bilirubin, Total 0.2 mg/dL (0.2-1.2); Calc. Creatinine Clearance 0 mL/min (70-130); Calcium 9.2 mg/dL (7.8-10.44); Carbon Dioxide 26 mmol/L (22-29); Chloride 105 mmol/L (98-107); Estimated GFR 108; Globulin 1.8 g/dL (2.4-3.5); Glucose 77 mg/dL (70-105); Lipase 32 U/L (8-78); Magnesium 1.9 mg/dL (1.6-2.6); Protein, Total 5.8 g/dL (6.0-8.3); Salicylate Less than 8.0 mg/dL (15.0-30.0); Sodium 138 mmol/L (136-145); Troponin I Less than 0.010 ng/mL (< 0.028)
[2023-06-03] MEDS ORDERED: Aspirin Chewable 81 MG TAB ONE (16:21)
[2023-06-03] MEDS ORDERED: hydrALAZINE 20 MG/ML VIAL SLOW IVP PRN (17:31)
[2023-06-03] MEDS ORDERED: Acetaminophen 325 MG TAB PO PRN (17:31)
[2023-06-03 17:46] VITALS: BMI 20.9
[2023-06-03] MEDS: Atorvastatin Calcium 40 MG TAB PO SCH (21:06)
[2023-06-04] MEDS ORDERED: diphenhydrAMINE 30 GM TUBE TOP PRN (01:37)
[2023-06-04 06:01] LABS: Hemoglobin A1c 4.9 % (4.0-6.0)
[2023-06-04 06:13] LABS: Cardiac Risk 2.3 (Less than 4.5)
[2023-06-04] MEDS: Ondansetron PF 4 MG/2 ML Vial IVP PRN ×2 (06:34→20:32)
[2023-06-04] MEDS: Clopidogrel Bisulfate 75 MG TAB PO SCH (09:12)
[2023-06-04] MEDS: Aspirin 81 mg Enteric Coated Tablet PO SCH (09:12)
[2023-06-04] MEDS ORDERED: Levothyroxine Sodium 112 MCG TAB PO SCH (11:00)
[2023-06-04] MEDS ORDERED: Dicyclomine 20 MG TAB PO SCH (11:15)
[2023-06-04] MEDS ORDERED: Hydrocodone-Acetamin 15 ML UDCUP PO SCH (11:15)
[2023-06-04] MEDS ORDERED: Venlafaxine HCl XR 150 MG CAP PO SCH ×2 (11:15→21:00)
[2023-06-04] MEDS: Ondansetron ODT 4 MG TAB PO PRN (12:39)
[2023-06-04] MEDS: Senokot S 8.6-50 MG TAB PO PRN (12:52)
[2023-06-04 15:09] LABS: INR-International Normal Ratio 1.2; PTT 24.9 sec (22.9-36.1); Prothrombin Time 15.2 sec (12.0-14.7)
[2023-06-04 15:10] LABS: D-Dimer Test 0.46 *mcg/mL (0.27-0.43)
[2023-06-04] MEDS: Dicyclomine 20 MG TAB PO SCH (20:26)
[2023-06-04] MEDS: Atorvastatin Calcium 40 MG TAB PO SCH (20:26)
[2023-06-04] MEDS ORDERED: Propranolol HCl 20 MG TAB PO SCH (21:00)
[2023-06-04] MEDS ORDERED: traZODone HCl 50 MG TAB PO SCH (21:00)
[2023-06-04] MEDS ORDERED: Gabapentin 300 MG CAP PO SCH (21:00)
[2023-06-04] MEDS ORDERED: carBAMazepine XR 200 mg ER.Tablet PO SCH (21:00)
[2023-06-04] MEDS: Hydrocodone-Acetamin 15 ML UDCUP PO SCH (21:38)
[2023-06-05] MEDS ORDERED: Levothyroxine Sodium 112 MCG TAB PO SCH (06:00)
[2023-06-05 06:01] LABS: #Basophils 0.1 thou/uL (0.0-0.2); #Eosinphils 0.2 thou/uL (0.0-0.7); #Monocytes 0.4 thou/uL (0.11-0.59); #Neutrophils 3.2 thou/uL (1.40-6.50); %Basophils 0.9 % (0.0-1.0); %Monocytes 7.6 % (0.0-10.0); %Neutrophils 57.5 % (42.0-75.0); Hematocrit 40.1 % (36.0-47.0); Hemoglobin 13.1 g/dL (12.0-16.0); Mean Corpuscular HGB CONC 32.7 g/dL (32.0-36.0); Mean Platelet Volume 10.1 fL (7.4-10.4); Platelet Count 197 10x3/uL (130-400); RBC Distribution Width 12.8 % (11.5-14.5); Red Blood Cell (RBC) Count 4.36 mill/uL (4.20-5.40); White Blood Cell (WBC) Count 5.5 10x3/uL (4.8-10.8)
[2023-06-05] MEDS: Hydrocodone-Acetamin 15 ML UDCUP PO SCH ×2 (06:46→15:45)
[2023-06-05 07:08] LABS: Anion Gap 11 mmol/L (10-20); BUN (Urea Nitrogen) 10 mg/dL (7.0-18.7); Calc. Creatinine Clearance 99 mL/min (70-130); Calcium 9.3 mg/dL (7.8-10.44); Carbon Dioxide 29 mmol/L (22-29); Chloride 105 mmol/L (98-107); Estimated GFR 109; Glucose 84 mg/dL (70-105); Potassium 3.8 mmol/L (3.5-5.1); Sodium 141 mmol/L (136-145)
[2023-06-05] MEDS ORDERED: Folic Acid 1 MG TAB PO SCH (09:00)
[2023-06-05] MEDS ORDERED: Colchicine 0.6 MG TAB PO PRN (09:00)
[2023-06-05] MEDS ORDERED: Multivitamin W/ Minerals 1 TAB PO SCH (09:00)
[2023-06-05] MEDS: Dicyclomine 20 MG TAB PO SCH (09:33)
[2023-06-05] MEDS: Clopidogrel Bisulfate 75 MG TAB PO SCH (09:34)
[2023-06-05] MEDS: Aspirin 81 mg Enteric Coated Tablet PO SCH (09:34)
[2023-06-05] MEDS: Senokot S 8.6-50 MG TAB PO PRN (12:48)
[2023-06-05] MEDS: Ondansetron ODT 4 MG TAB PO PRN (12:49)
[2023-06-05 15:38] VITALS: TEMP 98.1
[2023-06-05] MEDS ORDERED: hydrALAZINE 25 MG TAB PO SCH (16:15)
[2023-06-05 16:23] VITALS: BP 185/115
[2023-06-06 11:00] LABS: HEX PHOS LA Tube 2 32.4 SEC; Hexagonal Phospholipid Neut 3.6 SEC (0-8.0); Protein C Activity 81 % (78-152)
[2023-06-07 13:14] LABS: Cardiolipin IgA Ab 0.9 APL-U/mL (<14 Negative); Cardiolipin IgG Ab 1.1 GPL-U/mL (<10 Negative); Cardiolipin IgM Ab 1.8 MPL-U/mL (<10 Negative); EliA APS New Method **** NEW METHOD ****
== END 2023-06-05 17:44 | disposition home or self-care (01) ==
LOC: ERS 12:13 → 2SE 17:16
PROVIDERS: ADMIT Internal Medicine; ATTEND Physician Assistant
DX: R29.818 Other symptoms and signs involving the nervous system (principal); G43.909 Migraine, unspecified, not intractable, without status migrainosus; D64.9 Anemia, unspecified; I31.39 Other pericardial effusion (noninflammatory); I08.1 Rheumatic disorders of both mitral and tricuspid valves; E11.9 Type 2 diabetes mellitus without complications; E03.9 Hypothyroidism, unspecified; K21.9 Gastro-esophageal reflux disease without esophagitis; M19.90 Unspecified osteoarthritis, unspecified site; F32.A Depression, unspecified; I10 Essential (primary) hypertension; I49.5 Sick sinus syndrome; Z86.73 Personal history of transient ischemic attack (TIA), and cerebral infarction without residual deficits; Z86.718 Personal history of other venous thrombosis and embolism; Z95.0 Presence of cardiac pacemaker; Z91.041 Radiographic dye allergy status; Z88.5 Allergy status to narcotic agent; Z88.8 Allergy status to other drugs, medicaments and biological substances; Z91.09 Other allergy status, other than to drugs and biological substances; Z90.49 Acquired absence of other specified parts of digestive tract; Z90.710 Acquired absence of both cervix and uterus; Z79.890 Hormone replacement therapy; Z79.899 Other long term (current) drug therapy
CPT/HCPCS: 36415; 36416; 70450; 70496; 70498; 70551; 71045; 80048; 80053; 80061; 80306; 80307; 83036; 83090; 83690; 83735; 84439; 84443; 84484; 84703; 85025; 85300; 85303; 85305; 85307; 85379; 85598; 85610; 85730; 86147; 87040; 93005; 93306; 93970; 96374; 96375; G0378; J1200; J2405; J2920; Q0162; Q9967; S0028

== ENCOUNTER 2023-06-11 12:50 | Outpatient (CLI) | payer BC | END 2023-06-11 12:51 | disposition home or self-care (01) | LOC: MRI 12:50 | PROVIDERS: ATTEND Nurse Practitioner Family | DX: M51.16 Intervertebral disc disorders with radiculopathy, lumbar region (principal); M47.26 Other spondylosis with radiculopathy, lumbar region; M47.817 Spondylosis without myelopathy or radiculopathy, lumbosacral region | CPT/HCPCS: 72148 ==

== ENCOUNTER 2023-07-09 10:30 | Outpatient (CLI) | payer BC | END 2023-07-09 10:31 | disposition home or self-care (01) | LOC: RAD-FRANK 10:30 | PROVIDERS: ATTEND Nurse Practitioner Family | DX: M21.931 Unspecified acquired deformity of right forearm (principal) ==

== ENCOUNTER 2023-10-06 18:49 | Emergency (ER) | payer BC ==
[2023-10-06 21:25] LABS: #Basophils 0.1 thou/uL (0.0-0.2); #Eosinphils 0.3 thou/uL (0.0-0.7); #Monocytes 0.7 thou/uL (0.11-0.59); #Neutrophils 6.9 thou/uL (1.40-6.50); %Basophils 0.5 % (0.0-1.0); %Eosinophils 3.4 % (0.0-10.0); %Monocytes 7.5 % (0.0-10.0); %Neutrophils 69.4 % (42.0-75.0); Hematocrit 39.4 % (36.0-47.0); Hemoglobin 13.1 g/dL (12.0-16.0); Mean Corpuscular HGB CONC 33.2 g/dL (32.0-36.0); Mean Corpuscular Hemoglobin 30.2 pg (27.0-31.0); Mean Corpuscular Volume 90.8 fl (78.0-98.0); Platelet Count 195 10x3/uL (130-400); Red Blood Cell (RBC) Count 4.34 mill/uL (4.20-5.40); White Blood Cell (WBC) Count 9.9 10x3/uL (4.8-10.8)
[2023-10-06 21:56] LABS: ALT (SGPT) 56 U/L (8-55); AST (SGOT) 125 U/L (5-34); Albumin 3.6 g/dL (3.5-5.0); Alkaline Phosphatase 104 U/L (40-110); Anion Gap 10 mmol/L (10-20); BUN (Urea Nitrogen) 19 mg/dL (7.0-18.7); Bilirubin, Total 0.4 mg/dL (0.2-1.2); Calc. Creatinine Clearance 0 mL/min (70-130); Carbon Dioxide 25 mmol/L (22-29); Chloride 104 mmol/L (98-107); Estimated GFR 87; Globulin 2.1 g/dL (2.4-3.5); Glucose 88 mg/dL (70-105); Potassium 3.6 mmol/L (3.5-5.1); Protein, Total 5.7 g/dL (6.0-8.3); Sodium 135 mmol/L (136-145)
[2023-10-06 22:19] LABS: Carbamazepine-Tegretol 7.1 ug/mL (4.0-12.0)
[2023-10-06 23:45] LABS: Bacteria/HPF 4+ HPF (None Seen); Bilirubin Negative (Negative); Blood, Urine Negative (Negative); CAUTI Indications for Culture Alt mental st,lethar; Clarity Clear (Clear); Glucose, Urine (Dipstick) Normal (Negative); Ketone, Urine Negative (Negative); Leukocyte 75 Leu/uL (Negative); Nitrite Negative (Negative); Protein, Urine (Dipstick) Negative (Neg-Trace); RBC/HPF 0-3 HPF (0-3); Specific Gravity, Urine 1.019 (1.002-1.036); Squamous Epithelial None Seen HPF (0-3)
[2023-10-06 23:47] LABS: Amphetamine Not Detected (NotDetected); Barbiturates Screen Not Detected (NotDetected); Benzodiazepine Screen Not Detected (NotDetected); Cocaine Metabolite Screen Not Detected (NotDetected); Methadone Not Detected (NotDetected); Methamphetamine Not Detected (NotDetected); Opiate Screen Detected (NotDetected); Oxycodone Screen Not Detected (NotDetected); Phencyclidine (PCP) Not Detected (NotDetected); Pregnancy Test - Urine (BHCG) Negative (Negative); Pregu Control Background? CLEAR/WHITE (CLR/WHITE); Pregu Control Bar Appear? YES (CONTROL BAR); Specific Gravity 1.019 (1.002-1.036); THC/Cannabinoid Screen Not Detected (NotDetected); Tricyclic Screen Not Detected (NotDetected); Urine Culture Reflex Yes Yes
[2023-10-07] MEDS ORDERED: Dexamethasone 10 MG/ML VIAL ONE (00:24)
[2023-10-07] MEDS ORDERED: Acetaminophen 500 MG TAB ONE ×2 (00:24→00:25)
[2023-10-07] MEDS ORDERED: diphenhydrAMINE 50 MG/ML VIAL ONE (00:24)
[2023-10-07] MEDS ORDERED: Cephalexin 250 MG CAP ONE (00:24)
[2023-10-07] MEDS ORDERED: Ketorolac Tromethamine 30 MG (1 mL) VIAL ONE (00:25)
== END 2023-10-07 01:54 | disposition home or self-care (01) ==
LOC: ERS 18:49
DX: R56.9 Unspecified convulsions (principal); N39.0 Urinary tract infection, site not specified; I10 Essential (primary) hypertension; I25.2 Old myocardial infarction; Z86.73 Personal history of transient ischemic attack (TIA), and cerebral infarction without residual deficits; Z95.0 Presence of cardiac pacemaker
CPT/HCPCS: 36415; 70450; 71045; 72125; 80053; 80156; 80306; 81001; 81025; 85025; 87077; 87086; 96374; 96375; J1100; J1200; J1885

== ENCOUNTER 2023-10-18 10:12 | Day surgery (SDC) | payer BC ==
[2023-10-17 13:05] VITALS: BMI 19.3
[2023-10-18 12:27] LABS: #Basophils 0.1 thou/uL (0.0-0.2); #Eosinphils 0.4 thou/uL (0.0-0.7); #Monocytes 0.6 thou/uL (0.11-0.59); #Neutrophils 4.8 thou/uL (1.40-6.50); %Basophils 1.1 % (0.0-1.0); %Eosinophils 5.8 % (0.0-10.0); %Lymphocytes 20.5 % (21.0-51.0); %Monocytes 8.5 % (0.0-10.0); %Neutrophils 63.8 % (42.0-75.0); Hematocrit 44.7 % (36.0-47.0); Hemoglobin 14.7 g/dL (12.0-16.0); Mean Corpuscular HGB CONC 32.9 g/dL (32.0-36.0); Mean Corpuscular Hemoglobin 29.2 pg (27.0-31.0); Mean Corpuscular Volume 88.9 fl (78.0-98.0); Mean Platelet Volume 10.2 fL (7.4-10.4); Platelet Count 224 10x3/uL (130-400); RBC Distribution Width 12.1 % (11.5-14.5); Red Blood Cell (RBC) Count 5.03 mill/uL (4.20-5.40); White Blood Cell (WBC) Count 7.6 10x3/uL (4.8-10.8)
[2023-10-18] MEDS ORDERED: fentaNYL PF 100 MCG/2 ML SYRINGE ONE ×3 (12:42→15:10)
[2023-10-18] MEDS ORDERED: PROPOFOL 20 ML ONE ×2 (12:42→14:11)
[2023-10-18 12:49] LABS: ALT (SGPT) 80 U/L (8-55); AST (SGOT) 69 U/L (5-34); Albumin 4.3 g/dL (3.5-5.0); Alkaline Phosphatase 160 U/L (40-110); Anion Gap 16 mmol/L (10-20); BUN (Urea Nitrogen) 15 mg/dL (7.0-18.7); Bilirubin, Total 0.4 mg/dL (0.2-1.2); Calc. Creatinine Clearance 74 mL/min (70-130); Calcium 9.8 mg/dL (7.8-10.44); Carbon Dioxide 23 mmol/L (22-29); Chloride 104 mmol/L (98-107); Estimated GFR 90; Globulin 2.6 g/dL (2.4-3.5); Glucose 107 mg/dL (70-105); Potassium 3.4 mmol/L (3.5-5.1); Protein, Total 6.9 g/dL (6.0-8.3); Sodium 140 mmol/L (136-145)
[2023-10-18] MEDS ORDERED: Famotidine/PF 20 mg/2ml Vial ONE (12:58)
[2023-10-18] MEDS ORDERED: Midazolam HCl 2 mg/2 ml Vial ONE (12:58)
[2023-10-18] MEDS ORDERED: Ondansetron PF 4 MG/2 ML Vial ONE (13:00)
[2023-10-18] MEDS ORDERED: EPINEPHrine 1 MG/ML VIAL ONE (13:05)
[2023-10-18] MEDS ORDERED: Bacitracin Zinc Ointment 30 gm TUBE ONE (13:06)
[2023-10-18] MEDS ORDERED: Bupivacaine PF 0.5% 30 ML VIAL ONE (13:06)
[2023-10-18] MEDS ORDERED: CEFAZOLIN 2 GM VIAL ONE (13:19)
[2023-10-18] MEDS ORDERED: Sodium Chloride 0.9% 0 ML ONE (13:19)
[2023-10-18] MEDS ORDERED: cefOXitin 2 GM VIAL ONE (13:25)
[2023-10-18] MEDS ORDERED: SUCCINYLCHOLINE/SOD CL,ISO/PF 200 MG/10 ML SYRINGE FS ONE (13:37)
[2023-10-18] MEDS ORDERED: ePHEDrine Sulfate 50 MG/10 ML VIAL ONE (13:44)
[2023-10-18] MEDS ORDERED: Ketamine In 0.9 % NaCl 50 MG/5 ML SYRINGE ONE (13:45)
[2023-10-18] MEDS ORDERED: Dexamethasone 4 mg/ml Vial ONE (13:54)
[2023-10-18] MEDS ORDERED: Promethazine HCl 25 MG/ML VIAL ONE (15:10)
[2023-10-18] MEDS ORDERED: fentaNYL 50 mcg/mL 1 mL Vial ONE (16:07)
== END 2023-10-18 17:25 | disposition home or self-care (01) ==
LOC: SDC 10:12
PROVIDERS: ATTEND Surgery
PROC: 06BY0ZC Excision of Hemorrhoidal Plexus, Open Approach (ICD-10-PCS; principal; 2023-10-18)
DX: K64.2 Third degree hemorrhoids (principal); K60.2 Anal fissure, unspecified; I10 Essential (primary) hypertension; Z95.0 Presence of cardiac pacemaker; Z87.891 Personal history of nicotine dependence; Z90.89 Acquired absence of other organs; Z91.041 Radiographic dye allergy status; Z88.5 Allergy status to narcotic agent; Z88.8 Allergy status to other drugs, medicaments and biological substances; Z86.73 Personal history of transient ischemic attack (TIA), and cerebral infarction without residual deficits; Z79.899 Other long term (current) drug therapy
CPT/HCPCS: 80053; 85025; 88304; 93005; 93010; J0171; J0665; J0694; J1100; J1642; J2250; J2405; J2550; J2704; J3010; J3490; S0028

== ENCOUNTER 2024-05-29 20:16 | Observation (INO) | payer MEDICARE ==
[2024-05-29] MEDS ORDERED: fentaNYL 50 mcg/mL 1 mL Vial ONE (21:19)
[2024-05-29] MEDS ORDERED: CEFAZOLIN 2 GM VIAL ONE (21:19)
[2024-05-29] MEDS ORDERED: Sodium Chloride 0.9% 100 ML ONE (21:19)
[2024-05-29 21:26] LABS: #Basophils Less than 0.03 10x3/uL (0.0-0.2); %Basophils 0.3 % (0.0-1.0); %Eosinophils 1.3 % (0.0-10.0); %Lymphocytes 5.6 % (21.0-51.0); %Monocytes 6.2 % (0.0-10.0); %Neutrophils 86.4 % (42.0-75.0); Hematocrit 34.4 % (36.0-47.0); Hemoglobin 11.3 g/dL (12.0-16.0); Mean Corpuscular HGB CONC 32.8 g/dL (32.0-36.0); Mean Corpuscular Hemoglobin 29.7 pg (27.0-31.0); Mean Corpuscular Volume 90.3 fL (78.0-98.0); Mean Platelet Volume 10.2 fL (7.4-10.4); Platelet Count 151 10x3/uL (130-400); RBC Distribution Width 12.1 % (11.5-14.5); Red Blood Cell (RBC) Count 3.81 mill/uL (4.20-5.40)
[2024-05-29] MEDS ORDERED: Ondansetron PF 4 MG/2 ML Vial ONE (21:26)
[2024-05-29] MEDS ORDERED: Rabies Immune Globulin/PF 300 UNITS/ML VIAL ONE (21:35)
[2024-05-29] MEDS ORDERED: Rabies Vaccine Human 2.5 UNITS VIAL ONE (21:35)
[2024-05-29] MEDS ORDERED: diphenhydrAMINE 50 MG/ML VIAL ONE (21:36)
[2024-05-29] MEDS ORDERED: methylPREDNISolone Sod Succ 40 MG VIAL ONE (21:36)
[2024-05-29] MEDS ORDERED: Famotidine/PF 20 mg/2ml Vial ONE (21:36)
[2024-05-29] MEDS ORDERED: Ipratropium/Albuterol 3 ML NEB NEB PRN (21:49)
[2024-05-29] MEDS ORDERED: Morphine 2 MG/ML VIAL SLOW IVP PRN (21:49)
[2024-05-29] MEDS ORDERED: Ondansetron PF 4 MG/2 ML Vial IVP PRN (21:49)
[2024-05-29 21:55] LABS: ALT (SGPT) 34 U/L (8-55); AST (SGOT) 25 U/L (5-34); Albumin 3.7 g/dL (3.5-5.0); Alkaline Phosphatase 114 U/L (40-110); Anion Gap 11 mmol/L (10-20); BUN (Urea Nitrogen) 12 mg/dL (7.0-18.7); Bilirubin, Total 0.4 mg/dL (0.2-1.2); Calc. Creatinine Clearance 0 mL/min (70-130); Calcium 9.1 mg/dL (7.8-10.44); Carbon Dioxide 24 mmol/L (22-29); Chloride 107 mmol/L (98-107); Estimated GFR 107; Globulin 2.3 g/dL (2.4-3.5); Glucose 106 mg/dL (70-105); Potassium 3.3 mmol/L (3.5-5.1); Sodium 139 mmol/L (136-145)
[2024-05-29] MEDS ORDERED: Sodium Chloride 0.9% 1,000 ML IV SCH (22:00)
[2024-05-29] MEDS ORDERED: HYDROmorphone 0.5 MG/0.5 ML SYRINGE ONE (22:26)
[2024-05-29] MEDS ORDERED: Acetaminophen 325 MG TAB PO SCH (23:59)
[2024-05-30] MEDS ORDERED: Promethazine HCl 25 MG/ML VIAL ONE (00:29)
[2024-05-30] MEDS ORDERED: HYDROmorphone 0.5 MG/0.5 ML SYRINGE ONE (00:50)
[2024-05-30 01:47] VITALS: BMI 17.7
[2024-05-30] MEDS ORDERED: Electrolyte Replacement Protocol 1 EACH FS PRN (02:45)
[2024-05-30] MEDS ORDERED: Dicyclomine 20 MG TAB PO PRN (03:02)
[2024-05-30] MEDS ORDERED: tiZANidine HCl 4 MG TAB PO PRN (03:06)
[2024-05-30] MEDS ORDERED: hydrALAZINE 25 MG TAB PO PRN (03:09)
[2024-05-30] MEDS: Potassium Chloride 20 MEQ TAB PO SCH (03:45)
[2024-05-30] MEDS ORDERED: Potassium Chloride 20 MEQ TAB ONE (03:46)
[2024-05-30 04:04] LABS: #Basophils 0.03 10x3/uL (0.0-0.2); #Eosinophils Less than 0.03 10x3/uL (0.0-0.7); %Basophils 0.6 % (0.0-1.0); %Lymphocytes 4.9 % (21.0-51.0); %Monocytes 4.9 % (0.0-10.0); %Neutrophils 89.2 % (42.0-75.0); Hematocrit 33.6 % (36.0-47.0); Hemoglobin 11.3 g/dL (12.0-16.0); Mean Corpuscular HGB CONC 33.6 g/dL (32.0-36.0); Mean Corpuscular Hemoglobin 29.6 pg (27.0-31.0); Mean Platelet Volume 10.9 fL (7.4-10.4); Platelet Count 151 10x3/uL (130-400); RBC Distribution Width 12.1 % (11.5-14.5); Red Blood Cell (RBC) Count 3.82 mill/uL (4.20-5.40)
[2024-05-30 04:20] LABS: Anion Gap 10 mmol/L (10-20); BUN (Urea Nitrogen) 9 mg/dL (7.0-18.7); Calc. Creatinine Clearance 85 mL/min (70-130); Calcium 8.5 mg/dL (7.8-10.44); Carbon Dioxide 26 mmol/L (22-29); Chloride 105 mmol/L (98-107); Estimated GFR 109; Glucose 123 mg/dL (70-105); Potassium 3.3 mmol/L (3.5-5.1); Sodium 138 mmol/L (136-145)
[2024-05-30] MEDS ORDERED: Ondansetron PF 4 MG/2 ML Vial ONE (05:29)
[2024-05-30] MEDS ORDERED: Levothyroxine Sodium 125 MCG TAB ONE (05:29)
[2024-05-30] MEDS ORDERED: HYDROcodone/Acetaminophen 7.5/325 mg Tablet ONE (05:31)
[2024-05-30] MEDS: HYDROcodone/Acetaminophen 7.5/325 mg Tablet PO PRN (05:59)
[2024-05-30] MEDS: Levothyroxine Sodium 125 MCG TAB PO SCH (05:59)
[2024-05-30] MEDS: Ondansetron PF 4 MG/2 ML Vial IVP PRN (06:00)
[2024-05-30] MEDS ORDERED: Rabies Vaccine Human 2.5 UNITS VIAL IM ONE (06:38)
[2024-05-30] MEDS ORDERED: Linaclotide [Linzess] 290 MCG Capsule PO SCH (07:30)
[2024-05-30] MEDS ORDERED: Famotidine/PF 20 mg/2ml Vial SLOW IVP SCH (09:00)
[2024-05-30] MEDS: Sucralfate 1 GM TAB PO SCH (09:47)
[2024-05-30] MEDS: carBAMazepine XR 200 mg ER.Tablet PO SCH (09:59)
[2024-05-30] MEDS: CeleCOXIB 100 MG CAP PO SCH (09:59)
[2024-05-30] MEDS: Losartan 25 MG TAB PO SCH (10:00)
[2024-05-30] MEDS: Amoxicillin/Potassium Clav 875 MG TAB PO SCH (10:00)
[2024-05-30 17:47] VITALS: BP 133/86; TEMP 98.2
[2024-05-30] MEDS ORDERED: Atorvastatin Calcium 40 MG TAB PO SCH (21:00)
[2024-05-30] MEDS ORDERED: Venlafaxine HCl XR 150 MG CAP PO SCH (21:00)
[2024-05-30] MEDS ORDERED: Propranolol HCl 20 MG TAB PO SCH (21:00)
[2024-05-30] MEDS ORDERED: Docusate 100 MG CAP PO SCH (21:00)
== END 2024-05-30 17:35 | disposition home or self-care (01) ==
LOC: ERS 20:16 → ERHOLD 05-30 01:27 → 2NO 05-30 08:17
PROVIDERS: ADMIT Student in an Organized Health Care Education/Training Program; ATTEND Student in an Organized Health Care Education/Training Program
DX: S51.851A Open bite of right forearm, initial encounter (principal); L93.0 Discoid lupus erythematosus; G35 Multiple sclerosis; F31.9 Bipolar disorder, unspecified; F25.0 Schizoaffective disorder, bipolar type; G40.909 Epilepsy, unspecified, not intractable, without status epilepticus; G89.4 Chronic pain syndrome; I10 Essential (primary) hypertension; E03.9 Hypothyroidism, unspecified; K31.84 Gastroparesis; Z98.84 Bariatric surgery status; Z86.73 Personal history of transient ischemic attack (TIA), and cerebral infarction without residual deficits; Z91.041 Radiographic dye allergy status; Z88.5 Allergy status to narcotic agent; Z88.8 Allergy status to other drugs, medicaments and biological substances; Z98.1 Arthrodesis status; Z90.710 Acquired absence of both cervix and uterus; Z95.0 Presence of cardiac pacemaker; Z90.49 Acquired absence of other specified parts of digestive tract; W54.0XXA Bitten by dog, initial encounter; Z91.09 Other allergy status, other than to drugs and biological substances
CPT/HCPCS: 71260; 73090; 74177; 80048; 80053; 85025 ×2; 90375; 90675; 93005; 96376 ×2; G0378 ×2; J1170 ×2; J1200; J1642; J2405 ×2; J2550; J2919; J3010; J3490; Q9967

== ENCOUNTER 2024-06-01 12:48 | Emergency (ER) | payer MEDICARE ==
[2024-06-01] MEDS ORDERED: Rabies Vaccine Human 2.5 UNITS VIAL ONE (12:59)
== END 2024-06-01 13:26 | disposition home or self-care (01) ==
LOC: ERS 12:48
DX: S51.851D Open bite of right forearm, subsequent encounter (principal); I10 Essential (primary) hypertension; I25.2 Old myocardial infarction; K31.84 Gastroparesis; M32.9 Systemic lupus erythematosus, unspecified; G35 Multiple sclerosis; W54.0XXD Bitten by dog, subsequent encounter; Z23 Encounter for immunization; Z86.73 Personal history of transient ischemic attack (TIA), and cerebral infarction without residual deficits; Z95.0 Presence of cardiac pacemaker
CPT/HCPCS: 90471; 90675

== ENCOUNTER 2024-06-05 10:05 | Day surgery (SDC) | payer MEDICARE ==
[2024-06-05] MEDS ORDERED: Rabies Vaccine Human 2.5 UNITS VIAL ONE (10:18)
== END 2024-06-05 11:17 | disposition home or self-care (01) ==
LOC: ER/OP 10:05 → EDSTATUS 11:08 → ER/OP 11:17
PROVIDERS: ATTEND Emergency Medicine
DX: Z29.14 Encounter for prophylactic rabies immune globulin (principal)
CPT/HCPCS: 90675

== ENCOUNTER 2025-03-18 14:15 | Emergency (ER) | payer MEDICARE ==
[2025-03-18 15:16] LABS: #Basophils 0.04 10x3/uL (0.0-0.2); #Eosinophils 0.16 10x3/uL (0.0-0.7); #Monocytes 0.37 10x3/uL (0.11-0.59); #Neutrophils 2.04 10x3/uL (1.40-6.50); %Basophils 1.1 % (0.0-1.0); %Eosinophils 4.3 % (0.0-10.0); %Lymphocytes 29.0 % (21.0-51.0); %Monocytes 10.0 % (0.0-10.0); %Neutrophils 55.3 % (42.0-75.0); Hematocrit 33.9 % (36.0-47.0); Hemoglobin 10.6 g/dL (12.0-16.0); Mean Corpuscular Hemoglobin 26.4 pg (27.0-31.0); Mean Corpuscular Volume 84.5 fL (78.0-98.0); Platelet Count 193 10x3/uL (130-400); Red Blood Cell (RBC) Count 4.01 mill/uL (4.20-5.40); White Blood Cell (WBC) Count 3.69 10x3/uL (4.8-10.8)
[2025-03-18 15:32] LABS: ALT (SGPT) 12 U/L (Less than 34); AST (SGOT) 22 U/L (11-34); Albumin 3.5 g/dL (3.1-4.5); Alkaline Phosphatase 94 U/L (40-110); Anion Gap 11 mmol/L (10-20); BUN (Urea Nitrogen) 24 mg/dL (7.0-18.7); Bilirubin, Total 0.2 mg/dL (0.3-1.2); Calc. Creatinine Clearance 0 mL/min (70-130); Calcium 8.7 mg/dL (7.8-10.44); Carbon Dioxide 25 mmol/L (22-29); Chloride 104 mmol/L (98-107); Globulin 2.3 g/dL (2.4-3.5); Glucose 94 mg/dL (70-105); Potassium 3.7 mmol/L (3.5-5.1); Sodium 136 mmol/L (136-145)
[2025-03-18] MEDS ORDERED: Famotidine/PF 20 mg/2ml Vial ONE (15:43)
[2025-03-18] MEDS ORDERED: diphenhydrAMINE 50 MG/ML VIAL ONE (15:43)
[2025-03-18] MEDS ORDERED: Droperidol 5 MG/2 ML VIAL ONE ×2 (15:43→19:57)
[2025-03-18 16:00] LABS: INR-International Normal Ratio 1.2; PTT 25.9 sec (22.9-36.1); Prothrombin Time 15.2 sec (12.0-14.7)
[2025-03-18 16:08] LABS: Troponin I 0.014 ng/mL (< 0.028)
[2025-03-18 16:38] LABS: CAUTI Indications for Culture Alt mental st,lethar; Glucose, Urine (Dipstick) Normal (Negative); Leukocyte 75 Leu/uL (Negative); Protein, Urine (Dipstick) 10 mg/dL (Neg-Trace); RBC/HPF 0-3 HPF (0-3); Specific Gravity, Urine 1.021 (1.002-1.036)
[2025-03-18 16:39] LABS: Bacteria/HPF 1+ HPF (None Seen)
[2025-03-18 16:40] LABS: Urine Culture Reflex No No
[2025-03-18] MEDS ORDERED: cefTRIAXone (ROCEPHIN) 1 GM VIAL ONE (17:38)
== END 2025-03-18 21:04 | disposition home or self-care (01) ==
LOC: ERS 14:15
DX: N39.0 Urinary tract infection, site not specified (principal); R51.9 Headache, unspecified; F31.9 Bipolar disorder, unspecified; F44.81 Dissociative identity disorder; I10 Essential (primary) hypertension; E78.5 Hyperlipidemia, unspecified; E03.9 Hypothyroidism, unspecified; Z95.0 Presence of cardiac pacemaker; Z79.899 Other long term (current) drug therapy; Z79.890 Hormone replacement therapy; Z86.73 Personal history of transient ischemic attack (TIA), and cerebral infarction without residual deficits
CPT/HCPCS: 70450; 71275; 74177; 80053; 81001; 83605; 83880; 84484; 85025; 85610; 85730; 86850; 86900; 86901; 87040; 93005; J0696; J1200; J1308; J1790; J2919; 96361; 96365; 96375; 96376

== ENCOUNTER 2025-04-22 11:03 | Emergency (ER) | payer MEDICARE ==
[2025-04-22] MEDS ORDERED: Droperidol 5 MG/2 ML VIAL ONE (12:39)
[2025-04-22 12:46] LABS: #Basophils 0.06 10x3/uL (0.0-0.2); #Eosinophils 0.24 10x3/uL (0.0-0.7); #Monocytes 0.92 10x3/uL (0.11-0.59); #Neutrophils 4.99 10x3/uL (1.40-6.50); %Basophils 0.8 % (0.0-1.0); %Eosinophils 3.1 % (0.0-10.0); %Lymphocytes 19.6 % (21.0-51.0); %Monocytes 11.9 % (0.0-10.0); %Neutrophils 64.3 % (42.0-75.0); Hematocrit 32.8 % (36.0-47.0); Hemoglobin 9.9 g/dL (12.0-16.0); Mean Corpuscular Hemoglobin 25.6 pg (27.0-31.0); Mean Corpuscular Volume 85.0 fL (78.0-98.0); Platelet Count 181 10x3/uL (130-400); Red Blood Cell (RBC) Count 3.86 mill/uL (4.20-5.40); White Blood Cell (WBC) Count 7.75 10x3/uL (4.8-10.8)
[2025-04-22 13:06] LABS: ALT (SGPT) 28 U/L (Less than 34); AST (SGOT) 52 U/L (11-34); Albumin 3.5 g/dL (3.1-4.5); Alkaline Phosphatase 103 U/L (40-110); Anion Gap 9 mmol/L (10-20); BUN (Urea Nitrogen) 15 mg/dL (7.0-18.7); Bilirubin, Total 0.2 mg/dL (0.3-1.2); Calc. Creatinine Clearance 0 mL/min (70-130); Calcium 8.9 mg/dL (7.8-10.44); Carbon Dioxide 27 mmol/L (22-29); Chloride 104 mmol/L (98-107); Globulin 2.3 g/dL (2.4-3.5); Glucose 64 mg/dL (70-105); Potassium 3.9 mmol/L (3.5-5.1); Sodium 136 mmol/L (136-145)
== END 2025-04-22 15:00 | disposition home or self-care (01) ==
LOC: ERS 11:03
DX: R20.2 Paresthesia of skin (principal); E03.9 Hypothyroidism, unspecified; I10 Essential (primary) hypertension; I25.2 Old myocardial infarction; Z86.73 Personal history of transient ischemic attack (TIA), and cerebral infarction without residual deficits; Z55.6 Problems related to health literacy; Z86.711 Personal history of pulmonary embolism; Z79.899 Other long term (current) drug therapy
CPT/HCPCS: 70450; 80053; 82962; 84484; 85025; 93005; J1642; J1790; 36416; 96374

== ENCOUNTER 2025-06-25 13:17 | Emergency (ER) | payer MEDICARE ==
[2025-06-25] MEDS ORDERED: Iopamidol-370 76% 500 ML MDV (1 ML CHARGE) ONE (13:26)
[2025-06-25] MEDS ORDERED: diphenhydrAMINE 50 MG/ML VIAL ONE (14:25)
[2025-06-25] MEDS ORDERED: Famotidine/PF 20 mg/2ml Vial ONE (14:26)
[2025-06-25 14:27] LABS: #Basophils 0.05 10x3/uL (0.0-0.2); #Eosinophils 0.11 10x3/uL (0.0-0.7); #Monocytes 0.44 10x3/uL (0.11-0.59); #Neutrophils 4.52 10x3/uL (1.40-6.50); %Basophils 0.8 % (0.0-1.0); %Eosinophils 1.8 % (0.0-10.0); %Lymphocytes 17.8 % (21.0-51.0); %Monocytes 7.1 % (0.0-10.0); %Neutrophils 72.3 % (42.0-75.0); Hematocrit 28.0 % (36.0-47.0); Hemoglobin 8.6 g/dL (12.0-16.0); Mean Corpuscular Hemoglobin 25.4 pg (27.0-31.0); Mean Corpuscular Volume 82.6 fL (78.0-98.0); Platelet Count 254 10x3/uL (130-400); Red Blood Cell (RBC) Count 3.39 mill/uL (4.20-5.40); White Blood Cell (WBC) Count 6.24 10x3/uL (4.8-10.8)
[2025-06-25 14:46] LABS: ALT (SGPT) Less than 7 U/L (Less than 34); AST (SGOT) 21 U/L (11-34); Albumin 3.0 g/dL (3.1-4.5); Alkaline Phosphatase 81 U/L (40-110); Anion Gap 8 mmol/L (10-20); BUN (Urea Nitrogen) 11 mg/dL (7.0-18.7); Bilirubin, Total 0.2 mg/dL (0.3-1.2); Calc. Creatinine Clearance 0 mL/min (70-130); Calcium 8.5 mg/dL (7.8-10.44); Carbon Dioxide 27 mmol/L (22-29); Chloride 101 mmol/L (98-107); Globulin 2.4 g/dL (2.4-3.5); Glucose 76 mg/dL (70-105); Potassium 4.3 mmol/L (3.5-5.1); Sodium 132 mmol/L (136-145)
[2025-06-25 15:34] LABS: Bacteria/HPF 1+ HPF (None Seen); CAUTI Indications for Culture Dysuria,urgency,freq; Glucose, Urine (Dipstick) Normal (Negative); Leukocyte 250 Leu/uL (Negative); Protein, Urine (Dipstick) 20 mg/dL (Neg-Trace); RBC/HPF 0-3 HPF (0-3); Specific Gravity, Urine 1.029 (1.002-1.036); WBC/HPF Greater than 50 HPF (0-3)
[2025-06-25 15:35] LABS: Urine Culture Reflex Yes Yes
[2025-06-25] MEDS ORDERED: cefTRIAXone (ROCEPHIN) 1 GM VIAL ONE (17:16)
== END 2025-06-25 19:29 | disposition short-term general hospital (02) ==
LOC: ERS 13:17
DX: R55 Syncope and collapse (principal); S30.23XA Contusion of vagina and vulva, initial encounter; D64.9 Anemia, unspecified; N39.0 Urinary tract infection, site not specified; E03.9 Hypothyroidism, unspecified; I10 Essential (primary) hypertension; Z86.73 Personal history of transient ischemic attack (TIA), and cerebral infarction without residual deficits; Z79.02 Long term (current) use of antithrombotics/antiplatelets; Z79.890 Hormone replacement therapy; Z79.899 Other long term (current) drug therapy; W01.10XA Fall on same level from slipping, tripping and stumbling with subsequent striking against unspecified object, initial encounter
CPT/HCPCS: 70450; 71045; 72125; 74174; 80053; 81001; 84484; 85025; 87077; 87086; 93005; 94760; 96365; 96375; 99285; J0696; J1200; J1308; J2919; J3010; 87186; Q9967